=== PATIENT | female | born 1940 | race Caucasian/White ===

== ENCOUNTER 2018-07-28 11:14 | Emergency (ER) | payer OTHER ==
[2018-07-28] MEDS ORDERED: MORPHINE 2 MG/ML SYR ONE (12:26)
[2018-07-28 13:06] LABS: Absolute Lymphocytes (CBC) 1.4 K/uL (0.7-4.9); Absolute Monocytes 0.6 K/uL (0.1-1.3); Basophils % 0.8 % (0-1.3); Eosinophils % 4.1 % (0-4.4); Hematocrit 43.5 % (36.0-45.0); Lymphocytes % 17.1 % (15.3-44.8); Monocytes % 7.3 % (3.3-12.3)
--- NOTE | 2018-07-28 14:53 | EDPHYS ---
Physician Documentation [facility] Name: Fredis Diaz Age: 78 yrs Sex: Female : 1940 Arrival Date: 07/28/2018 Time: 11:16 Bed 20 Private MD: Roland Rodriguez V ED Physician Edil Lind HPI: 07/28 14:40 This 78 yrs old Female presents to ER via Wheelchair with complaints of Back kdr Pain. 14:40 The patient presents with pain that is chronic. The symptoms are located in the T7, T8 kdr and T9. Onset: The symptoms/episode began/occurred gradually. The pain does not radiate. Associated signs and symptoms: The patient has no apparent associated signs or symptoms. The problem was sustained when lifting heavy object. Modifying factors: The patient symptoms are alleviated by nothing, the patient symptoms are aggravated by any movement, bending. Severity of symptoms: At their worst the symptoms were mild, in the emergency department the symptoms are unchanged. The patient has not experienced similar symptoms in the past. The patient has been recently seen by a physician: the patient's primary care provider, The patient was sent from Dr. Rodriguez's office for further evaluation and possible transfer. Historical: - Allergies: 11:26 "something for my bladder"; aj1 - PMHx: 11:26 22 YRS AGO HAD CERVIAL CANCER; EDEMA TO LOWER EXTS; aj1 - Immunization history:: Adult Immunizations up to date. - Social history:: Smoking status: Patient/guardian denies using tobacco. - Ebola Screening: : No symptoms or risks identified at this time. ROS: 14:40 Constitutional: Negative for fever, chills, and weight loss, Eyes: Negative for injury, kdr pain, redness, and discharge, ENT: Negative for injury, pain, and discharge, Neck: Negative for injury, pain, and swelling, Cardiovascular: Negative for chest pain, palpitations, and edema, Respiratory: Negative for shortness of breath, cough, wheezing, and pleuritic chest pain, Abdomen/GI: Negative for abdominal pain, nausea, vomiting, diarrhea, and constipation, : Negative for injury, bleeding, discharge, and swelling, MS/Extremity: Negative for injury and deformity, Skin: Negative for injury, rash, and discoloration, Neuro: Negative for headache, weakness, numbness, tingling, and seizure activity. Psych: Negative for depression, anxiety, suicide ideation, homicidal ideation, and hallucinations, Allergy/Immunology: Negative for hives, rash, and allergies, Endocrine: Negative for neck swelling, polydipsia, polyuria, polyphagia, and marked weight changes, Hematologic/Lymphatic: Negative for swollen nodes, abnormal bleeding, and unusual bruising. 14:40 Back: Positive for decreased range of motion, pain at rest, pain with movement, of the T8, T9 and T10. Exam: 14:40 Constitutional: This is a well developed, well nourished patient who is awake, alert, kdr and in no acute distress. Head/Face: Normocephalic, atraumatic. Eyes: Pupils equal round and reactive to light, extra-ocular motions intact. Lids and lashes normal. Conjunctiva and sclera are non-icteric and not injected. Cornea within normal limits. Periorbital areas with no swelling, redness, or edema. Neck: Trachea midline, no thyromegaly or masses palpated, and no cervical lymphadenopathy. Supple, full range of motion without nuchal rigidity, or vertebral point tenderness. No Meningismus. Chest/axilla: Normal chest wall appearance and motion. Nontender with no deformity. No lesions are appreciated. Cardiovascular: Regular rate and rhythm with a normal S1 and S2. No gallops, murmurs, or rubs. Normal PMI, no JVD. No pulse deficits. Respiratory: Lungs have equal breath sounds bilaterally, clear to auscultation and percussion. No rales, rhonchi or wheezes noted. No increased work of breathing, no retractions or nasal flaring. Abdomen/GI: Soft, non-tender, with normal bowel sounds. No distension or tympany. No guarding or rebound. No evidence of tenderness throughout. Skin: Warm, dry with normal turgor. Normal color with no rashes, no lesions, and no evidence of cellulitis. MS/ Extremity: Pulses equal, no cyanosis. Neurovascular intact. Full, normal range of motion. Neuro: Awake and alert, GCS 15, oriented to person, place, time, and situation. Cranial nerves II-XII grossly intact. Motor strength 5/5 in all extremities. Sensory grossly intact. Cerebellar exam normal. Normal gait. Psych: Awake, alert, with orientation to person, place and time. Behavior, mood, and affect are within normal limits. Vital Signs: 11:26 BP 151 / 82; Pulse 97; Resp 18; Temp 98.3; Pulse Ox 99% on R/A; Weight 68.04 kg (R); aj1 Height 5 ft. 5 in. (165.10 cm) (R); Pain 8/10; 12:42 BP 155 / 70; Pulse 90; Resp 17; Temp 98.0(O); Pulse Ox 99% on R/A; mh5 13:49 BP 178 / 87; Pulse 92; Resp 18; Temp 97.9(O); Pulse Ox 99% on R/A; em 15:00 BP 165 / 85; Pulse 87; Resp 18; Pulse Ox 99% on R/A; Pain 9/10; em 15:55 BP 145 / 56; Pulse 78; Resp 18; Temp 98.8(O); Pulse Ox 97% on R/A; Pain 6/10; em 11:26 Body Mass Index 24.96 (68.04 kg, 165.10 cm) aj1 MDM: 14:35 Data reviewed: vital signs. ED course: have been waiting for neurosurgical consult from [facility]. Family now requests [facility]. 14:52 Patient medically screened. [facility] 07/28 12:32 Order name: CBC with Diff; Complete Time: 15:53 em 07/28 12:32 Order name: Chem 7; Complete Time: 15:53 em Administered Medications: 12:30 Drug: morphine 2 mg Route: IVP; Site: right antecubital; hb 12:53 Follow up: Response: No adverse reaction; Pain is decreased em 15:09 Drug: morphine 4 mg Route: IVP; Site: right antecubital; em 16:00 Follow up: Response: No adverse reaction; Pain is decreased em 16:24 Drug: Decadron - Dexamethasone 8 mg Route: IVP; Site: right antecubital; hb 16:35 Follow up: Response: No adverse reaction em Disposition: 07/28/18 14:52 Transfer ordered to [facility]. Diagnosis is Patholigic fracture of T8 with cord compression. - Reason for transfer: Higher level of care. - Accepting physician is David, Neurosurgery. - Condition is Fair. - Problem is an ongoing problem. - Symptoms are unchanged. Signatures: Dispatcher [employer] Lorri Zelaya RN RN aj1 Edil Lind MD MD kdr Prosper Ferguson, OBSTETRICAL NURSE OBSTETRICAL NURSE em Bev Hernandez, RN RN Corrections: (The following items were deleted from the chart) 16:42 14:52 07/28/2018 14:52 Transfer ordered to [facility]. Diagnosis is em Patholigic fracture of T8 with cord compression. Reason for transfer: Higher level of care. Accepting physician is David Neurosurgery. Condition is Fair. Problem is an ongoing problem. Symptoms are unchanged. kdr
--- NOTE | 2018-07-28 14:53 | ER ---
Nurse's Notes [facility] Name: Fredis Diaz Age: 78 yrs Sex: Female : 1940 Arrival Date: 07/28/2018 Time: 11:16 Bed 20 Private MD: Roland Rodriguez V Diagnosis: Patholigic fracture of T8 with cord compression Presentation: 07/28 11:23 Presenting complaint: Patient states: "I've had this pain in my back since April. I aj1 was trying to lift some very heavy things and then I hurt it again in May so I've been doing a lot of testing. Dr. Rodriguez said theres something by my spine, it looks like a tumor so they said they're going to send me by ambulance to [place]. Transition of care: patient was not received from another setting of care. Onset of symptoms was April 2018. Risk Assessment: Do you want to hurt yourself or someone else? Patient reports no desire to harm self or others. Initial Sepsis Screen: Does the patient meet any 2 criteria? No. Patient's initial sepsis screen is negative. Does the patient have a suspected source of infection? No. Patient's initial sepsis screen is negative. Care prior to arrival: None. 11:23 Method Of Arrival: Wheelchair aj1 11:23 Acuity: JOSE 3 aj1 Triage Assessment: 11:26 General: Appears in no apparent distress. comfortable, Behavior is calm, cooperative, aj1 appropriate for age. Pain: Complains of pain in back Pain currently is 8 out of 10 on a pain scale. Neuro: Level of Consciousness is awake, alert, obeys commands. Cardiovascular: Patient's skin is warm and dry. Respiratory: Airway is patent Respiratory effort is even, unlabored, Respiratory pattern is regular, symmetrical. Musculoskeletal: Range of motion: intact in all extremities. Historical: - Allergies: 11:26 "something for my bladder"; aj1 - PMHx: 11:26 22 YRS AGO HAD CERVIAL CANCER; EDEMA TO LOWER EXTS; aj1 - Immunization history:: Adult Immunizations up to date. - Social history:: Smoking status: Patient/guardian denies using tobacco. - Ebola Screening: : No symptoms or risks identified at this time. Screenin:58 Abuse screen: Denies threats or abuse. Nutritional screening: No deficits noted. em Tuberculosis screening: No symptoms or risk factors identified. Fall Risk None identified. Assessment: 11:58 General: Appears in no apparent distress. uncomfortable, Behavior is calm, cooperative, em anxious. Pain: Complains of pain in back Pain currently is 7 out of 10 on a pain scale. Pain began November Aggravated by repositioning, weight bearing. Neuro: Level of Consciousness is awake, alert, obeys commands, Oriented to person, place, time, situation, Denies paresthesias numbness. Cardiovascular: Patient's skin is warm and dry. Respiratory: Airway is patent Respiratory effort is even, unlabored, Respiratory pattern is regular, symmetrical. GI: Abdomen is flat. : No signs and/or symptoms were reported regarding the genitourinary system. Derm: Skin is intact, is healthy with good turgor, Skin is pink, warm \\T\\ dry. Musculoskeletal: Circulation, motion, and sensation intact. Range of motion: intact in all extremities, Denies. 12:15 Reassessment: I agree with previous assessment. hb 12:53 Reassessment: Patient appears in no apparent distress at this time. Patient and/or em family updated on plan of care and expected duration. Pain level reassessed. Patient is alert, oriented x 3, equal unlabored respirations, skin warm/dry/pink. Patient states feeling better. 14:00 Reassessment: Patient appears in no apparent distress at this time. Patient and/or em family updated on plan of care and expected duration. Pain level reassessed. Patient is alert, oriented x 3, equal unlabored respirations, skin warm/dry/pink. 15:00 Reassessment: Patient appears in no apparent distress at this time. Patient and/or em family updated on plan of care and expected duration. Pain level reassessed. Patient is alert, oriented x 3, equal unlabored respirations, skin warm/dry/pink. rates pain 9/10, provider notified, new medication orders received. 15:55 Reassessment: Patient appears in no apparent distress at this time. Patient and/or em family updated on plan of care and expected duration. Pain level reassessed. Patient is alert, oriented x 3, equal unlabored respirations, skin warm/dry/pink. rates pain 6/10 Patient states feeling better. Vital Signs: 11:26 BP 151 / 82; Pulse 97; Resp 18; Temp 98.3; Pulse Ox 99% on R/A; Weight 68.04 kg (R); aj1 Height 5 ft. 5 in. (165.10 cm) (R); Pain 8/10; 12:42 BP 155 / 70; Pulse 90; Resp 17; Temp 98.0(O); Pulse Ox 99% on R/A; mh5 13:49 BP 178 / 87; Pulse 92; Resp 18; Temp 97.9(O); Pulse Ox 99% on R/A; em 15:00 BP 165 / 85; Pulse 87; Resp 18; Pulse Ox 99% on R/A; Pain 9/10; em 15:55 BP 145 / 56; Pulse 78; Resp 18; Temp 98.8(O); Pulse Ox 97% on R/A; Pain 6/10; em 11:26 Body Mass Index 24.96 (68.04 kg, 165.10 cm) aj1 ED Course: 11:16 Patient arrived in ED. mr 11:18 Roland Rodriguez MD is Private Physician. mr 11:24 Triage completed. aj1 11:26 Arm band placed on Patient placed in an exam room. aj1 11:39 Prosper Ferguson LVN is Primary Nurse. em 11:44 Edil Lind MD is Attending Physician. kdr 11:58 Patient has correct armband on for positive identification. Placed in gown. Bed in low em position. Call light in reach. Side rails up X2. Adult w/ patient. Pulse ox on. NIBP on. 12:30 Inserted saline lock: 20 gauge in right antecubital area, using aseptic technique. em Blood collected. 13:08 called and spoke with Carmen at the [facility] for a potential transfer/ she will eb get a hold of the neurosurgeon forward air controller/air officer and call us back to consult with our ED doc. 14:30 initiated a transfer with Em at the [facility]. eb 14:47 connected the Neurosurgeon forward air controller/air officer from [facility] with ED doc for patient transfer eb consulation. 14:49 Called and cancelled consult with Carmen at the [facility] patients family request eb the patient be transferred to [facility]. 15:06 administrative approval given by Em Ross pending a bed/ [facility] has accepted the patient in transfer;. 15:30 pt going to [facility] per Em to the [facility] 17 bed [id number]/ report to eb be called to [phone]. 16:31 No provider procedures requiring assistance completed. Patient transferred, IV remains em in place. Administered Medications: 12:30 Drug: morphine 2 mg Route: IVP; Site: right antecubital; hb 12:53 Follow up: Response: No adverse reaction; Pain is decreased em 15:09 Drug: morphine 4 mg Route: IVP; Site: right antecubital; em 16:00 Follow up: Response: No adverse reaction; Pain is decreased em 16:24 Drug: Decadron - Dexamethasone 8 mg Route: IVP; Site: right antecubital; hb 16:35 Follow up: Response: No adverse reaction em Outcome: 14:52 ER care complete, transfer ordered by . kdr 16:31 Transferred by ground EMS to [facility], Transfer form completed. X-rays em sent w/ patient. 16:31 Condition: good 16:31 Instructed on the need for transfer, Demonstrated understanding of instructions. 16:42 Patient left the ED. em Signatures: Lorri Navarro RN RN Edil Garcia MD MD kdr Rivera, Mary mr Munoz, Edgar, SOURCE WATER PROTECTION SPECIALIST SOURCE WATER PROTECTION SPECIALIST em Bev Hernandez RN RN hb Martinez, Maria Franci Craven
[2018-07-28] MEDS ORDERED: MORPHINE 4 MG/ML SYR ONE (15:18)
[2018-07-28] MEDS ORDERED: DEXAMETHASONE 4 MG/ML VIAL ONE (16:28)
== END 2018-07-28 16:42 | disposition short-term general hospital (02) ==
LOC: ER 11:14
DX: M84.48XA Pathological fracture, other site, initial encounter for fracture (principal); Z85.41 Personal history of malignant neoplasm of cervix uteri; X50.0XXA Overexertion from strenuous movement or load, initial encounter
CPT/HCPCS: 36415; 80048; 85025; 96374; 96375; 99285; J2270

== ENCOUNTER 2019-10-16 01:56 | Emergency (ER) | payer OTHER ==
[2019-10-16] MEDS ORDERED: NA CHLORIDE 0.9% 1,000 ML ONE (02:23)
[2019-10-16 03:02] LABS: Albumin 3.3 g/dL (3.4-5.0); Bilirubin Direct 0.2 mg/dL (0-0.2); Bilirubin Total 0.5 mg/dL (0.2-1.0); Potassium 3.9 mmol/L (3.5-5.1); Protein, Total 6.1 g/dL (6.4-8.2)
--- NOTE | 2019-10-16 03:22 | ER ---
Nurse's Notes [facility] Name: Fredis Diaz Age: 79 yrs Sex: Female : 1940 Arrival Date: 10/16/2019 Time: 02:00 Bed 5 Private MD: Diagnosis: Dehydration Presentation: 10/15 02:11 Chief complaint: Patient states: Reports she started feeling dizzy and faint at about ea 1030 PM last night. States "I feel like I might be dehydrated, I haven't been drinking water". Coronavirus screen: Proceed with normal triage. Ebola Screen: No symptoms or risks identified at this time. Initial Sepsis Screen: Does the patient meet any 2 criteria? No. Patient's initial sepsis screen is negative. Does the patient have a suspected source of infection? No. Patient's initial sepsis screen is negative. Risk Assessment: Do you want to hurt yourself or someone else? Patient reports no desire to harm self or others. Onset of symptoms was October 16, 2019. 02:11 Method Of Arrival: Wheelchair ea 02:11 Acuity: JOSE 3 ea Historical: - Allergies: 02:15 "something for my bladder"; ea - PMHx: 02:15 EDEMA TO LOWER EXTS; 22 YRS AGO HAD CERVIAL CANCER; lymphoma; ea - Immunization history:: Adult Immunizations unknown. - Social history:: Patient/guardian denies using alcohol, street drugs, The patient lives with family, Smoking status: Patient denies any tobacco usage or history of. - Family history:: not pertinent. Screenin:13 Abuse screen: Denies threats or abuse. Nutritional screening: No deficits noted. ea Tuberculosis screening: No symptoms or risk factors identified. Fall Risk IV access (20 points). Assessment: 02:20 General: Appears in no apparent distress. Behavior is calm, cooperative, appropriate ea for age. Pain: Denies pain. Neuro: Level of Consciousness is awake, alert, obeys commands, Oriented to person, place, time, situation. Cardiovascular: Cardiovascular: Patient's skin is warm and dry. Respiratory: Airway is patent Respiratory effort is even, unlabored, Respiratory pattern is regular, symmetrical. Derm: Skin is pink, warm \\T\\ dry. 03:32 Reassessment: Patient and/or family updated on plan of care and expected duration. Pain ea level reassessed. Patient is alert, oriented x 3, equal unlabored respirations, skin warm/dry/pink. Discharge instruction given to patient, verbalized the understanding of instructions. Vital Signs: 02:11 Weight 63.5 kg; Height 5 ft. 8 in. (172.72 cm); ea 02:15 BP 171 / 86; Pulse 88; Resp 16; Pulse Ox 97% on R/A; ea 03:34 BP 142 / 69; Pulse 77; Resp 17; Temp 98; Pulse Ox 96% on R/A; rv 02:11 Body Mass Index 21.29 (63.50 kg, 172.72 cm) ea ED Course: 02:00 Patient arrived in ED. cl3 02:02 Brad Jeter RN is Primary Nurse. rv 02:06 Negin Gilliland MD is Attending Physician. ma2 02:13 Triage completed. ea 02:13 Patient has correct armband on for positive identification. Placed in gown. Bed in low ea position. Call light in reach. Side rails up X2. 02:14 Arm band placed on right wrist. Patient placed in an exam room, on a stretcher, on ea pulse oximetry. 02:16 Initial lab(s) drawn, by ne, sent to lab. Inserted saline lock: 18 gauge in right rv forearm, using aseptic technique. Blood collected. 02:16 EKG done, by ED staff, reviewed by Negin Gilliland MD. rv 03:34 IV discontinued, intact, bleeding controlled, No redness/swelling at site. Pressure rv dressing applied. 03:36 No provider procedures requiring assistance completed. rv Administered Medications: 02:30 Drug: NS 0.9% 1000 ml Route: IV; Rate: 1 bolus; Site: right forearm; rv 03:36 Follow up: IV Status: Completed infusion; IV Intake: 1000ml rv Intake: 03:36 IV: 1000ml; Total: 1000ml. rv Outcome: 03:21 Discharge ordered by . ma2 03:36 Discharged to home ambulatory. rv 03:36 Condition: improved 03:36 Discharge instructions given to patient, Instructed on discharge instructions, follow up and referral plans. Demonstrated understanding of instructions, follow-up care. 03:36 Patient left the ED. rv Signatures: Maggie Johnson RN RN ea Alzahri, Mohammad, MD MD ma2 Brad Jeter, RN RN osiris Alcantara, Kristel cl3
--- NOTE | 2019-10-16 03:22 | EDPHYS ---
Physician Documentation [facility] Name: Fredis Diaz Age: 79 yrs Sex: Female : 1940 Arrival Date: 10/16/2019 Time: 02:00 Bed 5 Private MD: ED Physician Negin Gilliland HPI: 10/15 03:20 This 79 yrs old Female presents to ER via Wheelchair with complaints of ma2 Dizziness. 03:20 The patient presents with lightheadedness. Onset: The symptoms/episode began/occurred ma2 gradually, 1 week(s) ago. Associated signs and symptoms: Pertinent negatives: agitation, blurred vision, diaphoresis, head injury, headache, palpitations, , seizure, syncope. Severity of symptoms: At their worst the symptoms were very mild in the emergency department the symptoms are unchanged. The patient has experienced similar episodes in the past. Historical: - Allergies: 02:15 "something for my bladder"; ea - PMHx: 02:15 EDEMA TO LOWER EXTS; 22 YRS AGO HAD CERVIAL CANCER; lymphoma; ea - Immunization history:: Adult Immunizations unknown. - Social history:: Patient/guardian denies using alcohol, street drugs, The patient lives with family, Smoking status: Patient denies any tobacco usage or history of. - Family history:: not pertinent. ROS: 03:20 Constitutional: Negative for fever, chills, and weight loss. ma2 03:20 All other systems are negative. Exam: 03:20 Constitutional: This is a well developed, well nourished patient who is awake, alert, ma2 and in no acute distress. Head/Face: Normocephalic, atraumatic. Eyes: Pupils equal round and reactive to light, extra-ocular motions intact. Lids and lashes normal. Conjunctiva and sclera are non-icteric and not injected. Cornea within normal limits. Periorbital areas with no swelling, redness, or edema. ENT: Nares patent. No nasal discharge, no septal abnormalities noted. Tympanic membranes are normal and external auditory canals are clear. Oropharynx with no redness, swelling, or masses, exudates, or evidence of obstruction, uvula midline. Mucous membranes moist. Neck: Trachea midline, no thyromegaly or masses palpated, and no cervical lymphadenopathy. Supple, full range of motion without nuchal rigidity, or vertebral point tenderness. No Meningismus. Chest/axilla: Normal chest wall appearance and motion. Nontender with no deformity. No lesions are appreciated. Cardiovascular: Regular rate and rhythm with a normal S1 and S2. No gallops, murmurs, or rubs. Normal PMI, no JVD. No pulse deficits. Respiratory: Lungs have equal breath sounds bilaterally, clear to auscultation and percussion. No rales, rhonchi or wheezes noted. No increased work of breathing, no retractions or nasal flaring. Abdomen/GI: Soft, non-tender, with normal bowel sounds. No distension or tympany. No guarding or rebound. No evidence of tenderness throughout. Neuro: Awake and alert, GCS 15, oriented to person, place, time, and situation. Cranial nerves II-XII grossly intact. Motor strength 5/5 in all extremities. Sensory grossly intact. Cerebellar exam normal. Normal gait. Vital Signs: 02:11 Weight 63.5 kg; Height 5 ft. 8 in. (172.72 cm); ea 02:15 BP 171 / 86; Pulse 88; Resp 16; Pulse Ox 97% on R/A; ea 03:34 BP 142 / 69; Pulse 77; Resp 17; Temp 98; Pulse Ox 96% on R/A; rv 02:11 Body Mass Index 21.29 (63.50 kg, 172.72 cm) ea MDM: 02:06 Patient medically screened. ma2 03:20 Differential diagnosis: generalized weakness, hypovolemia, near-syncope, vertigo. Data ma2 reviewed: vital signs, nurses notes. Counseling: I had a detailed discussion with the patient and/or guardian regarding: the historical points, exam findings, and any diagnostic results supporting the discharge/admit diagnosis, the presence of at least one elevated blood pressure reading (>120/80) during this emergency department visit, the need for outpatient follow up. Response to treatment: the patient's symptoms have markedly improved after treatment. 10/15 02:15 Order name: Basic Metabolic Panel; Complete Time: 03:16 ma2 10/15 02:15 Order name: Creatinine for Radiology; Complete Time: 03:16 ma2 10/15 02:15 Order name: Hepatic Function; Complete Time: 03:16 ma2 10/15 02:15 Order name: Lipase; Complete Time: 03:16 [facility] 10/15 02:28 Order name: Glucose, Ancillary Testing; Complete Time: 03:16 [facility] 10/15 02:15 Order name: IV Saline Lock; Complete Time: 02:16 [facility] 10/15 02:15 Order name: Labs collected and sent; Complete Time: 02:16 [facility] Administered Medications: 02:30 Drug: NS 0.9% 1000 ml Route: IV; Rate: 1 bolus; Site: right forearm; rv 03:36 Follow up: IV Status: Completed infusion; IV Intake: 1000ml rv Disposition: 10/16/19 03:21 Discharged to Home. Impression: Dehydration. - Condition is Stable. - Discharge Instructions: Dehydration, Adult. - Medication Reconciliation Form, Thank You Letter, Antibiotic Education, Prescription Opioid Use form. - Follow up: Private Physician; When: Today; Reason: Continuance of care. Signatures: Dispatcher [employer] Maggie Newman RN RN ea Alzahri, Mohammad, MD MD [facility] Brad Jeter RN RN rv Corrections: (The following items were deleted from the chart) 03:36 03:21 10/16/2019 03:21 Discharged to Home. Impression: Dehydration. Condition is rv Stable. Forms are Medication Reconciliation Form, Thank You Letter, Antibiotic Education, Prescription Opioid Use. Follow up: Private Physician; When: Today; Reason: Continuance of care. pr2
[2019-10-16 03:44] VITALS: BP 142/69; TEMP 98; O2SAT 96
--- NOTE | 2019-10-16 16:13 | EKG ---
Test Date: 2019-10-16 Test Time: 02:14:28 Hooker Operator: KAREN MEASUREMENT RESULTS: Intervals: Rate: 87 AR: 154 QRSD: 90 QT: 364 QTc: 438 [place]: P: 46 AR: 154 QRS: 40 T: 53 INTERPRETIVE STATEMENTS: Normal sinus rhythm Normal ECG Compared to ECG 03/26/2016 21:45:54 Sinus arrhythmia no longer present Electronically Signed On 10-16-19 16:13:00 CDT by Carlos Leiva
== END 2019-10-16 03:36 | disposition home or self-care (01) ==
LOC: ER 01:56
DX: E86.0 Dehydration (principal); Z85.41 Personal history of malignant neoplasm of cervix uteri; Z85.72 Personal history of non-Hodgkin lymphomas
CPT/HCPCS: 93005; 80048; 82947; 80076; 83690; J7030

== ENCOUNTER 2020-04-26 15:19 | Emergency (ER) | payer OTHER ==
--- OUTSIDE RECORDS SUMMARY | 2020-04-26 15:20 | XMS REPORT | Clinical Summary ---
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 Never 07/28/2018 How many drinks containing alcohol do you have on a typical Not asked day when you are drinking? How often do you have six or more drinks on one occasion? No t asked Sex Assigned at Date Recorded Not on file Last Filed Vital Signs Not on file Plan of Treatment Health Maintenance Due Date Last Done Comments SHINGLES VACCINES (#1) 1992 65+ PNEUMOCOCCAL VACCINE (1 of 1 - PPSV23) 2007 INFLUENZA VACCINE 01/26/2020 Implants Implanted Type Area Human Resources Records Clerk Device Shelf Model / Identifier Expiration Serial / Date Lot Tray Bpsy Sys Oncontrol 152mm - [id number] Surgical VIDACAR E ASYA [id number] / Implanted: Qty: 1 on 07/31/2018 at [facility] Implants; / Expanders; Extenders; Surgical Wires Results Not on fileafter 04/26/2019 Insurance Payer Benefit Plan / Subscriber ID Effective Dates Phone Addre ss Type Group MEDICARE MEDICARE PART A AND [id number] 2007-Fareed [place] Medicare B t RENATA YANEZ [facility] [id number] 2017-Fareed day Advance Directives For more information, please contact: [phone] Type Date Recorded Patient Side Panel Padder Explanati on Advance Directives, Living Will and Medical Power of Software Support Technician
--- OUTSIDE RECORDS SUMMARY | 2020-04-26 15:21 | XMS REPORT | Summary of Care ---
:1940 Author Organization [facility] - [facility] Address [address] [place] [address] Care Team Providers Name Role Phone David Jones Primary Care Provider Reason for Visit Reason Comments LAB WORK Auth/Cert Status Reason Specialty Diagnoses / Referred By Referred To Procedures Contact Contact Clinical Medical Diagnoses covid screening Adc Lab Laboratory Procedures COVID-19 (ID NOW RAPID TESTING) COVID-19 (ID NOW RAPID TESTING) [[id number]] [address] [place] [address] Encounter Details Date Type Department Care Team Description 03/25/2020 Laboratory Only [facility] Francis Navarro MD [address] [place] [phone] Pre-operative Phlebotomy Only, [facility] Test clearance (Primary Lab-[place]x) [address] [place] [address] Allergies No Known Allergiesdocumented as of this encounter (statuses as of 03/25/2020) Medications Medication Sig Dispensed Refills Start Date End Date Status multivitamin with Take by mouth. 0 Active minerals (MULTI-VIT 55 PLUS ORAL) mirabegron (MYRBETRIQ Take 25 mg by 0 Active ORAL) mouth. multivit-min/iron/folic/ Take by mouth. 0 Active lutein (CENTRUM SILVER WOMEN ORAL) vitamin B complex/folic Take by mouth. 0 Active acid (B COMPLEX 100 ORAL) apixaban (ELIQUIS ORAL) Take by mouth. 0 Active documented as of this encounter (statuses as of 03/25/2020) Active Problems Not on filedocumented as of this encounter (statuses as of 03/25/2020) Social History Tobacco Use Types Packs/Day Years Used Date Never Smoker Smokeless Tobacco: Never Used Sex Assigned at Date Recorded Not on file COVID-19 Exposure Response Date Recorded In the last month, have you been in contact with No / Unsure 03/21/2020 11:30 AM CDT someone who was confirmed or suspected to have Coronavirus / COVID-19? documented as of this encounter Last Filed Vital Signs Not on filedocumented in this encounter Nursing Notes Sherine Avendano - 03/25/2020 9:45 AM CDTcovid documented in this encounter Plan of Treatment Date Type Specialty Care Team Description 03/26/2020 Hospital Encounter Surgery Francis Navarro MD [address] [place] [facility] [phone] 03/26/2020 Anesthesia Event Surgery Jeri Gonzalez, TRAILER PARK MANAGER [address] [place] [address] [phone] 03/26/2020 Surgery Surgery Francis Navarro PHACOEMULSI FICATION OF MD Mercedes CATARACT WITH INTRAOCULAR [address] [facility] [address] [phone] Name Type Priority Associated Diagnoses Order S yang COVID-19 (ID NOW RAPID LAB Routine Pre-operative mario dykes Expected: 03/25/2020, TESTING) Expires: 2020 Health Maintenance Due Date Last Done Comments Depression Screening 1954 DTaP,Tdap,and Td Vaccines (1 - Tdap) 1961 Zoster Recombinant Vaccine (SHINGRIX) (1 of 2) 1992 Medicare Wellness Visit 2007 Osteoporosis Screening 2007 PNEUMOCOCCAL VACCINES 65+ (1 of 1 - PPSV23) 2007 INFLUENZA VACCINE (#1) 2020 documented as of this encounter Results Not on filedocumented in this encounter Visit Diagnoses Diagnosis Pre-operative clearance - Primary Preoperative examination, unspecified 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 Medicare & B t 82 [id number] [place] [address] AETNA AETNA INDEMNITY [id number] 2017-Fareed day documented as of this encounter
--- OUTSIDE RECORDS SUMMARY | 2020-04-26 15:21 | XMS REPORT | Summary of Care ---
:1940 Author Organization [facility] - [facility] Address [address] [place] [address] Care Team Providers Name Role Phone David Jones Primary Care Provider Reason for Visit Reason Comments LAB WORK Auth/Cert Status Reason Specialty Diagnoses / Referred By Referred To Procedures Contact Contact Clinical Medical Diagnoses covid Adc Lab Laboratory Procedures COVID-19 (ID NOW RAPID TESTING) COVID-19 (ID NOW RAPID TESTING) [[id number]] [address] [place] [address] Encounter Details Date Type Department Care Team Description 04/08/[address] Laboratory [address] [facility] Francis Navarro MD [address] [place] [phone] Pre-operative Phlebotomy Only, [facility] Test clearance (Primary Lab-[place]x) [address] [place] [address] Allergies No Known Allergiesdocumented as of this encounter (statuses as of 04/08/2020) Medications Medication Sig Dispensed Refills Start Date [...] as of this encounter (statuses as of 04/08/2020) Active Problems Not on filedocumented as of this encounter (statuses as of 04/08/2020) Social History Tobacco Use Types Packs/Day Years Used Date Never Smoker Smokeless Tobacco: Never Used Sex Assigned at Date Recorded Not on file COVID-19 Exposure Response Date Recorded In the last month, have you been in contact with No / Unsure 04/08/2020 9:19 AM CDT someone who was confirmed or suspected to have Coronavirus / COVID-19? documented as of this encounter Last Filed Vital Signs Not on filedocumented in this encounter Plan of Treatment Date Type Specialty Care Team Description 04/09/2020 Hospital Encounter Surgery Francis Navarro MD [address] [place] [address] 04/09/2020 Anesthesia Event Surgery Shankar Resendez C [address] [phone] 04/09/2020 Surgery Surgery Francis Navarro PHACOEMULSI FICATION OF MD Mercedes CATARACT WITH INTRAOCULAR [address] [place] [address] [phone] Name Type Priority Associated Diagnoses Date/Ti me COVID-19 (ID NOW RAPID LAB Routine Pre-operative mario jania 04/08/2020 9:26 AM CDT TESTING) Name Type Priority Associated Diagnoses Order S chedule COVID-19 (ID NOW RAPID LAB Routine Pre-operative mario jania Expected: 04/08/2020, TESTING) Expires: 2020 Health Maintenance Due Date Last Done Comments DTaP,Tdap,and Td Vaccines (1 - Tdap) 1961 Zoster Recombinant Vaccine (SHINGRIX) (1 of 2) 1992 Medicare Wellness Visit 2007 Osteoporosis Screening 2007 PNEUMOCOCCAL VACCINES 65+ (1 of 1 - PPSV23) 2007 INFLUENZA VACCINE (#1) 2020 Depression Screening 03/26/2021 03/26/2020 documented as of this encounter Implants Implanted Type Area Yard Hostler Device Shelf Model / Identifier Expiration Date Ser ial / Lot Lens, Nagi #[id number] - [id number] LENS Right: Nagi 03/26/2024 [id number] / Implanted: Qty: 1 on 03/26/2020 by Francis Muro MD at [facility] Eye 1 [id number] / N/A documented as of this encounter Results Not on filedocumented in this encounter Visit Diagnoses Diagnosis Pre-operative clearance - Primary Preoperative examination, unspecified Combined forms of age-related cataract o f left eye Other and combined forms of senile catar act documented in this encounter Additional Health Concerns Infection Onset Date Last Indicated Resolved Time COVID-19 Rule Out 04/08/2020 04/08/2020 documented as of this encounter Insurance Payer Benefit Plan / Subscriber ID Effective Dates Phone Addre ss Type Group MEDICARE MEDICARE PART A [id number] 2007-Fareed [phone] [address] Medicare & B t 82 [id number] [place] [address] AETNA AETNA INDEMNITY [id number] 2017-Fareed [place] t documented as of this encounter
--- OUTSIDE RECORDS SUMMARY | 2020-04-26 15:21 | XMS REPORT | Summary of Care ---
:1940 Author Organization [facility] - [facility] Address [address] [place] [address] Care Team Providers Name Role Phone David Jones Primary Care Provider Reason for Visit Auth/Cert Status Reason Specialty Diagnoses / Procedures Referred By David ontact Referred To Contact Surgery Diagnoses Combined forms of age-related cataract, right eye H25.811 (ICD-10-CM) - Combined forms of age-related cataract, right eye Adc Pre/Pacu/Post Procedures [place] XCAPSL CTRC RMVL INSJ IO LENS PROSTH W/O ECP 10249 - [place] XCAPSL CTRC RMVL INSJ IO LENS PROSTH W/O ECP [address] [place], [place] [address] Phone: Fax: Encounter Details Date Type Department Care Team Description 03/26/[address] [facility] [address] [facility] [address] smith [address] [place] [address] [place] [address] [employer] [place] [employer] [place] [phone] Allergies No Known Allergiesdocumented as of this encounter (statuses as of 03/26/2020) Medications Medication Sig Dispensed Refills Start Date [...] as of this encounter (statuses as of 03/26/2020) Active Problems Not on filedocumented as of this encounter (statuses as of 03/26/2020) Social History Tobacco Use Types Packs/Day Years Used Date Never Smoker Smokeless Tobacco: Never Used Sex Assigned at Date Recorded Not on file COVID-19 Exposure Response Date Recorded In the last month, have you been in contact with No / Unsure 03/26/2020 10:12 AM CDT someone who was confirmed or suspected to have Coronavirus / COVID-19? documented as of this encounter Last Filed Vital Signs Vital Sign Reading Time Taken Comments Blood Pressure 159/72 03/26/2020 12:40 PM CDT Pulse 75 03/26/2020 12:40 PM CDT Temperature 36.7 C (98.1 F) 03/26/2020 12:40 PM CDT Respiratory Rate 19 03/26/2020 12:40 PM CDT Oxygen Saturation 94% 03/26/2020 12:40 PM CDT Inhaled Oxygen Concentration - - Weight 64.9 kg (143 lb 1.3 oz) 03/24/2020 12:16 PM CDT Height 165.1 cm (5' 5") 03/24/2020 12:16 PM CDT Body Mass Index 23.81 03/24/2020 12:16 PM CDT documented in this encounter Discharge Instructions InstructionsMarJose dodge RN - 03/26/2020Procedure: Phacoemulsification with intraocular lens implant Dr. Navarro Post Operative Cataract Instructions: ? With phacoemulsification and foldable lens implants, surgical incisions are very small and suturesmay not be necessary. ? Tape the eye shield on the operative eye on the day of surgery and whenever you nap or sleep at night for 1 week. ? The eye will be more comfortable if you wear protective sunglasses while outside. ? Do not lay on the operative side and put unnecessary pressure on the eye. ? It is okay to take Tylenol if needed for pain. Call your doctor if there is any undue eye discomfort. ? You may resume your normal diet and medications. ? You may experience a scratchy/ itchy sensation in the eye for a couple of days. Let the eye waternaturally and avoid rubbing or pressing on the eye. ? You may wear the eye shield over the operative eye while showering or bathing as a reminder not torub the eye. ? Your vision may be foggy or fluctuate in the early postoperative period. This is normal and generally will clear up in a few days. ? Limit your activities to light duty for the first week after surgery. Avoid any activity that puts pressure on the eye No pushing, pulling, bending at the waist, lifting, straining, jogging, running or swimming. You may watch TV, read or use the computer but you may find that this tires your eyes easily. ? You may gently clean your eyelids of debris or discharge with tissue and water if needed. Please remember to be gentle with your eye it has a lens implant in it! ? Please notify your doctor if you have any significant change to your vision or significant eye pain. ? Your follow-up appointment should be the following day after your surgery. What are some reasons I should contact the doctor? ? Nausea, vomiting and fatigue may occur for a few hours after surgery. If this lasts more than 12 hours, contact your doctor. ? Vision Loss ? Pain that persists despite the use of enja-gwa-qorgpkk pain medications ? Increase eye redness ? Light flashes or multiple spots (floaters) in front of your eye Contact Information After Hours: [facility] Access Line [phone] General Surgical Discharge Instructions: ? The medication that was used will be acting in your system for the next 24 hours, so you might feel a little drowsy, with impaired judgment and/ or motor function. This feeling should wear off. Because the medication is still in your system for the next 24 hours you SHOULD NOT: o Drive a car, operate machinery or power tools. o Drink any alcoholic beverages. o Make any important decisions or sign any legal documents. ? You should rest the remainder of the day and not engage in any physical activity. YOU ARE RESPONSIBLE FOR HAVING SOMEONE AT HOME WITH YOU DURING THE AFTERNOON AND NIGHT IMMEDIATELY FOLLOWING YOUR SURGERY. Patients should cough and deep breathe every 2-4 hours while awake to avoid respiratory complications. ? Because the medications used could produce some residual nausea and vomiting after you go home, you should eat lightly today, starting with clear liquids (broth, soft drinks, apple juice, jello) and toast or crackers, progressing to your normal diet as tolerated. If you get sick, wait a couple of hours and then begin to eat. After 24 hours the nausea should be gone. If your nausea persists, callyour physician. ? You may experience some pain and your physician will advise you on what to take for discomfort. This should be taken as directed. If the pain is not relieved, contact your physician. You may also have a sore throat from the airway/ breathing tube that was in place. You may use lozenges, throat spray (Chloraseptic), or warm salt water gargles for symptomatic relief. ? If you are unable to urinate within five hours after your procedure, call your physician. ? The type of surgery performed will determine how much bleeding (if any) to expect. Normally, somespotting might occur. If your dressing pad become saturated, notify your physician. Elevate surgical site, if applicable, to reduce swelling and pain. ? Preventing a surgical site infection: o Dont smoke. It is best to quit at least 30 days before surgery, but quitting after surgery is also helpful. o If you are a diabetic, keep your blood sugar well controlled. WASH YOUR HANDS. o Keep your wound clean and remember to wash your hands before and after contact with the area. o Call your doctor if you have signs of infection: ? increased tenderness at the surgical site ? red streaks or increased redness of the area ? bad-smelling discharge from the incision ? fever of 101 or higher TOBACCO AVOIDANCE Exposure to tobacco either from smoking or from second hand (environmental)smoke or smokeless tobacco (snuff) is damaging to your health. This information is to encourage everyone to avoid tobacco exposure. It is recommended that you: If you smoke or use smokeless tobacco, we encourage you to quit. If you have already quit smoking, continue your good work! If you do not smoke or use smokeless tobacco, do not start. Avoid secondhand smoke. Additional Resources: You may want to contact these organizations for further information on smoking and how to quit- [place] [employer] - http://www.lungusa.org/stop-smoking/ [place] [employer] - http://www.cancer.org/Healthy/StayAwayfromTobacco/index [place] [employer] - http://www.heart.org/HEARTORG/GettingHealthy/QuitSmoking/Quit-Smoking _[facility]_001085_SubHomePage.jsp documented in this encounter H&P Notes Francis Navarro MD - 03/26/2020 11:54 AM CDTH&P Update H&P was reviewed and the patient was examined and there was no change in the patient's condition. documented in this encounter Plan of Treatment Health Maintenance Due Date Last Done Comments DTaP,Tdap,and Td Vaccines (1 - Tdap) 1961 Zoster Recombinant Vaccine (SHINGRIX) (1 of 2) 1992 Medicare Wellness Visit 2007 Osteoporosis Screening 2007 PNEUMOCOCCAL VACCINES 65+ (1 of 1 - PPSV23) 2007 INFLUENZA VACCINE (#1) 2020 Depression Screening 03/26/2021 03/26/2020 documented as of this encounter Implants Implanted Type Area Auto Job Estimator Device Shelf Model / Identifier Expiration Date Ser ial / Lot Lens, Nagi #[id number] - [id number] LENS Right: Nagi 03/26/2024 [id number] / Implanted: Qty: 1 on 03/26/2020 by Francis Muro MD at [facility] Eye 1 [id number] / N/A documented as of this encounter Results Not on filedocumented in this encounter Visit Diagnoses Diagnosis Cataract, nuclear sclerotic senile, righ t - Primary documented in this encounter Administered Medications Medication Order MAR Action Action Date Dose Rate Site balanced salt irrig soln comb1 Given 03/26/2020 12:12 PM CDT 500 mL (BSS PLUS) ophthalmic solution 500 mL bag PRN, Starting 03/26/20 at 1212, Until Discontinued, Routine, Intra-op carbachoL (MIOSTAT) 0.01 % intraocular Given 03/26/2020 12:15 PM CDT 1.5 mL injection PRN, Starting Tue03/26/20 at 1215, Until Discontinued, Routine, Intra-op ceFAZolin (ANCEF) injection Given 03/26/2020 12:15 PM CDT 0.02 mg Righ t Eye PRN, Starting Tue03/26/20 at 1215, Until Discontinued, NATALYA, Intra-op dexamethasone (DECADRON PHOSPHATE) Given 03/26/2020 12:15 PM CDT 0.3 mL Right Eye injection PRN, Starting Tue03/26/20 at 1215, Until Discontinued, Routine, Intra-op DUOVISC (DUOVISC VISCO ELASTIC) 3 %-4 %(0.5 Given 03/26/2020 12:16 PM CDT 1 Kit mL) 1 % (0.55 mL) intraocular injection PRN, Starting Tue03/26/20 at 1216, Until Discontinued, Routine, Intra-op EPINEPHrine 1:1,000 (1 mg/mL) Given 03/26/2020 12:13 PM CDT 0.5 mL Right Eye (ADRENALIN) injection PRN, Starting Tue03/26/20 at 1213, Until Discontinued, Routine, Intra-op eye block syringe 11 mL Given 03/26/2020 12:01 PM CDT 7 mL PRN, Starting Tue03/26/20 at 1201, Until Discontinued, Intra-op gentamicin injection Given 03/26/2020 12:16 PM CDT 0.2 mL Righ t Eye PRN, Starting Tue03/26/20 at 1216, Until Discontinued, NATALYA, Intra-op Hyaluronidase, Human Recomb. Given 03/26/2020 12:01 PM CDT 150 U nits Right Eye (HYLENEX) injection PRN, Starting Tue03/26/20 at 1201, Until Discontinued, Routine, Intra-op lactated ringers IV infusion 1,000 mL at 42 mL/hr, 1,000 mL, IV Infusion, CONT INUOUS, Starting Tue03/26/20 at 1300, Until Discontinued, Routine, PACU bmzqrecv-xvwohunus-amatbnppnbxnc (MAXITROL) Given 02/27 12:18 PM 0.5 Inches 3.5 mg/g-10,000 unit/g-0.1 % ophthalmic CDT ointment PRN, Starting Tue03/26/20 at 1218, Until Discontinued, Routine, Intra-op sodium chloride (NS) injection Given 03/26/2020 12:15 PM CDT 10 mL Righ t Eye PRN, Starting Tue03/26/20 at 1215, Until Discontinued, Routine, Intra-op water for irrigation irrigation Given 03/26/2020 11:53 AM CDT 30 mL Right Eye solution PRN, Starting Tue03/26/20 at 1153, Until Discontinued, Routine, Intra-op Medication Order MAR Action Action Date Dose Rate Site lactated ringers IV infusion New Bag 03/26/2020 10:17 AM CDT 1,000 mL 50 mL/hr 500 mL at 50 mL/hr, 500 mL, IV Infusion, ONCE, 1 dose, Tue03/26/20 at 1015, Routine, DSU Pre-op mydriatic #5 ophthalmic solution 0.5 mL Given 03/26/2020 10:17 A M CDT 0.5 mL syringe 0.5 mL, Right Eye, ONCE, 1 dose, Tue03/26/20 at 1100, Routine, DSU Pre-op documented in this encounter Insurance Payer Benefit Plan / Subscriber ID Effective Dates Phone Addre ss Type Group MEDICARE MEDICARE PART A [id number] 2007-Fareed [phone] [address] Medicare & B t 82 [id number] [place] [phone] AETNA AETNA INDEMNITY [id number] 2017-Fareed day documented as of this encounter
--- OUTSIDE RECORDS SUMMARY | 2020-04-26 15:21 | XMS REPORT | Summary of Care ---
:1940 Author Organization [facility] Address [address] [place] [address] Care Team Providers Name Role Phone David Jones Primary Care Provider Reason for Visit Reason Comments LAB WORK Auth/Cert Status Reason Specialty Diagnoses / Procedures Referred By David ontact Referred To Contact Phlebotomy Diagnoses Combined forms of age-related cataract, right eye H25.811 (ICD-10-CM) - Combined forms of age-related cataract, right eye Adc Pob Lab Draw Procedures CBC WITH DIFF COMP. 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 Visit [facility] Dm Navarro MD [address] [place] [address] [facility] [place] [address] Pre-operative Professional Office Pob, Adc Lab Main clearance (Primary Building Phlebotomy Dx) Lab Professional Office Building [address] [place] [address] , [address] [place] [address] Allergies Not on Filedocumented as of this encounter (statuses as of 03/21/2020) Medications Not on filedocumented as of this encounter (statuses as of 03/21/2020) Active Problems Not on filedocumented as of this encounter (statuses as of 03/21/2020) Social History Tobacco Use Types Packs/Day Years Used Date Never Assessed Sex Assigned at Date Recorded Not on file COVID-19 Exposure Response Date Recorded In the last month, have you been in contact with No / Unsure 03/21/2020 11:30 AM CDT someone who was confirmed or suspected to have Coronavirus / COVID-19? documented as of this encounter Last Filed Vital Signs Not on filedocumented in this encounter Nursing Notes Sherine Avendano - 03/21/2020 10:15 AM CDT Venipuncture collection performed by clean technique on the left hand. Total of 2 attempts were made. Slight pressure and a bandage/dressing were applied to the site(s). The patient experienced no complications. The following specimens were processed according to instructions and sent to [facility] laboratories per lab order on 03/21/20: LT BLUE 1 SST RED 1 LAV PPT DK GREEN (LiHep) DK GREEN (SodH) DILLARD DK BLUE (K2) DK BLUE (S) ACD Blood Culture NIPT/NTD documented in this encounter Plan of Treatment Date Type Specialty Care Team Description 03/25/2020 Laboratory Only Clinical Medical Dm Navarro MD [address] [place] [address] [place] [phone] Laboratory Only, Adc Test 03/26/2020 Hospital Surgery Ramno, Encounter Francis Long MD [address] [place] [address] [place] [phone] 03/26/2020 Anesthesia Event Surgery Jeri Gonzalez, RADIATOR SPECIALIST [address] [place] [address] [id number] 03/26/2020 Surgery Surgery Ramon PHACOEMULSIFICA TION OF Francis Long MD CATARACT WITH INTRAOCULAR [address] [place] [address] [place] [address] Name Type Priority Associated Diagnoses Date/Ti me CBC WITH DIFF LAB Routine Pre-operative clearance 11:54 AM CDT COMP. METABOLIC PANEL LAB Routine Pre-operative clear ance 03/21/2020 11:54 AM CDT ([id number]) Name Type Priority Associated Diagnoses Order S chedule CBC WITH DIFF LAB Routine Pre-operative clearance Exp ected: 03/21/2020, Expires: 2020 COMP. METABOLIC PANEL LAB Routine Pre-operative clear ance Expected: 03/21/2020, ([id number]) Expires: 2020 Health Maintenance Due Date Last [...] senile catar act documented in this encounter Insurance Payer Benefit Plan / Subscriber ID Effective Dates Phone Addre ss Type Group MEDICARE MEDICARE PART A [id number] 2007-Fareed [phone] Medicare & B t 82 [id number] [place] [address] AETNA AETNA INDEMNITY [id number] 2017-Fareed Indemberlin t documented as of this encounter
--- OUTSIDE RECORDS SUMMARY | 2020-04-26 15:21 | XMS REPORT | Summary of Care ---
:1940 Author Organization [facility] - Health Address [address] [place] [address] Care Team Providers Name Role Phone David Jones Primary Care Provider Reason for Visit Auth/Cert Status Reason Specialty Diagnoses / Procedures Referred By David ontact Referred To Contact Surgery Diagnoses Combined forms of age-related cataract, left eye Combined forms of age-related cataract of left eye [H25.812] Adc Pre/Pacu/Post Procedures [facility] CODING HELP SC XCAPSL CTRC RMVL INSJ IO LENS PROSTH W/O ECP PHACOEMULSIFICATION OF CATARACT WITH INTRAOCULAR LENS IMPLANT 83079 - SC XCAPSL CTRC RMVL INSJ IO LENS PROSTH W/O ECP [address] [place], [place] [address] Phone: Fax: Encounter Details Date Type Department Care Team Description 04/09/2020 Anesthesia [facility] Santos Silva MD [address] [facility] [id number] [place], [place] [phone] [facility] Shankar Resendez CRNA [address] [place] [phone] [address] [place] [address] [address] [place], [place] [address] Allergies No Known Allergiesdocumented as of this encounter (statuses as of 04/09/2020) Medications Medication Sig Dispensed Refills Start Date End Date Status multivitamin with Take by 0 Catalan spended minerals (MULTI-VIT 55 mouth. PLUS ORAL) mirabegron (MYRBETRIQ Take 25 mg by 0 Suspended ORAL) mouth. multivit-min/iron/folic Take by 0 Suspended /lutein (CENTRUM SILVER mouth. WOMEN ORAL) vitamin B complex/folic Take by 0 Suspended acid (B COMPLEX 100 mouth. ORAL) apixaban (ELIQUIS ORAL) Take by 0 Suspended mouth. documented as of this encounter (statuses as of 04/09/2020) Active Problems Not on filedocumented as of this encounter (statuses as of 04/09/2020) Social History Tobacco Use Types Packs/Day Years Used Date Never Smoker Smokeless Tobacco: Never Used Sex Assigned at Date Recorded Not on file COVID-19 Exposure Response Date Recorded In the last month, have you been in contact with No / Unsure 04/08/2020 9:54 AM CDT someone who was confirmed or suspected to have Coronavirus / COVID-19? documented as of this encounter Last Filed Vital Signs Vital Sign Reading Time Taken Comments Blood Pressure - - Pulse - - Temperature - - Respiratory Rate 16 04/09/2020 11:29 AM CDT Oxygen Saturation - - Inhaled Oxygen Concentration - - Weight - - Height - - Body Mass Index - - documented in this encounter OR Notes Anesthesia Postprocedure Evaluation - Leandra Duarte MD - 04/09/2020 11:44 AM CDT Patient: Fredis Diaz Procedure Summary Date: 04/09/20 Room / Location: [place] [address] / [facility] OR Location Anesthesia Start: 1058 Anesthesia Stop: 1130 Procedure: PHACOEMULSIFICATION OF CATARACT WITH INTRAOCULAR LENS IMPLANT (Left Eye) Diagnosis: Combined forms of age-related cataract of left eye (Combined forms of age-related cataract of left eye [H25.812]) Surgeon: Francis Navarro MD Responsible Provider: Leandra Duarte MD Anesthesia Type: TIVA, MAC ASA Status: 2 Anesthesia Type: TIVA, MAC Last vitals BP (!) 149/73 (04/09/20 1134) Temp Pulse 83 (04/09/20 1134) Resp 16 (04/09/20 1134) SpO2 100 % (04/09/20 1134) No complications documented. Anesthesia Post Evaluation Patient location during evaluation: PACU Patient participation: complete - patient participated Level of consciousness: awake and alert Pain management: satisfactory to patient Airway patency: patent Cardiovascular status: acceptable and blood pressure returned to baseline Respiratory status: acceptable Hydration status: acceptable Anesthesia Preprocedure Evaluation - Leandra Duarte MD - 04/03/2020 7:14 AM CDT Name/ MRN / Age / Gender: Fredis Diaz, [id number] 79 year old female BMI: Estimated body mass index is 23.81 kg/m as calculated from the following: Height as of 03/24/20: 1.651 m (5' 5"). Weight as of 03/24/20: 64.9 kg (143 lb 1.3 oz). Allergies: Patient has no known allergies. Last Vitals: BP Readings from Last 1 Encounters: 03/26/20 (!) 159/72 Pulse Readings from Last 1 Encounters: 03/26/20 75 SpO2 Readings from Last 1 Encounters: 03/26/20 94% Date of Surgery: 03/26/2020 Surgeon: Francis Navarro MD Procedure: PHACOEMULSIFICATION OF CATARACT WITH INTRAOCULAR LENS IMPLANT (Left Eye) OR Location: [facility] OR [facility] Anesthesia Preop Eval (physical exam) Anesthesia Preop: Chart Review APAC questionnaire answers incorporated NPO Status Verified Solid Food/Non-Clear Liquids: > 8 Hours PONV Risk Factors: female and non-smoker PONV Risk Score: 2 Anesthesia History Anesthesia History Negative Anesthesia History Negative per Chart Review Previous Anesthetics/Airways Cardiovascular Negative Cardiac ROS Cardiovascular ROS Negative per Chart Review Pulmonary Negative Pulmonary ROS Pulmonary ROS Negative per Chart Review Neuro/Musculoskeletal Negative Neuro/Musculosketal ROS Neuro/Musculoskeletal ROS Negative per Chart Review GI/Hepatic Negative GI/Hepatic ROS GI/Hepatic ROS Negative per Chart Review Hematology Negative Hematology ROS Hematology ROS Negative per Chart Review Renal Negative Renal ROS Renal ROS Negative per Chart Review Skin Skin ROS Negative per Chart Review (+) Current IV access and 20g Endo/Other Endocrine/other ROS Negative per Chart Review Other SITE FOREMAN SITE FOREMAN N/A Pediatric Pediatric N/A N/A Preoperative Medication Instructions Continue taking all prescribed medications except: ANU inhibitors, ARBs, diuretics, all oral diabetes medications Insulin: Take 1/2 dose the night prior to surgery. Hold on DOS. Anticoagulant Therapy: Defer to surgeons Phentermine: Alert [facility] anesthesiologist MAC Cases: Continue taking ANU inhibitors and ARBs ASA Classification ASA: 2 Current Medications: No outpatient medications have been marked as taking for the 04/09/20 encounter (Anesthesia Event) with Shankar Resendez CRNA. Previous Surgeries: Past Surgical History: Procedure Laterality Date ACCESS LINE: ALLY CATH(IMPLANTED PORT) PHACOEMULSIFICATION OF CATARACT WITH INTRAOCULAR LENS IMPLANT Right 03/26/2020 Surgeon: Francis Navarro MD; Location: [facility] Anesthesia Physical Exam General no apparent distress and alert and oriented x 3 Neuro/Psych Dental no notable dental hx Abdominal GI exam normal Airway Mallampati score:II Extremity Pulmonary pulmonary exam normal Other Cardiovascular cardiovascular exam normal Anesthesia Plan ASA Status: 2 Anesthetic plan on DOS: TIVA and MAC Plan to include: IV induction Post-Operative Analgesia: routine analgesia & antiemetics Recovery Plan: phase ll Additional comments: documented in this encounter Miscellaneous Notes Addendum Note - Kina Mcknight CRNA - 04/09/2020 11:53 AM CDT Addendum created 04/09/20 1153 by Kina Mcknight CRNA Flowsheet accepted, Intraprocedure Flowsheets edited documented in this encounter Plan of Treatment Health Maintenance Due Date Last Done Comments DTaP,Tdap,and Td Vaccines (1 - Tdap) 1961 Zoster Recombinant Vaccine (SHINGRIX) (1 of 2) 1992 Medicare Wellness Visit 2007 Osteoporosis Screening 2007 PNEUMOCOCCAL VACCINES 65+ (1 of 1 - PPSV23) 2007 INFLUENZA VACCINE (#1) 2020 Depression Screening 04/09/2021 04/09/2020 documented as of this encounter Implants Implanted Type Area Patient Care Provider Device Shelf Model / Serial Identifier Expiration / Lot Date Lens, Nagi #Sn60wf - [id number] LENS Right: Nagi 03/26/2024 SN60WF / Implanted: Qty: 1 on 03/26/2020 by Francis Muro MD at [facility] 1 [id number] / N/A Lens, Nagi #Sn60wf - [id number] LENS Left: Eye Nagi 05/26/2021 SN60WF / Implanted: Qty: 1 on 04/09/2020 by Francis Muro MD at [facility] 9 [id number] / N/A documented as of this encounter Results Not on filedocumented in this encounter Administered Medications Medication Order MAR Action Action Date Dose Rate Site lactated ringers IV infusion New Bag 04/09/2020 11:01 AM CDT Intravenous, CONTINUOUS PRN, Starting 04/09/20 at 1101, Until Tue04/09/20 at 1130, Routine, Intra-op propofoL IV infusion Given 04/09/2020 11:07 AM CDT 20 mg Intravenous, ONCE INTRA PROCEDURE, Starting Tue04/09/20 at 1107, Until Tue04/09/20 at 1130, Routine, Intra-op remifentaniL (ULTIVA) injection Given 04/09/2020 11:07 AM CDT 20 mcg Intravenous, ONCE INTRA PROCEDURE, Starting Tue04/09/20 at 1107, Until Tue04/09/20 at 1130, Routine, Intra-op documented in this encounter Insurance Payer Benefit Plan / Subscriber ID Effective Dates Phone Addre ss Type Group MEDICARE MEDICARE PART A [id number] 2007-Fareed [phone] [facility] [address] Medicare & B t 82 [id number] [place] [address] AETNA AETNA INDEMNITY [id number] 2017-Fareed day documented as of this encounter
--- OUTSIDE RECORDS SUMMARY | 2020-04-26 15:21 | XMS REPORT | Continuity of Care Document ---
:1940 Author Organization [facility] t Address 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 Family History Family Member Diagnosis Comments Start Date Stop Date Source Natural brother Hypertension [place] [facility] Natural father Asthma [place] [facility] Natural mother Diabetes [place] [facility] Social History Social Habit Start Date Stop Date Quantity Comments [facility] Alcohol Std Drinks History [facility] Meth odist Alcohol Binge Sex Assigned At [place] [facility] Alcohol intake 2018-07-31 2018-07-31 Current [place] [facility] 00:00:00 00:00:00 non-drinker of alcohol (finding) History SDOH 2018-07-28 2018-07-28 1 [place] [facility] Alcohol Frequency 00:00:00 00:00:00 Smoking Status Start Date Stop Date Source Never smoker [place] [facility] t Medications This patient has no known medications. Procedures This patient has no known procedures. Plan of Care Planned Activity Planned Date Details Comments Source Future Scheduled 2020-01-26 INFLUENZA VACCINE [place] [facility] 00:00:00 [code = INFLUENZA VACCINE] Future Scheduled 2007 65+ PNEUMOCOCCAL [place] [facility] Test 00:00:00 VACCINE (1 of 1 - PPSV23) [code = 65+ PNEUMOCOCCAL VACCINE (1 of 1 - PPSV23)] Future Scheduled 1992 SHINGLES VACCINES (#1) [place] [facility] 00:00:00 [code = SHINGLES VACCINES (#1)] Encounters Start End Encounter Admission Attending Care Care Encounter Source Date/Time Date/Time Type Type Clinicians Facility Department ID 2020-04-09 2020-04-09 [facility] [id number] 08:52:00 12:00:00 Encounter Francis Abraham [id number] [place] [id number] Surgical [id number] [place] 071 2020-04-09 2020-04-09 Anesthesia Shankar Resendez [facility] [id number] 10:58:00 11:30:00 Leandra Duarte [id number] [place] [id number] Surgical [id number] [place] 020 2020-04-08 2020-04-08 Laboratory Only, [facility] [id number] 09:19:46 09:34:46 Only Test Leigh [id number] [place] [id number] [place] [id number] 2020-03-26 2020-03-26 [facility] [id number] 10:02:00 13:05:00 Encounter Francis Abraham [id number] [place] [id number] Surgical [id number] [place] 071 2020-03-25 2020-03-25 Laboratory Only, [facility] [id number] 08:51:16 09:06:16 Only Test Leigh [id number] [place] [id number] [place] [id number] 353 2020-03-21 2020-03-21 Internist Medical Doctor Md Chele, [facility] [id number] 11:34:14 11:49:14 Visit Lab Main Leigh [id number] [place] [id number] Professio [id number] [facility] 353 Building Results This patient has no known results.
--- OUTSIDE RECORDS SUMMARY | 2020-04-26 15:22 | XMS REPORT | Summary of Care ---
:1940 Author Organization [facility] - Health Address [address] [place] [address] Care Team Providers Name Role Phone David Jones Primary Care Provider Reason for Visit Auth/Cert Status Reason Specialty Diagnoses / Procedures Referred By David ontact Referred To Contact Surgery Diagnoses Combined forms of age-related cataract, left eye Combined forms of age-related cataract of left eye [H25.812] Adc Pre/Pacu/Post Procedures [facility] CODING HELP PA XCAPSL CTRC RMVL INSJ IO LENS PROSTH W/O ECP PHACOEMULSIFICATION OF CATARACT WITH INTRAOCULAR LENS IMPLANT 16349 - PA XCAPSL CTRC RMVL INSJ IO LENS PROSTH W/O ECP [address] [place] [address] Phone: Fax: Encounter Details Date Type Department Care Team Description 04/09/2020 Hospital Encounter [facility] [place] [address] [place] [address] Dr smith [address] [place] [address] [place] [address] [place], [place] [phone] Allergies No Known Allergiesdocumented as of this [...] Sign Reading Time Taken Comments Blood Pressure 149/73 04/09/2020 11:34 AM CDT Pulse 83 04/09/2020 11:34 AM CDT Temperature 36.5 C (97.7 F) 04/09/2020 8:53 AM CDT Respiratory Rate 16 04/09/2020 11:34 AM CDT Oxygen Saturation 100% 04/09/2020 11:34 AM CDT Inhaled Oxygen Concentration - - Weight 63.5 kg (140 lb) 04/08/2020 9:45 AM CDT Height 165.1 cm (5' 5") 04/08/2020 9:45 AM CDT Body Mass Index 23.3 04/08/2020 9:45 AM CDT documented in this encounter Discharge Instructions Lisa Guzman RN - 04/09/2020CATARACT DISCHARGE INSTRUCTIONS 1. DO NOT Remove the eye patch. Leave on until you post-operative visit tomorrow. Keep it dry. 2. Activities as tolerated 3. Please no heavy lifting, and do not drive or operate machinery until you are seen by a doctor on your first post op day. 4. Your depth perception may be off, so walk a little slower. Be careful on steps or stairs and uneven ground and go slower around corners. 5. Most likely your eye will stay numb until tomorrow and you should not experience any extreme pain. However, if you should have bad pain or nausea, please call the doctor's office or hospital bandage winding machine operator to get in touch with doctor. 6. For mild discomfort or a headache, you may take Tylenol, Aspirin, or Ibuprofen (in not allergic). 7. You may resume your pre-operative diet. 8. If you have any further questions or concerns, please call the office or hospital bandage winding machine operator to getin touch with the doctor. documented in this encounter H&P Notes Francis Navarro MD - 04/09/2020 11:05 AM CDTH&P Update H&P was reviewed and [...] of this encounter Implants Implanted Type Area Caseworker Intake Device Shelf Model / Serial Identifier Expiration / Lot Date Lens, Nagi #Sn60wf - [id number] LENS Right: Nagi 03/26/2024 SN60WF / Implanted: Qty: 1 on 03/26/2020 by Francis Muro MD at [facility] 1 [id number] / N/A Lens, Nagi #Sn60wf - [id number] LENS Left: Eye Nagi 05/26/2021 SN60WF / Implanted: Qty: 1 on 04/09/2020 by Francis Muro MD at [facility] 3 [id number] / N/A documented as of this encounter Procedures Procedure Name Priority Date/Time Associated Diagnosis Comme nts CONSENT/REFUSAL FOR Routine 04/08/2020 9:22 AM DIAGNOSIS AND TREATMENT CDT ASSIGNMENT OF BENEFITS Routine 04/08/2020 9:22 AM CDT documented in this encounter Results Not on filedocumented in this encounter Visit Diagnoses Diagnosis Cataract, nuclear sclerotic senile, left - Primary documented in this encounter Administered Medications Medication Order MAR Action Action Date Dose Rate Site balanced salt irrig soln comb1 Given 04/09/2020 11:15 AM CDT 500 mL (BSS PLUS) ophthalmic solution 500 mL bag PRN, Starting Tue04/09/20 at 1115, Until Discontinued, Routine, Intra-op carbachoL (MIOSTAT) 0.01 % intraocular Given 04/09/2020 11:15 AM CDT 1.5 mL injection PRN, Starting Tue04/09/20 at 1115, Until Discontinued, Routine, Intra-op ceFAZolin (ANCEF) injection Given 04/09/2020 11:21 AM CDT 0.02 mg Left Eye PRN, Starting Tue04/09/20 at 1121, Until Discontinued, NATALYA, Intra-op dexamethasone (DECADRON PHOSPHATE) Given 04/09/2020 11:21 AM CDT 0.3 mL Left Eye injection PRN, Starting Tue04/09/20 at 1121, Until Discontinued, Routine, Intra-op DUOVISC (DUOVISC VISCO ELASTIC) 3 %-4 %(0.5 Given 04/09/2020 11:16 AM CDT 1 Kit mL) 1 % (0.55 mL) intraocular injection PRN, Starting Tue04/09/20 at 1116, Until Discontinued, Routine, Intra-op EPINEPHrine 1:1,000 (1 mg/mL) Given 04/09/2020 11:16 AM CDT 0.5 mL Left Eye (ADRENALIN) injection PRN, Starting Tue04/09/20 at 1116, Until Discontinued, Routine, Intra-op eye block syringe 11 mL Given 04/09/2020 11:07 AM CDT 8 mL PRN, Starting Tue04/09/20 at 1107, Until Discontinued, Intra-op gentamicin injection Given 04/09/2020 11:21 AM CDT 0.2 mL Left Eye PRN, Starting Tue04/09/20 at 1121, Until Discontinued, NATALYA, Intra-op Hyaluronidase, Human Recomb. Given 04/09/2020 11:07 AM CDT 150 U nits Left Eye (HYLENEX) injection PRN, Starting Tue04/09/20 at 1107, Until Discontinued, Routine, Intra-op lactated ringers IV infusion 1,000 mL at 42 mL/hr, 1,000 mL, IV Infusion, CONTINUOUS, Starti ng Tue04/09/20 at 1145, Until Discontinued, Routine, PACU mgqabnhi-bmqufchbi-zwpagmtpzmave (MAXITROL) Given 03/27 11:22 AM 0.5 Inches 3.5 mg/g-10,000 unit/g-0.1 % ophthalmic CDT ointment PRN, Starting Tue04/09/20 at 1122, Until Discontinued, Routine, Intra-op sodium chloride (NS) injection Given 04/09/2020 11:18 AM CDT 10 mL Left Eye PRN, Starting Tue04/09/20 at 1118, Until Discontinued, Routine, Intra-op water for irrigation irrigation Given 04/09/2020 11:09 AM CDT 30 mL Left Eye solution PRN, Starting Tue04/09/20 at 1109, Until Discontinued, Routine, Intra-op Medication Order MAR Action Action Date Dose Rate Site lactated ringers IV infusion New Bag 04/09/2020 9:05 AM CDT 1,000 mL 42 mL/hr 1,000 mL at 42 mL/hr, 1,000 mL, IV Infusion, ONCE, 1 dose, Tue04/09/20 at 0915, Routine, DSU Pre-op mydriatic #5 ophthalmic solution 0.5 mL Given 04/09/2020 9:05 A M CDT 0.5 mL syringe 0.5 mL, Left Eye, ONCE, 1 dose, Tue04/09/20 at 0915, Routine documented in this encounter Insurance Payer Benefit Plan / Subscriber ID Effective Dates Phone Addre ss Type Group MEDICARE MEDICARE PART A [id number] 2007-Fareed [phone] [facility] Medicare & B t 82 [id number] [place] [address] AETNA AETNA INDEMNITY [id number] 2017-Fareed Indgiorgio t documented as of this encounter
[2020-04-26] MEDS ORDERED: ONDANSETRON 4 MG/2 ML VIAL ONE (16:48)
[2020-04-26] MEDS ORDERED: NA CHLORIDE 0.9% 500 ML ONE (16:48)
[2020-04-26] MEDS ORDERED: MECLIZINE HCL 12.5 MG TAB ONE (16:48)
--- NOTE | 2020-04-26 16:50 | RAD REPORT ---
EXAM DESCRIPTION: CT - Head Brain Wo Cont - 04/26/2020 4:33 pm CLINICAL HISTORY: Dizziness COMPARISON: None TECHNIQUE: Computed axial tomography of the head was obtained. IV contrast was not requested. All CT scans are performed using dose optimization technique as appropriate and may include automated exposure control or mA/KV adjustment according to patient size. FINDINGS: An intracranial bleed is not seen . The ventricles are normal in caliber. No extra-axial fluid collection is noted. Cavum septum pellucidum and cavum vergae are normal variant s. Small low-density area within the left basal ganglia probably old lacunar infarction. Fluid within the sinuses/ mastoids is not seen. IMPRESSION: No acute intracranial abnormality is seen. If patient's symptoms persist MRI of the bra in would be recommended.
[2020-04-26 17:13] LABS: Absolute Lymphocytes (CBC) 0.4 K/uL (0.7-4.9); Basophils % 0.8 % (0-1.3); Hematocrit 32.3 % (36.0-45.0); Lymphocytes % 8.8 % (15.3-44.8); MPV 8.7 fL (7.6-11.3)
[2020-04-26 17:14] LABS: Protime INR 1.15
[2020-04-26 17:30] LABS: ALT/SGPT 29 U/L (12-78); AST/SGOT 21 U/L (15-37); Albumin 3.6 g/dL (3.4-5.0); Alkaline Phosphatase 149 U/L (45-117); BUN Blood Urea Nitrogen 12 mg/dL (7-18); Bicarbonate 25 mmol/L (21-32); Bilirubin Direct 0.1 mg/dL (0-0.2); Bilirubin Total 0.6 mg/dL (0.2-1.0); Glucose Level 110 mg/dL (74-106); Magnesium 2.1 mg/dL (1.8-2.4); NT PRO-BNP 273 pg/mL (<450); Potassium 4.1 mmol/L (3.5-5.1); Protein, Total 6.5 g/dL (6.4-8.2); Sodium Level 141 mmol/L (136-145); Troponin (Emerg Dept Use Only) < 0.02 ng/mL (0.0-0.045)
--- NOTE | 2020-04-26 17:54 | RAD REPORT ---
EXAM DESCRIPTION: Anton Single View04/26/2020 5:08 pm CLINICAL HISTORY: Hypertension COMPARISON: 2017 FINDINGS: The lungs appear clear of acute infiltrate. The heart is normal size IMPRESSION: No acute abnormalities displayed
--- NOTE | 2020-04-26 18:06 | ER ---
Nurse's Notes [facility] Name: Fredis Diaz Age: 79 yrs Sex: Female : 1940 Arrival Date: 04/26/2020 Time: 15:21 Bed 13 Private MD: Mercedes Jones C Diagnosis: Benign paroxysmal vertigo Presentation: 04/26 15:48 Chief complaint: Patient states: woke up with dizziness and her BP she been running iw high today. Coronavirus screen: At this time, the client does not indicate any symptoms associated with coronavirus-19. Ebola Screen: Patient negative for fever greater than or equal to 101.5 degrees Fahrenheit, and additional compatible Ebola Virus Disease symptoms Patient denies exposure to infectious person. Patient denies travel to an Ebola-affected area in the 21 days before illness onset. No symptoms or risks identified at this time. Initial Sepsis Screen: Does the patient meet any 2 criteria? No. Patient's initial sepsis screen is negative. Does the patient have a suspected source of infection? No. Patient's initial sepsis screen is negative. Risk Assessment: Do you want to hurt yourself or someone else? Patient reports no desire to harm self or others. Onset of symptoms was April 26, 2020. 15:48 Method Of Arrival: Wheelchair iw 15:48 Acuity: JOSE 3 iw Historical: - Allergies: 16:05 "something for my bladder"; iw - PMHx: 16:05 22 YRS AGO HAD CERVIAL CANCER; EDEMA TO LOWER EXTS; LYMPHOMA; iw Screenin:55 Abuse screen: Denies threats or abuse. Nutritional screening: No deficits noted. aa5 Tuberculosis screening: No symptoms or risk factors identified. Fall Risk IV access (20 points). Total Malloy Fall Scale indicates No Risk (0-24 pts). Assessment: 16:29 Reassessment: Pt to CT . aa5 16:40 Reassessment: Pt back from CT scan, pt assisted to restroom, ambulatory with steady aa5 gait. . 16:45 Reassessment: Pt placed back in bed. . aa5 16:45 General: Appears comfortable, Behavior is calm, cooperative. Pain: Denies pain. Neuro: aa5 Level of Consciousness is awake, alert, obeys commands, Oriented to person, place, time, situation, Landmen are equal bilaterally Moves all extremities. Gait is steady, Speech is normal, Facial symmetry appears normal, Reports dizziness, Pt states "I have a little dizziness all the time but it gets worse when I move". Cardiovascular: Heart tones S1 S2 present Rhythm is regular. Respiratory: Airway is patent Respiratory effort is even, unlabored, Respiratory pattern is regular, symmetrical. GI: No signs and/or symptoms were reported involving the gastrointestinal system. Patient currently denies nausea, vomiting. : No signs and/or symptoms were reported regarding the genitourinary system. EENT: No signs and/or symptoms were reported regarding the EENT system. Derm: Skin is pink, warm \\T\\ dry. Musculoskeletal: Range of motion: intact in all extremities. 17:45 Reassessment: Patient is alert, oriented x 3, equal unlabored respirations, skin aa5 warm/dry/pink. Patient states feeling better. BILINGUAL SALES ASSISTANT at bedside . 19:00 Reassessment: Patient is alert, oriented x 3, equal unlabored respirations, skin aa5 warm/dry/pink. Patient states feeling better. Vital Signs: 15:45 BP 178 / 81; Pulse 84; Resp 16; Temp 97.8; Pulse Ox 98% on R/A; iw 16:15 BP 163 / 92; Pulse 86; Resp 18 S; Pulse Ox 98% on R/A; aa5 17:00 BP 161 / 74; Pulse 89; Resp 16 S; Pulse Ox 98% on R/A; aa5 18:03 BP 160 / 73; dh4 18:03 Pulse 91; Resp 16 S; Pulse Ox 98% on R/A; aa5 ED Course: 15:21 Patient arrived in ED. ag5 15:21 Mercedes Jones MD is Private Physician. ag5 15:37 Anthony Suarez NP is PHCP. pm1 15:37 Juan Arce MD is Attending Physician. pm1 15:47 Michelle Daigle, FABY is Primary Nurse. aa5 15:48 Triage completed. iw 16:34 CT Head Brain wo Cont In Process Unspecified. EDMS 16:45 Patient has correct armband on for positive identification. Bed in low position. Call aa5 light in reach. Side rails up X2. Adult w/ patient. section beamer on. Pulse ox on. NIBP on. 16:55 Initial lab(s) drawn, by me, sent to lab. Inserted saline lock: 20 gauge in right aa5 forearm, using aseptic technique. Blood collected. 17:08 XRAY Chest (1 view) In Process Unspecified. EDMS 19:10 No provider procedures requiring assistance completed. IV discontinued, intact, aa5 bleeding controlled, No redness/swelling at site. Pressure dressing applied. Administered Medications: 16:55 Drug: Meclizine 25 mg Route: PO; aa5 16:55 Drug: NS 0.9% 500 ml Route: IV; Rate: bolus; Site: right forearm; aa5 17:07 Not Given (Patient Refused): Zofran (Ondansetron) 4 mg IVP once; over 2 minutes aa5 Outcome: 18:05 Discharge ordered by MD. pm1 19:05 Discharged to home via wheelchair, with family. aa5 19:05 Condition: improved 19:05 Discharge instructions given to patient, Instructed on discharge instructions, follow up and referral plans. medication usage, Demonstrated understanding of instructions, follow-up care, medications, Prescriptions given X 2. 19:06 Patient left the ED. aa5 Signatures: Dispatcher [employer] EDMS Alexandra Paige RN RN Michelle Daigle RN RN aa5 Anthony Suarez, BILINGUAL SALES ASSISTANT BILINGUAL SALES ASSISTANT pm1 Enrike Fowler 5 Jay Najera 4 Corrections: (The following items were deleted from the chart) 20:10 16:45 Neuro: Level of Consciousness is awake, alert, obeys commands, Oriented to aa5 person, place, time, situation, Reports dizziness, Pt states "I have a little dizziness all the time but it gets worse when I move" aa5 20:10 19:11 Patient left the ED. aa5 aa5
--- NOTE | 2020-04-26 18:06 | EDPHYS ---
Physician Documentation [facility] Name: Fredis Diaz Age: 79 yrs Sex: Female : 1940 Arrival Date: 04/26/2020 Time: 15:21 Bed 13 Private MD: Mercedes Jones C ED Physician Juan Arce HPI: 04/26 16:22 This 79 yrs old Female presents to ER via Wheelchair with complaints of pm1 Dizziness, High Blood Pressure. 16:22 The patient presents with sense of spinning, vertigo. Onset: The symptoms/episode pm1 began/occurred this morning. Context: occurred at home, occurred while the patient was Woke up this morning with dizziness around 1000. just prior to the episode the patient experienced no apparent symptoms. Modifying factors: the symptoms are aggravated by movement of head, changing position. Associated signs and symptoms: Pertinent negatives: abdominal pain, chest pain, focal weakness, headache, nausea, numbness, shortness of breath, vomiting. Severity of symptoms: in the emergency department the symptoms have improved. Patient's baseline: Neuro: alert and fully oriented, Motor: no deficits, Ambulation: walks without assistance, The patient has a previous history of lymphoma. Treatment of lymphoma caused bilateral lower extremity neuropathy. The patient has experienced a previous episode, many years ago, and the symptoms today are exactly the same, took meclizine for it at the time. Historical: - Allergies: 16:05 "something for my bladder"; iw - PMHx: 16:05 22 YRS AGO HAD CERVIAL CANCER; EDEMA TO LOWER EXTS; LYMPHOMA; iw ROS: 16:22 Constitutional: Negative for fever, chills, and weight loss, Eyes: Negative for injury, pm1 pain, redness, and discharge, Neck: Negative for injury, pain, and swelling, Cardiovascular: Negative for chest pain, palpitations, and edema, Respiratory: Negative for shortness of breath, cough, wheezing, and pleuritic chest pain. 16:22 Abdomen/GI: Negative for abdominal pain, nausea, vomiting, diarrhea, and constipation, Back: Negative for injury and pain, MS/Extremity: Negative for injury and deformity, Skin: Negative for injury, rash, and discoloration. 16:22 ENT: Positive for some minor rhiniitis from allergies due to seasonal change, Negative for drainage from ear(s), ear pain, sore throat. 16:22 Neuro: Positive for dizziness, Negative for headache, numbness, tingling, visual changes, weakness. Exam: 16:22 Constitutional: This is a well developed, well nourished patient who is awake, alert, pm1 and in no acute distress. Head/Face: Normocephalic, atraumatic. 16:22 Neck: Trachea midline, no thyromegaly or masses palpated, and no cervical lymphadenopathy. Supple, full range of motion without nuchal rigidity, or vertebral point tenderness. No Meningismus. 16:22 Back: No spinal tenderness. No costovertebral tenderness. Full range of motion. Skin: Warm, dry with normal turgor. Normal color with no rashes, no lesions, and no evidence of cellulitis. MS/ Extremity: Pulses equal, no cyanosis. Neurovascular intact. Full, normal range of motion. 16:22 Eyes: Periorbital structures: appear normal, Pupils: no acute changes, Extraocular movements: no acute changes, Conjunctiva: no acute changes, Lids and lashes: appear normal, Nystagmus: horizontal present at right rausch gaze, Lanie-Hallpike positive. Vertigo reproduced and resolved with patient sitting up after 10 seconds. 16:22 ENT: Exam is negative for acute changes, External ear(s): are unremarkable, Ear canal(s): are normal, TM's: are normal, Posterior pharynx: no acute changes. 16:22 Cardiovascular: Rate: normal, Rhythm: regular, Pulses: no pulse deficits are appreciated, Heart sounds: normal, Edema: pedal edema, that is mild. 16:22 Respiratory: Exam negative for acute changes, respiratory distress, shortness of breath, wheezing. 16:22 Abdomen/GI: Inspection: abdomen appears normal, Palpation: abdomen is soft and non-tender, in all quadrants. 16:22 Neuro: Orientation: is normal, Mentation: is normal, Cranial nerves: CN II- XII are normal as tested, Cerebellar function: normal finger to nose testing, Motor: moves all fours, strength is normal, strength is 5/5 in all extremities, Sensation: is normal, no obvious gross deficits. Vital Signs: 15:45 BP 178 / 81; Pulse 84; Resp 16; Temp 97.8; Pulse Ox 98% on R/A; iw 16:15 BP 163 / 92; Pulse 86; Resp 18 S; Pulse Ox 98% on R/A; aa5 17:00 BP 161 / 74; Pulse 89; Resp 16 S; Pulse Ox 98% on R/A; aa5 18:03 BP 160 / 73; dh4 18:03 Pulse 91; Resp 16 S; Pulse Ox 98% on R/A; aa5 MDM: 15:38 Patient medically screened. cristiane 16:21 Data reviewed: vital signs. Data interpreted: Pulse oximetry: on room air is 98 %. pm1 Interpretation: normal. 18:03 Counseling: I had a detailed discussion with the patient and/or guardian regarding: the pm1 historical points, exam findings, and any diagnostic results supporting the discharge/admit diagnosis, lab results, radiology results, the need for outpatient follow up, a family practitioner, a neurologist, to return to the emergency department if symptoms worsen or persist or if there are any questions or concerns that arise at home. 18:03 ED course: Patient's vertigo is resolved with meclizine, therefore will discharge her pm1 home for follow up and prescribe her meclizine. 18:03 Special discussion: I have referred the patient to see his PCP for further evaluation pm1 of high blood pressure. 04/26 16:04 Order name: Basic Metabolic Panel; Complete Time: 17:42 pm1 04/26 16:04 Order name: CBC with Diff pm1 04/26 16:04 Order name: LFT's; Complete Time: 17:42 pm1 04/26 16:04 Order name: Magnesium; Complete Time: 17:42 pm1 04/26 16:04 Order name: NT PRO-BNP; Complete Time: 17:42 pm1 04/26 16:04 Order name: PT-INR; Complete Time: 17:42 pm1 04/26 16:04 Order name: Troponin (emerg Dept Use Only); Complete Time: 17:42 pm1 04/26 16:04 Order name: XRAY Chest (1 view); Complete Time: 18:03 pm1 04/26 16:04 Order name: EKG; Complete Time: 16:05 pm1 04/26 16:04 Order name: Cardiac monitoring; Complete Time: 17:07 pm1 04/26 16:04 Order name: CT Head Brain wo Cont; Complete Time: 16:52 pm1 04/26 16:04 Order name: EKG - Nurse/Tech; Complete Time: 17:07 pm1 04/26 16:04 Order name: IV Saline Lock; Complete Time: 17:07 pm1 04/26 16:04 Order name: Labs collected and sent; Complete Time: 17:07 pm1 04/26 16:04 Order name: O2 Per Protocol; Complete Time: 17:07 pm1 04/26 16:04 Order name: O2 Sat Monitoring; Complete Time: 17:08 pm1 Administered Medications: 16:55 Drug: Meclizine 25 mg Route: PO; aa5 16:55 Drug: NS 0.9% 500 ml Route: IV; Rate: bolus; Site: right forearm; aa5 17:07 Not Given (Patient Refused): Zofran (Ondansetron) 4 mg IVP once; over 2 minutes aa5 Disposition: 04/27 14:44 Co-signature as Attending Physician, Juan Arce MD I agree with the assessment and cristiane plan of care. Disposition: 04/26/20 18:05 Discharged to Home. Impression: Benign paroxysmal vertigo. - Condition is Stable. - Discharge Instructions: Benign Positional Vertigo. - Prescriptions for Meclizine 25 mg Oral Tablet - take 1 tablet by ORAL route every 8 hours As needed; 30 tablet. Zofran 4 mg Oral Tablet - take 1 tablet by ORAL route every 8 hours As needed; 20 tablet. - Medication Reconciliation Form, Thank You Letter, Antibiotic Education, Prescription Opioid Use form. - Follow up: Emergency Department; When: As needed; Reason: Worsening of condition. Follow up: Private Physician; When: 2 - 3 days; Reason: Recheck today's complaints, Continuance of care, Re-evaluation by your physician. - Problem is new. - Symptoms have improved. Signatures: Dispatcher [employer] Juan Augustine MD MD cha Williams, Irene, RN RN iw Calderon, Audri, RN RN aa5 Anthony Suarez NP GRAB JACK MAN pm1 Corrections: (The following items were deleted from the chart) 04/26 19:11 18:05 04/26/2020 18:05 Discharged to Home. Impression: Benign paroxysmal vertigo. aa5 Condition is Stable. Forms are Medication Reconciliation Form, Thank You Letter, Antibiotic Education, Prescription Opioid Use. Follow up: Emergency Department; When: As needed; Reason: Worsening of condition. Follow up: Private Physician; When: 2 - 3 days; Reason: Recheck today's complaints, Continuance of care, Re-evaluation by your physician. Problem is new. Symptoms have improved. pm1
[2020-04-26 19:30] VITALS: TEMP 97.8; O2SAT 98
[2020-04-26 19:32] VITALS: BP 160/73
[2020-04-26 20:42] LABS: Blood Morphology Comment NOTED (NOT SEEN); Macrocytosis 1+; Platelet Estimate DECR
--- NOTE | 2020-04-27 10:12 | EKG ---
Test Date: 2020-04-26 Test Time: 17:07:32 Paint Roller Winder: [place] MEASUREMENT RESULTS: Intervals: Rate: 84 RI: 162 QRSD: 92 QT: 376 QTc: 444 [place]: P: 67 RI: 162 QRS: 68 T: 65 INTERPRETIVE STATEMENTS: Normal sinus rhythm Normal ECG Compared to ECG 10/16/2019 02:14:28 No significant changes Electronically Signed On 04-27-20 10:10:08 STRAW HAT PLUNGER OPERATOR by Carlos Leiva
== END 2020-04-26 19:11 | disposition home or self-care (01) ==
LOC: ER 15:19
DX: H81.10 Benign paroxysmal vertigo, unspecified ear (principal)
CPT/HCPCS: 93005; 85025; 80048; 36415; 83735; 85610; 80076; 84484; 83880; 70450; 71045; 99284; J7040; J2405

== ENCOUNTER 2020-08-28 18:15 | Inpatient (IN) | payer OTHER ==
--- OUTSIDE RECORDS SUMMARY | 2020-08-28 18:18 | XMS REPORT | Continuity of Care Document ---
:[address] [facility] t Address [address] [place] [address] Care Team Providers Name Role Phone ALENA Primary Care Physician Unavailable Ramon HOPSON, A Attending Clinician Dipti DOMINGUEZ Attending Clinician Gerald HOPSON Attending Clinician Only, Test Attending Clinician Unavailable Pob, Lab Main Attending Clinician Unavailable Ramon HOPSON, A Admitting Clinician Payers Payer Name Policy Type Policy Effective Date Expiration Date Sour ce Number MEDICAREMEDICARE PART [id number] 2007 Dionisio bebeto Long AND 00:00:00 [facility] [id number] 2007[facility] [place] AETNAAETNA [id number] 2017 [facility] 00:00:00 Restorationist [id number]/ 06/2017-PresentIndemni ty Problems Condition Condition Condition Status Onset Resolution Last Treating Co mments Source Name Details Category Date Date Treatment Clinician Date 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 Family History Family Member Diagnosis Comments Start Date Stop Date Source Natural brother Hypertension [place] Restorationist Natural father Asthma [facility] thodist Natural mother Diabetes [facility] thodist Social History Social Habit Start Date Stop Date Quantity Comments Source History [facility] Meth odist Alcohol Std Drinks History [facility] Meth odist Alcohol Binge Sex Assigned At [facility] ethodist Alcohol intake 2018-07-31 2018-07-31 Current [facility] thodist 00:00:00 00:00:00 non-drinker of alcohol (finding) History SDOH 2018-07-28 2018-07-28 1 [place] Meth odist Alcohol Frequency 00:00:00 00:00:00 Smoking Status Start Date Stop Date Source Never smoker [place] Method[facility] t Medications This patient has no known medications. Immunizations Ordered Immunization Filled Immunization Date Status Commen ts Source Name Name PFIZER COVID-19 MRNA 2020-08-01 Completed [place] VACCINATION 00:00:00 [facility] PFIZER COVID-19 MRNA 2020-07-11 Completed [place] VACCINATION 00:00:00 [facility] Procedures This patient has no known procedures. Plan of Care Planned Activity Planned Date Details Comments Source Future Scheduled 2020-01-26 INFLUENZA VACCINE [place] n [facility] Test 00:00:00 [code = INFLUENZA VACCINE] Future Scheduled 2007 65+ PNEUMOCOCCAL [place] [facility] Test 00:00:00 VACCINE (1 of 1 - PPSV23) [code = 65+ PNEUMOCOCCAL VACCINE (1 of 1 - PPSV23)] Future Scheduled 1992 [facility]IN[facility] Test 00:00:00 [code = SHINGLES VACCINES (#1)] Future Scheduled 1960 Hepatitis C screening [facility] Restorationist Test 00:00:00 (procedure) [code = 343652177] Encounters Start End Encounter Admission Attending Care Care Encounter Source Date/Time Date/Time Type Type Clinicians Facility Department ID 2020-08-01 2020-08-01 Outpatient [facility] [id number] [place] 00:00:00 00:00:[address] 2020-07-11 2020-07-11 Outpatient [facility] [id number] [place] 00:00:00 00:00:[address] 2020-04-09 2020-04-09 [facility] [id number] 08:52:00 12:00:00 Encounter Francis [place]ueston [id number] [place] [id number] Surgical [id number] [place] 071 2020-04-09 2020-04-09 Anesthesia Shankar Resendez [facility] [id number] 10:58:00 11:30:00 Duarte[place]andra [place] [id number] [place] [id number] Surgical [id number] [place] 020 2020-04-08 2020-04-08 Laboratory Only, [facility] [id number] 09:19:46 09:34:46 Only Test [place] [id number] [place] [id number] [place] [id number] 2020-03-26 2020-03-26 [facility] [id number] 10:02:00 13:05:00 Encounter Francis Rodrigueston [id number] [place] [id number] Surgical [id number] [place] [address] 2020-03-25 2020-03-25 Laboratory Only, [facility] [id number] 08:51:16 09:06:16 Only Test [place] [id number] [place] [id number] [place] [id number] 2020-03-21 2020-03-21 Finish Opener [place], [facility] [id number] 11:34:14 11:49:14 Visit Lab Main [place] [id number] [place] [id number] [place] [id number] [facility] 353 Building Results This patient has no known results.
[2020-08-28 20:33] LABS: Absolute Lymphocytes (CBC) 0.8 K/uL (0.7-4.9); Basophils % 0.6 % (0-1.3); Hematocrit 34.1 % (36.0-45.0); Lymphocytes % 21.8 % (15.3-44.8); RBC Red Blood Cell Count 3.11 M/uL (3.86-4.86)
[2020-08-28 20:49] LABS: ALT/SGPT 34 U/L (12-78); AST/SGOT 25 U/L (15-37); Albumin 3.7 g/dL (3.4-5.0); Alkaline Phosphatase 144 U/L (45-117); BUN Blood Urea Nitrogen 11 mg/dL (7-18); Bicarbonate 26 mmol/L (21-32); Bilirubin Direct 0.2 mg/dL (0-0.2); Bilirubin Total 0.7 mg/dL (0.2-1.0); CKMB Creatine Kinase MB 2.7 ng/mL (0.3-3.6); Creatine Phosphokinase 109 U/L (26-192); Glucose Level 100 mg/dL (74-106); Magnesium 2.3 mg/dL (1.8-2.4); NT PRO-BNP 533 pg/mL (<450); Protein, Total 6.4 g/dL (6.4-8.2); Sodium Level 144 mmol/L (136-145); Troponin (Emerg Dept Use Only) < 0.02 ng/mL (0.0-0.045)
--- NOTE | 2020-08-28 20:51 | RAD REPORT ---
EXAM DESCRIPTION: RAD - Chest Single View - 08/28/2020 8:35 pm CLINICAL HISTORY: CHEST PAIN Chest pain. COMPARISON: Chest Single View dated 04/26/2020; Chest Pa And Lat (2 Views) dated 04/18/2018; Chest S leonard View dated 03/26/2016 FINDINGS: Portable technique limits examination quality. The lungs are mildly emphysematous but grossly clear. The heart is normal in size. No displaced fract ures. IMPRESSION: No acute intrathoracic process suspected. Mild COPD.
--- NOTE | 2020-08-28 20:51 | RAD REPORT ---
EXAM DESCRIPTION: CT - C Spine Wo Con - 08/28/2020 8:37 pm CLINICAL HISTORY: Pain;Numbness/tingling Neck pain, radiculopathy COMPARISON: No comparisons FINDINGS: Cervical vertebral body heights are maintained. Mild disc thinning with posterior osteophy te formation is present involving the lower cervical levels. Prominent facet hypertrophy is present a long the left aspect of the C-spine mid aspect. No evidence of acute cervical spine fracture or subluxation. Prevertebral soft tissues are normal in thickness. IMPRESSION: Negative for acute cervical spine abnormality. Mild to moderate lower cervical degenerative changes. All CT scans are performed using dose optimization technique as appropriate and may include automated exposure control or mA/KV adjustment according to patient size.
[2020-08-28 20:54] LABS: Urine Blood NEGATIVE (NEG); Urine Glucose NEGATIVE (NEG); Urine Protein NEGATIVE (NEG); Urine Specific Gravity 1.025 (1.005-1.030)
--- NOTE | 2020-08-28 21:06 | ER ---
Nurse's Notes [facility] Name: Fredis Diaz Age: 80 yrs Sex: Female : 1940 Arrival Date: 08/28/2020 Time: 18:16 Bed 15 Private MD: Diagnosis: Ataxia, unspecified;Radiculopathy, cervical region Presentation: 08/28 18:30 Chief complaint: Patient states: Was cleaning in the attic yesterday, using her arms a ll1 lot. Started having bilateral arm pain last night. Numbness to fingers off/on today. PMS intact. No fever. Coronavirus screen: Client denies travel out of the [place] in the last 14 days. At this time, the client does not indicate any symptoms associated with coronavirus-19. Ebola Screen: Patient denies travel to an Ebola-affected area in the 21 days before illness onset. Acute neurological deficit: none identified. Initial Sepsis Screen: Does the patient meet any 2 criteria? No. Patient's initial sepsis screen is negative. Does the patient have a suspected source of infection? No. Patient's initial sepsis screen is negative. Risk Assessment: Do you want to hurt yourself or someone else? Patient reports no desire to harm self or others. Onset of symptoms was August 27, 2020. 18:30 Method Of Arrival: Wheelchair ll1 18:30 Acuity: JOSE 3 ll1 Historical: - Allergies: 18:30 "something for my bladder"; ll1 - PMHx: 18:30 22 YRS AGO HAD CERVIAL CANCER; EDEMA TO LOWER EXTS; LYMPHOMA; ll1 - PSHx: 18:30 None; ll1 - Immunization history:: Flu vaccine is up to date. - Social history:: Smoking status: Patient denies any tobacco usage or history of. - Family history:: not pertinent. Screenin:30 Abuse screen: Denies threats or abuse. Nutritional screening: No deficits noted. em Tuberculosis screening: No symptoms or risk factors identified. Fall Risk None identified. Assessment: 19:00 General: Appears in no apparent distress. comfortable. Pain: Complains of pain in left em arm and right arm Pain currently is 4 out of 10 on a pain scale. Neuro: Level of Consciousness is awake, alert, obeys commands, Oriented to person, place, time, situation. Cardiovascular: Capillary refill < 3 seconds Patient's skin is warm and dry. Respiratory: Airway is patent Respiratory effort is even, unlabored, Respiratory pattern is regular, symmetrical. GI: Abdomen is flat, Patient currently denies nausea. Derm: Skin is intact, is healthy with good turgor, Skin is pink, warm \\T\\ dry. Musculoskeletal: Capillary refill < 3 seconds, Range of motion: intact in all extremities. 21:50 Reassessment: pt reports being "wobbly" denies being dizzy, has had a hx of vertigo, em Dr. Arce notified, will hold discharge. 23:15 Reassessment: US at bedside. em 08/29 01:10 Reassessment: Patient appears in no apparent distress at this time. Patient and/or em family updated on plan of care and expected duration. Pain level reassessed. Patient is alert, oriented x 3, equal unlabored respirations, skin warm/dry/pink. Patient states feeling better. Patient states symptoms have improved. 02:00 Reassessment: Patient appears in no apparent distress at this time. Patient and/or em family updated on plan of care and expected duration. Pain level reassessed. Patient is alert, oriented x 3, equal unlabored respirations, skin warm/dry/pink. Vital Signs: 08/28 18:30 BP 153 / 66; Pulse 84; Resp 16; Temp 98.6; Pulse Ox 98% ; Weight 63.5 kg; Height 5 ft. ll1 4 in. (162.56 cm); Pain 4/10; 21:00 BP 140 / 70; Pulse 71; Resp 18; Pulse Ox 100% on R/A; em 08/29 00:00 BP 143 / 60; Pulse 66; Resp 16; Pulse Ox 99% on R/A; Pain 5/10; em 02:00 BP 135 / 62; Pulse 63; Resp 19; Pulse Ox 99% on R/A; em 08/28 18:30 Body Mass Index 24.03 (63.50 kg, 162.56 cm) ll1 NIH Stroke Scale Scores: 08/28 23:38 NIHSS Score: 0 [facility] ED Course: 18:16 Patient arrived in ED. as 18:29 Arm band placed on. ll1 18:32 Triage completed. 1 19:23 Juan Arce MD is Attending Physician. cristiane 19:30 Prosper Ferguson, FABY is Primary Nurse. em 20:00 Patient has correct armband on for positive identification. Call light in reach. Adult em w/ patient. Pulse ox on. NIBP on. 20:15 Initial lab(s) drawn, by me, sent to lab. Inserted saline lock: 22 gauge in right em antecubital area, using aseptic technique. Blood collected. 20:36 XRAY Chest (1 view) In Process Unspecified. EDMS 20:36 CT C Spine In Process Unspecified. EDMS 21:04 Carlos Leiva MD is Referral Physician. cristiane 21:05 Harry Minaya MD is Referral Physician. cristiane 22:34 CT Head Brain wo Cont In Process Unspecified. EDMS 23:23 Mercedes Jones MD is Hospitalizing Provider. cristiane 23:24 Carotid Artery Bilateral In Process Unspecified. EDMS 03/05 03:05 No provider procedures requiring assistance completed. Patient admitted, IV remains in em place. Administered Medications: 0304 21:48 Drug: Pepcid 20 mg Route: IVP; Site: right antecubital; em 23:28 Follow up: Response: No adverse reaction em 21:48 Drug: Aspirin 81 mg Route: PO; em 23:28 Follow up: Response: No adverse reaction em 21:50 Drug: TORadol - Ketorolac 15 mg Route: IVP; Site: right antecubital; em 23:29 Follow up: Response: No adverse reaction em 21:52 Drug: Decadron - Dexamethasone 4 mg Route: IVP; Site: right antecubital; em 23:28 Follow up: Response: No adverse reaction; Marked relief of symptoms em 23:43 Drug: Aspirin Chewable Tablet 243 mg Route: PO; em 23:43 Drug: foLIC Acid 1 mg Route: IVPB; Site: right antecubital; em 23:43 Drug: Meclizine 25 mg Route: PO; em Outcome: 21:05 Discharge ordered by . cristiane 23:23 Decision to Hospitalize by Provider. [facility] 08/29 03:05 Admitted to Med/surg accompanied by tech, via wheelchair, room 232, Report called to lokesh Michel RN Condition: improved Instructed on the need for admit, Demonstrated understanding of instructions. 03:41 Patient left the ED. tt3 NIH Stroke Scale - NIH Stroke Score Date: 08/28/2020 Time: 23:38 Total Score = 0 1a. Level of Consciousness (LOC) - 0(Alert) 1b. Level of Consciousness (LOC) (Year \\T\\ Age) - 0(Both) 1c. LOC Commands (Open \\T\\ Closes Eyes/Editorial Project Manager) - 0(Both) 2. Best Gaze (Lateral Gaze Paresis) - 0(Normal) 3. Visual Field Loss - 0(No visual loss) 4. Facial Palsy - 0(Normal) 5a. Left Arm: Motor (10-second hold) - 0(No drift) 5b. Right Arm: Motor (10-second hold) - 0(No drift) 6a. Left Leg: Motor (5-second hold - always test supine) - 0(No drift) 6b. Right Leg: Motor (5-second hold - always test supine) - 0(No drift) 7. Limb Ataxia (finger/nose \\T\\ heel/connell - test with eyes open) - 0(Absent) 8. Sensory Loss (pinprick arms/legs/face) - 0(Normal) 9. Best Language: Aphasia (description/naming/reading) - 0(No aphasia) 10. Dysarthria (speech clarity - read or repeat words) - 0(Normal) 11. Extinction and Inattention (visual/tactile/auditory/spatial/personal) - 0(No abnormality) Initials: cristiane Signatures: Dispatcher [employer] Juan Augustine MD MD cha Munoz, Edgar, RN Sola Galvez Lynsay, RN RN ll1 Willi Manjarrez3
--- NOTE | 2020-08-28 21:06 | EDPHYS ---
Physician Documentation [facility] Name: Fredis Diaz Age: 80 yrs Sex: Female : 1940 Arrival Date: 08/28/2020 Time: 18:16 Bed 15 Private MD: ED Physician Juan Arce HPI: 08/28 20:17 This 80 yrs old Female presents to ER via Wheelchair with complaints of Arm cristiane Pain, Neck Pain, >24Hrs Old, Numbness Of Hand. 20:17 The patient or guardian complains of decreased range of motion, pain, that is acute. cristiane The complaints affect the right bicep, dorsal aspect of right forearm, right tricep and palmar aspect of right forearm, left bicep, dorsal aspect of left forearm, left tricep and palmar aspect of left forearm. Context: The problem was sustained at home, resulted from lifting or pulling. Onset: The symptoms/episode began/occurred yesterday. Treatment prior to arrival includes: no previous treatment. Modifying factors: The symptoms are alleviated by remaining still, the symptoms are aggravated by movement, lifting weight. Severity of symptoms: At their worst the symptoms were mild, in the emergency department the symptoms are unchanged. The patient has not experienced similar symptoms in the past. Historical: - Allergies: 18:30 "something for my bladder"; ll1 - PMHx: 18:30 22 YRS AGO HAD CERVIAL CANCER; EDEMA TO LOWER EXTS; LYMPHOMA; ll1 - PSHx: 18:30 None; ll1 - Immunization history:: Flu vaccine is up to date. - Social history:: Smoking status: Patient denies any tobacco usage or history of. - Family history:: not pertinent. ROS: 20:17 Constitutional: Negative for fever, chills, and weight loss, Eyes: Negative for injury, cristiane pain, redness, and discharge, ENT: Negative for injury, pain, and discharge, Neck: Negative for injury, pain, and swelling, Cardiovascular: Negative for chest pain, palpitations, and edema, Respiratory: Negative for shortness of breath, cough, wheezing, and pleuritic chest pain, Abdomen/GI: Negative for abdominal pain, nausea, vomiting, diarrhea, and constipation, Back: Negative for injury and pain, : Negative for injury, bleeding, discharge, and swelling, Skin: Negative for injury, rash, and discoloration, Neuro: Negative for headache, weakness, numbness, tingling, and seizure, Psych: Negative for depression, anxiety, suicide ideation, homicidal ideation, and hallucinations, Allergy/Immunology: Negative for hives, rash, and allergies, Endocrine: Negative for neck swelling, polydipsia, polyuria, polyphagia, and marked weight changes, Hematologic/Lymphatic: Negative for swollen nodes, abnormal bleeding, and unusual bruising. 20:17 MS/extremity: Positive for decreased range of motion, pain, of the chest, right arm and left arm. Exam: 20:17 Constitutional: This is a well developed, well nourished patient who is awake, alert, cristiane and in no acute distress. Head/Face: Normocephalic, atraumatic. Eyes: Pupils equal round and reactive to light, extra-ocular motions intact. Lids and lashes normal. Conjunctiva and sclera are non-icteric and not injected. Cornea within normal limits. Periorbital areas with no swelling, redness, or edema. ENT: Nares patent. No nasal discharge, no septal abnormalities noted. Tympanic membranes are normal and external auditory canals are clear. Oropharynx with no redness, swelling, or masses, exudates, or evidence of obstruction, uvula midline. Mucous membranes moist. Neck: Trachea midline, no thyromegaly or masses palpated, and no cervical lymphadenopathy. Supple, full range of motion without nuchal rigidity, or vertebral point tenderness. No Meningismus. Chest/axilla: Normal chest wall appearance and motion. Nontender with no deformity. No lesions are appreciated. Cardiovascular: Regular rate and rhythm with a normal S1 and S2. No gallops, murmurs, or rubs. Normal PMI, no JVD. No pulse deficits. Respiratory: Lungs have equal breath sounds bilaterally, clear to auscultation and percussion. No rales, rhonchi or wheezes noted. No increased work of breathing, no retractions or nasal flaring. Abdomen/GI: Soft, non-tender, with normal bowel sounds. No distension or tympany. No guarding or rebound. No evidence of tenderness throughout. Back: No spinal tenderness. No costovertebral tenderness. Full range of motion. Female : Normal external genitalia. Skin: Warm, dry with normal turgor. Normal color with no rashes, no lesions, and no evidence of cellulitis. Neuro: Awake and alert, GCS 15, oriented to person, place, time, and situation. Cranial nerves II-XII grossly intact. Motor strength 5/5 in all extremities. Sensory grossly intact. Cerebellar exam normal. Normal gait. Psych: Awake, alert, with orientation to person, place and time. Behavior, mood, and affect are within normal limits. 20:17 Musculoskeletal/extremity: ROM: limited active range of motion due to pain, limited passive range of motion due to pain, Circulation is intact in all extremities. Sensation intact. Compartment Syndrome exam of affected extremity: is normal. DVT Exam: no swelling, negative Homans' sign noted on exam, no appreciated bluish discoloration, no erythema, no increased warmth, pain, tenderness. 21:08 ECG was reviewed by the Attending Physician. [facility] Vital Signs: 18:30 BP 153 / 66; Pulse 84; Resp 16; Temp 98.6; Pulse Ox 98% ; Weight 63.5 kg; Height 5 ft. ll1 4 in. (162.56 cm); Pain 4/10; 21:00 BP 140 / 70; Pulse 71; Resp 18; Pulse Ox 100% on R/A; em 03 00:00 BP 143 / 60; Pulse 66; Resp 16; Pulse Ox 99% on R/A; Pain 5/10; em 02:00 BP 135 / 62; Pulse 63; Resp 19; Pulse Ox 99% on R/A; em 08/28 18:30 Body Mass Index 24.03 (63.50 kg, 162.56 cm) ll1 NIH Stroke Scale Scores: 08/28 23:38 NIHSS Score: 0 [facility] MDM: 19:23 Patient medically screened. [facility] 20:21 Differential diagnosis: contusion, abrasion, tendonitis. Data reviewed: vital signs, [facility] nurses notes, lab test result(s), EKG, radiologic studies, CT scan, plain films. Data interpreted: sericulture teacher: rate is 84 beats/min, rhythm is regular, Pulse oximetry: on room air is 98 %. Test interpretation: by ED physician or midlevel provider: ECG, plain radiologic studies. Counseling: I had a detailed discussion with the patient and/or guardian regarding: the historical points, exam findings, and any diagnostic results supporting the discharge/admit diagnosis, lab results, radiology results, the need for outpatient follow up. 23:37 ED course: symptoms greater than 12 hrs, not a tpa candidate. [facility] 08/28 19:53 Order name: Basic Metabolic Panel [facility] 08/28 19:53 Order name: CBC with Diff; Complete Time: 22:03 [facility] 08/28 19:53 Order name: LFT's; Complete Time: 21:00 [facility] 08/28 19:53 Order name: Magnesium; Complete Time: 21:00 [facility] 08/28 19:53 Order name: NT PRO-BNP; Complete Time: 21:00 [facility] 08/28 19:53 Order name: Troponin (emerg Dept Use Only); Complete Time: 21:00 [facility] 08/28 19:53 Order name: CK; Complete Time: 21:00 [facility] 08/28 19:53 Order name: Ckmb; Complete Time: 21:00 [facility] 08/28 19:58 Order name: Basic Metabolic Panel; Complete Time: 21:00 [facility] 08/28 20:19 Order name: Urine Dipstick--Ancillary (enter results); Complete Time: 21:00 tt3 08/28 21:24 Order name: CBC Smear Scan; Complete Time: 22:03 [facility] 08/29 00:30 Order name: COVID-19 : Document "Date of Symptom Onset" if Symptomatic. em 08/29 01:30 Order name: CORONAVIRUS [facility] 08/29 02:27 Order name: SARS-COV-2 RT PCR [facility] 08/28 19:53 Order name: XRAY Chest (1 view); Complete Time: 21:00 [facility] 08/28 19:53 Order name: EKG; Complete Time: 19:57 [facility] 08/28 19:53 Order name: Cardiac monitoring; Complete Time: 20:18 [facility] 08/28 19:53 Order name: EKG - Nurse/Tech; Complete Time: 20:18 [facility] 08/28 19:53 Order name: IV Saline Lock; Complete Time: 20:18 [facility] 08/28 19:53 Order name: CT C Spine; Complete Time: 21:00 [facility] 08/28 22:04 Order name: CT Head Brain wo Cont [facility] 08/28 22:04 Order name: US Carotid Artery Bilateral [facility] 08/28 23:30 Order name: CONS Physician Consult [facility] 08/28 19:53 Order name: Labs collected and sent; Complete Time: 20:18 [facility] 08/28 19:53 Order name: O2 Per Protocol; Complete Time: 20:18 [facility] 08/28 19:53 Order name: O2 Sat Monitoring; Complete Time: 20:18 [facility] 08/28 19:53 Order name: Urine Dipstick-Ancillary (obtain specimen); Complete Time: 20:18 cristiane EC:08 Rate is 72 beats/min. Rhythm is regular. QRS [place] is Normal. [place] interval is normal. QRS cristiane interval is normal. QT interval is normal. No Q waves. T waves are Normal. No ST changes noted. Clinical impression: NSR w/ Non-specific ST/T Changes and No evidence of ischemia. Interpreted by me. Reviewed by me. Administered Medications: 21:48 Drug: Pepcid 20 mg Route: IVP; Site: right antecubital; em 23:28 Follow up: Response: No adverse reaction em 21:48 Drug: Aspirin 81 mg Route: PO; em 23:28 Follow up: Response: No adverse reaction em 21:50 Drug: TORadol - Ketorolac 15 mg Route: IVP; Site: right antecubital; em 23:29 Follow up: Response: No adverse reaction em 21:52 Drug: Decadron - Dexamethasone 4 mg Route: IVP; Site: right antecubital; em 23:28 Follow up: Response: No adverse reaction; Marked relief of symptoms em 23:43 Drug: Aspirin Chewable Tablet 243 mg Route: PO; em 23:43 Drug: foLIC Acid 1 mg Route: IVPB; Site: right antecubital; em 23:43 Drug: Meclizine 25 mg Route: PO; em Disposition: 08/28/20 23:23 Hospitalization ordered by Mercedes Jones for Observation. Preliminary diagnosis are Ataxia, unspecified, Radiculopathy, cervical region. - Bed requested for Telemetry/MedSurg (observation). - Status is Observation. tt3 - Condition is Fair. - Problem is new. - Symptoms have improved. NIH Stroke Scale - NIH Stroke Score Date: 08/28/2020 Time: 23:38 Total Score = 0 1a. Level of Consciousness (LOC) - 0(Alert) 1b. Level of Consciousness (LOC) (Year \\T\\ Age) - 0(Both) 1c. LOC Commands (Open \\T\\ Closes Eyes/Business Office Director) - 0(Both) 2. Best Gaze (Lateral Gaze Paresis) - 0(Normal) 3. Visual Field Loss - 0(No visual loss) 4. Facial Palsy - 0(Normal) 5a. Left Arm: Motor (10-second hold) - 0(No drift) 5b. Right Arm: Motor (10-second hold) - 0(No drift) 6a. Left Leg: Motor (5-second hold - always test supine) - 0(No drift) 6b. Right Leg: Motor (5-second hold - always test supine) - 0(No drift) 7. Limb Ataxia (finger/nose \\T\\ heel/connell - test with eyes open) - 0(Absent) 8. Sensory Loss (pinprick arms/legs/face) - 0(Normal) 9. Best Language: Aphasia (description/naming/reading) - 0(No aphasia) 10. Dysarthria (speech clarity - read or repeat words) - 0(Normal) 11. Extinction and Inattention (visual/tactile/auditory/spatial/personal) - 0(No abnormality) Initials: [facility] Signatures: Dispatcher [employer] EDJuan Gonzalez MD MD cha Munoz, Edgar, RN Meg Urban RN RN Heber Alcantara RN RN ll1 Josseline, Willi tt3 Corrections: (The following items were deleted from the chart) 22:04 21:05 08/28/2020 21:05 Discharged to Home. Impression: Strain of muscle, fascia cristiane and tendon at neck level; Radiculopathy, cervical region. Condition is Stable. Forms are Medication Reconciliation Form, Thank You Letter, Antibiotic Education, Prescription Opioid Use. Follow up: Private Physician; When: 2 - 3 days; Reason: Recheck today's complaints, Continuance of care, Re-evaluation by your physician. Follow up: Carlos Leiva; When: 2 - 3 days; Reason: Recheck today's complaints, Re-evaluation by your physician. Follow up: Harry Minaya; When: 2 - 3 days; Reason: Recheck today's complaints, Re-evaluation by your physician. Problem is new. Symptoms have improved. [facility] 08/29 02:32 03 23:23 Hospitalization Ordered by A Robert HOPSON for Observation. Preliminary cg diagnosis is Ataxia, unspecified; Radiculopathy, cervical region. Bed requested for Telemetry/MedSurg (observation). Status is Observation. Condition is Fair. Problem is new. Symptoms have improved. cristiane 03/05 02:51 02:32 08/28/2020 23:23 Hospitalization Ordered by A Robert HOPSON for Observation. cg Preliminary diagnosis is Ataxia, unspecified; Radiculopathy, cervical region. Bed requested for Telemetry/MedSurg (observation). Status is Observation. Condition is Fair. Problem is new. Symptoms have improved. cg 03:41 02:51 08/28/2020 23:23 Hospitalization Ordered by A Robert HOPSON for Observation. tt3 Preliminary diagnosis is Ataxia, unspecified; Radiculopathy, cervical region. Bed requested for Telemetry/MedSurg (observation). Status is Observation. Condition is Fair. Problem is new. Symptoms have improved.
[2020-08-28 21:24] LABS: Blood Morphology Comment NOTED (NOT SEEN); Platelet Estimate DECR; White Blood Cell Scan OK (OK)
[2020-08-28] MEDS ORDERED: ASPIRIN 81 MG CHEWABLE TABLET ONE ×2 (22:00→23:53)
[2020-08-28] MEDS ORDERED: dexAMETHasone 4 MG/ML VIAL ONE (22:00)
[2020-08-28] MEDS ORDERED: KETOROLAC 30 MG/ML INJ ONE (22:00)
[2020-08-28] MEDS ORDERED: FAMOTIDINE 20 MG/2 ML VIAL IV ONE (22:01)
[2020-08-28] MEDS ORDERED: MECLIZINE HCL 12.5 MG TAB ONE (23:52)
[2020-08-28] MEDS ORDERED: FOLIC ACID 5 MG/ML VIAL ONE (23:54)
[2020-08-29] MEDS ORDERED: ONDANSETRON 4 MG/2 ML VIAL IV PRN (04:06)
[2020-08-29] MEDS ORDERED: MECLIZINE HCL 12.5 MG TAB PO PRN (04:06)
[2020-08-29] MEDS ORDERED: NA CHLORIDE 0.9% 1,000 ML IV SCH (04:06)
[2020-08-29] MEDS ORDERED: ACETAMINOPHEN 325 MG TABLET PO PRN (04:06)
[2020-08-29 04:48] LABS: Absolute Lymphocytes (CBC) 0.5 K/uL (0.7-4.9); Basophils % 0.5 % (0-1.3); Hematocrit 34.4 % (36.0-45.0); Lymphocytes % 9.3 % (15.3-44.8); MPV 7.6 fL (7.6-11.3); RBC Red Blood Cell Count 3.12 M/uL (3.86-4.86)
[2020-08-29 04:59] LABS: Potassium 4.2 mmol/L (3.5-5.1)
[2020-08-29 06:37] LABS: Folic Acid, (Folate) > 20.0 ng/mL (3.1-17.5); Thyroid Stimulating Hormone 0.404 uIU/mL (0.360-3.740)
--- NOTE | 2020-08-29 08:24 | RAD REPORT ---
EXAM DESCRIPTION: US - CP - 08/28/2020 11:24 pm CLINICAL HISTORY: DIZZINESS COMPARISON: C Spine Wo Con dated 08/28/2020 TECHNIQUE: Real-time sonographic evaluation of bilateral carotid and vertebral systems was performed . Yanez scale and Doppler interrogation were performed with waveform tracing bilaterally. FINDINGS: Normal high resistance waveforms are noted in both external carotid arteries. The common c arotid arteries and internal carotid arteries show normal low resistance waveforms. No significant plaque formation is seen. With the exception of the left distal ICA, peak systolic and end diastolic velocity values and the ICA/CCA ratios are in the non-hemodynamically significant rang e. The left ICA elevated velocities present without visual evidence of any significant plaquing. This is probably technical in nature rather than indicating true vascular disease. Antegrade flow seen in both vertebral arteries. Velocity values and ratios were recorded and are retained in the patient's imaging records. IMPRESSION: No significant atherosclerotic changes in the right carotid and vertebral vasculature. Elevated left internal carotid velocity is believed to be artifact rather than an indication of true disease. Follow-up CTA or MRA imaging could be performed if patient has ischemic symptoms that could be due to left carotid disease.
[2020-08-29 08:26] VITALS: BMI 24.1
[2020-08-29] MEDS: FOLIC ACID 1 MG in NA CHLORIDE 0.9% 50 ML IV SCH (09:00)
[2020-08-29] MEDS: ASPIRIN 81 MG CHEWABLE TABLET PO SCH (09:49)
[2020-08-29] MEDS: predniSONE 10 MG TAB PO SCH (09:49)
--- NOTE | 2020-08-29 11:40 | RAD REPORT ---
EXAM DESCRIPTION: CT - Head Brain Wo Cont - 08/29/2020 6:58 am CLINICAL HISTORY: DIZZINESS COMPARISON: 04/26/2020. TECHNIQUE: CT HEAD WITHOUT IV CONTRAST on 08/28/2020 10:04 PM OFFICE MACHINE SERVICE SUPERVISOR This exam was performed according to our departmental dose-optimization program, which includes autom ated exposure control, adjustment of the mA and/or kV according to patient size and/or use of iterati ve reconstruction technique. FINDINGS: There is no acute hemorrhage, mass effect or midline shift. There is a small old anterior left basal ganglia lacunar infarct. There is no hydrocephalus. There is no significant volume loss fo r age. There is a septum cavum pellucidum. The calvarium is intact. Orbits and globes are unremarkable. The paranasal sinuses are clear. Mastoid air cells are clear. IMPRESSION: No acute intracranial findings. Electronically signed by: Curtis Perry MD 08/28/2020 10:58 PM OFFICE MACHINE SERVICE SUPERVISOR Due to temporary technical issues with the PACS/Fluency reporting system, reports are being signed by the in house radiologist without review as a courtesy to ensure prompt reporting. The interpreting r adiologist is fully responsible for the content of the report.
--- NOTE | 2020-08-29 14:25 | RAD REPORT ---
EXAM DESCRIPTION: MRI - Brain W/Wo Cont - 08/29/2020 2:15 pm CLINICAL HISTORY: CVA/ataxia COMPARISON: August 28, [address] TECHNIQUE: Axial, sagittal, and coronal magnetic images of the brain were obtained. 12 cc MultiHance administered intravenously FINDINGS: Mild signal within periventricular, deep and subcortical white matter probably ischemic ch anges secondary to small vessel disease Small old lacunar infarct left basal ganglia The ventricles are normal in caliber. Diffusion-weighted/ ADC mapping sequences do not demonstrate evidence of an acute infarction. No abnormal enhancement within the brain is seen. An extra-axial fluid collection is not noted. Fluid within the sinuses/mastoids is not seen IMPRESSION: No acute abnormality displayed
--- NOTE | 2020-08-29 14:32 | RAD REPORT ---
EXAM DESCRIPTION: MRI - C Spine Wo Cont - 08/29/2020 2:14 pm CLINICAL HISTORY: Ataxia COMPARISON: None TECHNIQUE: Magnetic resonance imaging of the cervical spine was obtained with coronal and sagittal r econstruction FINDINGS: C2-3 unremarkable Disc bulge and facet hypertrophy C3-4. This results in mild narrowing of the thecal sac. Mild narrowi ng of the left neural foramina. Mild spondylosis C4-5. Disc bulge C5-6 and facet hypertrophy. Mild narrowing of the thecal sac. Mild to moderate narrowing o f the right neural foramina. Disc bulge and osteophytes C6-7. Thecal sac measures 7.5 millimeters. Lateral recesses are narrowed. Moderate narrowing of the neural foramina bilaterally. Mild spondylosis C7-T1. 16 x 4 millimeter area of increased signal (cc by AP) is present within the spinal cord At the level of C4 and C5 IMPRESSION: 16 x 4 millimeter area of increased signal (cc by AP) is present within the spinal cord at the level of C4 and C5. 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 Spondylosis C6-7 resulting in mild to moderate central spinal stenosis. Moderate bilateral foraminal stenosis is also present
--- NOTE | 2020-08-29 15:01 | RAD REPORT ---
EXAM DESCRIPTION: MRI - MRA Head Wo Cont - 08/29/2020 1:55 pm CLINICAL HISTORY: CVA/ataxia COMPARISON: None. TECHNIQUE: Magnetic resonance angiogram was performed. 3D MIPS reconstruction performed FINDINGS: Examination is somewhat limited secondary to artifact. The right A1 segment anterior cerebral artery is hypoplastic. origin right posterior cerebral artery. Mild areas of narrowing involving itches of the middle cerebral arteries bilaterally probably chronic . Remainder of the arteries appear unremarkable. Basilar and distal internal carotid arteries appear normal. An aneurysm is not displayed. IMPRESSION: No acute abnormality displayed
--- NOTE | 2020-08-29 15:01 | RAD REPORT ---
EXAM DESCRIPTION: MRI - MRA Neck W/Wo Cont - 08/29/2020 2:37 pm CLINICAL HISTORY: CVA/ataxia COMPARISON: None. TECHNIQUE: Magnetic resonance angiogram of the neck was performed. 12 cc MultiHance was administered intravenously. 3D MIPS reconstruction performed FINDINGS: The common carotid, internal carotid and external carotid arteries do not demonstrate a si gnificant stenosis. An aneurysm is not seen. The left vertebral artery is more dominant than the right without visualization of a significant abno rmality. IMPRESSION: No significant abnormality displayed NASCET criteria used. Mild 0-49% stenosis Moderate 50-69% stenosis Severe 70-99% stenosis
--- NOTE | 2020-08-29 17:19 | RAD REPORT ---
EXAM DESCRIPTION: MRI - Thoracic Spine Wo Contr - 08/29/2020 5:02 pm CLINICAL HISTORY: Numbness COMPARISON: May 2018 thoracic spine x-ray TECHNIQUE: Sagittal T1 weighted, T2 weighted and T2 STIR weighted sequences were obtained. Axial T2 weighted images were obtained through each disc level. FINDINGS: Marked compression deformity involves the T8 vertebral body. Retropulsion of fracture fra gment into the spinal canal is not noted. It contains a small area of increased signal on IR sequence s. However most of the signal is compatible with the adjacent vertebra. This probably represents a la te subacute compression fracture. It has developed since the May 2018 x-ray thoracic spine T1 sequences demonstrate diffusely diminished signal throughout the vertebral probably red marrow rec onversion. Kyphosis is present. No significant central/foraminal stenosis seen. No additional fracture IMPRESSION: Marked compression fracture involving T8 vertebral body which probably is late subacute
--- NOTE | 2020-08-29 21:25 | CON ---
Reason For Consultation: Consultation called because of cervical cord compression, loss of bowel and bladder function, and severely ataxic gait. History Of Present Illness: Ms. Diaz is a 80-year-old right-handed patient with history of lymphoma, cervical cancer, radiation to the lower cervical spine, and a T8 chronic thoracic compre ssion fracture, who despite these challenges was doing fairly well, although she did have intermitten t problems with bowel and bladder control since her thoracic vertebral compression fracture. She was assisting someone this Tuesday to remove heavy objects from her attic that had been placed there b y her , who a few years ago. She said that she did lift a very heavy object and a s she moved it around, she began to have pain in the neck that moved out in a shawl-like fashion to h er arms, forearms, and to the hands and fingers with tingling. At that time, she did not have initia lly problems with her balance, but subsequently perhaps hours later began to have problems walking, p oor balance, and since then has been unable to walk and then came to [facility]. She was ad mitted on the fourth, which is yesterday, and had a CT scan done of her cervical spine. The study di d show mild to moderate lower cervical degenerative changes. However, MRI of her cervical spine, whi ch was done today identified a 16 x 4 mm area of increased signal anterior-posterior in terms of ekta urement in the spinal cord at level C4-5, likely representing myelomalacia. In addition, there was a t the C6-7 level, mild to moderate central spinal stenosis and moderate bilateral foraminal stenosis at this level. Brain MRI did not show any acute ischemic or hemorrhagic change. There was mild smal l-vessel ischemic disease. She has a thoracic spine MRI pending. MRA of the neck shows no significa nt abnormalities. MRA of the head shows no significant abnormalities of the craig of [place] and the intracranial vessels. Her COVID-19 test is negative. Her complete blood count with differential es sentially unremarkable except for slightly low hemoglobin and hematocrit with mild chronic anemia. M CV is elevated to 110.4, platelets 121. Kidney function is normal. She does have glucose elevated u p to 145, ranging from 100-145. Liver function studies show slightly elevated alkaline phosphatase o f 144, but normal ALT, AST. TSH normal. Serum folic acid greater than 20. Her vitamin D level is v deann low at 23.4 and B12 level was low at 157. HDL is 87 and LDL 121 with total cholesterol 201. Uri nalysis was negative. She was placed on steroids, Decadron, and has been given oral steroids. Continue prednisone 30 mg da soren. Also, she received aspirin. Since her hospital admission when I actually saw the patient, she had loss of stool control and was unable to control her bowels and was unable to stand and maintain h er balance. Past Medical History: As noted. Allergies: SHE REPORTS SHE IS ALLERGIC TO POSSIBLY MYRBETRIQ. Past Surgical History: She has had actually radiation to the pelvic area related to the cervical can cer and she has been treated for lymphoma. Family History: Noncontributory. Social History: No alcohol, tobacco, or IV drug use. Review of Systems: She did report intermittent problems with her bladder function and has been wearing a pad and also at times noted some difficulty with bowel control, but not to the extent that is occurring today. Othe rwise, no fevers, chills, nausea, vomiting, myalgias, arthralgias, and no significant weight change o r any other positives on review of systems. Physical Examination: Vital Signs: Blood pressure 172/70, pulse 75, respiratory rate of 16, temperature 97.4, oxygen satur ation 99%. Pain currently 0, but range of max 8. Weight 145 pounds, height 5 feet 5 inches, BMI 24. 1. General: Ms. Diaz is resting in bed. She is in no acute distress. HEENT: She is normocephalic, atraumatic. Sclerae anicteric. Oropharynx is pink and moist. Neck: Supple. Chest: Clear. Heart: Regular. Extremities: No significant edema, clubbing, or cyanosis. Neurologic: She is alert and oriented to person, place, time, and situation. Cranial nerves 2 throu gh 12 are intact. Motor examination, in the upper extremities, she does have significant arthritic c hanges within the joints of the fingers, but has good strength proximally and distally and symmetrica lly, so the upper extremities. In the lower extremities, she has 4/5 strength proximally and distall y and with increased tone noted. Coordination exam, she has some dysmetria in the upper extremities, more noted in the lower extremities with difficulty with [id number]-af-ogtm bilaterally. Reflexes are hyp oreflexic in the lower extremities, 3 to 4+ with some crossed adductors noted and 3 at the heels bila terally; upper extremity on the left side, she has 3+ and on the right side, 2+ and this is at the bi ceps and brachioradialis. Sensation is intact in the upper and lower extremities. Gait, she is unab le to ambulate, very ataxic and tends to fall with eyes closed. Assessment: Ms. Diaz is 80-year-old patient with an acute on chronic cervical myelopathy resulting in loss of bladder control and unsteady ataxic gait. She had these acute changes 2 days ago and luigi garcia requires acute intervention from Neurosurgery. She is currently on steroid course. She has no e vidence of any systemic infection or multiorgan dysfunction and again is best served by being evaluat ed by Neurosurgery. She does not have any arrhythmic issues in terms of her heart function, and her neck and head blood vessels show no significant obstruction. Her carotid artery studies show no sign ificant obstruction. She has an MRI of the cervical spine, a 16 x 4 mm area of myelomalacia from chr onic issues in the cord. Plan: 1.The patient will be transferred for acute care to [place] where Neurosurgery will evaluate her. 2.We will continue the oral steroids as indicated. 3.The patient will have a hard cervical collar placed. 4.She is to have a collar in place while in and out of bed until fully evaluated by Neurosurgery. 5.This was communicated with the patient and with Dr. Jones and her primary care physician. KAI/BETH Voice ID: [id number] Report ID: [id number]
[2020-08-30] MEDS: predniSONE 10 MG TAB PO SCH (08:33)
[2020-08-30] MEDS: ASPIRIN 81 MG CHEWABLE TABLET PO SCH (08:33)
[2020-08-30] MEDS: FOLIC ACID 1 MG in NA CHLORIDE 0.9% 50 ML IV SCH (09:29)
[2020-08-30] MEDS ORDERED: CYANOCOBALAMIN 1000MCG/ML INJ IM ONE (09:45)
[2020-08-30 10:15] VITALS: O2SAT 98
[2020-08-30 16:36] VITALS: BP 177/79; TEMP 98.2
--- NOTE | 2020-08-31 07:43 | HP ---
Date of Admission: 08/29/2020 Chief Complaint: Tingling in the arm and pain in back of neck. History Of Present Illness: A 80-year-old female patient who came into emergency room yesterday with above-mentioned complaints with bilateral arm pain, tingling of both hands and trouble walking. All these complaints started day before yesterday, which is on August 27, 2020 and it did not improve, so yesterday, she decided to come to emergency room after she was evaluated, she was admitted to the hospital. The patient reports that on August 27, 2020, she had somebody helping to clean her attic in her house and she was looking up with extension of her neck and tried to grab things as this particular individual was giving it to her from attic and she was carrying it and putting it down and she did this activity several times and subsequently, she started to have pain in her both arms associated with tingling of her hands and trouble walking. Symptoms did not improve, so she came into ER and she was evaluated and admitted to the hospital. The patient had a cervical spine CAT scan done in the emergency room and CAT scan of the brain done and this has not shown any acute changes. When I saw her in the morning, her MRI of the brain was pending, but I also ordered MRI of the cervical spine as I was concerned about that on basis of her symptoms. When I saw her, she did not have any problem with loss of bladder or bowel function. Allergies: TO NITROFURANTOIN. Medications: Calcium 1 tablet daily, Myrbetriq 25 mg daily. Past Medical History: Significant for white coat hypertension; hyperlipidemia; renal cyst; overactive bladder; cancer of cervix, diagnosed in 1988, treated with chemotherapy and radiation therapy; non-Hodgkin lymphoma, diagnosed July 31, 2018 and this was treated at [facility] and last year during one of the CAT scan done at [facility], she was found to have pulmonary embolism and she was treated with Eliquis which was subsequently discontinued by Claude. Past medical history also significant for osteopenia and vitamin D deficiency. Past Surgical History: Negative. Family History: Father had COPD, [place]. Mother had stroke. Social History: Negative for smoking and alcohol use. Review of Systems: CYBER ENGINEER: As mentioned above. Musculoskeletal: As mentioned above. All other systems reviewed and negative. Physical Examination: Vital Signs: Height 5 feet 4 inches, weight 140 pounds, temperature 97.6, pulse 70, respiratory rate 18, blood pressure 151/81, oxygen saturation 96% on room air. General: Awake, alert, oriented, not in distress. HEENT: Head atraumatic, normocephalic. Conjunctivae nonerythematous. Sclerae white. Mouth, no thrush or edema noted. Ears/Nose, no mass, lesion, discharge noted. Neck: Supple. No JVD, lymph nodes, bruit, thyromegaly noted. Lungs: Bilateral good equal air entry. Clear to auscultation. No rhonchi. No rales. Heart: Normal heart sounds, no murmur or gallop. Abdomen: Soft, bowel sounds normal. No guarding, rigidity, tenderness, mass, hepatosplenomegaly, distention, or bruit noted. Extremities: No leg edema. No calf tenderness. Skin: No rash, ulcer, cellulitis. Lymphatics: No lymph node enlargement in neck, supraclavicular, infraclavicular region. Chest: Unremarkable. External Genitalia: Deferred. Rectal: Deferred. CYBER ENGINEER: She does not have any focal neurological deficits with any weakness. Her deep tendon reflexes, she has hyperreflexia of bilateral knees and she is not steady on her gait and attempts to stand or walk she loses her balance. Laboratory Data: Yesterday, when she came to the ER, white count 3.7, hemoglobin 12, platelets 127. This morning, white count 4.9, hemoglobin 11.9, platelets 121. Yesterday, sodium 144, potassium 4, chloride 112, bicarb 26, BUN 11, creatinine 0.67, glucose 100. Liver function tests unremarkable. Troponin less than 0.02. This morning, sodium 142, potassium 4.2, chloride 110, bicarb 25, BUN 11, creatinine 0.67, glucose 145. Her B12 level is low at 157. Vitamin D level pending. Folic acid level more than 20. TSH 0.40. LDL cholesterol 121, total cholesterol 221, triglyceride 64 and HDL 87. Urinalysis negative. COVID-19 test negative. Her MRI of thoracic spine done today shows marked compression fracture of T12 vertebral body which appears late subacute with kyphosis. No evidence of retropulsion of fracture segment in the spinal canal. MRI of the cervical spine done today shows 16 x 4 mm area of increased signal present in the spinal cord at C4 and C5 level, probably representing myelomalacia. Spondylosis of C6-7 resulting in [id number]-cstujxsk spinal stenosis. Moderate bilateral foraminal stenosis present. Her MRA of brain was negative for any acute changes. MRA of the neck was reported as no significant abnormality. MRI of the brain was negative for any acute intracranial changes. CAT scan of the head was negative for any acute intracranial changes. Carotid Doppler showed no significant atherosclerotic changes in the right carotid and vertebral vasculature. Elevated left internal carotid velocity believed to be artifact than true disease and MRA of the neck was negative for any significant changes. Impression: 1. Cervical spinal stenosis. 2. Cervical myelomalacia. 3. Non-Hodgkin's lymphoma. 4. Pancytopenia. 5. Vitamin D deficiency. 6. Vitamin B12 deficiency with anemia. Plan: We will go ahead and admit the patient to hospital for Further evaluation and management of this problem. The patient was admitted after evaluation in emergency room and after I saw her this morning. MRI of the cervical spine was done and results reviewed. Neurology consultation was obtained from Dr. Minaya and he also evaluated the patient. In fact, when Dr. Minaya was in the room with the patient, the patient had actually incontinence episode and she had incontinence of her bowel function and this is something new. Dr. Minaya also tried to get her up to stand and walk and she was not able to do that because of her ataxia. So, with this in mind, Dr. Minaya has recommended for us to try to transfer the patient to [place] for higher level of care and Transfer Center was contacted at [facility] in [place] and after Dr. Minaya communicated with accepting physician, the patient was accepted for transfer as per my discussion with Dr. Minaya. Subsequently, I contacted the patient's brother who is her next of kin who lives out of town and all the details were discussed with him and he was made aware of our plan to transfer the patient to [place] soon as the bed is available and the patient understands and she is agreeable with the recommendation. Meanwhile, this morning, after I saw the patient, she was started on prednisone 30 mg daily, which obviously we will continue that right now. ELBERT/MODL Voice ID: [id number] JAMEL
--- NOTE | 2020-08-31 13:19 | DS ---
Date of Discharge: 08/30/2020 Disposition: Discharged to go to [facility]. Physical Examination: HEENT: Unremarkable. Lungs: Clear to auscultation. Heart: Sounds normal. Abdomen: Soft. Bowel sounds normal. No guarding, rigidity, tenderness, or distention. Extremities: No leg edema. Hospital Course: A 80-year-old female patient admitted to the hospital with tingling sensation of her both hands, pain in her both arms, and pain in the back of the neck. Please see dictated H and P for more information. The patient also had trouble walking associated with these symptoms. After she came into emergency room, she was evaluated and admitted to the hospital. CAT scan of the head was negative for any acute stroke type of changes and the patient had an MRI of the brain done per stroke protocol, which was negative for any stroke. Carotid Doppler had shown some abnormality, but likely artifact and MRA of neck resolved this question as there was no evidence of any carotid artery stenosis on MRA of the neck. Her MRI of the cervical spine has shown some significant abnormality and all these results discussed with the patient. Dr. Minaya of Neurology was consulted, who recommended for the patient to be transferred to [place] for further evaluation and management as she requires higher level of care and Transfer Center was contacted. Once the patient was accepted and arrangements completed, we transferred her in stable condition. I did contact the patient's next of kin who is the patient's brother, living out of town, and all the details were discussed with him as well. Today on day of discharge, the patient does not have any new complaints. The patient was started on prednisone 30 mg daily upon admission after I had evaluated her as I was concerned about cervical spine problem causing her symptoms and this was continued during this hospital stay and prednisone is a new medication for her start of this hospital admission. The patient did receive 1 dose of vitamin B12 1000 mcg intramuscular injection during this hospital stay. Final Diagnoses: 1. Cervical spinal stenosis. 2. Cervical myelomalacia. 3. Pancytopenia. 4. Vitamin D deficiency. 5. Vitamin B12 deficiency with anemia. 6. Non-Hodgkin lymphoma. 7. Cancer of cervix. 8. White coat hypertension. 9. Renal cyst. 10. Overactive bladder. 11. Osteopenia. Laboratory Data: Yesterday, when she came to the ER, white count 3.7, hemoglobin 12, platelets 127. This morning, white count 4.9, hemoglobin 11.9, platelets 121. Yesterday, sodium 144, potassium 4, chloride 112, bicarb 26, BUN 11, creatinine 0.67, glucose 100. Liver function tests unremarkable. Troponin less than 0.02. This morning, sodium 142, potassium 4.2, chloride 110, bicarb 25, BUN 11, creatinine 0.67, glucose 145. Her B12 level is low at 157. Vitamin D level pending. Folic acid level more than 20. TSH 0.40. LDL cholesterol 121, total cholesterol 221, triglyceride 64 and HDL 87. Urinalysis negative. COVID-19 test negative. Her MRI of thoracic spine done today shows marked compression fracture of T12 vertebral body which appears late subacute with kyphosis. No evidence of retropulsion of fracture segment in the spinal canal. MRI of the cervical spine done today shows 16 x 4 mm area of increased signal present in the spinal cord at C4 and C5 level, probably representing myelomalacia. Spondylosis of C6-7 resulting in [id number] spinal stenosis. Moderate bilateral foraminal stenosis present. Her MRA of brain was negative for any acute changes. MRA of the neck was reported as no significant abnormality. MRI of the brain was negative for any acute intracranial changes. CAT scan of the head was negative for any acute intracranial changes. Carotid Doppler showed no significant atherosclerotic changes in the right carotid and vertebral vasculature. Elevated left internal carotid velocity believed to be artifact than true disease and MRA of the neck was negative for any significant changes. Vitamin D level was 23.4. Vitamin B12 level was 157. ELBERT/MODL Voice ID: [id number] Report ID: [id number] JAMEL
--- NOTE | 2020-08-31 14:04 | HP ---
Date of Admission: 08/30/2020 DICTATION ENDS HERE ELBERT/MODL Voice ID: [id number] MTDD
== END 2020-08-30 16:37 | disposition short-term general hospital (02) | DRG 552 ==
LOC: ER 18:15 → ERHOLD 23:27 → 2ND 08-29 03:07 → OBSVTOIN 08-30 09:51
PROVIDERS: ADMIT Internal Medicine; ATTEND Internal Medicine
DX: M48.02 Spinal stenosis, cervical region (principal); G95.89 Other specified diseases of spinal cord; C85.90 Non-Hodgkin lymphoma, unspecified, unspecified site; D61.818 Other pancytopenia; I10 Essential (primary) hypertension; E78.5 Hyperlipidemia, unspecified; D51.9 Vitamin B12 deficiency anemia, unspecified; Z85.41 Personal history of malignant neoplasm of cervix uteri; Z20.822 Contact with and (suspected) exposure to COVID-19
CPT/HCPCS: 36415; 70450; 70544; 70549; 70553; 71045; 72125; 72141; 72146; 80048; 80061; 80076; 81003; 82306; 82550; 82553; 82607; 82746; 83735; 83880; 84443; 84484; 85025; 93005; 93880; 96374; 96375; 99285; A9577; G0378; J1100; J3420; J7030; J7512; U0003

== ENCOUNTER 2020-09-02 15:35 | Inpatient (IN) | payer OTHER ==
--- NOTE | 2020-09-02 16:07 | R.PREADM ---
PRE-ADMISSION SCREENING FORM SCREENING DATE AND TIME 09/02/2020 13:55 (TAPING SUPERVISOR) ANTICIPATED REHAB ADMISSION DATE 09/03/2020 REFERRING FACILITY [facility] MEDICAL REFERRAL DATE AND TIME 09/02/2020 13:55 (TAPING SUPERVISOR) ACUTE ADMIT DATE 09/03/2020 Previous Rehabilitation(s): No. ACUTE GUITAR MAKER/DC PUBLIC HEALTH DIRECTOR DARSHANA MCGRATH ATTENDING PHYSICIAN ED PARRISH MD REFERRING PHYSICIAN ED PARRISH MD REHAB FACILITY [facility] CLINICAL LIAISON Nick Ventura PHYSICIAN REVIEWER Dr. Harry Minaya M.D. MR# [id number] NAME MARLINE WYNNE ADDRESS [address] [facility] [facility] PHONE [facility] [id number] DATE OF 1940 AGE 80 SSN# [id number] GENDER female MARITAL STATUS RACE unknown race ADMIT FROM 02 - [facility] PRE-HOSPITAL LIVING SETTING 01 - Home (private home/apt. board/care, assisted living, detention, transitional living) HOME TYPE AND DETAILS Type of home: single family house # of levels in the residence: 1 # of steps to enter the residence: 0 # of steps within the residence: 0 PRE-HOSPITAL LIVING WITH Family/Relatives FAMILY SUPPORT Yes PRIMARY FAMILY CONTACT NAME LORA GALAVIZ PRIMARY FAMILY CONTACT PHONE PRIMARY FAMILY CONTACT RELATIONSHIP Brother PHONE PRIMARY FAMILY CONTACT ON ADM.? no IS PRIMARY FAMILY CONTACT AUTH. REP.? no 1ST EMERGENCY CONTACT LORA GALAVIZ 1ST CONTACT PHONE 1ST CONTACT RELATIONSHIP Brother PHONE 1ST CONTACT ON ADM. no IS 1ST CONTACT AUTH. REP.? no PHONE 2ND CONTACT ON ADM.? no PATIENT EMPLOYMENT STATUS Retired (for age) PATIENT EMPLOYER No Employer PAYOR INFORMATION: 1ST PAYOR NAME MEDICARE 1ST PAYOR PHONE 1ST PAYOR INJURY/ILLNESS DUE TO ACCIDENT? No ANOTHER CONSTITUTION PARTY RESPONSIBLE? 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 is a 80 yo Right-handed female of unknown race. On 08/30/2020 she was admitted to [facility] with diagnosis CERVICAL CORD MYELOMALA VIKASH. 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 Pre-morbidly, Pt. was independent/mod-I in Safety Awareness, Social Cognition, Sphincter Control, and Transfers Control; and she had good Endurance and Sphincter Control. Currently, she has deficits of Locomotion, Balance, Sphincter Control, and Endurance. Pt. is now referred to [facility] for acute in-patient rehabilitation in order to maximize patient's functional independence in activities of daily living, strength, ROM, and mobi lity. Patient has realistic goal of being discharged at assistance level 7-Ind to reside at Home with Fami ly/Relatives. PAST MEDICAL HISTORY B CELL LYMPHOMA CERVICAL CANCER HX OF PULMONARY EMBOLUS PAST SURGICAL HISTORY: HYSTERECTOMY MEDICATION ALLERGIES: No Known Drug Allergies (NKDA) ENVIRONMENTAL ALLERGIES: - Substance Allergies None Known - Other Allergies None Known CODE STATUS: Full code WEIGHT/HEIGHT/BMI: WEIGHT 140 lbs HEIGHT 5' 5" BMI 23.3 DIET: - Diet Type Regular - Diet - Solid Texture Regular - Diet - Liquid Texture Regular - Tube Feed N/A REVIEW OF SYSTEMS: - Gen Alert and awake Lying in bed No apparent distress Oriented to: person, time, and place - Vital Signs Temperature: 97.6 F SBP/DBP: 144/87 Pulse: 71 Resp: 16 Vital signs stable, afebrile - CVS RRR VITAL SIGNS Temperature: 97.6 F SBP/DBP: 144/87 Pulse: 71 Resp: 16 Vital signs stable, afebrile MEDICATIONS/TREATMENT: Other- See attached MAR (Medication Administration Record). CURRENT SPHINCTER CONTROL: Pre-hospital bladder status: unspecified # of bladder accidents in the last 7 days prior to screenin Pre-hospital bowel status: unspecified # of bowel accidents in the last 7 days prior to screenin Last Bowel Movement Date: 09/02/2020 CURRENT LOCOMOTION STATUS: distance walked 70' feet WITH ROLLING WALKER DETAILED CURRENT FUNCTIONAL STATUS: - Bladder accident frequency: 7-Ind - No accidents in the past 7 days - Bowel accident frequency: 7-Ind - No accidents in the past 7 days - Walking score based on distance walked: 0(N/A) score based on distance walked: 2(50-149ft) - Wheelchair score based on distance traveled: 0(N/A) QI SCORES: - Self-Care A. Eating 06-Independent B. Oral hygiene 03-Partial/moderate assistance C. Toileting hygiene 03-Partial/moderate assistance E. Shower/bathe self 03-Partial/moderate assistance F. Upper body dressing 04-Supervision or touching assistance G. Lower body dressing 03-Partial/moderate assistance H. Putting on/taking off footwear 88-Not attempted due to medical condition or safety concerns - Mobility A. Roll left and right 06-Independent B. Sit to lying 06-Independent C. Lying to sitting on side of bed 06-Independent D. Sit to stand 03-Partial/moderate assistance E. Chair/gpi-px-rksio transfer 03-Partial/moderate assistance F. Toilet transfer 03-Partial/moderate assistance G. Car transfer 88-Not attempted due to medical condition or safety concerns I. Walk 10 feet 03-Partial/moderate assistance J. Walk 50 feet with two turns 03-Partial/moderate assistance K. Walk 150 feet 88-Not attempted due to medical condition or safety concerns L. Walking 10 feet on uneven surfaces 88-Not attempted due to medical condition or safety concerns M. 1 step (curb) 88-Not attempted due to medical condition or safety concerns N. 4 steps 88-Not attempted due to medical condition or safety concerns O. 12 steps 88-Not attempted due to medical condition or safety concerns P. Picking up object 88-Not attempted due to medical condition or safety concerns R. Wheel 50 feet with two turns 03-Partial/moderate assistance S. Wheel 150 feet 88-Not attempted due to medical condition or safety concerns - Bladder and Bowel Bladder continence Bowel continence - Endurance Good - Balance Good - Safety Awareness Good CURRENT FUNC. DEFICITS: Self-Care and Mobility CURRENT / PREVIOUS ASSISTIVE DEVICES: Rolling Walker HISTORY OF FALLS. HAS THE PATIENT HAD TWO OR MORE FALLS IN THE PAST YEAR OR ANY FALL WITH INJURY IN T HE PAST YEAR?: No PRIOR SURGERY. DID THE PATIENT HAVE MAJOR SURGERY DURING THE 100 DAYS PRIOR TO ADMISSION?: No THERAPY NOTES FROM ACUTE CARE: Attached. SPECIAL NEEDS: - Safety Concerns Skin breakdown precautions needed due to skin breakdown risk PATIENT NEEDS ACTIVE AND ONGOING THERAPEUTIC INTERVENTION OF MULTIPLE THERAPY DISCIPLINES, INCLUDING: - Orthotics/Prosthetics Orthotic Evaluation. Splinting/Casting. - Dietary and Nutrition Adequate Nutrition. Nutritional Education. Nutritional Supplements. PATIENT NEEDS CLOSE MEDICAL SUPERVISION BY A REHABILITATION PHYSICIAN FOR: Coordination of Treatment Team PATIENT REQUIRES 24X7 REHAB NURSING FOR MEDICAL AND FUNCTIONAL MGT. OF THE FOLLOWING DEFICITS: Disease Management Medication Management Patient/Family Education Providing Safe Environment PATIENT REQUIRES INTENSIVE, COORDINATED INTERDISCIPLINARY APPROACH TO REHAB: Arranging Home Equipment/Services Discharge Planning Family Intervention/Training Carpet Measurer/Case Management PATIENT REHAB POTENTIAL: Leonela WYNNE is able and expected to receive 3 hours of individualized therapy daily on at least 5 of ev deann 7 days Leonela WYNNE's prognosis for significant practical improvement within a reasonable period of time appear s Good Expected level of measurable improvement will be of a practical value to Leonela WYNNE's functional capac ity or adaptations to impairments Has a viable Discharge Plan Medically appropriate; condition is sufficiently stable to participate in intensive rehab program DISCHARGE PLAN: - Estimated Length of Stay (days) 27. - Consensus on plan Discharge plan has been discussed with primary caregiver. Patient/Family is in agreement with the darren n. Primary caregiver is in agreement with the plan. - Patient/Family Goals Return home independently. - Planned Living Setting Upon Discharge Home, to live with Family/Relatives. Transitional Living. RECOMMENDED CARE LEVEL: IRF RECOMMENDATION DETAILS: Recommended Admission to Comprehensive Rehabilitation Program to Increase Functional Lizella SCREENER'S COMPLETENESS CONFIRMATION: - Screening Confirmation The patient data collection on this preadmission screening form is finished PHYSICIANS REVIEW AND ADMISSION DETERMINATION Admit - Based on my review of the Pre-Admission Screening results, in my medical judgment and experie nce, I concur with the findings and recommend admission to [facility], as this patient requires an IRF level of care. SIGNATURE PANEL: Manager Financial - [electronically] signed by Nick Ventura on 09/02/2020 at 15:38 (TAPING SUPERVISOR) Manager Financial - [electronically] signed by Olegario Navarrete PT on 09/02/2020 at 15:53 (TAPING SUPERVISOR) Physician Reviewer - [electronically] signed by Dr. Harry Minaya M.D. on 09/02/2020 at 16:06 (TAPING SUPERVISOR )
--- OUTSIDE RECORDS SUMMARY | 2020-09-03 16:27 | XMS REPORT | Continuity of Care Document ---
:1940 Author Organization [facility] t Address [address] [place] [address] Care Team Providers Name Role Phone ALENA Primary Care Physician Unavailable Yuniel Pineda MD Attending Clinician [phone] Betzy Leahy MD Attending Clinician Yue Grande MD Attending Clinician Eva Garces MD Attending Clinician YUNIEL PINEDA Attending Clinician Unavailable Ramon HOPSON, Mercedes Attending Clinician Dipti DOMINGUEZ Attending Clinician Gerald HOPSON Attending Clinician Only, Test Attending Clinician Unavailable Pob, Lab Main Attending Clinician Unavailable BETZY LEAHY Admitting Clinician Unavailable Ramon HOPSON, Mercedes Admitting Clinician Payers Payer Name Policy Type Policy Effective Date Expiration Date Sour ce Number MEDICAREMEDICARE A [id number] 2007 LAKHWINDER Singh [id number] 2007-P 00:00:00 - Medical resentMedicare Center AETNA - MGD CAREAETNA [id number] 2017 LAKHWINDER Ramirez PPO [facility] 00:00:00 - Medical [id number] 2017- Ce nter PresentPPO Problems Condition Condition Condition Status Onset Resolution Last Treating Co mments Source Name Details Category Date Date Treatment Clinician Date Personal Personal Disease Active Overview: [facility] of 08-30 [facility]-keisha [facility] - 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 Family History Family Member Diagnosis Comments Start Date Stop Date Source Natural father No Known Problem [facility] Natural mother No Known Problem [facility] Social History Social Habit Start Date Stop Date Quantity Comments Source Sex Assigned At [facility] Tobacco use and 2020-08-30 2020-08-[address] [facility] exposure 00:00:00 00:00:00 [facility] Center Medications Ordered Filled Start Stop Current Ordering Indication Dosage Frequency Signature Comments Components Source Medication Medication Date Date Medication? Clinician (SIG) Name Name mirabegron Yes 25mg Take [address] (MYRBETRIQ) 3-10 by mouth. Key es - 25 mg Tb24 15:14: Medical ER tablet [address] [place] [address] loperamide Yes diarrhea 2mg QD Take [address] (IMODIUM) 2 3-10 by mouth Luke s - mg capsule 15:14: daily. Medic al 34 [place] cyanocobala 2021- Yes 100ug QD Take [address] min, 09-03 tablet [facility] - vitamin 00:00: 23:59 (100 mcg Medic al B-12, 100 00 :00 total) by Cente r MCG tablet mouth daily. acetaminoph 2021- Yes 650mg Take [address] en 09-03-05 tablets [facility] - (TYLENOL) 00:00: 23:59 (650 mg Medi hira 325 MG 00 :00 total) by [place] tablet mouth every 6 (six) hours as needed for up to 360 days. amLODIPine 2020- No amlodipine [facility] (NORVASC) 08-30- 2.5 mg [facility] - 2.5 MG 19:05: 00:00 tablet Medical tablet 45 :00 [place] allopurinoL 2020- No allopurino [facility] (ZYLOPRIM) 08-30- l 300 mg Luke s - 300 MG 19:05: 00:00 tablet Medical tablet 39 :00 [place] spironolact 2020- No spironolac [facility] one 08-30-06 tone 25 mg [facility] - (ALDACTONE) 19:05: 00:00 tablet Med ical 25 MG 29 :00 [place] tablet raloxifene 2020- No raloxifene [facility] (EVISTA) 60 08-30-06 60 mg [facility] - mg tablet 19:05: 00:00 tablet Medic al 23 :00 [place] apixaban 2020- No Take by [facility] (ELIQUIS) 5 08-30-06 mouth. [facility] - mg Tab 19:05: 00:00 Medical tablet 20 :00 [place] Vital Signs Vital Name Observation Time Observation Value Comments Source Systolic blood 2020-09-03 14:00:00 128 mm[Hg] [facility] Diastolic blood 2020-09-03 14:00:00 62 mm[Hg] [facility] Heart rate 2020-09-03 14:00:00 86 /min [facility] [place] Body temperature 2020-09-03 14:00:00 35.78 Keisha [facility] Respiratory rate 2020-09-03 14:00:00 20 /min [facility] Oxygen saturation in 2020-09-03 14:00:00 99 /min [facility] - Arterial blood by Medical Ce nter Pulse oximetry Body height 2020-08-30 20:11:00 165.1 cm [facility] Body weight 2020-08-30 20:00:00 63.504 kg [facility] BMI 2020-08-30 20:00:00 23.30 kg/m2 [facility] Procedures Procedure Date / Time Performed Performing Clinician [facility] e CBC (HEMOGRAM ONLY) 2020-09-03 04:47:00 [facility] BASIC METABOLIC PANEL (7) 2020-09-03 04:47:00 [facility] PHOSPHORUS 2020-09-03 04:47:00 [facility] MAGNESIUM 2020-09-03 04:47:00 [facility] CBC (HEMOGRAM ONLY) 2020-09-02 04:15:00 [facility] BASIC METABOLIC PANEL (7) 2020-09-02 04:15:00 [facility] PHOSPHORUS 2020-09-02 04:15:00 [facility] MAGNESIUM 2020-09-02 04:15:00 [facility] CBC (HEMOGRAM ONLY) 2020-09-01 05:21:00 [facility] BASIC METABOLIC PANEL (7) 2020-09-01 05:21:00 [facility] PHOSPHORUS 2020-09-01 05:21:00 [facility] MAGNESIUM 2020-09-01 05:21:00 [facility] DIFFICILE [facility]DH TOXIN 2020-09-01 01:31:00 ChristianeLita cummingsmilka Hernandez [facility] XR SPINE CERVICAL 2 OR 3 2020-08-31 09:04:00 Stephanie Adan [facility] CBC (HEMOGRAM ONLY) 2020-08-31 05:04:00 Fouke [facility] BASIC METABOLIC PANEL (7) 2020-08-31 05:04:00 [facility] PHOSPHORUS 2020-08-31 05:04:[address] [facility] MAGNESIUM 2020-08-31 05:04:00 [facility] TSH/FREE T4 IF INDICATED 2020-08-31 05:04:00 Audrey Leahy [facility] VITAMIN B12 AND FOLATE 2020-08-31 05:04:00 Fouke [facility] PROTHROMBIN TIME/INR 2020-08-31 05:04:00 Fouke Audrey [facility] SARS-COV2/RT-PCR ([facility] & 2020-08-30 21:37:[address] [facility] - REF LABS) [facility] CBC W/PLT COUNT & AUTO 2020-08-30 18:32:00 Audrey Leahy [facility] DIFFERENTIAL [facility] COMPREHENSIVE METABOLIC 2020-08-30 18:32:00 Audrey Leahy [facility] MAGNESIUM 2020-08-30 18:32:00 [facility] 2020-08-30 18:32:00 [facility] Plan of Care Planned Activity Planned Date Details Comments Source Future Scheduled 2020-06-27 DEPRESSION SCREENING [facility] - Test 00:00:00 (12+) [code = Medical Center DEPRESSION SCREENING (12+)] Future Scheduled 2020-02-26 INFLUENZA VACCINE (#1) [facility] 00:00:00 [code = INFLUENZA Medical Ce nter VACCINE (#1)] Future Scheduled 2008-06-[address] [facility] [facility] - Test 00:00:00 WELLNESS (YEAR 2 or Medical Center FIRST YEAR if no IPPE) [code = MEDICARE ANNUAL WELLNESS (YEAR 2 or FIRST YEAR if no IPPE)] Future Scheduled 2007 PNEUMOCOCCAL 65+ YRS [facility] - Test 00:00:00 (1 of 1 - Medical Center [id number] PCV13) [code = PNEUMOCOCCAL 65+ YRS (1 of 1 - [id number] PCV13)] Future Scheduled 1992 SHINGLES VACCINES ([address] [facility] - Test 00:00:00 of 2) [code = SHINGLES Medic al Center VACCINES (1 of 2)] Future Scheduled 1961 DTAP/TDAP/TD VACCINES [facility] - Test 00:00:00 (1 - Tdap) [code = Medical C enter DTAP/TDAP/TD VACCINES (1 - Tdap)] Future Scheduled 1960 HEPATITIS C SCREENING [facility] - Test 00:00:00 [code = HEPATITIS C Medical Center SCREENING] Encounters Start End Encounter Admission Attending Care Care Encounter Source Date/Time Date/Time Type Type Clinicians Facility Department ID 2020-08-01 2020-08-01 Outpatient [facility] [id number] [place] 00:00:00 00:00:[address] 2020-07-11 2020-07-11 Outpatient [facility] [id number] [address] [place] 00:00:00 00:00:[address] 2020-04-09 2020-04-09 [facility] [id number] 08:52:00 12:00:00 Encounter Francis Abraham [id number] [place] 4.2.7.2.686 Surgical [id number] [place] 071 2020-04-09 2020-04-09 Anesthesia Shankar Resendez [facility] [id number] 10:58:00 11:30:00 Leandra Duarte [id number] [place] 4.2.7.2.686 Surgical [id number] [place] 020 2020-04-08 2020-04-08 Laboratory Only, [facility] [id number] 09:19:46 09:34:46 Only Test Leigh [id number] [place] 4.2.7.2.686 [place] [id number] 353 2020-03-26 2020-03-26 [facility] [id number] 10:02:00 13:05:00 Encounter Francis Abraham [id number] [place] 4.2.7.2.686 [facility] [id number] [place] 071 2020-03-25 2020-03-25 Laboratory Only, [facility] [id number] 08:51:16 09:06:16 Only Test Leigh [id number] [place] 4.2.7.2.686 [place] [id number] [facility] 2020-03-21 2020-03-21 Multigrapher Chele, [facility] [id number] 11:34:14 11:49:14 Visit Lab Main Leigh [id number] [place] 4.2.7.2.686 [facility] [id number] [facility] 353 [facility] Results Test Description Test Time Test Comments Results Result Comments Source Phosphorus 2020-09-03 06:03:00 Test Item Value Reference Range Interpretation Comme nts Phosphorus (test code = 2777-1) 3.5 mg/dL 2.3-4.7 DIANE (test code = DIANE) Keg Washer ID - Lab Interpretation (test code = 18064-1) [facility] [id number] 06:03:00 Test Item Value Reference Range Interpretation Comments Sodium (test code = 140 meq/L 670-308 0683-2) Potassium (test code = 4.1 meq/L 3.5-5.1 2823-3) Chloride (test code = 108 meq/L 98-107 H 2074-) CO2 (test code = 25 meq/L -29 2028-9) BUN (test code = 19 mg/dL 7-21 3094-0) Creatinine (test code 0.79 mg/dL 0.57-1.25 = 2160-0) Glucose (test code = 90 mg/dL 70-105 2345-7) Calcium (test code = 9.7 mg/dL 8.4-10.2 28460-8) EGFR (test code = 70 mL/min/1.73 [place] [address]-9) NOT ACCURATE CREATININE CLEARANCE IN PREDICTING GLOMERULAR FILTRATION RATE . ESTIMATED GFR I S NOT APPLICABLE FOR DIALYSIS PATIENTS. DIANE (test code = DIANE) Keg Washer ID - Lab Interpretation Abnormal (test code = 34533-6) [facility]00 Test Item Value Reference Range Interpretation Comments Magnesium (test code = 2.2 mg/dL 1.6-2.6 53424-6) DIANE (test code = DIANE) Keg Washer ID - Lab Interpretation (test Normal code = 88903-4) [facility] [id number] 06:03:00 Test Item Value Reference Range Interpretation Comments SODIUM (BEAKER) 140 meq/L 136-145 (test code = 381) POTASSIUM (BEAKER) 4.1 meq/L 3.5-5.1 (test code = 379) CHLORIDE (BEAKER) 108 meq/L 98-107 H (test code = 382) CO2 (BEAKER) (test 25 meq/L 22-29 code = 355) BLOOD UREA NITROGEN 19 mg/dL 7-21 (BEAKER) (test code = 354) CREATININE (BEAKER) 0.79 mg/dL 0.57-1.25 (test code = 358) GLUCOSE RANDOM 90 mg/dL 70-105 (BEAKER) (test code = 652) CALCIUM (BEAKER) 9.7 mg/dL 8.4-10.2 (test code = 697) EGFR (BEAKER) (test 70 mL/min/1.73 ESTIMA FLORENCIA GFR IS code = 1092) sq m NOT ACCURATE CREATININE CLEARANCE IN PREDICTING GLOMERULAR FILTRATION RATE . ESTIMATED GFR I S NOT APPLICABLE FOR DIALYSIS PATIEN TS. Keg Washer ID - [id number] 06:03:00 Test Item Value Reference Range Interpretation Comments MAGNESIUM (BEAKER) (test code = 2.2 mg/dL 1.6-2.6 627) Keg Washer ID - [id number] 06:03:00 Test Item Value Reference Range Interpretation Comments PHOSPHORUS (BEAKER) (test code = 3.5 mg/dL 2.3-4.7 604) Keg Washer ID - ASCBC (Hemogram only)2020-09-03 05:19:00 Test Item Value Reference Range Interpretation Comments WBC (test code = 6690-2) 3.7 See_Comment [A utomated message] The system [employer] generated this result transmitted ref erence range: 3.5 - 10 .5 K/L. The refe rence range was not u sed to interpret this result as normal/abnor mal. RBC (test code = 789-8) 3.31 See_Comment L [Au tomated message] The system [employer] generated this result transmitted ref erence range: 3.93 - 5 .22 M/L. The refe rence range was not u sed to interpret this result as normal/abnor mal. MCHC (test code = 786-4) 34.6 See_Comment [A utomated message] The system [employer] generated this result transmitted ref erence range: 32.2 - 3 5.5 GM/DL. The refe rence range was not u sed to interpret this result as normal/abnor mal. Hematocrit (test code = 35.8 % 34.1-44.9 4544-3) MCV (test code = 787-2) 108.2 fL 79.4-94.8 H MCH (test code = 785-6) 37.5 pg 25.6-32.2 H RDW (test code = 788-0) 14.2 % 11.7-14.4 Platelets (test code = 123 See_Comment L [Aut omated message] 777-3) The system [employer] generated this result transmitted ref erence range: 150 - 45 0 K/CU MM. The referen ce range was not u sed to interpret this result as normal/abnor mal. MPV (test code = 9.3 fL 9.4-12.3 L 13712-4) nRBC (test code = 413) 0 See_Comment [Aut omated message] The system [employer] generated this result transmitted ref erence range: 0 - 0 /1 00 WBC. The refere nce range was not u sed to interpret this result as normal/abnor mal. Lab Interpretation (test Abnormal code = 76083-0) [facility] (HEMOGRAM ONLY)2020-09-03 05:19:00 Test Item Value Reference Range Interpretation Comments WHITE BLOOD CELL COUNT (BEAKER) 3.7 K/ L 3.5-10.5 (test code = 775) RED BLOOD CELL COUNT (BEAKER) 3.31 M/ L 3.93-5.22 L (test code = 761) HEMOGLOBIN (BEAKER) (test code = 12.4 GM/DL 11.2-15.7 410) HEMATOCRIT (BEAKER) (test code = 35.8 % 34.1-44.9 411) MEAN CORPUSCULAR VOLUME (BEAKER) 108.2 fL 79.4-94.8 H (test code = 753) MEAN CORPUSCULAR HEMOGLOBIN 37.5 pg 25.6-32.2 H (BEAKER) (test code = 751) MEAN CORPUSCULAR HEMOGLOBIN CONC 34.6 GM/DL 32.2-35.5 (BEAKER) (test code = 752) RED CELL DISTRIBUTION WIDTH 14.2 % 11.7-14.4 (BEAKER) (test code = 412) PLATELET COUNT (BEAKER) (test 123 K/CU MM 150-450 L code = 756) MEAN PLATELET VOLUME (BEAKER) 9.3 fL 9.4-12.3 L (test code = 754) NUCLEATED RED BLOOD CELLS 0 /100 WBC 0-0 (BEAKER) (test code = 413) BASIC METABOLIC [id number] 06:11:00 Test Item Value Reference Range Interpretation Comments SODIUM (BEAKER) 140 meq/L 136-145 (test code = 381) POTASSIUM (BEAKER) 3.8 meq/L 3.5-5.1 (test code = 379) CHLORIDE (BEAKER) 109 meq/L 98-107 H (test code = 382) CO2 (BEAKER) (test 22 meq/L 22-29 code = 355) BLOOD UREA NITROGEN 13 mg/dL 7-21 (BEAKER) (test code = 354) CREATININE (BEAKER) 0.70 mg/dL 0.57-1.25 (test code = 358) GLUCOSE RANDOM 95 mg/dL 70-105 (BEAKER) (test code = 652) CALCIUM (BEAKER) 9.4 mg/dL 8.4-10.2 (test code = 697) EGFR (BEAKER) (test 81 mL/min/1.73 ESTIMA FLORENCIA GFR IS code = 1092) sq m NOT ACCURATE CREATININE CLEARANCE IN PREDICTING GLOMERULAR FILTRATION RATE . ESTIMATED GFR I S NOT APPLICABLE FOR DIALYSIS PATIEN TS. Keg Washer ID - [id number] 06:11:00 Test Item Value Reference Range Interpretation Comments MAGNESIUM (BEAKER) (test code = 2.2 mg/dL 1.6-2.6 627) Keg Washer ID - [id number] 06:11:00 Test Item Value Reference Range Interpretation Comments PHOSPHORUS (BEAKER) (test code = 3.4 mg/dL 2.3-4.7 604) Keg Washer ID - ADMINCBC (HEMOGRAM ONLY)2020-09-02 05:28:00 Test Item Value Reference Range Interpretation Comments WHITE BLOOD CELL COUNT (BEAKER) 4.2 K/ L 3.5-10.5 (test code = 775) RED BLOOD CELL COUNT (BEAKER) 3.05 M/ L 3.93-5.22 L (test code = 761) HEMOGLOBIN (BEAKER) (test code = 11.6 GM/DL 11.2-15.7 410) HEMATOCRIT (BEAKER) (test code = 33.4 % 34.1-44.9 L 411) MEAN CORPUSCULAR VOLUME (BEAKER) 109.5 fL 79.4-94.8 H (test code = 753) MEAN CORPUSCULAR HEMOGLOBIN 38.0 pg 25.6-32.2 H (BEAKER) (test code = 751) MEAN CORPUSCULAR HEMOGLOBIN CONC 34.7 GM/DL 32.2-35.5 (BEAKER) (test code = 752) RED CELL DISTRIBUTION WIDTH 14.0 % 11.7-14.4 (BEAKER) (test code = 412) PLATELET COUNT (BEAKER) (test 126 K/CU MM 150-450 L code = 756) MEAN PLATELET VOLUME (BEAKER) 9.8 fL 9.4-12.3 (test code = 754) NUCLEATED RED BLOOD CELLS 0 /100 WBC 0-0 (BEAKER) (test code = 413) Clostridium difficile GDH [id number] 10:27:00 Test Item Value Reference Range Interpretation Comments C. Difficle Toxin Negative Negative (test code = 6178103331) C. Difficile GDH Positive Negative A No indicati on of Antigen (test code = Clostri dium 9815652736) difficile infection and n o colonization. Discontinue enteric isolati on and therapy. DIANE (test code = Testing performed DIANE) by [employer] Rapid Cassette Assay. For GDH, published sensitivity of the assay is 98.7% compared to cytotoxicity testing. For Toxin AB, published sensitivity is 87.8% and specificity 99.4% compared to cytotoxicity testing.Verificati on of kit performance was done by the [facility] Microbiology Lab prior to clinical use. Lab Interpretation Abnormal (test code = 59692-6) [facility] DI[facility]ICILE [facility] [id number] 10:27:00 Test Item Value Reference Range Interpretation Comments CDT TOXIN (test code Negative Negative = 9958920427) CDT GDH ANTIGEN (test Positive Negative A No ind ication of code = 2968060579) Clostridi um difficile infection and n o colonization. Discontinue ent david isolation and t herapy. Testing performed by [employer] Rapid Cassette Assay. For GDH, published sensitivity of the assay is 98.7% compared to cytotoxicity testing. For Toxin AB, published sensitivity is 87.8% and specificity 99.4% compared to cytotoxicity testing.Verification of kit performance was done by the [facility] Microbiology Lab prior to clinical use.[id number] 05:55:00 Test Item Value Reference Range Interpretation Comments MAGNESIUM (BEAKER) 2.3 mg/dL 1.6-2.6 Specimen slightly (test code = 627) hemolyzed Keg Washer ID - [id number] 05:55:00 Test Item Value Reference Range Interpretation Comments PHOSPHORUS (BEAKER) 3.7 mg/dL 2.3-4.7 Specimen slightly (test code = 604) hemolyzed Keg Washer ID - DBBASIC METABOLIC [id number] 05:55:00 Test Item Value Reference Range Interpretation Comments SODIUM (BEAKER) 138 meq/L 136-145 (test code = 381) POTASSIUM (BEAKER) 4.0 meq/L 3.5-5.1 Specimen slightly (test code = 379) hemolyzed CHLORIDE (BEAKER) 107 meq/L 98-107 (test code = 382) CO2 (BEAKER) (test 25 meq/L 22-29 code = 355) BLOOD UREA NITROGEN 14 mg/dL 7-21 (BEAKER) (test code = 354) CREATININE (BEAKER) 0.75 mg/dL 0.57-1.25 Specimen slightly (test code = 358) hemolyzed GLUCOSE RANDOM 103 mg/dL 70-105 (BEAKER) (test code = 652) CALCIUM (BEAKER) 10.0 mg/dL 8.4-10.2 (test code = 697) EGFR (BEAKER) (test 75 mL/min/1.73 ESTIMA FLORENCIA GFR IS code = 1092) sq m NOT ACCURATE CREATININE CLEARANCE IN PREDICTING GLOMERULAR FILTRATION RATE . ESTIMATED GFR I S NOT APPLICABLE FOR DIALYSIS PATIEN TS. Keg Washer ID - [id number] (HEMOGRAM ONLY)2020-09-01 05:35:00 Test Item Value Reference Range Interpretation Comments WHITE BLOOD CELL COUNT (BEAKER) 4.6 K/ L 3.5-10.5 (test code = 775) RED BLOOD CELL COUNT (BEAKER) 3.33 M/ L 3.93-5.22 L (test code = 761) HEMOGLOBIN (BEAKER) (test code = 12.4 GM/DL 11.2-15.7 410) HEMATOCRIT (BEAKER) (test code = 36.3 % 34.1-44.9 411) MEAN CORPUSCULAR VOLUME (BEAKER) 109.0 fL 79.4-94.8 H (test code = 753) MEAN CORPUSCULAR HEMOGLOBIN 37.2 pg 25.6-32.2 H (BEAKER) (test code = 751) MEAN CORPUSCULAR HEMOGLOBIN CONC 34.2 GM/DL 32.2-35.5 (BEAKER) (test code = 752) RED CELL DISTRIBUTION WIDTH 14.0 % 11.7-14.4 (BEAKER) (test code = 412) PLATELET COUNT (BEAKER) (test 120 K/CU MM 150-450 L code = 756) MEAN PLATELET VOLUME (BEAKER) 9.4 fL 9.4-12.3 (test code = 754) NUCLEATED RED BLOOD CELLS 0 /100 WBC 0-0 (BEAKER) (test code = 413) SARS-CoV2/RT-PCR (Asymptomatic ONLY)2020-08-31 18:16:00 Test Item Value Reference Range Interpretation Comments SARS-COV2/RT-PCR Negative Not Detected, (test code = Negative, See 51629-6) external report for linked test SARS-COV-2 [facility] PERFORMING LAB (test code = 49840-8) DIANE (test code = Negative result for this DIANE) test determines that SARS-CoV-2 RNA was not present in the specimen above the Limit of Detection (LOD). However, Negative results do not preclude SARS-CoV-2 infection and should not be used as the sole basis for treatment or patient management decisions. Negative results must be combined with clinical observations, patient history, and epidemiological information. A false negative result may occur if a specimen is improperly collected, transported or handled. A false negative result should be considered if patient's recent exposures or clinical presentation indicate that COVID-19 (SARS-CoV-2) is likely and diagnostic tests for other causes of illness are negative. Re-testing should be considered in cases of suspected false negatives. The limit of detection for this assay is 800 copies/mL. This SARS CoV-2 test is a real-time RT-PCR test intended for the qualitative detection of nucleic acid from SARS-CoV-2 in a nasopharyngeal swab specimen collected from individuals suspected of COVID-19 by their healthcare provider. This test has not been Food and Drug Administration (FDA) cleared or approved. This is a modified version of an approved Emergency Use Authorization (EUA) and is in the process of review by the FDA. Once authorized by the FDA, the issued EUA will be effective until the declaration that circumstances exist justifying the authorization of the emergency use of in vitro diagnostic tests for detection and/or diagnosis of COVID-19 is terminated under Section 564(b)(2) of the Act or the EUA is revoked under Section 564(g) of the Act. Fact Sheet for Healthcare Providers:https://www.[employer]/sites/default/f josh/product/documents/F act_Sheet_HC_Providers_L mae_PTYZ-GmN-8.pdf Fact Sheet for Healthcare Patients:https://www.[employer].com/sites/default/fi les/product/documents/Fa ct_Sheet_Patients_Lyra_S ARS-CoV-2.pdf Performing Laboratory:[facility] [place] [address] [facility] & REF LABS)2020-08-31 18:16:00 Test Item Value Reference Range Interpretation Comments SARS-COV2/RT-PCR (test Negative Not Detected, Negative, code = 0086751) See external report for linked test SARS-COV-2 PERFORMING LAB [facility] ALEJANDRA (test code = 3090325) Negative result for this test determines that SARS-CoV-2 RNA was not present in the specimen above the Limit of Detection (LOD). However, Negative results do not preclude SARS-CoV-2 infection and should not be used as the sole basis for treatment or patient management decisions. Negative results mustbe combined with clinical observations, patient history, and epidemiological information. A false negative result may occur if a specimen is improperly collected, transported or handled. A false negative result should be considered if patient's recent exposures or clinical presentation indicate that COVID-19 (SARS-CoV-2) is likely and diagnostic tests for other causes of illness are negative. Re-testing should be considered in cases of suspected false negatives.The limit of detection for this assay is 800 copies/mL.This SARS CoV-2 test is a real-time RT-PCR test intended for the qualitative detection of nucleic acid from SARS-CoV-2 in a nasopharyngeal swab specimen collected from individuals susp ected of COVID-19 by their healthcare provider.This test has not been Food and Drug Administration (FDA) cleared or approved. This is a modified version of an approved Emergency Use Authorization (EUA) and is in the process of review by the FDA. Once authorized by the FDA, the issued EUA will be effective until the declaration that circumstances exist justifying the authorization of the emergency use of in vitro diagnostic tests for detection and/or diagnosis of COVID-19 is terminated under Section 564(b)(2) of the Act or the EUA is revoked under Section 564(g) of the Act.Fact Sheet for Healthcare Providers:https://www.[employer]/sites/default/files/product/documents/Fact_Shezoila dayx_GR_Oqmfcbgqe_Pnep_WSVL-DaG-5.pdfFact Sheet for Healthcare Patients:https://www.[employer]/sites/default/files/product/ documents/Sjud_Xsklx_Rsymsdny_Ocbd_KBCI-CvI-1.pdfPerforming Laboratory:[facility], [place] [address]WJQ, SPINE, CERVICAL, 2 OR 3 [id number] 09:36:00Standing flex -extReason for exam:->[facility]elomalcia [facility] : 1940 Sex: FFINAL REPORT TECHNIQUE: Four views of the cervical spine HISTORY: Myelomalcia. COMPARISON: None. IMPRESSION:Straightening of the cervical spine with scattered facet arthropathy and mild joint space narrowing.There is radiculopathy recommend MRI.No acute displaced fractureor dislocation. No acute soft tissue abnormality. Signed: Giacomo Prasad MDReport Verified Date/Time: 08/31/2020 09:36:18 Reading Location: [address] Consult Reading Room XR spine cervical 2 or 3 [id number] 09:36:00Interface, External Ris In - 08/31/2020 9:38 AM CSTFINAL REPORT TECHNIQUE: Four views of the cervical spine HISTORY: Myelomalcia. COMPARISON: None. IMPRESSION:Straightening of the cervical spine with scattered facet arthropathy and mild joint space narrowing.There is radiculopathy recommend MRI.No acute displaced fracture or dislocation. No acute soft tissue abnormality. Signed: Giacomo Prasad MDReport Verified Date/Time: 08/31/2020 09:36:18 Reading Location: [facility] [id number] Consult Reading Room [facility] Vitamin B12 and [id number] 07:03:00 Test Item Value Reference Range Interpretation Comments Vitamin B12 (test >2000 213-816 H code = 2132-9) Folate (test code = 29.10 ng/mL See_Comment [Automa florencia 2284-8) message] The system which generated this result transmitted reference range : >=7.00. The reference range was not used to interpret this result as normal/abnormal . DIANE (test code = Keg Washer ID - DIANE) EDASIOperator ID - EDASI Lab Interpretation Abnormal (test code = 23063-7) [facility] [id number] 07:03:00 Test Item Value Reference Range Interpretation Comments VITAMIN B12 > pg/mL 213-816 H (BEAKER) (test code = 774) FOLATE (BEAKER) 29.10 ng/mL See_Comment [Automated message] (test code = 362) The system which generated this result transmitted ref erence range: >=7.00. The reference range was not used to interpr et this result as normal/abnormal . Keg Washer ID - EDASIOperator ID - EDASITSH/Free T4 If [id number] 06:57:00 Test Item Value Reference Range Interpretation Comments TSH (test code = 1.985 See_Comment [Automated 78013-8) message] The system which generated this result transmit florencia reference range : 0.350 - 4.940 uIU/mL. The reference range was not used to interpret this result as normal/abnormal . DIANE (test code = DIANE) Keg Washer ID - EDASI Lab Interpretation Normal (test code = 28318-6) [facility] T4 IF [id number] 06:57:00 Test Item Value Reference Range Interpretation Comments THYROID STIMULATING HORMONE 1.985 uIU/mL 0.350-4.940 (BEAKER) (test code = 772) Keg Washer ID - [id number] 05:38:00 Test Item Value Reference Range Interpretation Comments MAGNESIUM (BEAKER) (test code = 2.1 mg/dL 1.6-2.6 627) Keg Washer ID - [id number] 05:38:00 Test Item Value Reference Range Interpretation Comments PHOSPHORUS (BEAKER) (test code = 2.8 mg/dL 2.3-4.7 604) Keg Washer ID - EDASIBASIC METABOLIC [id number] 05:38:00 Test Item Value Reference Range Interpretation Comments SODIUM (BEAKER) 141 meq/L 136-145 (test code = 381) POTASSIUM (BEAKER) 4.1 meq/L 3.5-5.1 (test code = 379) CHLORIDE (BEAKER) 106 meq/L 98-107 (test code = 382) CO2 (BEAKER) (test 27 meq/L 22-29 code = 355) BLOOD UREA NITROGEN 15 mg/dL 7-21 (BEAKER) (test code = 354) CREATININE (BEAKER) 0.75 mg/dL 0.57-1.25 (test code = 358) GLUCOSE RANDOM 88 mg/dL 70-105 (BEAKER) (test code = 652) CALCIUM (BEAKER) 10.1 mg/dL 8.4-10.2 (test code = 697) EGFR (BEAKER) (test 75 mL/min/1.73 ESTIMA FLORENCIA GFR IS code = 1092) sq m NOT ACCURATE CREATININE CLEARANCE IN PREDICTING GLOMERULAR FILTRATION RATE . ESTIMATED GFR I S NOT APPLICABLE FOR DIALYSIS PATIEN TS. Keg Washer ID - EDASIProthrombin time/[id number] 05:26:00 Test Item Value Reference Interpretation Comments Range Protime (test code = 14.3 See_Comment H [Autom ated 2812-2) message] The system which generated this result transmitted reference range : 11.9 - 14.2 seconds. The reference range was not used to interpret this result as normal/abnormal . INR (test code = 1.15 See_Comment [Automated 6591-6) message] The system which generated this result transmitted reference range : <=5.90. The reference range was not used to interpret this result as normal/abnormal . DIANE (test code = Effective 11/22/2018: DIANE) PT Reference Range ChangeNew: 11.9-14.2 Previous: 11.7-14.7 RECOMMENDED COUMADIN/WARFARIN INR THERAPY RANGESSTANDARD DOSE: 2.0-3.0 Includes: PROPHYLAXIS for venous thrombosis, systemic embolization; TREATMENT for venous thrombosis and/or pulmonary embolus.HIGH RISK: Target INR is 2.5-3.5 for patients wiht mechanical heart valves. Lab Interpretation Abnormal (test code = 95311-2) [facility] HospitalPROTHROMBIN [facility]/[id number] 05:26:00 Test Item Value Reference Range Interpretation Comments PROTIME (BEAKER) 14.3 seconds 11.9-14.2 H (test code = 759) INR (BEAKER) (test 1.15 See_Comment [Automat ed message] code = 370) The system [employer] generated this result transmitted ref erence range: <=5.90. The reference range was not used to int erpret this result as normal/abnormal . Effective 11/22/2018: PT Reference Range ChangeNew: 11.9-14.2 Previous: 11.7- 14.7RECOMMENDED COUMADIN/WARFARIN INR THERAPY RANGESSTANDARD DOSE: 2.0-3.0 Includes: PROPHYLAXIS for venous thrombosis, systemic embolization; TREATMENT for venous thrombosis and/or pulmonary embolus.HIGH RISK: Target INR is2.5-3.5 for patients wiht mechanical heart valves.CBC (HEMOGRAM ONLY)2020-08-31 05:22:00 Test Item Value Reference Range Interpretation Comments WHITE BLOOD CELL COUNT (BEAKER) 4.8 K/ L 3.5-10.5 (test code = 775) RED BLOOD CELL COUNT (BEAKER) 3.11 M/ L 3.93-5.22 L (test code = 761) HEMOGLOBIN (BEAKER) (test code = 11.7 GM/DL 11.2-15.7 410) HEMATOCRIT (BEAKER) (test code = 34.3 % 34.1-44.9 411) MEAN CORPUSCULAR VOLUME (BEAKER) 110.3 fL 79.4-94.8 H (test code = 753) MEAN CORPUSCULAR HEMOGLOBIN 37.6 pg 25.6-32.2 H (BEAKER) (test code = 751) MEAN CORPUSCULAR HEMOGLOBIN CONC 34.1 GM/DL 32.2-35.5 (BEAKER) (test code = 752) RED CELL DISTRIBUTION WIDTH 14.1 % 11.7-14.4 (BEAKER) (test code = 412) PLATELET COUNT (BEAKER) (test 111 K/CU MM 150-450 L code = 756) MEAN PLATELET VOLUME (BEAKER) 9.2 fL 9.4-12.3 L (test code = 754) NUCLEATED RED BLOOD CELLS 0 /100 WBC 0-0 (BEAKER) (test code = 413) Comprehensive metabolic [id number] 19:11:00 Test Item Value Reference Range Interpretation Comments Protein, Total (test 6.4 See_Comment [Autom ated code = 2885-2) message] The system which generated this result transmit florencia reference range : 6.0 - 8.3 gm/dL . The reference range was not u sed to interpret th is result as normal/abnormal . Albumin (test code = 4.0 g/dL 3.5-5 10793-5) Alkaline Phosphatase 127 U/L 40-150 (test code = 6768-6) Total Bilirubin (test 0.7 mg/dL 0.2-1.2 code = 1974-2) Sodium (test code = 139 meq/L 911-729 3653-2) Potassium (test code 4.2 meq/L 3.5-5.1 = 2823-3) Chloride (test code = 107 meq/L 98-107 2075-0) CO2 (test code = 24 meq/L 22-29 8-9) BUN (test code = 19 mg/dL 7-21 3094-0) Creatinine (test code 0.74 mg/dL 0.57-1.25 = 2160-0) Glucose (test code = 118 mg/dL 70-105 H 2345-7) Calcium (test code = 10.0 mg/dL 8.4-10.2 96710-1) AST (test code = 23 U/L 5-34 1920-8) ALT (test code = 22 U/L 6-55 1742-6) EGFR (test code = 76 mL/min/1.73 [place] [address]-1) NOT ACCURATE CREATININE CLEARANCE IN PREDICTING GLOMERULAR FILTRATION RATE . ESTIMATED GFR I S NOT APPLICABLE FOR DIALYSIS PATIEN TS. DIANE (test code = DIANE) Keg Washer ID - DB Lab Interpretation Abnormal (test code = 21306-4) [facility] [id number] 19:11:00 Test Item Value Reference Range Interpretation Comments TOTAL PROTEIN 6.4 gm/dL 6.0-8.3 (BEAKER) (test code = 770) ALBUMIN (BEAKER) 4.0 g/dL 3.5-5.0 (test code = 1145) ALKALINE PHOSPHATASE 127 U/L 40-150 (BEAKER) (test code = 346) BILIRUBIN TOTAL 0.7 mg/dL 0.2-1.2 (BEAKER) (test code = 377) SODIUM (BEAKER) (test 139 meq/L 136-145 code = 381) POTASSIUM (BEAKER) 4.2 meq/L 3.5-5.1 (test code = 379) CHLORIDE (BEAKER) 107 meq/L 98-107 (test code = 382) CO2 (BEAKER) (test 24 meq/L 22-29 code = 355) BLOOD UREA NITROGEN 19 mg/dL 7-21 (BEAKER) (test code = 354) CREATININE (BEAKER) 0.74 mg/dL 0.57-1.25 (test code = 358) GLUCOSE RANDOM 118 mg/dL 70-105 H (BEAKER) (test code = 652) CALCIUM (BEAKER) 10.0 mg/dL 8.4-10.2 (test code = 697) AST (SGOT) (BEAKER) 23 U/L 5-34 (test code = 353) ALT (SGPT) (BEAKER) 22 U/L 6-55 (test code = 347) EGFR (BEAKER) (test 76 mL/min/1.73 ESTIMA FLORENCIA GFR IS code = 1092) sq m NOT ACCURATE CREATININE CLEARANCE IN PREDICTING GLOMERULAR FILTRATION RATE . ESTIMATED GFR I S NOT APPLICABLE FOR DIALYSIS PATIEN TS. Keg Washer ID - [id number] 19:11:00 Test Item Value Reference Range Interpretation Comments MAGNESIUM (BEAKER) (test code = 2.1 mg/dL 1.6-2.6 627) Keg Washer ID - [id number] 19:11:00 Test Item Value Reference Range Interpretation Comments PHOSPHORUS (BEAKER) (test code = 2.8 mg/dL 2.3-4.7 604) Keg Washer ID - DBCBC with platelet count + automated [id number] 18:46:00 Test Item Value Reference Range Interpretation Comments WBC (test code = 6690-2) 6.1 See_Comment [A utomated message] The system [employer] generated this result transmitted ref erence range: 3.5 - 10 .5 K/L. The refe rence range was not u sed to interpret this result as normal/abnor mal. RBC (test code = 789-8) 3.17 See_Comment L [Au tomated message] The system [employer] generated this result transmitted ref erence range: 3.93 - 5 .22 M/L. The refe rence range was not u sed to interpret this result as normal/abnor mal. MCHC (test code = 786-4) 34.3 See_Comment [A utomated message] The system [employer] generated this result transmitted ref erence range: 32.2 - 3 5.5 GM/DL. The refe rence range was not u sed to interpret this result as normal/abnor mal. Hematocrit (test code = 34.4 % 34.1-44.9 4544-3) MCV (test code = 787-2) 108.5 fL 79.4-94.8 H MCH (test code = 785-6) 37.2 pg 25.6-32.2 H RDW (test code = 788-0) 13.9 % 11.7-14.4 Platelets (test code = 117 See_Comment L [Aut omated message] 777-3) The system [employer] generated this result transmitted ref erence range: 150 - 45 0 K/CU MM. The referen ce range was not u sed to interpret this result as normal/abnor mal. MPV (test code = 9.2 fL 9.4-12.3 L 27538-6) nRBC (test code = 413) 0 See_Comment [Aut omated message] The system [employer] generated this result transmitted ref erence range: 0 - 0 /1 00 WBC. The refere nce range was not u sed to interpret this result as normal/abnor mal. % Neutros (test code = 82 % 429) % Lymphs (test code = 13 % 430) % Monos (test code = 4 % 431) % Eos (test code = 432) 0 % % Baso (test code = 437) 0 % # Neutros (test code = 5.04 See_Comment [Aut omated message] 670) The system [employer] generated this result transmitted ref erence range: 1.56 - 6 .13 K/L. The refe rence range was not u sed to interpret this result as normal/abnor mal. # Lymphs (test code = 0.77 See_Comment L [Auto mated message] 414) The system [employer] generated this result transmitted ref erence range: 1.18 - 3 .74 K/L. The refe rence range was not u sed to interpret this result as normal/abnor mal. # Monos (test code = 0.24 See_Comment [Autom ated message] 415) The system [employer] generated this result transmitted ref erence range: 0.24 - 0 .36 K/L. The refe rence range was not u sed to interpret this result as normal/abnor mal. # Eos (test code = 416) 0.00 See_Comment L [Au tomated message] The system [employer] generated this result transmitted ref erence range: 0.04 - 0 .36 K/L. The refe rence range was not u sed to interpret this result as normal/abnor mal. # Baso (test code = 417) 0.01 See_Comment [A utomated message] The system [employer] generated this result transmitted ref erence range: 0.01 - 0 .08 K/L. The refe rence range was not u sed to interpret this result as normal/abnor mal. Immature 1 % 0-1 Granulocytes-Relative (test code = 2801) Lab Interpretation (test Abnormal code = 22448-9) [facility] W/PLT COUNT & AUTO [id number] 18:46:00 Test Item Value Reference Range Interpretation Comments WHITE BLOOD CELL COUNT (BEAKER) 6.1 K/ L 3.5-10.5 (test code = 775) RED BLOOD CELL COUNT (BEAKER) 3.17 M/ L 3.93-5.22 L (test code = 761) HEMOGLOBIN (BEAKER) (test code = 11.8 GM/DL 11.2-15.7 410) HEMATOCRIT (BEAKER) (test code = 34.4 % 34.1-44.9 411) MEAN CORPUSCULAR VOLUME (BEAKER) 108.5 fL 79.4-94.8 H (test code = 753) MEAN CORPUSCULAR HEMOGLOBIN 37.2 pg 25.6-32.2 H (BEAKER) (test code = 751) MEAN CORPUSCULAR HEMOGLOBIN CONC 34.3 GM/DL 32.2-35.5 (BEAKER) (test code = 752) RED CELL DISTRIBUTION WIDTH 13.9 % 11.7-14.4 (BEAKER) (test code = 412) PLATELET COUNT (BEAKER) (test 117 K/CU MM 150-450 L code = 756) MEAN PLATELET VOLUME (BEAKER) 9.2 fL 9.4-12.3 L (test code = 754) NUCLEATED RED BLOOD CELLS 0 /100 WBC 0-0 (BEAKER) (test code = 413) NEUTROPHILS RELATIVE PERCENT 82 % (BEAKER) (test code = 429) LYMPHOCYTES RELATIVE PERCENT 13 % (BEAKER) (test code = 430) MONOCYTES RELATIVE PERCENT 4 % (BEAKER) (test code = 431) EOSINOPHILS RELATIVE PERCENT 0 % (BEAKER) (test code = 432) BASOPHILS RELATIVE PERCENT 0 % (BEAKER) (test code = 437) NEUTROPHILS ABSOLUTE COUNT 5.04 K/ L 1.56-6.13 (BEAKER) (test code = 670) LYMPHOCYTES ABSOLUTE COUNT 0.77 K/ L 1.18-3.74 L (BEAKER) (test code = 414) MONOCYTES ABSOLUTE COUNT (BEAKER) 0.24 K/ L 0.24-0.36 (test code = 415) EOSINOPHILS ABSOLUTE COUNT 0.00 K/ L 0.04-0.36 L (BEAKER) (test code = 416) BASOPHILS ABSOLUTE COUNT (BEAKER) 0.01 K/ L 0.01-0.08 (test code = 417) IMMATURE GRANULOCYTES-RELATIVE 1 % 0-1 PERCENT (BEAKER) (test code = 0422)
[2020-09-03] MEDS: LOPERAMIDE HCL 2 MG CAPSULE PO PRN (18:31)
[2020-09-03 19:47] VITALS: BMI 23.3
[2020-09-03] MEDS: ACETAMINOPHEN 325 MG TABLET PO PRN (20:36)
[2020-09-03 23:44] LABS: Urine Appearance CLEAR; Urine Bilirubin NEGATIVE (NEG); Urine Blood NEGATIVE (NEG); Urine Color YELLOW; Urine Glucose NEGATIVE (NEG); Urine Protein NEGATIVE (NEG); Urine Urobilinogen 0.2 mg/dL (0.2-1.0)
[2020-09-04 00:52] LABS: Urine Bacteria <20 /HPF (<20); Urine RBC <5 /HPF (NONE SEEN); Urine Urothelial Cells <5 /HPF (NONE SEEN)
[2020-09-04] MEDS: ACETAMINOPHEN 325 MG TABLET PO PRN (05:22)
[2020-09-04 07:07] LABS: Albumin 3.2 g/dL (3.4-5.0); Magnesium 2.5 mg/dL (1.8-2.4); Prealbumin 25.9 mg/dL (20-40)
[2020-09-04 07:18] LABS: Absolute Lymphocytes (CBC) 0.8 K/uL (0.7-4.9); Basophils % 1.3 % (0-1.3); Hematocrit 34.7 % (36.0-45.0); Lymphocytes % 25.9 % (15.3-44.8); MPV 7.7 fL (7.6-11.3); RBC Red Blood Cell Count 3.13 M/uL (3.86-4.86)
[2020-09-04] MEDS: MYBETRIQ 25 MG PO SCH (08:00)
[2020-09-04] MEDS: LOPERAMIDE HCL 2 MG CAPSULE PO PRN ×2 (08:10→17:24)
[2020-09-04] MEDS: CYANOCOBALAMIN 1,000 MCG TAB PO SCH (08:10)
[2020-09-04] MEDS: VITAMIN D 5,000 UNIT CAP PO SCH (08:10)
--- NOTE | 2020-09-04 17:40 | R.HP ---
HISTORY AND PHYSICAL FACILITY: [facility] ENCOUNTER DATE AND TIME: 09/04/2020 17:34 (ROOM INSPECTOR) MR#: [id number] NAME MARLINE WYNNE ADDRESS: [address] [facility]: [place] [address] PHONE: DATE OF : 1940 AGE: 80 SSN# [id number] GENDER: Female DEXTERITY Right-handed MARITAL STATUS RACE Unknown race PRE-HOSPITAL LIVING SETTING 01 - Home (private home/apt. board/care, assisted living, long term, transitional living) PRE-HOSPITAL LIVING WITH Family/Relatives ENCOUNTER PHYSICIAN: Dr. Harry Minaya M.D. REFERRING DOCTOR: ED PARRISH MD DATE OF ADMISSION: 09/03/2020 16:23 (ROOM INSPECTOR) REFERRING FACILITY [facility] HOME TYPE AND DETAILS: Type of home: single family house # of levels in the residence: 1 # of steps to enter the residence: 0 # of steps within the residence: 0 ONSET DATE: 08/30/2020 PRIMARY DIAGNOSIS-RELATED SURGERIES: N/A HISTORY OF PRESENT ILLNESS (HPI): Pt. is a 80 yo Right-handed female of unknown race. On 08/30/2020 she was admitted to [facility] with diagnosis CERVICAL CORD MYELOMALA VIKASH. 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 Pre-morbidly, Pt. was independent/mod-I in Safety Awareness, Social Cognition, Sphincter Control, and Transfers Control; and she had good Endurance and Sphincter Control. Currently, she has deficits of Locomotion, Balance, Sphincter Control, and Endurance. Pt. is now referred to [facility] for acute in-patient rehabilitation in order to maximize patient's functional independence in activities of daily living, strength, ROM, and mobi lity. Patient has realistic goal of being discharged at assistance level 7-Ind to reside at Home with Fami ly/Relatives. MEDICATION ALLERGIES: No Known Drug Allergies (NKDA) ENVIRONMENTAL ALLERGIES: - Substance Allergies None Known - Other Allergies None Known PAST MEDICAL HISTORY: B CELL LYMPHOMA CERVICAL CANCER HX OF PULMONARY EMBOLUS PAST SURGICAL HISTORY: HYSTERECTOMY SOCIAL HISTORY: - Home Living Family/Relatives REVIEW OF SYSTEMS: - Gen No Chills Fatigue No Fever - Eyes No Double Vision No itchiness - ENMT No Difficulty Swallowing - CVS No Chest Discomfort No Chest Pain Fatigue No Weight Gain - Resp No Cough No Shortness of Breath - GI Continent No Abdominal Pain No Constipation No Diarrhea - Continent No Kidney Pain No Painful Urination No Urinary Urgency - MSK Joint Pain Muscle Cramps Stiffness - Skin No Itching No Rash No Suspicious Lesions - Neuro Coordination Difficulty No Difficulty with Concentration No Memory Loss No Seizures Weakness - Psych No Anxiety No Depression No HIV Exposure No Persistent Infections No Seasonal Allergies - Endo No Cold/Heat Intolerance No Excessive Hunger No Excessive Thirst No Excessive Urination PHYSICAL EXAM - Gen Alert and awake Lying in bed No apparent distress Oriented to: person, time, and place - Skin No breakdown Atraumatic - Eyes No abnormalities - ENMT No abnormalities - Neck No abnormalities - CVS RRR - Chest Clear - Abd + bowel sounds - GI Non distended Deferred - No abnormalities - Ext No significant edema. - MSK 4+/5 weakness in both lower extremities. - Neuro 4/5 strength in both lower extremities. - Psych No abnormalities VITAL SIGNS Temperature: 97.2 F SBP/DBP: 128/60 Pulse: 65 Resp: 16 NURSING: - Shower allowing shower - Bladder care per protocol - Skin care per protocol ACTIVITIES OOB only with supervision QI SCORES: - Self-Care A. Eating 06-Independent B. Oral hygiene 03-Partial/moderate assistance C. Toileting hygiene 03-Partial/moderate assistance E. Shower/bathe self 03-Partial/moderate assistance F. Upper body dressing 04-Supervision or touching assistance G. Lower body dressing 03-Partial/moderate assistance H. Putting on/taking off footwear 88-Not attempted due to medical condition or safety concerns - Mobility A. Roll left and right 06-Independent B. Sit to lying 06-Independent C. Lying to sitting on side of bed 06-Independent D. Sit to stand 03-Partial/moderate assistance E. Chair/fkl-wl-kizsr transfer 03-Partial/moderate assistance F. Toilet transfer 03-Partial/moderate assistance G. Car transfer 88-Not attempted due to medical condition or safety concerns I. Walk 10 feet 03-Partial/moderate assistance J. Walk 50 feet with two turns 03-Partial/moderate assistance K. Walk 150 feet 88-Not attempted due to medical condition or safety concerns L. Walking 10 feet on uneven surfaces 88-Not attempted due to medical condition or safety concerns M. 1 step (curb) 88-Not attempted due to medical condition or safety concerns N. 4 steps 88-Not attempted due to medical condition or safety concerns O. 12 steps 88-Not attempted due to medical condition or safety concerns P. Picking up object 88-Not attempted due to medical condition or safety concerns R. Wheel 50 feet with two turns 03-Partial/moderate assistance S. Wheel 150 feet 88-Not attempted due to medical condition or safety concerns - Bladder and Bowel Bladder continence Bowel continence - Endurance Good - Balance Good - Safety Awareness Good CURRENT FUNC. DEFICITS: Self-Care and Mobility MEDICATIONS: - Other See attached MAR (Medication Administration Record) ASSESSMENT: Pt. is a 80 yo Right-handed female of unknown race.On 08/30/2020 she was admitted to [facility] with diagnosis CERVICAL CORD MYELOMALACIA.Her impairment category is Spinal Cord Dysfunc tion 04 - Other Traumatic Spinal Cord Dysfunction (04.230).Pre-morbidly, Pt. was independent/mod-I i n Safety Awareness, Social Cognition, Sphincter Control, and Transfers Control; and she had good Endu jania and Sphincter Control.Currently, she has deficits of Locomotion, Balance, Sphincter Control, an d Endurance.Pt. is now referred to [facility] for acute in-patient rehabilitat ion in order to maximize patient's functional independence in activities of daily living, strength, R OM, and mobility.- Rehab Goal Patient has realistic goal of being discharged at assistance level 7-Ind to reside at Home with Fami ly/Relatives. - Physical Therapy Need for home safety evaluation - to improve, our physical therapists will perform initial evaluation of pt's status upon admission and devise an individualized program for Home Evaluation Need in caregiver upon discharge - to improve, our physical therapists will perform initial evaluatio n of pt's status upon admission and devise an individualized program for Caregiver Training New precaution - to improve, our physical therapists will perform initial evaluation of pt's status u eve admission and devise an individualized program for Patient precaution education Edema - to improve, our physical therapists will perform initial evaluation of pt's status upon admi ssion and devise an individualized program for Elevation Training, and Lymphedema Therapy Poor balance - to improve, our physical therapists will perform initial evaluation of pt's status upo n admission and devise an individualized program for Balance Training Poor endurance - to improve, our physical therapists will perform initial evaluation of pt's status u eve admission and devise an individualized program for Endurance Training Achieving independence - to improve, our physical therapists will perform initial evaluation of pt's status upon admission and devise an individualized program for Community Reintegration Activities - Occupational Therapy Need for caretaker - to improve, our occupation therapists will perform initial evaluation of pt's s tatus upon admission and devise an individualized program for Caregiver Training MEDICAL PLAN: - Diet Type Start Regular - Diet - Liquid Texture Start Regular - Tube Feed Start N/A - Bladder care per protocol - Skin care per protocol - Other See attached MAR (Medication Administration Record) - Diet - Solid Texture Regular - Shower shower DISCHARGE PLAN: - Estimated Length of Stay (days) 27. - Consensus on plan Discharge plan has been discussed with primary caregiver. Patient/Family is in agreement with the darren n. Primary caregiver is in agreement with the plan. - Patient/Family Goals Return home independently. - Planned Living Setting Upon Discharge Home, to live with Family/Relatives. Transitional Living. SIGNATURE PANEL: (ROOM INSPECTOR)
--- NOTE | 2020-09-04 17:51 | PAPE ---
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 Harry Minaya M.D. 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 PATIENT NEEDS CLOSE MEDICAL SUPERVISION BY A REHABILITATION PHYSICIAN FOR: Coordination of Treatment Team PATIENT REQUIRES 24X7 REHAB NURSING FOR MEDICAL AND FUNCTIONAL MGT. OF THE FOLLOWING DEFICITS: Disease Management Medication Management Patient/Family Education Providing Safe Environment PATIENT REQUIRES INTENSIVE, COORDINATED INTERDISCIPLINARY APPROACH TO REHAB: Arranging Home Equipment/Services Discharge Planning Family Intervention/Training Dental Front Office Assistant/Case Management LIST OF IDENTIFIED AND POTENTIAL PROBLEMS: Alteration in leisure activities Bladder, Incontinence Bowel, Incontinence Infection, Actual or Potential Mobility Impaired Pain, Alteration in Comfort Self Care Deficit Skin Integrity, Actual or Potential Urinary Tract Infection (UTI), Actual or Potential PATIENT COULD BE AT RISK FOR COMPLICATIONS FROM ADVERSE MEDICAL CONDITIONS DUE TO HIS/HER COMORBIDITI ES AND THE RIGORS OF THE INTENSIVE REHABILLITATION PROGRAM. METHODS OR INTERVENTIONS TO AVOID COMPLIC ATIONS INCLUDE: - Infection Clinical staff to assess and manage the signs and symptoms of infection including fever, redness, war mth, etc. - Urinary Tract Infection - Falls Patient will be evaluated for Fall Precautions and will be placed on Fall Precautions as indicated pe r protocol. - Skin Breakdown Nursing will assess skin daily using assessment tool and will place on Skin Breakdown Precautions as indicated per protocol. - Pain Clinical staff may employ non-medication methods such as massage, distraction, decrease stimulus, etc . as needed. Clinical staff will assess patient's pain level every shift per protocol to assess and e nsure pain management effectiveness. Medications will be given and the pain level re-assessed. PRELIMINARY PLAN OF CARE: - Physical Therapy Patient needs Physical Therapy for a daily minimum of 1.5 hours at least 5 out of 7 days, to improve: Mobility, Strengthening, Transfers, Stretching, ROM, Endurance, Ability to manage stairs, Gait, and Balance. - Rehabilitation Nursing Patient requires 24x7 Rehabilitation Nursing for: Pain Issues, Identifying and preventing risk factor s, Monitoring and reporting current medical conditions, Assisting with ambulation and transfer, Polly ting with all ADL-s, Teaching patients about disease process and medications, Family teaching, Provid ing safe environment, Bowel and Bladder Issues, Skin Integrity, and Medication Management. Patient needs Dental Front Office Assistant and/or Case Management for: Discharge Planning, Arranging Home Equipmen t or Services, and Family Interventions. - Dietary and Nutrition Services Patient needs Dietary and Nutrition Services for: Adequate Nutrition, Nutritional Supplements, and Nu tritional Education. - Occupational Therapy Patient needs Occupational Therapy for a daily minimum of 1.5 hours at least 5 out of 7 days, to impr ove Activities of Daily Living, including: Eating, Grooming, Bathing, Dressing, Toileting, Toilet Tra nsfers, Community Reintegration, Higher functional activities, Adaptive Equipment, Splinting, Househo ld Tasks, and Other activities as determined. QI SCORES: - Self-Care A. Eating 06-Independent B. Oral hygiene 03-Partial/moderate assistance C. Toileting hygiene 03-Partial/moderate assistance E. Shower/bathe self 03-Partial/moderate assistance F. Upper body dressing 04-Supervision or touching assistance G. Lower body dressing 03-Partial/moderate assistance H. Putting on/taking off footwear 88-Not attempted due to medical condition or safety concerns - Mobility A. Roll left and right 06-Independent B. Sit to lying 06-Independent C. Lying to sitting on side of bed 06-Independent D. Sit to stand 03-Partial/moderate assistance E. Chair/dop-zq-rtele transfer 03-Partial/moderate assistance F. Toilet transfer 03-Partial/moderate assistance G. Car transfer 88-Not attempted due to medical condition or safety concerns I. Walk 10 feet 03-Partial/moderate assistance J. Walk 50 feet with two turns 03-Partial/moderate assistance K. Walk 150 feet 88-Not attempted due to medical condition or safety concerns L. Walking 10 feet on uneven surfaces 88-Not attempted due to medical condition or safety concerns M. 1 step (curb) 88-Not attempted due to medical condition or safety concerns N. 4 steps 88-Not attempted due to medical condition or safety concerns O. 12 steps 88-Not attempted due to medical condition or safety concerns P. Picking up object 88-Not attempted due to medical condition or safety concerns R. Wheel 50 feet with two turns 03-Partial/moderate assistance S. Wheel 150 feet 88-Not attempted due to medical condition or safety concerns - Bladder and Bowel Bladder continence Bowel continence - Endurance Good - Balance Good - Safety Awareness Good POTENTIAL FUNCTIONAL GOALS FOR PATIENT TO ACHIEVE BY DISCHARGE: - Safety Precaution Patient will remain free from falls or injury at time of discharge. - Bed Mobility Patient will perform bed mobility at 4-Alyssia level of assistance. - Transfers Patient will complete transfers from bed to chair at 4-Alyssia level of assistance. - Mobility Patient will ambulate 150 ft with 4-Alyssia level of assistance with RW. PATIENT REHAB POTENTIAL Leonela WYNNE is able and expected to receive 3 hours of individualized therapy daily on at least 5 of ev deann 7 days Leonela WYNNE's prognosis for significant practical improvement within a reasonable period of time appear s Good Expected level of measurable improvement will be of a practical value to Leonela WYNNE's functional capac ity or adaptations to impairments Has a viable Discharge Plan Medically appropriate; condition is sufficiently stable to participate in intensive rehab program DISCHARGE PLAN: - Estimated Length of Stay (days) 27. - Consensus on plan Discharge plan has been discussed with primary caregiver. Patient/Family is in agreement with the darren n. Primary caregiver is in agreement with the plan. - Patient/Family Goals Return home independently. - Planned Living Setting Upon Discharge Home, to live with Family/Relatives. Transitional Living. CONCLUSION ON REHABILITATION NECESSITY: I have evaluated patient's pre-admission functional status and, comparing it to the patient's post-ad mission functional status now, I conclude that the pre-admission assessment was accurate. Patient's c ondition on admission supports the medical necessity of admission to IRF. It is safe to proceed with patient's therapy program. 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
[2020-09-05] MEDS: ACETAMINOPHEN 500 MG TAB PO PRN ×2 (00:47→21:31)
[2020-09-05] MEDS: CYANOCOBALAMIN 1,000 MCG TAB PO SCH (08:00)
[2020-09-05] MEDS: MYBETRIQ 25 MG PO SCH (08:00)
[2020-09-05] MEDS: CRANBERRY FRUIT EXTRACT 200 MG CAP PO SCH ×2 (08:09→21:02)
[2020-09-05] MEDS: VITAMIN D 5,000 UNIT CAP PO SCH (08:09)
[2020-09-05] MEDS: LOPERAMIDE HCL 2 MG CAPSULE PO PRN ×2 (08:27→14:10)
--- NOTE | 2020-09-05 09:33 | P.RH.PN ---
Estimated Length of Stay: 11 Expected Discharge Date: 09/13/20 Discharge Disposition Plan: Home Family Support: Yes Detention Goal: Mobility, Transfers, Self Care Vital Signs: Last Vital Signs Temp 98.2 F 09/04/20 20:00 Pulse 79 09/04/20 20:00 Resp 18 09/04/20 20:00 BP 136/64 09/04/20 20:00 Pulse Ox 99 09/04/20 20:00 Laboratory: Laboratory Last Values WBC 3.20 K/uL (4.3-10.9) L D 09/04/20 06:04 RBC 3.13 M/uL (3.86-4.86) L 09/04/20 06:04 Hgb 11.9 g/dL (12.0-15.0) L 09/04/20 06:04 Hct 34.7 % (36.0-45.0) L 09/04/20 06:04 MCV 110.7 fL (80-100) H 09/04/20 06:04 MCH 37.9 pg (27.0-35.0) H 09/04/20 06:04 MCHC 34.2 g/dL (32.0-36.0) 09/04/20 06:04 RDW 14.2 % (12.1-15.2) 09/04/20 06:04 Plt Count 122 K/uL (152-406) L 09/04/20 06:04 MPV 7.7 fL (7.6-11.3) 09/04/20 06:04 Neutrophils % 56.5 % (41.7-73.7) 09/04/20 06:04 Lymphocytes % 25.9 % (15.3-44.8) 09/04/20 06:04 Monocytes % 9.6 % (3.3-12.3) 09/04/20 06:04 Eosinophils % 6.7 % (0-4.4) H 09/04/20 06:04 Basophils % 1.3 % (0-1.3) 09/04/20 06:04 Absolute Neutrophils 1.8 K/uL (1.8-8.0) 09/04/20 06:04 Absolute Lymphocytes 0.8 K/uL (0.7-4.9) 09/04/20 06:04 Absolute Monocytes 0.3 K/uL (0.1-1.3) 09/04/20 06:04 Absolute Eosinophils 0.2 K/uL (0-0.5) 09/04/20 06:04 Absolute Basophils 0.0 K/uL (0-0.5) 09/04/20 06:04 Sodium 146 mmol/L (136-145) H 09/04/20 06:04 Potassium 4.0 mmol/L (3.5-5.1) 09/04/20 06:04 Chloride 113 mmol/L (98-107) H 09/04/20 06:04 Carbon Dioxide 26 mmol/L (21-32) 09/04/20 06:04 BUN 14 mg/dL (7-18) 09/04/20 06:04 Creatinine 0.66 mg/dL (0.55-1.3) 09/04/20 06:04 Estimated GFR 87 mL/min (=/>90) L 09/04/20 06:04 Glucose 89 mg/dL (74-106) 09/04/20 06:04 Calcium 9.5 mg/dL (8.5-10.1) 09/04/20 06:04 Magnesium 2.5 mg/dL (1.8-2.4) H 09/04/20 06:04 Albumin 3.2 g/dL (3.4-5.0) L 09/04/20 06:04 Prealbumin 25.9 mg/dL (20-40) 09/04/20 06:04 Urine Color Yellow 09/03/20 23: Urine Appearance Clear 09/03/20 23:27 Urine pH 6.0 (5.0-7.0) 09/03/20 23:27 Ur Specific Franklin 1.010 (1.005-1.030) 09/03/20 23:27 Glucose (UA)(Auto) Negative (NEG) 09/03/20 23: Urine Ketones Negative (NEG) 09/03/20 23: Urine Blood Negative (NEG) 09/03/20 23: Urine Nitrite Negative (NEG) 09/03/20 23: Urine Bilirubin Negative (NEG) 09/03/20 23: Urine Urobilinogen 0.2 mg/dL (0.2-1.0) 09/03/20 23: Ur Leukocyte Esterase 2+ (NEG) H 09/03/20 23:27 Urine RBC <5 /HPF (NONE SEEN) 09/03/20 23:27 Urine WBC 10-20 /HPF (<5) H 09/03/20 23:27 Ur Squamous Epith Cells <5 /HPF (NONE SEEN) 09/03/20 23:27 Ur Urothelial Cells <5 /HPF (NONE SEEN) 09/03/20 23:27 Urine Bacteria <20 /HPF (<20) 09/03/20 23: Urine Culture Reflexed Not needed 09/03/20 23: Urine Total Protein Negative (NEG) 09/03/20 23:27 SARS-CoV-2 RNA (RT-PCR) Negative (NEGATIVE) 09/03/20 21:30 Weight: 140 lb Wound Present: No Closed Surgical Incision Present: No Negative Pressure Wound Therapy Present: No Physician Update: Labs reviewed and are stable. She is moderate assistance with showers, max assistance with lower body dressing. Fair to static with standing balance. Walking 250' feet with standby assistance and 25 stairs. Functional Improvement: pt presents with mild strength deficits in bilateral LEs. pt demonstrates mild <-> moderate balance deficits during ambulation and functional transfers. pt exhibits reduced trunk strength. pt experiences reduced tolerance to functional activity due to fatigue, weakness, and impaired balance. Skilled PT services are necessary to address the above mentioned impairments and functional limitations. Summary: Patient's care plan and fpc goals have been reviewed and revised as necessary. Please see the Rehabilitation Signature page for all necessary signatures.
--- NOTE | 2020-09-05 10:30 | PN ---
Date of Progress Note: 09/05/2020 Subjective: The patient was seen for followup this morning. She was sitting in the wheelchair. Den ied any complaints. Vital signs reviewed. She has little bit soreness of the right arm, which is si gnificantly better than before. No tingling and numbness of hands. No weakness of upper extremities . Objective: Vital signs: Reviewed. HEENT: Unremarkable. Lungs: Clear to auscultation. Heart: Sounds normal. Abdomen: Soft. Bowel sounds normal. No guarding, rigidity, tenderness, or distention. Extremities: No leg edema. Impression: 1.Cervical spinal stenosis. 2.Cervical spinal cord contusion. 3.White coat hypertension. 4.Pancytopenia. 5.Urinary tract infection. Plan: We will go ahead and start the patient on antibiotics per order. She has some dysuria as she reported today. We will follow up on urine culture results and continue physical therapy under melody brooks of Dr. Minaya. I will see her tomorrow for followup. ELBERT/MODL Voice ID: [id number] Report ID: [id number]
[2020-09-05] MEDS ORDERED: SMZ./TMP. 800/160 MG TABLET PO ONE (12:28)
[2020-09-05] MEDS: SMZ./TMP. 800/160 MG TABLET PO SCH (21:02)
[2020-09-06] MEDS: SMZ./TMP. 800/160 MG TABLET PO SCH ×2 (07:07→20:23)
[2020-09-06] MEDS: LOPERAMIDE HCL 2 MG CAPSULE PO PRN ×2 (07:07→17:48)
[2020-09-06] MEDS: CYANOCOBALAMIN 1,000 MCG TAB PO SCH (07:07)
[2020-09-06] MEDS: VITAMIN D 5,000 UNIT CAP PO SCH (07:07)
[2020-09-06] MEDS: CRANBERRY FRUIT EXTRACT 200 MG CAP PO SCH ×2 (07:08→20:23)
[2020-09-06] MEDS: MYBETRIQ 25 MG PO SCH (07:09)
[2020-09-06] MEDS: ACETAMINOPHEN 500 MG TAB PO PRN (11:05)
--- NOTE | 2020-09-06 12:16 | PN ---
Date of Progress Note: 09/06/2020 Subjective: The patient was seen this morning for followup. She was feeling fine. No new complaint s or problems reported. Her balance is getting better with therapy. No incontinence problem. Objective: Vital Signs: Reviewed. HEENT: Unremarkable. Lungs: Clear to auscultation. Heart: Sounds normal. Abdomen: Soft. Bowel sounds normal. No guarding, rigidity, tenderness, distention. Extremities: No leg edema. Laboratory Data: Urine culture grew Proteus and it is sensitive to Bactrim and that is what the scott ent is currently on. Impression: 1.Urinary tract infection. 2.White coat hypertension. 3.Cervical spinal stenosis. 4.Cervical cord contusion. 5.Vitamin B12 deficiency. 6.Vitamin D deficiency. Plan: We will go ahead and continue current medication. Continue current antibiotics and vitamin D supplement. She is on vitamin B12 supplement orally, but we will give her 1 dose of intramuscular vi tamin B12 injection today. Her vitamin B12 level was low at 157. ELBERT/MODL Voice ID: [id number] Report ID: [id number]
[2020-09-06] MEDS ORDERED: CYANOCOBALAMIN 1000MCG/ML INJ IM ONE (12:30)
--- NOTE | 2020-09-06 16:13 | FAST ---
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 Harry Minaya M.D. 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 EATING: EATING - STEP 1: Does the patient complete the activity by him/herself with no assistance (physical, verbal/nonverbal cueing, setup/clean-up)? No. EATING - STEP 2: Does the patient need only setup/clean-up assistance from one helper? Yes. 1. [id number] ADMISSION PERFORMANCE: Setup or clean-up assistance CODE: 05 ORAL HYGIENE: ORAL HYGIENE - STEP 1: Does the patient complete the activity by him/herself with no assistance (physical, verbal/nonverbal cueing, setup/clean-up)? No. ORAL HYGIENE - STEP 2: Does the patient need only setup/clean-up assistance from one helper? Yes. 1. [id number] ADMISSION PERFORMANCE: Setup or clean-up assistance CODE: 05 TOILETING HYGIENE: TOILETING HYGIENE - STEP 1: Does the patient complete the activity by him/herself with no assistance (physical, verbal/nonverbal cueing, setup/clean-up)? Yes. 1. [id number] ADMISSION PERFORMANCE: Independent CODE: 06 BATHING: Not assessed/no information CODE: - DRESSING - UPPER BODY: DRESSING - UPPER BODY - STEP 1: Does the patient complete the activity by him/herself with no assistance (physical, verbal/nonverbal cueing, setup/clean-up)? No. DRESSING - UPPER BODY - STEP 2: Does the patient need only setup/clean-up assistance from one helper? No. DRESSING - UPPER BODY - STEP 3: Does the patient need only verbal/nonverbal cueing or touching/steadying/contact guard assistance fro m one helper? Yes. 1. [id number] ADMISSION PERFORMANCE: Supervision or touching assistance CODE: 04 DRESSING - LOWER BODY: DRESSING - LOWER BODY - STEP 1: Does the patient complete the activity by him/herself with no assistance (physical, verbal/nonverbal cueing, setup/clean-up)? No. DRESSING - LOWER BODY - STEP 2: Does the patient need only setup/clean-up assistance from one helper? No. DRESSING - LOWER BODY - STEP 3: Does the patient need only verbal/nonverbal cueing or touching/steadying/contact guard assistance fro m one helper? Yes. 1. [id number] ADMISSION PERFORMANCE: Supervision or touching assistance CODE: 04 PUTTING ON/TAKING OFF FOOTWEAR: FOOTWEAR - STEP 1: Does the patient complete the activity by him/herself with no assistance (physical, verbal/nonverbal cueing, setup/clean-up)? No. FOOTWEAR - STEP 2: Does the patient need only setup/clean-up assistance from one helper? No. FOOTWEAR - STEP 3: Does the patient need only verbal/nonverbal cueing or touching/steadying/contact guard assistance fro m one helper? Yes. 1. [id number] ADMISSION PERFORMANCE: Supervision or touching assistance CODE: 04 ROLL LEFT AND RIGHT: ROLL LEFT AND RIGHT - STEP 1: Does the patient complete the activity by him/herself with no assistance (physical, verbal/nonverbal cueing, setup/clean-up)? Yes. 1. [id number] ADMISSION PERFORMANCE: Independent CODE: 06 SIT TO LYING: SIT TO LYING - STEP 1: Does the patient complete the activity by him/herself with no assistance (physical, verbal/nonverbal cueing, setup/clean-up)? No. SIT TO LYING - STEP 2: Does the patient need only setup/clean-up assistance from one helper? No. SIT TO LYING - STEP 3: Does the patient need only verbal/nonverbal cueing or touching/steadying/contact guard assistance fro m one helper? Yes. 1. [id number] ADMISSION PERFORMANCE: Supervision or touching assistance CODE: 04 LYING TO SITTING: LYING TO SITTING ON SIDE OF BED - STEP 1: Does the patient complete the activity by him/herself with no assistance (physical, verbal/nonverbal cueing, setup/clean-up)? No. LYING TO SITTING ON SIDE OF BED - STEP 2: Does the patient need only setup/clean-up assistance from one helper? No. LYING TO SITTING ON SIDE OF BED - STEP 3: Does the patient need only verbal/nonverbal cueing or touching/steadying/contact guard assistance fro m one helper? Yes. 1. [id number] ADMISSION PERFORMANCE: Supervision or touching assistance CODE: 04 SIT TO STAND: SIT TO STAND - STEP 1: Does the patient complete the activity by him/herself with no assistance (physical, verbal/nonverbal cueing, setup/clean-up)? No. SIT TO STAND - STEP 2: Does the patient need only setup/clean-up assistance from one helper? No. SIT TO STAND - STEP 3: Does the patient need only verbal/nonverbal cueing or touching/steadying/contact guard assistance fro m one helper? Yes. 1. [id number] ADMISSION PERFORMANCE: Supervision or touching assistance CODE: 04 TRANSFERS: BED, CHAIR: CHAIR/[id number] TRANSFER - STEP 1: Does the patient complete the activity by him/herself with no assistance (physical, verbal/nonverbal cueing, setup/clean-up)? No. CHAIR/[id number] TRANSFER - STEP 2: Does the patient need only setup/clean-up assistance from one helper? No. CHAIR/[id number] TRANSFER - STEP 3: Does the patient need only verbal/nonverbal cueing or touching/steadying/contact guard assistance fro m one helper? Yes. 1. [id number] ADMISSION PERFORMANCE: Supervision or touching assistance CODE: 04 TRANSFER TOILET: TOILET TRANSFER - STEP 1: Does the patient complete the activity by him/herself with no assistance (physical, verbal/nonverbal cueing, setup/clean-up)? No. TOILET TRANSFER - STEP 2: Does the patient need only setup/clean-up assistance from one helper? No. TOILET TRANSFER - STEP 3: Does the patient need only verbal/nonverbal cueing or touching/steadying/contact guard assistance fro m one helper? Yes. 1. [id number] ADMISSION PERFORMANCE: Supervision or touching assistance CODE: 04 TRANSFERS: CAR: Not assessed/no information CODE: - WALK 10 FEET: WALK 10 FEET - STEP 1: Does the patient complete the activity by him/herself with no assistance (physical, verbal/nonverbal cueing, setup/clean-up)? No. WALK 10 FEET - STEP 2: Does the patient need only setup/clean-up assistance from one helper? Yes. 1. [id number] ADMISSION PERFORMANCE: Setup or clean-up assistance CODE: 05 WALK 50 FEET: WALK 50 FEET - STEP 1: Does the patient complete the activity by him/herself with no assistance (physical, verbal/nonverbal cueing, setup/clean-up)? No. WALK 50 FEET - STEP 2: Does the patient need only setup/clean-up assistance from one helper? No. WALK 50 FEET - STEP 3: Does the patient need only verbal/nonverbal cueing or touching/steadying/contact guard assistance fro m one helper? Yes. 1. [id number] ADMISSION PERFORMANCE: Supervision or touching assistance CODE: 04 WALK 150 FEET: WALK 150 FEET - STEP 1: Does the patient complete the activity by him/herself with no assistance (physical, verbal/nonverbal cueing, setup/clean-up)? No. WALK 150 FEET - STEP 2: Does the patient need only setup/clean-up assistance from one helper? No. WALK 150 FEET - STEP 3: Does the patient need only verbal/nonverbal cueing or touching/steadying/contact guard assistance fro m one helper? Yes. 1. [id number] ADMISSION PERFORMANCE: Supervision or touching assistance CODE: 04 WALK 10 FEET UNEVEN: Not assessed/no information CODE: - 1 STEP (CURB): Not assessed/no information CODE: - PICKING UP OBJECT: Not assessed/no information CODE: - DOES THE PATIENT USE A WHEELCHAIR/SCOOTER? Q1. DOES THE PATIENT USE A WHEELCHAIR/SCOOTER?: Yes CODE: 1 WHEEL 50 FEET WITH TWO TURNS: WHEEL 50 FEET WITH TWO TURNS - STEP 1: Does the patient complete the activity by him/herself with no assistance (physical, verbal/nonverbal cueing, setup/clean-up)? No. WHEEL 50 FEET WITH TWO TURNS - STEP 2: Does the patient need only setup/clean-up assistance from one helper? No. WHEEL 50 FEET WITH TWO TURNS - STEP 3: Does the patient need only verbal/nonverbal cueing or touching/steadying/contact guard assistance fro m one helper? Yes. 1. [id number] ADMISSION PERFORMANCE: Supervision or touching assistance CODE: 04 INDICATE THE TYPE OF WHEELCHAIR/SCOOTER USED: RR1. INDICATE THE TYPE OF WHEELCHAIR/SCOOTER USED.: Manual CODE: 1 WHEEL 150 FEET: WHEEL 150 FEET - STEP 1: Does the patient complete the activity by him/herself with no assistance (physical, verbal/nonverbal cueing, setup/clean-up)? No. WHEEL 150 FEET - STEP 2: Does the patient need only setup/clean-up assistance from one helper? No. WHEEL 150 FEET - STEP 3: Does the patient need only verbal/nonverbal cueing or touching/steadying/contact guard assistance fro m one helper? Yes. 1. [id number] ADMISSION PERFORMANCE: Supervision or touching assistance CODE: 04 INDICATE THE TYPE OF WHEELCHAIR/SCOOTER USED: SS1. INDICATE THE TYPE OF WHEELCHAIR/SCOOTER USED.: Manual CODE: 1 BLADDER AND BOWEL: H350. BLADDER CONTINENCE (3-DAY ASSESSMENT PERIOD): Always continent (no documented incontinence) CODE: 0 H400. BOWEL CONTINENCE (3-DAY ASSESSMENT PERIOD): Always continent CODE: 0 SIGNATURE PANEL: The following modified sections: 1. [id number] Admission Performance, 1. [id number] Admission Performance, 1. GW8728E Admission Performance, 1. [id number] Admission Performance, 1. [id number] Admission Performance, 1. [id number] Admission Performance, 1. AL3315S Admission Performance, 1. [id number] Admission Performance , 1. [id number] Admission Performance, 1. [id number] Admission Performance, 1. [id number] Admission Performanc e, 1. [id number] Admission Performance, 1. [id number] Admission Performance, 1. UL2276E Admission Performan ce, 1. [id number] Admission Performance, 1. [id number] Admission Performance, 1. [id number] Admission Performa nce, Q1. Does the patient use a wheelchair/scooter?, 1. [id number] Admission Performance, RR1. Indicate the type of wheelchair/scooter used., 1. [id number] Admission Performance, Code, SS1. Indicate the type of wheelchair/scooter used., H350. Bladder Continence (3-day assessment period), H400. Bowel Continen ce (3-day assessment period) were [electronically] signed by Johnna Hein C.N.A. on TueSep 06 2020 16:12:30 T-0600 (Central Standard Time)
[2020-09-07] MEDS: MYBETRIQ 25 MG PO SCH (08:00)
[2020-09-07] MEDS: CRANBERRY FRUIT EXTRACT 200 MG CAP PO SCH ×2 (09:28→20:02)
[2020-09-07] MEDS: VITAMIN D 5,000 UNIT CAP PO SCH (09:29)
[2020-09-07] MEDS: SMZ./TMP. 800/160 MG TABLET PO SCH ×2 (09:29→20:01)
[2020-09-07] MEDS: CYANOCOBALAMIN 1,000 MCG TAB PO SCH (09:29)
--- NOTE | 2020-09-07 18:01 | PN ---
Date of Progress Note: 09/07/2020 Subjective: The patient was seen this morning for followup. No new complaints or problems reported by the patient. Lying in bed, not in distress. Vital signs reviewed. She does report that she has diarrhea from time to time ever since she had chemotherapy in 2019 and she takes Imodium at home with good control. Objective: HEENT: Unremarkable. Lungs: Clear to auscultation. Heart: Sounds normal. Abdomen: Soft. Bowel sounds normal. No guarding, rigidity, tenderness, or distention. Extremities: No leg edema. Impression: 1. Cervical spinal stenosis. 2. Cervical cord contusion. 3. White coat hypertension. 4. Diarrhea, chronic. Plan: The patient to use Imodium on as needed basis which always has worked for her and she understands if and when to use that for her diarrhea problem. Meanwhile, we will continue current medications here. She was advised to move her both legs while sitting or lying down and certain leg exercises shown and advised to her to reduce chances of getting blood clot. We will continue to follow with Dr. Minaya for her therapy and I will see her tomorrow for followup. We will continue current vitamin D supplement and vitamin B12 supplement for her vitamin D and B12 deficiency respectively. Yesterday, 1 dose of vitamin B12 1000 mcg intramuscular injection was ordered and she continues to take oral supplement. ELBERT/MODL Voice ID: [id number] Report ID: [id number] MTDD
[2020-09-08] MEDS: MYBETRIQ 25 MG PO SCH ×2 (08:00→10:14)
[2020-09-08] MEDS: VITAMIN D 5,000 UNIT CAP PO SCH (08:05)
[2020-09-08] MEDS: CRANBERRY FRUIT EXTRACT 200 MG CAP PO SCH ×2 (08:05→19:19)
[2020-09-08] MEDS: CYANOCOBALAMIN 1,000 MCG TAB PO SCH (08:05)
[2020-09-08] MEDS: CIPROFLOXACIN HCL 500 MG TAB PO SCH ×2 (08:05→19:19)
--- NOTE | 2020-09-08 19:10 | R.PN ---
PROGRESS NOTES ENCOUNTER DATE AND TIME: 09/08/2020 19:04 (CDT) NAME MARLINE WYNNE DATE OF : 1940 DATE OF ADMISSION: 09/03/2020 16:23 (DIRECTOR OF OPERATIONS SUPPORT) CERVICAL CORD MYELOMALACIACHIEF COMPLAINT: Cervical cord compression, debility SUBJECTIVE: Pt denied any Shortness of Breath. Pt denied any depression. Ambulated 500' with a rolling walker and another 500' with a single prong cane. WBC 3.2, Hgb 11.9, prealbumin 25.9, Plastic Fixture Builder 0.66. Medical management is by Dr. Jones. VITAL SIGNS Temperature: 97.2 F SBP/DBP: 128/60 Pulse: 65 Resp: 16 MEDICATION ALLERGIES: No Known Drug Allergies (NKDA) ENVIRONMENTAL ALLERGIES: - Substance Allergies None Known - Other Allergies None Known NURSING: - Shower allowing shower - Bladder care per protocol - Skin care per protocol ACTIVITIES OOB only with supervision THERAPIES: - Orthotics/Prosthetics Orthotic Evaluation. Splinting/Casting. - Dietary and Nutrition Adequate Nutrition. Nutritional Education. Nutritional Supplements. PHYSICAL EXAM - Gen Alert and awake Lying in bed No apparent distress Oriented to: person, time, and place - Skin No breakdown Atraumatic - Eyes No abnormalities - ENMT No abnormalities - Neck No abnormalities - CVS RRR - Chest Clear - Abd + bowel sounds - GI Non distended Deferred - No abnormalities - Ext No significant edema. - MSK 4+/5 weakness in both lower extremities. - Neuro 4/5 strength in both lower extremities. - Psych No abnormalities ASSESSMENT: Pt. is a 80 yo Right-handed female of unknown race.On 08/30/2020 she was admitted to [facility] with diagnosis CERVICAL CORD MYELOMALACIA.Her impairment category is Spinal Cord Dysfunc tion 04 - Other Traumatic Spinal Cord Dysfunction (04.230).Pre-morbidly, Pt. was independent/mod-I i n Safety Awareness, Social Cognition, Sphincter Control, and Transfers Control; and she had good Endu jania and Sphincter Control.Currently, she has deficits of Locomotion, Balance, Sphincter Control, an d Endurance.Pt. is now referred to [facility] for acute in-patient rehabilitat ion in order to maximize patient's functional independence in activities of daily living, strength, R OM, and mobility.- Rehab Goal Patient has realistic goal of being discharged at assistance level 7-Ind to reside at Home with Fami ly/Relatives. MDM/PLAN: - Physical Therapy Need for home safety evaluation - to improve, our physical therapists will perform initial evaluatio n of pt's status upon admission and devise an individualized program for Home Evaluation Need in caregiver upon discharge - to improve, our physical therapists will perform initial evaluati on of pt's status upon admission and devise an individualized program for Caregiver Training New precaution - to improve, our physical therapists will perform initial evaluation of pt's status upon admission and devise an individualized program for Patient precaution education Edema - to improve, our physical therapists will perform initial evaluation of pt's status upon admis shaun and devise an individualized program for Elevation Training, and Lymphedema Therapy Poor balance - to improve, our physical therapists will perform initial evaluation of pt's status up on admission and devise an individualized program for Balance Training Poor endurance - to improve, our physical therapists will perform initial evaluation of pt's status upon admission and devise an individualized program for Endurance Training Achieving independence - to improve, our physical therapists will perform initial evaluation of pt's status upon admission and devise an individualized program for Community Reintegration Activities - Occupational Therapy Need for resident care supervisor - to improve, our occupation therapists will perform initial evaluation of pt's status upon admission and devise an individualized program for Caregiver Training - Other See attached MAR (Medication Administration Record) - Diet Type Continue Regular - Diet - Liquid Texture Continue Regular - Tube Feed Continue N/A - Bladder care per protocol - Skin care per protocol - Diet - Solid Texture Continue Regular - Shower allowing shower FUNCTIONAL STATUS: UPDATED AT WEEKLY TEAM CONFERENCE - Bladder Same accident frequency: 7-Ind - No accidents in the past 7 days - Bowel Same accident frequency: 7-Ind - No accidents in the past 7 days - Walking Same score based on distance walked: 0(N/A) Same score based on distance walked: 2(50-149ft) - Wheelchair Same score based on distance traveled: 0(N/A) FUNCTIONAL STATUS: - Self-Care A. Eating Ruby B. Grooming Ind C. Bathing Alyssia D. Dressing - Upper Alyssia E. Dressing - Lower sup F. Toileting sup - Sphincter Control G. Bladder control sup H. Bowel control sup - Transfers Control I. Bed/Chair/Wheelchair sup J. Toilet sup K. Tub/Shower Alyssia - Locomotion L. Walk/Wheelchair (B) sup M. Stairs ADNO - Communication N. Comprehension (B) Ind O. Expression (B) Ind - Social Cognition P. Social Interaction Ind Q. Problem Solving Ind R. Memory Ruby - Endurance Fair - Balance Fair - Safety Awareness Fair QI SCORES: - Self-Care A. Eating 06-Independent B. Oral hygiene 03-Partial/moderate assistance C. Toileting hygiene 03-Partial/moderate assistance E. Shower/bathe self 03-Partial/moderate assistance F. Upper body dressing 04-Supervision or touching assistance G. Lower body dressing 03-Partial/moderate assistance H. Putting on/taking off footwear 88-Not attempted due to medical condition or safety concerns - Mobility A. Roll left and right 06-Independent B. Sit to lying 06-Independent C. Lying to sitting on side of bed 06-Independent D. Sit to stand 03-Partial/moderate assistance E. Chair/eni-wb-svmuc transfer 03-Partial/moderate assistance F. Toilet transfer 03-Partial/moderate assistance G. Car transfer 88-Not attempted due to medical condition or safety concerns I. Walk 10 feet 03-Partial/moderate assistance J. Walk 50 feet with two turns 03-Partial/moderate assistance K. Walk 150 feet 88-Not attempted due to medical condition or safety concerns L. Walking 10 feet on uneven surfaces 88-Not attempted due to medical condition or safety concerns M. 1 step (curb) 88-Not attempted due to medical condition or safety concerns N. 4 steps 88-Not attempted due to medical condition or safety concerns O. 12 steps 88-Not attempted due to medical condition or safety concerns P. Picking up object 88-Not attempted due to medical condition or safety concerns R. Wheel 50 feet with two turns 03-Partial/moderate assistance S. Wheel 150 feet 88-Not attempted due to medical condition or safety concerns - Bladder and Bowel Bladder continence Bowel continence - Endurance Good - Balance Good - Safety Awareness Good CURRENT FUNC. DEFICITS: Self-Care and Mobility SIGNATURE PANEL: (CDT)
[2020-09-08] MEDS: MAGNESIUM OXIDE 400 MG TAB PO SCH (19:19)
--- NOTE | 2020-09-09 07:25 | PN ---
Date of Progress Note: 09/08/2020 Subjective: The patient was seen for followup in the morning. She continues to have burning sensati on on urination and so far she has received at least 4 doses of antibiotics, but her dysuria has not improved any. Objective: Vital Signs: Reviewed. HEENT: Unremarkable. Lungs: Clear to auscultation. Heart: Sounds normal. Abdomen: Soft. Bowel sounds normal. No guarding, rigidity, tenderness, or distention. Extremities: No leg edema. Impression: 1.Urinary tract infection. 2.Cervical spinal stenosis. 3.Cervical cord contusion. 4.White coat hypertension. 5.Vitamin D deficiency. 6.Vitamin B12 deficiency. Plan: We will continue current medications including vitamin D and vitamin B12 supplement per order. Continue physical therapy per guidance of Dr. Minaya. We will discontinue her Bactrim and instea d of that start her on Cipro 500 mg 2 times a day for urinary tract infection according to culture an d sensitivity result, and I will see her tomorrow for followup. ELBERT/MODL Voice ID: [id number] Report ID: [id number]
[2020-09-09] MEDS ORDERED: MYBETRIQ 25 MG PO SCH (08:00)
[2020-09-09] MEDS: CRANBERRY FRUIT EXTRACT 200 MG CAP PO SCH ×2 (08:11→19:39)
[2020-09-09] MEDS: VITAMIN D 5,000 UNIT CAP PO SCH (08:12)
[2020-09-09] MEDS: MAGNESIUM OXIDE 400 MG TAB PO SCH ×2 (08:12→19:39)
[2020-09-09] MEDS: CIPROFLOXACIN HCL 500 MG TAB PO SCH ×2 (08:14→19:39)
[2020-09-09] MEDS: CYANOCOBALAMIN 1,000 MCG TAB PO SCH (08:14)
--- NOTE | 2020-09-09 12:38 | HP ---
jDate of Admission: 09/04/2020 Chief Complaint: Arm pain and trouble walking. History Of Present Illness: A 80-year-old female patient, who was recently admitted to medical floor and was transferred to [place] for higher level of care because of cervical myelomalacia and cervical spinal stenosis. After patient was evaluated as I understand, decision was made not to have any surgery and the patient was transferred to our rehab floor yesterday for rehab therapy. The patient reports that her pain in the back of the neck and some pain in her arm that she had has improved since last time when I saw her, which was during last hospital admission. She still has trouble walking, but denies any incontinence problem. Allergies: NO KNOWN ALLERGIES. Medications: Current medication list reviewed. Prior to this hospital admission she was taking calcium 1 tab daily and Myrbetriq 25 mg daily. Review of Systems: SMOKING PIPES CLEANER: As mentioned above All other systems reviewed and negative. Past Medical History: Significant for white coat hypertension, hyperlipidemia, renal cyst, overactive bladder, cancer of cervix diagnosed in 1988, treated with chemotherapy and radiation therapy. Non-Hodgkin's lymphoma diagnosed in 07/31/2018 and this was treated by Claude HOPSON in last year during [address] scans done at [facility], she was found to have pulmonary embolism, which was treated with Eliquis and subsequently anticoagulation therapy was discontinued after few months by [facility]. Past medical history also significant for osteopenia and vitamin D deficiency. During her last hospital admission, she was also noted to have vitamin B12 deficiency. Past Surgical History: Negative. Family History: Significant for father had COPD and [place]. Mother had stroke. Social History: Negative for smoking and alcohol use. Physical Examination: Vital Signs: Upon admission temperature 98.7, pulse 72, respiratory rate 18, blood pressure 154/65, oxygen saturation 99% on room air. Height 5 feet 5 inches, weight 140 pounds. General: Awake, alert, oriented, not in distress. HEENT: Head atraumatic, normocephalic. Conjunctivae nonerythematous. Sclerae white. Mouth, no thrush or edema noted. Ears/Nose, no mass, lesion, discharge noted. Neck: Supple. No JVD, lymph nodes, bruit, thyromegaly noted. Lungs: Bilateral good equal air entry. Clear to auscultation. No rhonchi. No rales. Heart: Normal heart sounds, no murmur or gallop. Abdomen: Soft, bowel sounds normal. No guarding, rigidity, tenderness, mass, hepatosplenomegaly, distention, or bruit noted. Extremities: No leg edema. No calf tenderness. Skin: No rash, ulcer, cellulitis. Lymphatics: No lymph node enlargement in neck, supraclavicular, infraclavicular region. Neuro: No focal neurological deficit. Chest: Unremarkable. External Genitalia: Deferred. Rectal: Deferred. Laboratory Data: Sodium 146, potassium 4, chloride 113, bicarb 26, BUN 14, creatinine 0.66, glucose 89, albumin 3.2. Urinalysis; leukocyte esterase 2+, wbc's 10-20. COVID-19 test negative. White count 3.2, hemoglobin 11.9, platelets 122. Impression: 1. Cervical spinal stenosis. 2. Cervical myelomalacia. 3. Pancytopenia. 4. Urinary tract infection. 5. Non-Hodgkin's lymphoma. 6. Vitamin D deficiency. 7. Vitamin B12 deficiency. 8. White coat hypertension. 9. Overactive bladder. 10. Osteopenia. Plan: Admit the patient to the hospital for further evaluation and management of this problem. We will consult Dr. Minaya from rehab. Medications will be continued per order. We will give her vitamin D and vitamin B12 supplement per order. I will see her tomorrow for followup. We will continue her calcium supplement and her Myrbetriq. ELBERT/MODL Voice ID: [id number] JAMEL
--- NOTE | 2020-09-09 17:09 | R.PN ---
PROGRESS NOTES ENCOUNTER DATE AND TIME: 09/09/2020 17:02 (CDT) NAME MARLINE WYNNE DATE OF : 1940 DATE OF ADMISSION: 09/03/2020 16:23 (CUSTOMER OPERATIONS ASSOCIATE) CERVICAL CORD MYELOMALACIACHIEF COMPLAINT: Cervical cord compression, debility SUBJECTIVE: Pt denied any Shortness of Breath. Pt denied any depression. Ambulated 3250' with a single prong cane and standby assistance. WBC 3.2, Hgb 11.9, prealbumin 25.9, Cell Stripper Final 0.66. Medical management is by Dr. Jones. VITAL SIGNS Temperature: 97.6 F SBP/DBP: 131/66 Pulse: 75 Resp: 16 MEDICATION ALLERGIES: No Known Drug Allergies (NKDA) ENVIRONMENTAL ALLERGIES: - Substance Allergies None Known - Other Allergies None Known NURSING: - Shower allowing shower - Bladder care per protocol - Skin care per protocol ACTIVITIES OOB only with supervision THERAPIES: - Orthotics/Prosthetics Orthotic Evaluation. Splinting/Casting. - Dietary and Nutrition Adequate Nutrition. Nutritional Education. Nutritional Supplements. PHYSICAL EXAM - Gen Alert and awake Lying in bed No apparent distress Oriented to: person, time, and place - Skin No breakdown Atraumatic - Eyes No abnormalities - ENMT No abnormalities - Neck No abnormalities - CVS RRR - Chest Clear - Abd + bowel sounds - GI Non distended Deferred - No abnormalities - Ext No significant edema. - MSK 4+/5 weakness in both lower extremities. - Neuro 4/5 strength in both lower extremities. - Psych No abnormalities ASSESSMENT: Pt. is a 80 yo Right-handed female of unknown race.On 08/30/2020 she was admitted to [facility] with diagnosis CERVICAL CORD MYELOMALACIA.Her impairment category is Spinal Cord Dysfunc tion 04 - Other Traumatic Spinal Cord Dysfunction (04.230).Pre-morbidly, Pt. was independent/mod-I i n Safety Awareness, Social Cognition, Sphincter Control, and Transfers Control; and she had good Endu jania and Sphincter Control.Currently, she has deficits of Locomotion, Balance, Sphincter Control, an d Endurance.Pt. is now referred to [facility] for acute in-patient rehabilitat ion in order to maximize patient's functional independence in activities of daily living, strength, R OM, and mobility.- Rehab Goal Patient has realistic goal of being discharged at assistance level 7-Ind to reside at Home with Fami ly/Relatives. MDM/PLAN: - Physical Therapy Need for home safety evaluation - to improve, our physical therapists will perform initial evaluatio n of pt's status upon admission and devise an individualized program for Home Evaluation Need in caregiver upon discharge - to improve, our physical therapists will perform initial evaluati on of pt's status upon admission and devise an individualized program for Caregiver Training New precaution - to improve, our physical therapists will perform initial evaluation of pt's status upon admission and devise an individualized program for Patient precaution education Edema - to improve, our physical therapists will perform initial evaluation of pt's status upon admi ssion and devise an individualized program for Elevation Training, and Lymphedema Therapy Poor balance - to improve, our physical therapists will perform initial evaluation of pt's status up on admission and devise an individualized program for Balance Training Poor endurance - to improve, our physical therapists will perform initial evaluation of pt's status upon admission and devise an individualized program for Endurance Training Achieving independence - to improve, our physical therapists will perform initial evaluation of pt's status upon admission and devise an individualized program for Community Reintegration Activities - Occupational Therapy Need for careers adviser - to improve, our occupation therapists will perform initial evaluation of pt's status upon admission and devise an individualized program for Caregiver Training - Other See attached MAR (Medication Administration Record) - Diet Type Continue Regular - Diet - Liquid Texture Continue Regular - Tube Feed Continue N/A - Bladder care per protocol - Skin care per protocol - Diet - Solid Texture Continue Regular - Shower allowing shower FUNCTIONAL STATUS: UPDATED AT WEEKLY TEAM CONFERENCE - Bladder Same accident frequency: 7-Ind - No accidents in the past 7 days - Bowel Same accident frequency: 7-Ind - No accidents in the past 7 days - Walking Same score based on distance walked: 0(N/A) Same score based on distance walked: 2(50-149ft) - Wheelchair Same score based on distance traveled: 0(N/A) FUNCTIONAL STATUS: - Self-Care A. Eating Ruby B. Grooming Ind C. Bathing Alyssia D. Dressing - Upper Alyssia E. Dressing - Lower sup F. Toileting sup - Sphincter Control G. Bladder control sup H. Bowel control sup - Transfers Control I. Bed/Chair/Wheelchair sup J. Toilet sup K. Tub/Shower Alyssia - Locomotion L. Walk/Wheelchair (B) sup M. Stairs ADNO - Communication N. Comprehension (B) Ind O. Expression (B) Ind - Social Cognition P. Social Interaction Ind Q. Problem Solving Ind R. Memory Ruby - Endurance Fair - Balance Fair - Safety Awareness Fair QI SCORES: - Self-Care A. Eating 06-Independent B. Oral hygiene 03-Partial/moderate assistance C. Toileting hygiene 03-Partial/moderate assistance E. Shower/bathe self 03-Partial/moderate assistance F. Upper body dressing 04-Supervision or touching assistance G. Lower body dressing 03-Partial/moderate assistance H. Putting on/taking off footwear 88-Not attempted due to medical condition or safety concerns - Mobility A. Roll left and right 06-Independent B. Sit to lying 06-Independent C. Lying to sitting on side of bed 06-Independent D. Sit to stand 03-Partial/moderate assistance E. Chair/jue-lj-kzpbx transfer 03-Partial/moderate assistance F. Toilet transfer 03-Partial/moderate assistance G. Car transfer 88-Not attempted due to medical condition or safety concerns I. Walk 10 feet 03-Partial/moderate assistance J. Walk 50 feet with two turns 03-Partial/moderate assistance K. Walk 150 feet 88-Not attempted due to medical condition or safety concerns L. Walking 10 feet on uneven surfaces 88-Not attempted due to medical condition or safety concerns M. 1 step (curb) 88-Not attempted due to medical condition or safety concerns N. 4 steps 88-Not attempted due to medical condition or safety concerns O. 12 steps 88-Not attempted due to medical condition or safety concerns P. Picking up object 88-Not attempted due to medical condition or safety concerns R. Wheel 50 feet with two turns 03-Partial/moderate assistance S. Wheel 150 feet 88-Not attempted due to medical condition or safety concerns - Bladder and Bowel Bladder continence Bowel continence - Endurance Good - Balance Good - Safety Awareness Good CURRENT FUNC. DEFICITS: Self-Care and Mobility SIGNATURE PANEL: (CDT)
--- NOTE | 2020-09-10 05:47 | PN ---
Date of Progress Note: 09/09/2020 Subjective: The patient was seen for followup in the morning. No new complaints or problems reporte d. Her dysuria is better compared to before since she started taking Cipro and so far she has receiv ed 2 doses of Cipro. She does have frequent nighttime urination, which is nothing new for her with h er overactive bladder as she describes. No abdominal pain. No back pain. No fever. No chills. Objective: Vital Signs: Reviewed. HEENT: Unremarkable. Lungs: Clear to auscultation. Heart: Sounds normal. Abdomen: Soft. Bowel sounds normal. No guarding, rigidity, tenderness, or distention. Extremities: No leg edema. Impression: 1.Urinary tract infection, organism Proteus. 2.Cervical spinal stenosis. 3.Cervical cord contusion. 4.Overactive bladder. Plan: We will go ahead and continue Cipro. Continue physical therapy under guidance of Dr. Minaya . We will continue her current vitamin D and vitamin B12 supplement, and her medication for overacti ve bladder. Details and plan of treatment discussed with her. I will see her tomorrow for followup. ELBERT/MODL Voice ID: [id number] Report ID: [id number]
[2020-09-10] MEDS ORDERED: MYBETRIQ 50 MG PO SCH (08:00)
[2020-09-10] MEDS: CYANOCOBALAMIN 1,000 MCG TAB PO SCH (08:18)
[2020-09-10] MEDS: CIPROFLOXACIN HCL 500 MG TAB PO SCH ×2 (08:18→19:29)
[2020-09-10] MEDS: MAGNESIUM OXIDE 400 MG TAB PO SCH ×2 (08:18→19:29)
[2020-09-10] MEDS: CRANBERRY FRUIT EXTRACT 200 MG CAP PO SCH ×2 (08:18→19:29)
[2020-09-10] MEDS: VITAMIN D 5,000 UNIT CAP PO SCH (08:18)
[2020-09-10] MEDS: MYBETRIQ 50 MG PO SCH (08:19)
[2020-09-10] MEDS: LOPERAMIDE HCL 2 MG CAPSULE PO PRN (14:19)
[2020-09-11 07:00] LABS: Absolute Lymphocytes (CBC) 0.6 K/uL (0.7-4.9); Basophils % 0.7 % (0-1.3); Hematocrit 36.9 % (36.0-45.0); MPV 7.8 fL (7.6-11.3); RBC Red Blood Cell Count 3.36 M/uL (3.86-4.86)
[2020-09-11 07:13] LABS: Albumin 3.6 g/dL (3.4-5.0); Magnesium 2.6 mg/dL (1.8-2.4); Potassium 4.2 mmol/L (3.5-5.1); Prealbumin 27.1 mg/dL (20-40)
[2020-09-11] MEDS: MYBETRIQ 50 MG PO SCH (08:00)
[2020-09-11] MEDS: VITAMIN D 5,000 UNIT CAP PO SCH (08:15)
[2020-09-11] MEDS: LOPERAMIDE HCL 2 MG CAPSULE PO PRN (08:15)
[2020-09-11] MEDS: MAGNESIUM OXIDE 400 MG TAB PO SCH ×2 (08:16→20:16)
[2020-09-11] MEDS: CRANBERRY FRUIT EXTRACT 200 MG CAP PO SCH ×2 (08:16→20:16)
[2020-09-11] MEDS: CYANOCOBALAMIN 1,000 MCG TAB PO SCH (08:16)
[2020-09-11] MEDS: CIPROFLOXACIN HCL 500 MG TAB PO SCH ×2 (08:16→20:16)
--- NOTE | 2020-09-11 09:42 | P.RH.PN ---
Estimated Length of Stay: 11 Expected Discharge Date: 09/14/20 Discharge Disposition Plan: Home Family Support: Yes Long-Term Goal: Mobility, Transfers, Self Care Vital Signs: Last Vital Signs Temp 98.9 F 09/11/20 07:26 Pulse 86 09/11/20 07:26 Resp 16 09/11/20 07:26 BP 144/64 H 09/11/20 07:26 Pulse Ox 99 09/11/20 07:26 Laboratory: Laboratory Last Values WBC 8.00 K/uL (4.3-10.9) D 09/11/20 06:29 RBC 3.36 M/uL (3.86-4.86) L 09/11/20 06:29 Hgb 12.5 g/dL (12.0-15.0) 09/11/20 06:29 Hct 36.9 % (36.0-45.0) 09/11/20 06:29 MCV 110.0 fL (80-100) H 09/11/20 06:29 MCH 37.2 pg (27.0-35.0) H 09/11/20 06:29 MCHC 33.8 g/dL (32.0-36.0) 09/11/20 06:29 RDW 13.6 % (12.1-15.2) 09/11/20 06:29 Plt Count 160 K/uL (152-406) D 09/11/20 06:29 MPV 7.8 fL (7.6-11.3) 09/11/20 06:29 Neutrophils % 82.7 % (41.7-73.7) H 09/11/20 06:29 Lymphocytes % 8.0 % (15.3-44.8) L 09/11/20 06:29 Monocytes % 7.1 % (3.3-12.3) 09/11/20 06:29 Eosinophils % 1.5 % (0-4.4) 09/11/20 06:29 Basophils % 0.7 % (0-1.3) 09/11/20 06:29 Absolute Neutrophils 6.6 K/uL (1.8-8.0) 09/11/20 06:29 Absolute Lymphocytes 0.6 K/uL (0.7-4.9) L 09/11/20 06:29 Absolute Monocytes 0.6 K/uL (0.1-1.3) 09/11/20 06:29 Absolute Eosinophils 0.1 K/uL (0-0.5) 09/11/20 06:29 Absolute Basophils 0.1 K/uL (0-0.5) 09/11/20 06:29 Sodium 142 mmol/L (136-145) 09/11/20 06:39 Potassium 4.2 mmol/L (3.5-5.1) 09/11/20 06:39 Chloride 109 mmol/L (98-107) H 09/11/20 06:39 Carbon Dioxide 26 mmol/L (21-32) 09/11/20 06:39 BUN 17 mg/dL (7-18) 09/11/20 06:39 Creatinine 0.83 mg/dL (0.55-1.3) 09/11/20 06:39 Estimated GFR 66 mL/min (=/>90) L 09/11/20 06:39 Glucose 101 mg/dL (74-106) 09/11/20 06:39 Calcium 10.0 mg/dL (8.5-10.1) 09/11/20 06:39 Magnesium 2.6 mg/dL (1.8-2.4) H 09/11/20 06:39 Albumin 3.6 g/dL (3.4-5.0) 09/11/20 06:39 Prealbumin 27.1 mg/dL (20-40) 09/11/20 06:39 Urine Color Yellow 09/03/20 23:27 Urine Appearance Clear 09/03/20 23:27 Urine pH 6.0 (5.0-7.0) 09/03/20 23:27 Ur Specific [place] 1.010 (1.005-1.030) 09/03/20 23:27 Glucose (UA)(Auto) Negative (NEG) 09/03/20 23:27 Urine Ketones Negative (NEG) 09/03/20 23: Urine Blood Negative (NEG) 09/03/20 23: Urine Nitrite Negative (NEG) 09/03/20 23:27 Urine Bilirubin Negative (NEG) 09/03/20 23:27 Urine Urobilinogen 0.2 mg/dL (0.2-1.0) 09/03/20 23:27 Ur Leukocyte Esterase 2+ (NEG) H 09/03/20 23:27 Urine RBC <5 /HPF (NONE SEEN) 09/03/20 23:27 Urine WBC 10-20 /HPF (<5) H 09/03/20 23:27 Ur Squamous Epith Cells <5 /HPF (NONE SEEN) 09/03/20 23:27 Ur Urothelial Cells <5 /HPF (NONE SEEN) 09/03/20 23:27 Urine Bacteria <20 /HPF (<20) 09/03/20 23: Urine Culture Reflexed Not needed 09/03/20 23: Urine Total Protein Negative (NEG) 09/03/20 23:27 SARS-CoV-2 RNA (RT-PCR) Negative (NEGATIVE) 09/03/20 21:30 Weight: 139 lb 3.2 oz Wound Present: No Closed Surgical Incision Present: No Negative Pressure Wound Therapy Present: No Physician Update: Labs are stable. She is doing very well with all therapy and will be discharged in 2 days. Walking 500' with cane independently. Standby assistance with stairs. Functional Improvement: pt presents with mild strength deficits in bilateral LEs. pt demonstrates mild <-> moderate balance deficits during ambulation and functional transfers. pt exhibits reduced trunk strength. pt experiences reduced tolerance to functional activity due to fatigue, weakness, and impaired balance. Skilled PT services are necessary to address the above mentioned impairments and functional limitations. Summary: Patient's care plan and oysterman goals have been reviewed and revised as necessary. Please see the Rehabilitation Signature page for all necessary signatures.
[2020-09-11 09:53] LABS: Blood Morphology Comment NOTED (NOT SEEN); Platelet Estimate ADEQ; White Blood Cell Scan 0 (OK)
[2020-09-11 09:54] LABS: Macrocytosis 1+
[2020-09-12] MEDS: CRANBERRY FRUIT EXTRACT 200 MG CAP PO SCH ×2 (08:00→21:14)
[2020-09-12] MEDS: CIPROFLOXACIN HCL 500 MG TAB PO SCH (08:00)
[2020-09-12] MEDS: VITAMIN D 5,000 UNIT CAP PO SCH (08:00)
[2020-09-12] MEDS: LOPERAMIDE HCL 2 MG CAPSULE PO PRN (08:00)
[2020-09-12] MEDS: CYANOCOBALAMIN 1,000 MCG TAB PO SCH (08:00)
[2020-09-12] MEDS: MYBETRIQ 50 MG PO SCH (08:04)
[2020-09-12] MEDS: MAGNESIUM OXIDE 400 MG TAB PO SCH ×2 (10:11→21:14)
[2020-09-12] MEDS: levoFLOXacin 500 MG TAB PO SCH (14:35)
[2020-09-12] MEDS: PHENAZOPYRIDINE 100MG TAB PO SCH (16:36)
[2020-09-13] MEDS: PHENAZOPYRIDINE 100MG TAB PO SCH (05:47)
[2020-09-13 07:17] VITALS: BP 145/65; TEMP 98.4
[2020-09-13] MEDS: levoFLOXacin 500 MG TAB PO SCH (07:35)
[2020-09-13] MEDS: CRANBERRY FRUIT EXTRACT 200 MG CAP PO SCH (07:35)
[2020-09-13] MEDS: CYANOCOBALAMIN 1,000 MCG TAB PO SCH (07:36)
[2020-09-13] MEDS: VITAMIN D 5,000 UNIT CAP PO SCH (07:36)
[2020-09-13] MEDS: LOPERAMIDE HCL 2 MG CAPSULE PO PRN (07:39)
[2020-09-13] MEDS: MAGNESIUM OXIDE 400 MG TAB PO SCH (07:39)
[2020-09-13] MEDS: MYBETRIQ 50 MG PO SCH (07:41)
[2020-09-13] MEDS ORDERED: levoFLOXacin 500 MG TAB PO SCH (14:00)
--- NOTE | 2020-09-22 23:28 | PN ---
Date of Progress Note: 09/10/2020 Subjective: The patient was seen for followup in the morning. She was lying in bed on rehab floor. Denies any new complaints. Objective: Vital Signs: Reviewed. HEENT: Unremarkable. Lungs: Clear to auscultation. Heart: Sounds normal. Abdomen: Soft. Bowel sounds normal. No guarding, rigidity, tenderness, or distention. Extremities: No leg edema. Impression: 1.Urinary tract infection, organism proteus. 2.Cervical spinal stenosis. 3.Cervical cord contusion. 4.Overactive bladder. Plan: We will go ahead and continue current antibiotic. Continue current vitamin D and vitamin B12 supplement. Physical therapy to be provided under guidance of Dr. Minaya. I will be on vacation a fter today and as of tomorrow, Dr. Minaya will take over this patient's care and I have discussed d etails with him. The patient was instructed to follow up at my office upon discharge from the rehab floor. ELBERT/MODL Voice ID: [id number] Report ID: [id number]
--- NOTE | 2020-09-26 18:10 | R.DS ---
DISCHARGE SUMMARY FACILITY [facility] MR# [id number] NAME MARLINE WYNNE ADDRESS [address] [facility] [place] [address] PHONE DATE OF 1940 AGE 80 SSN# [id number] GENDER Female DEXTERITY Right-handed MARITAL STATUS RACE Unknown race ENCOUNTER PHYSICIAN Dr. Harry Minaya M.D. 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 NURSING: - Shower allowing shower - Bladder care per protocol - Skin care per protocol ACTIVITIES OOB only with supervision THERAPIES: - Orthotics/Prosthetics Orthotic Evaluation Splinting/Casting - Dietary and Nutrition Adequate Nutrition Nutritional Education Nutritional Supplements HISTORY OF PRESENT ILLNESS: Pt. is a 80 yo Right-handed female of unknown race.On 08/30/2020 she was admitted to [facility] with diagnosis CERVICAL CORD MYELOMALACIA.Her impairment category is Spinal Cord Dysfunc tion 04 - Other Traumatic Spinal Cord Dysfunction ().Pre-morbidly, Pt. was independent/mod-I i n Safety Awareness, Social Cognition, Sphincter Control, and Transfers Control; and she had good Endu jania and Sphincter Control.Currently, she has deficits of Locomotion, Balance, Sphincter Control, an d Endurance.Pt. is now referred to [facility] for acute in-patient rehabilitat ion in order to maximize patient's functional independence in activities of daily living, strength, R OM, and mobility.- Rehab Goal Patient has realistic goal of being discharged at assistance level 7-Ind to reside at Home with Fami ly/Relatives. DIET - LIQUID TEXTURE: On 09/02/2020 Pt was upgraded to Regular Diet - Liquid Texture. DIET - SOLID TEXTURE: On 09/02/2020 Pt was upgraded to Regular Diet - Solid Texture. DIET TYPE: On 09/02/2020 Pt was upgraded to Regular Diet Type. TUBE FEED: On 09/02/2020 Pt was changed to N/A Tube Feed. DISCHARGE PHYSICAL EXAM - Gen Alert and awake Lying in bed No apparent distress Oriented to: person, time, and place - Skin No breakdown Atraumatic - Eyes No abnormalities - ENMT No abnormalities - Neck No abnormalities - CVS RRR - Chest Clear - Abd + bowel sounds - GI Non distended Deferred - No abnormalities - Ext No significant edema. - MSK 4+/5 weakness in both lower extremities. - Neuro 4/5 strength in both lower extremities. - Psych No abnormalities FUNCTIONAL STATUS: - Self-Care A. Eating 6-Ruby B. Grooming 7-Ind C. Bathing 6-Ruby D. Dressing - Upper 6-Ruby E. Dressing - Lower 6-Ruby F. Toileting 6-Ruby - Sphincter Control G. Bladder control 6-Ruby H. Bowel control 6-Ruby - Transfers Control I. Bed/Chair/Wheelchair 6-Ruby J. Toilet 6-Ruby K. Tub/Shower 6-Ruby - Locomotion L. Walk/Wheelchair (B) 6-Ruby M. Stairs 6-Ruby - Communication N. Comprehension (B) 7-Ind O. Expression (B) 7-Ind - Social Cognition P. Social Interaction 7-Ind Q. Problem Solving 7-Ind R. Memory 6-Ruby - Endurance Good - Balance Good - Safety Awareness Good QI SCORES: - Self-Care A. Eating 06-Independent B. Oral hygiene 03-Partial/moderate assistance C. Toileting hygiene 03-Partial/moderate assistance E. Shower/bathe self 03-Partial/moderate assistance F. Upper body dressing 04-Supervision or touching assistance G. Lower body dressing 03-Partial/moderate assistance H. Putting on/taking off footwear 88-Not attempted due to medical condition or safety concerns - Mobility A. Roll left and right 06-Independent B. Sit to lying 06-Independent C. Lying to sitting on side of bed 06-Independent D. Sit to stand 03-Partial/moderate assistance E. Chair/[id number] transfer 03-Partial/moderate assistance F. Toilet transfer 03-Partial/moderate assistance G. Car transfer 88-Not attempted due to medical condition or safety concerns I. Walk 10 feet 03-Partial/moderate assistance J. Walk 50 feet with two turns 03-Partial/moderate assistance K. Walk 150 feet 88-Not attempted due to medical condition or safety concerns L. Walking 10 feet on uneven surfaces 88-Not attempted due to medical condition or safety concerns M. 1 step (curb) 88-Not attempted due to medical condition or safety concerns N. 4 steps 88-Not attempted due to medical condition or safety concerns O. 12 steps 88-Not attempted due to medical condition or safety concerns P. Picking up object 88-Not attempted due to medical condition or safety concerns R. Wheel 50 feet with two turns 03-Partial/moderate assistance S. Wheel 150 feet 88-Not attempted due to medical condition or safety concerns - Bladder and Bowel Bladder continence Bowel continence - Endurance Good - Balance Good - Safety Awareness Good DISCHARGE INSTRUCTIONS: - N/A Mobilization and hydration was stressed. DISCHARGE PLAN, FOLLOW UP CARE PROVISIONS: - Estimated Length of Stay (days) 27. - Consensus on plan Discharge plan has been discussed with primary caregiver. Patient/Family is in agreement with the darren n. Primary caregiver is in agreement with the plan. - Patient/Family Goals Return home independently. - Planned Living Setting Upon Discharge Home, to live with Family/Relatives. Transitional Living. SIGNATURE PANEL: (CDT)
== END 2020-09-13 10:10 | disposition home or self-care (01) | DRG 92 ==
LOC: 5TH 09-03 16:23
PROVIDERS: ADMIT Psychiatry & Neurology Neurology with Special Qualifications in Child Neurology; ATTEND Psychiatry & Neurology Neurology with Special Qualifications in Child Neurology
DX: G95.29 Other cord compression (principal); N39.0 Urinary tract infection, site not specified; D61.818 Other pancytopenia; C85.90 Non-Hodgkin lymphoma, unspecified, unspecified site; B96.4 Proteus (mirabilis) (morganii) as the cause of diseases classified elsewhere; M48.02 Spinal stenosis, cervical region; S14.109A Unspecified injury at unspecified level of cervical spinal cord, initial encounter; N32.81 Overactive bladder; E55.9 Vitamin D deficiency, unspecified; E53.8 Deficiency of other specified B group vitamins; I10 Essential (primary) hypertension; G95.89 Other specified diseases of spinal cord; R19.7 Diarrhea, unspecified; M85.80 Other specified disorders of bone density and structure, unspecified site; Z20.822 Contact with and (suspected) exposure to COVID-19
CPT/HCPCS: 36415; 80048; 81001; 82040; 83735; 84134; 85025; 87077; 87086; 87088; 87186; 97110; 97112; 97116; 97161; 97530; J3420; U0002; U0003

== ENCOUNTER 2021-05-17 13:18 | Emergency (ER) | payer OTHER ==
--- OUTSIDE RECORDS SUMMARY | 2021-05-17 13:22 | XMS REPORT | Continuity of Care Document ---
:1940 Author Organization [facility] t Address [address] [place] [address] Care Team Providers Name Role Phone [phone] Primary Care Physician Unavailable Mercedes NAVARRO Attending Clinician Unavailable YUNIEL PINEDA Attending Clinician Unavailable ALENA Attending Clinician Unavailable Ramon HOPSON, A Attending Clinician Dipti DOMINGUEZ Attending Clinician Gerald HOPSON Attending Clinician Only, Test Attending Clinician Unavailable Pob, Lab Main Attending Clinician Unavailable Mercedes NAVARRO Admitting Clinician Unavailable YUNIEL PINEDA Admitting Clinician Unavailable BETZY LEAHY Admitting Clinician Unavailable Ramon HOPSON, Mercedes Admitting Clinician Payers Payer Name Policy Type Policy Number Effective Date Expiration Date S lorelei MEDICARE PART A [id number] 2007 \T\ B 00:00:00 [employer] INDEMNITY [id number] 2017 00:00:00 MEDICARE A B [id number] 2007 00:00:00 AETNA PPO OPEN [facility] [id number] 2017 NAP 00:00:00 MEDICARE PART A [id number] 2007 AND B 00:00:00 [employer] HMO [id number] 2017 00:00:00 Problems This patient has no known problems. Allergies, Adverse Reactions, Alerts Allergy Allergy Status Severity Reaction(s) Onset Inactive Treating Comm ents Source Name Type Date Date Clinician NO KNOWN Drug Active Univers ALLERGIE Class ity of S [facility] NO KNOWN Allergy Active [facility] Social History Social Habit Start Date Stop Date Quantity Comments Source Sex Assigned At [facility] Medical Branch Exposure to Not sure [facility] SARS-CoV-2 (event) Medica l Branch Tobacco use and 2020-04-08 2020-04-08 Never used [facility] exposure 00:00:00 00:00:00 Medical Branch Smoking Status Start Date Stop Date Source Unknown if ever smoked [facility] Never smoker [facility] Medications Ordered Filled Start Stop Current Ordering Indication Dosage Frequency Signature Comments Components Source Medication Medication Date Date Medication? Clinician (SIG) Name Name multivitami 2019-06 Yes Take by Un juanjo n with 0-14 mouth. ity of minerals 17:35: [place] (MULTI-VIT 59 Medical 55 PLUS Branch ORAL) mirabegron 2019-06 Yes 25mg Take 25 mg U nivers (MYRBETRIQ 0-14 by mouth. ity of ORAL) 17:35: [place] [address] Medical Branch multivit-mi 2019-06 Yes Take by Un juanjo n/iron/foli 0-14 mouth. ity of c/lutein 17:35: [place] (CENTRUM 59 Medical SILVER Branch WOMEN ORAL) vitamin B 2019-06 Yes Take by Univ ers complex/fol 0-14 mouth. ity of ic acid (B 17:35: [place] COMPLEX 100 59 Medical ORAL) Branch apixaban 2019-06 Yes Take by [facility] rs (ELIQUIS 0-14 mouth. ity of ORAL) 17:35: [place] [address] Medical Branch lactated 2019-06 Yes 1000mL at 42 Univer s ringers IV 0-14 mL/hr, ity of infusion 16:45: 1[place]000 [place] 1[place] 00 IV Medical Infusion, Branch CONTINUOUS , Starting Tue04/09/20 at 1145, Until Discontinu ed, Routine, PACU multivitami 2019- Yes Take by Un juanjo n with 0-14 mouth. ity of minerals 16:33: [place] (MULTI-VIT 27 Medical 55 PLUS Branch ORAL) mirabegron 2020- Yes 25mg Take 25 mg U nivers (MYRBETRIQ 0-14 by mouth. ity of ORAL) 16:33: [place] [address] Medical Branch multivit-mi 2020- Yes Take by juanjo n/iron/foli 0-14 mouth. ity of c/lutein 16:33: [place] (CENTRUM 27 Medical SILVER Branch WOMEN ORAL) vitamin B 2019- Yes Take by Univ ers complex/fol 0-14 mouth. ity of ic acid (B 16:33: [facility] 100 27 Medical ORAL) Branch neomycin-po 2019- Yes PRN, Univer s lymyxin-dex 0-14 Starting ity of amethasone 16:22: Tue [place] (MAXITROL) 00 04/09/20 Medic al 3.5 at 1122, Branch mg/g-10,000 Until unit/g-0.1 Discontinu % ed, ophthalmic Routine, ointment Intra-op gentamicin 2019- Yes PRN, Univers injection 0-14 Starting ity of 16:21: Tue [place] 04/09/20 Medical at 1121, Branch Until Discontinu ed, NATALYA, Intra-op dexamethaso 2019- Yes PRN, Univer s ne 0-14 Starting ity of (DECADRON 16:21: Tue [place] PHOSPHATE) 00 04/09/20 Medic al injection at 1121, Branch Until Discontinu ed, Routine, Intra-op ceFAZolin 2019- Yes PRN, Univers (ANCEF) 0-14 Starting ity of injection 16:21: [facility] 04/09/20 Medical at 1121, Branch Until Discontinu ed, NATALYA, Intra-op sodium 2019- Yes PRN, Univers chloride 0-14 Starting ity of (NS) 16:18: [facility] injection 00 04/09/20 Medica l at 1118, Branch Until Discontinu ed, Routine, Intra-op EPINEPHrine 2019- Yes PRN, Univer s 1:1,000 (1 0-14 Starting ity o f mg/mL) 16:16: Tue [place] (ADRENALIN) 00 04/09/20 Medi hira injection at 1116, Branch Until Discontinu ed, Routine, Intra-op DUOVISC 2020- Yes PRN, Univers (DUOVISC 0-14 Starting ity of VISCO 16:16: Tue [place] ELASTIC) 3 00 04/09/20 Medic al %-4 %(0.5 at 1116, Branch mL) 1 % Until (0.55 mL) Discontinu intraocular ed, injection Routine, Intra-op carbachoL 2019-06 Yes PRN, Univers (MIOSTAT) 0-14 Starting ity of 0.01 % 16:15: [facility] intraocular 04/09/20 Medi hira injection at 1115, Branch Until Discontinu ed, Routine, Intra-op balanced 2019-06 Yes PRN, Univers salt irrig 0-14 Starting ity o f soln comb1 16:15: [facility] (BSS PLUS) 04/09/20 Medic al ophthalmic at 1115, Branc h solution Until 500 mL bag Discontinu ed, Routine, Intra-op water for 2019-06 Yes PRN, Univers irrigation 0-14 Starting ity o f irrigation 16:09: [facility] solution 04/09/20 Medical at 1109, Branch Until Discontinu ed, Routine, Intra-op Hyaluronida 2019-06 Yes PRN, Univer s se, Human 0-14 Starting ity of Recomb. 16:07: [facility] (HYLENEX) 04/09/20 Medica l injection at 1107, Branch Until Discontinu ed, Routine, Intra-op eye block 2019-06 Yes PRN, Univers syringe 11 0-14 Starting ity o f mL 16:07: [facility] 04/09/20 Medical at 1107, Branch Until Discontinu ed, Intra-op propofoL IV 2019-06- No Intravenou Univers infusion 0-14 10-14 s, ONCE ity of 16:07: 16:30 INTRA [place] 00 :10 PROCEDURE, Medical Starting Branch Tue04/09/20 at 1107, Until Tue04/09/20 at 1130, Routine, Intra-op remifentani 2019-06 2020- No Intravenou Univers L (ULTIVA) 0-14 10-14 s, ONCE ity o f injection 16:07: 16:30 INTRA [place] 00 :10 PROCEDURE, Medical Starting Branch Tue04/09/20 at 1107, Until Tue04/09/20 at 1130, Routine, Intra-op lactated 2019-06- No Intravenou Un juanjo ringers IV 0-14 10-14 s, ity of infusion 16:01: 16:30 [place]INUOUS [place] 00 :10 PRN, Medical Starting Branch Tue04/09/20 at 1101, Until 04/09/20 at 1130, Routine, Intra-op mydriatic 2019-06 2020- No .5mL 0.5 mL, [facility] ers #5 0-14 10-14 Left Eye, ity of ophthalmic 14:15: 14:05 ONCE, 1 [place] as solution 00 :00 dose, Wed Medica l 0.5 mL 04/09/20 Branch syringe at 0915, Routine lactated 2019- 2020- No 1000mL at 42 Unive rs ringers IV 0-14 10-14 mL/hr, ity of infusion 14:15: 14:05 1,000 mL, [place] as 1,000 mL 00 :00 IV Medical Infusion, Branch ONCE, 1 dose, 04/09/20 at 0915, Routine, DSU Pre-op apixaban 2019- Yes Take by [facility], [place] rs (ELIQUIS 0-14 mouth. ity of ORAL) 13:53: [place] [address] Medical Branch multivitami 2020-0 Yes Take by Un juanjo n with 9-30 mouth. ity of minerals 18:05: [place] (MULTI-VIT 39 Medical 55 PLUS Branch ORAL) mirabegron 2020-0 Yes 25mg Take 25 mg U nivers (MYRBETRIQ 9-30 by mouth. ity of ORAL) 18:05: [place] [address] Medical Branch multivit-mi 2020-0 Yes Take by Un juanjo n/iron/foli 9-30 mouth. ity of c/lutein 18:05: [place] (CENTRUM 39 Medical SILVER Branch WOMEN ORAL) vitamin B 2020-0 Yes Take by [facility] ers complex/fol 9-30 mouth. ity of ic acid (B 18:05: [facility] 100 39 Medical ORAL) Branch apixaban 2020-0 Yes Take by Unive rs (ELIQUIS 9-30 mouth. ity of ORAL) 18:05: [place] [address] Medical Branch multivitami 2020-0 Yes Take by Un juanjo n with 9-30 mouth. ity of minerals 18:05: [place] (MULTI-VIT 39 Medical 55 PLUS Branch ORAL) mirabegron 2020-0 Yes 25mg Take 25 mg U nivers (MYRBETRIQ 9-30 by mouth. ity of ORAL) 18:05: [place] [address] Medical Branch multivit-mi 2020-0 Yes Take by Un juanjo n/iron/foli 9-30 mouth. ity of c/lutein 18:05: [place] (CENTRUM 39 Medical SILVER Branch WOMEN ORAL) vitamin B 2020-0 Yes Take by [facility] ers complex/fol -30 mouth. ity of ic acid (B 18:05: [facility] 100 39 Medical ORAL) Branch apixaban 2020-0 Yes Take by [facility] (ELIQUIS 30 mouth. ity of ORAL) 18:05: [place] [address] Medical Branch lactated 2020-0 Yes 1000mL at 42 [facility] ringers IV 9-30 mL/hr, ity of infusion 18:00: 1,000 mL[place] 1[place]000 mL 00 IV Medical Infusion, Branch CONTINUOUS , Starting Tue03/26/20 at 1300, Until Discontinu ed, Routine, PACU neomycin-po 2020-0 Yes PRN, [facility] lymyxin-dex 03-26 Starting ity of amethasone 17:18: Tue [place] (MAXITROL) 03/26/20 at Med ical 3.5 1218, Branch mg/g-10,000 Until unit/g-0.1 Discontinu % ed, ophthalmic Routine, ointment Intra-op gentamicin 2020-0 Yes PRN, Univers injection 03-26 Starting ity of 17:16: Tue [place] 03/26/20 at [facility] 1216, Branch Until Discontinu ed, NATALYA, Intra-op DUOVISC 2020-0 Yes PRN, Univers (DUOVISC 03-26 Starting ity of VISCO 17:16: Tue [place] ELASTIC) 3 03/26/[address] [facility] ical %-4 %(0.5 1216, Branch mL) 1 % Until (0.55 mL) Discontinu intraocular ed, injection Routine, Intra-op dexamethaso 2020-0 Yes PRN, [facility] s ne 03-26 Starting ity of (DECADRON 17:15: Tue [place] PHOSPHATE) 03/26/20 at Med ical injection 1215, Branch Until Discontinu ed, Routine, Intra-op ceFAZolin 2020-0 Yes PRN, Univers (ANCEF) 03-26 Starting ity of injection 17:15: Tue [place] 03/26/20 at [facility] 1215, Branch Until Discontinu ed, NATALYA, Intra-op carbachoL 2020-0 Yes PRN, Univers (MIOSTAT) 9-30 Starting ity of 0.01 % 17:15: Tue intraocular 00 03/26/20 at [place] d[place] injection 1215, Branch Until Discontinu ed, Routine, Intra-op sodium 2020-0 Yes PRN, Univers chloride 03-26 Starting ity of (NS) 17:15: Tue injection 03/26/[address] [facility] 1215, Branch Until Discontinu ed, Routine, Intra-op EPINEPHrine 2020-0 Yes PRN, Univer s 1:1,000 (1 03-26 Starting ity o f mg/mL) 17:13: Tue (ADRENALIN) 00 03/26/20 at [place] d[place] injection 1213, Branch Until Discontinu ed, Routine, Intra-op balanced 2020-0 Yes PRN, Univers salt irrig 03-26 Starting ity o f soln comb1 17:12: Tue (BSS PLUS) 03/26/[address] [facility] ical ophthalmic 1212, Branch solution Until 500 mL bag Discontinu ed, Routine, Intra-op Hyaluronida 2020-0 Yes PRN, Univer s se, Human 03-26 Starting ity of Recomb. 17:01: Tue (HYLENEX) 00 03/26/[address] [facility] injection 1201, Branch Until Discontinu ed, Routine, Intra-op eye block 2020-0 Yes PRN, Univers syringe 11 03-26 Starting ity o f mL 17:01: Tue03/26/20 at [facility] 1201, Branch Until Discontinu ed, Intra-op water for 2020-0 Yes PRN, Univers irrigation 03-26 Starting ity o f irrigation 16:53: Tue [place] solution 03/26/20 at Medic al 1153, Branch Until Discontinu ed, Routine, Intra-op mydriatic 2020-0 2020- No .5mL 0.5 mL, Univ ers #5 03-26 0930 Right Eye, ity of ophthalmic 16:00: 15:17 ONCE, 1 [place] solution 00 :00 dose, [facility] Medica l 0.5 mL 03/26/20 at [place] syringe 1100, Routine, DSU Pre-op lactated 2020-0 2020- No 500mL at 50 Univer s ringers IV 03-26 09-30 mL/hr, 500 it y of infusion 15:15: 15:17 mL, IV [place] 500 mL 00 :00 Infusion, [facility] ONCE, 1 Branch dose, [facility] 03/26/20 at 1015, Routine, DSU Pre-op multivitami 2020-0 Yes Take by Un juanjo n with 03-24 mouth. ity of minerals 14:01: [place] (MULTI-VIT 42 Medical 55 PLUS Branch ORAL) mirabegron 2020-0 Yes 25mg Take 25 mg U nivers (MYRBETRIQ 03-24 by mouth. ity of ORAL) 14:01: [address] multivit-mi 2019-0 Yes Take by Un juanjo n/iron/foli 03-24 mouth. ity of c/lutein 14:01: [place] (CENTRUM 42 Medical SILVER Branch WOMEN ORAL) vitamin B 2019-0 Yes Take by [facility] complex/fol 03-24 mouth. ity of ic acid (B 14:01: [facility] 100 42 Medical ORAL) Branch apixaban 2019-0 Yes Take by [facility], [place] rs (ELIQUIS 03-24 mouth. ity of ORAL) 14:01: [address] Vital Signs Vital Name Observation Time Observation Value Comments Source HEIGHT 2020-08-30 20:00:00 165.1 cm WEIGHT 2020-08-30 20:00:00 63.504 kg HEIGHT 2020-08-30 20:00:00 165.1 cm WEIGHT 2020-08-30 20:00:00 63.504 kg Systolic blood 2020-04-09 16:34:00 149 mm[Hg] [facility] sity of pressure [facility] Diastolic blood 2020-04-09 16:34:00 73 mm[Hg] [facility], [place] rsity of pressure [facility] Heart rate 2020-04-09 16:34:00 83 /min [facility] Respiratory rate 2020-04-09 16:34:00 16 /min [facility] Oxygen saturation in 2020-04-09 16:34:00 100 /min [facility] Arterial blood by [facility] Pulse oximetry Branch Body temperature 2020-04-09 13:53:00 36.5 Carolee [facility] Body height 2020-04-08 14:45:00 165.1 cm [facility] Body weight 2020-04-08 14:45:00 63.504 kg [facility] BMI 2020-04-08 14:45:00 23.30 kg/m2 [facility] [place] [facility] Systolic blood 2020-04-09 16:34:00 149 mm[Hg] Univer sity of pressure [place] [facility] Diastolic blood 2020-04-09 16:34:00 73 mm[Hg] Unive rsity of pressure [place] [facility] Heart rate 2020-04-09 16:34:00 83 /min [facility] [place] [facility] Respiratory rate 2020-04-09 16:34:00 16 /min Univ ersity of [place] [facility] Oxygen saturation in 2020-04-09 16:34:00 100 /min University of Arterial blood by [facility] Pulse oximetry Branch Body temperature 2020-04-09 13:53:00 36.5 Carolee Univ ersity of [place] [facility] Body height 2020-04-08 14:45:00 165.1 cm [facility] [place] [facility] Body weight 2020-04-08 14:45:00 63.504 kg [facility] [place] [facility] BMI 2020-04-08 14:45:00 23.30 kg/m2 [facility] [place] [facility] Respiratory rate 2020-04-09 16:29:00 16 /min Univ [facility] [place] [facility] Respiratory rate 2020-04-09 16:29:00 16 /min Univ ersity [facility] [place] [facility] Systolic blood 2020-03-26 17:40:00 159 mm[Hg] Univer sity of pressure [place] [facility] Diastolic blood 2020-03-26 17:40:00 72 mm[Hg] Unive rsity of pressure [place] [facility] Heart rate 2020-03-26 17:40:00 75 /min [facility] [place] [facility] Body temperature 2020-03-26 17:40:00 36.72 Carolee Univ ersity [facility] [place] [facility] Respiratory rate 2020-03-26 17:40:00 19 /min Univ ersity [facility] [place] [facility] Oxygen saturation in 2020-03-26 17:40:00 94 /min University of Arterial blood by [facility] Pulse oximetry Branch Body height 2020-03-24 17:16:00 165.1 cm [facility] [place] [facility] Body weight 2020-03-24 17:16:00 64.9 kg [facility] [place] [facility] BMI 2020-03-24 17:16:00 23.81 kg/m2 [facility] [place] [facility] Systolic blood 2020-03-26 17:40:00 159 mm[Hg] Univer sity of [facility] Diastolic blood 2020-03-26 17:40:00 72 mm[Hg] Unive rsity of [facility] Heart rate 2020-03-26 17:40:00 75 /min [facility] Body temperature 2020-03-26 17:40:00 36.72 Carolee [facility] 2020-03-26 17:40:00 19 /min [facility] Oxygen saturation in 2020-03-26 17:40:00 94 /min [facility] Arterial blood by [facility] Pulse oximetry [place] Body height 2020-03-24 17:16:00 165.1 cm [facility] Body weight 2020-03-24 17:16:00 64.9 kg [facility] BMI 2020-03-24 17:16:00 23.81 kg/m2 [facility] Procedures Procedure Date / Time Performed Performing Clinician [facility] e CONSENT/REFUSAL FOR 2020-04-08 14:22:30 Doctor Unassigned, No [facility] DIAGNOSIS AND [facility] TREATMENT ASSIGNMENT OF BENEFITS 2020-04-08 14:22:09 Doctor Unassigned, No [facility] Encounters Start End Encounter Admission Attending Care Care Encounter Source Date/Time Date/Time Type Type Clinicians Facility Department ID 2021-04-24 Outpatient Rakesh NAVARRO [facility] YURI [id number] Univers 21:41:39 [facility] 2021-04-24 Outpatient Rakesh NAVARRO [facility] YURI [id number] Univers 19:27:16 [facility] 2020-08-30 Inpatient [facility] [id number] [facility] 18:01:00 AMADOU 2021-03-04 2021-03-04 Outpatient ALEKSANDRA CARVAJAL MDA MDA [id number] 14:50:37 23:59:00 MARYANNE madrigal 2020-08-01 2020-08-01 Outpatient [facility] [id number] [place] 00:00:00 00:00:[address] 2020-07-11 2020-07-11 Outpatient [facility] [id number] [place] 00:00:00 00:00:[address] 2020-04-09 2020-04-09 [facility] [id number] [facility] 08:52:00 12:00:00 Encounter Francis Abraham [id number] ity of [place] 4[place] [id number] [facility] [address] [place] 2020-04-09 2020-04-09 [facility] Ramon [facility] [id number] 08:52:00 12:00:00 Encounter Francis Abraham [id number] [place] [id number] Surgical [id number] [place] [address] 2020-04-09 2020-04-09 Anesthesia Shankar Resendez [facility] [id number] [facility] 10:58:00 11:30:00 Leandra Duarte [place] [id number] [place] 4[place]2.[place] [id number] [address] 2020-04-09 2020-04-09 Anesthesia Shankar Resendez [facility] [id number] 10:58:00 11:30:00 Leandra Duarte [place] [id number] [place] [id number] Surgical [id number] [place] [address] 2020-04-08 2020-04-08 Laboratory Only, [facility] Test [facility] 1.2.840. [id number] [facility] 09:19:46 09:34:46 Only Francis Navarro 350.1.13.1 0 [place] [id number] [address] 2020-04-08 2020-04-08 Laboratory Only, [facility] [id number] 09:19:46 09:34:46 Only Test [place] [id number] [place] 4.2.7.2.686 [place] [id number] [facility] 2020-04-08 2020-04-08 Outpatient R [facility] [id number] Univers 09:30:00 09:30:00 [id number] [facility] 2020-04-08 2020-04-08 [facility] [id number] Univers 09:30:00 09:30:00 FRANCIS itlee [facility] 2020-03-26 2020-03-26 [facility] [id number] Univers 10:02:00 13:05:00 Encounter Francis Long [place] [id number] ity of [place] 4.2.7.2.686 [facility] [place] Surgical [id number] Med ical [address] 2020-03-26 2020-03-26 [facility] [id number] 10:02:00 13:05:00 Encounter Francis Abraham [id number] [place] 4.2.7.2.686 Surgical [id number] [place] [address] 2020-03-25 2020-03-25 [facility] [id number] Univers 09:45:00 09:45:00 [facility]ANCIS [id number] [facility] 2020-03-25 2020-03-25 [facility] [id number] Univers 09:45:00 09:45:00 FRANCIS [facility] 2020-03-25 2020-03-25 Laboratory Only, [facility] Test [facility] 1.2.840. [id number] Univers 08:51:16 09:06:16 Only Francis Navarro [place] 350.1.13.1 0 ity of [place] 4.2.7.2.686 [facility] [id number] [address] 2020-03-25 2020-03-25 Laboratory Only, [facility] [id number] 08:51:16 09:06:16 Only Test [place] 350.1.13.10 [place] 4.2.7.2.686 [place] [id number] [facility] 2020-03-21 2020-03-21 Fiber Optic Technician Chele, [facility] Lab Main [facility] [id number] Univers 11:34:14 11:49:14 Visit Francis Navarro [place] 350.1.13.1 0 ity of [place] 4.2.7.2.686 Stephanie summers Professio [id number] [place] dical [address] 2020-03-21 2020-03-21 Fiber Optic Technician Jefferysandi Alex [facility] [id number] 11:34:14 11:49:14 Visit Lab Main [place] 350.1.13.10 [place] 4.2.7.2.686 Professio [id number] [address] 2020-03-21 2020-03-21 Outpatient R RAMON [facility] [id number] [facility] 10:15:00 10:15:00 FRANCIS villegas [facility] Results Test Description Test Time Test Comments Results Result Comments Source BASIC METABOLIC PANEL 2020-09-03 06:03:00 Test Item Value Reference Range Interpretation Comme nts SODIUM (BEAKER) (test code 140 meq/L 136-145 = 381) POTASSIUM (BEAKER) (test 4.1 meq/L 3.5-5.1 code = 379) CHLORIDE (BEAKER) (test 108 meq/L 98-107 H code = 382) CO2 (BEAKER) (test code = 25 meq/L 22-29 355) BLOOD UREA NITROGEN 19 mg/dL 7-21 (BEAKER) (test code = 354) CREATININE (BEAKER) (test 0.79 mg/dL 0.57-1.25 code = 358) GLUCOSE RANDOM (BEAKER) 90 mg/dL 70-105 (test code = 652) CALCIUM (BEAKER) (test code 9.7 mg/dL 8.4-10.2 = 697) EGFR (BEAKER) (test code = 70 mL/min/1.73 sq m ESTIMATED GFR IS NOT 1092) ACCURATE CRE ATININE CLEARANCE IN [place] EDICTING GLOMERULAR FILT RATION RATE. ESTIMATED GFR IS NOT APPLICABLE FOR DIALYSIS PATIENTS. Choral Teacher ID - [id number] 06:03:00 Test Item Value Reference Range Interpretation Comments MAGNESIUM (BEAKER) (test code = 2.2 mg/dL 1.6-2.6 627) Choral Teacher ID - [id number] 06:03:00 Test Item Value Reference Range Interpretation Comments PHOSPHORUS (BEAKER) (test code = 3.5 mg/dL 2.3-4.7 604) Choral Teacher ID - ASCBC (HEMOGRAM ONLY)2020-09-03 05:19:00 Test Item Value Reference [...] (BEAKER) (test code = 413) BASIC METABOLIC [id number] 06:11:00 Test Item Value Reference Range Interpretation [...] S NOT APPLICABLE FOR DIALYSIS PATIEN TS. Choral Teacher ID - [id number] 06:11:00 Test Item Value Reference Range Interpretation Comments MAGNESIUM (BEAKER) (test code = 2.2 mg/dL 1.6-2.6 627) Choral Teacher ID - [id number] 06:11:00 Test Item Value Reference Range Interpretation Comments PHOSPHORUS (BEAKER) (test code = 3.4 mg/dL 2.3-4.7 604) Choral Teacher ID - [id number] (HEMOGRAM ONLY)2020-09-02 05:28:00 Test [...] WBC 0-0 (BEAKER) (test code = 413) C. DIFFICILE GDH [id number] 10:27:00 Test Item Value Reference Range Interpretation Comments CDT TOXIN (test code Negative Negative = [id number]) CDT GDH ANTIGEN (test Positive Negative A No ind ication of code = [id number]) Clostridi um difficile infection and n o colonization. Discontinue ent david isolation and t herapy. Testing performed by [employer] Rapid Cassette Assay. For GDH, published sensitivity of the assay is 98.7% compared to cytotoxicity testing. For Toxin AB, published sensitivity is 87.8% and specificity 99.4% compared to cytotoxicity testing.Verification of kit performance was done by the [facility] Microbiology Lab prior to clinical use.[id number] 05:55:00 Test Item Value Reference Range Interpretation Comments MAGNESIUM (BEAKER) 2.3 mg/dL 1.6-2.6 Specimen slightly (test code = 627) hemolyzed Choral Teacher ID - [id number] 05:55:00 Test Item Value Reference Range Interpretation Comments PHOSPHORUS (BEAKER) 3.7 mg/dL 2.3-4.7 Specimen slightly (test code = 604) hemolyzed Choral Teacher ID - DBBASIC METABOLIC [id number] 05:55:00 Test Item Value Reference Range Interpretation [...] S NOT APPLICABLE FOR DIALYSIS PATIEN TS. Choral Teacher ID - DBCBC (HEMOGRAM ONLY)2020-09-01 05:35:00 Test [...] WBC 0-0 (BEAKER) (test code = 413) SARS-COV2/RT-PCR ([facility])2020-08-31 18:16:00 Test Item Value Reference Range Interpretation Comments SARS-COV2/RT-PCR (test Negative Not Detected, Negative, code = 4196351) See external report for linked test SARS-COV-2 PERFORMING LAB [facility] (test code = 3775899) Negative result for this test determines that [...] individuals suspected of COVID-19 by their healthcare provider.This test [...] 564(g) of the Act.Fact Sheet for Healthcare Providers:https://www.[employer]/sites/default/files/product/documents/Fact_Shee z_WN_Decjzsvpo_Jbmb_VWKG-GtB-5.pdfFact Sheet for Healthcare Patients:https://www.[employer]/sites/default/files/product/ documents/Ssyj_Nuycm_Qwuxtvpm_Aebr_EGFX-XfE-7.pdfPerforming Laboratory:[facility], [place] [address]ULK, SPINE, CERVICAL, 2 OR 3 [id number] 09:36:00Standing flex -extReason for exam:->[facility] 1940 Sex: FFINAL REPORT TECHNIQUE: Four views of the cervical spine HISTORY: Myelomalcia. COMPARISON: None. IMPRESSION:Straightening of the cervical spine with scattered facet arthropathy and mild joint space narrowing.There is radiculopathy recommend MRI.No acute displaced fractureor dislocation. No acute soft tissue abnormality. Signed: Giacomo Prasad MDReport Verified Date/Time: 08/31/2020 09:36:18 Reading Location: [address] Consult Reading Room MIN B12 AND [id number] 07:03:00 Test Item Value Reference Range Interpretation Comments VITAMIN B12 > pg/mL 213-816 H (BEAKER) (test code = 774) FOLATE (BEAKER) 29.10 ng/mL See_Comment [Automated message] (test code = 362) The system which generated this result transmitted ref erence range: >=7.00. The reference range was not used to interpr et this result as normal/abnormal . Choral Teacher ID - EDASIOperator ID - EDASITSH/FREE T4 IF [id number] 06:57:00 Test Item Value Reference Range Interpretation Comments THYROID STIMULATING HORMONE 1.985 uIU/mL 0.350-4.940 (BEAKER) (test code = 772) Choral Teacher ID - [id number] 05:38:00 Test Item Value Reference Range Interpretation Comments MAGNESIUM (BEAKER) (test code = 2.1 mg/dL 1.6-2.6 627) Choral Teacher ID - [id number] 05:38:00 Test Item Value Reference Range Interpretation Comments PHOSPHORUS (BEAKER) (test code = 2.8 mg/dL 2.3-4.7 604) Choral Teacher ID - EDASIBASIC METABOLIC [id number] 05:38:00 Test Item Value Reference Range Interpretation [...] S NOT APPLICABLE FOR DIALYSIS PATIEN TS. Choral Teacher ID - EDASIPROTHROMBIN [id number] 05:26:00 Test Item Value Reference Range Interpretation Comments PROTIME (BEAKER) 14.3 seconds 11.9-14.2 H (test code = 759) INR (BEAKER) (test 1.15 See_Comment [Automat ed message] code = 370) The system Robin generated this result transmitted ref erence range: [...] WBC 0-0 (BEAKER) (test code = 413) COMPREHENSIVE METABOLIC [id number] 19:11:00 Test Item Value Reference Range Interpretation [...] S NOT APPLICABLE FOR DIALYSIS PATIEN TS. Choral Teacher ID - [id number] 19:11:00 Test Item Value Reference Range Interpretation Comments MAGNESIUM (BEAKER) (test code = 2.1 mg/dL 1.6-2.6 627) Choral Teacher ID - [id number] 19:11:00 Test Item Value Reference Range Interpretation Comments PHOSPHORUS (BEAKER) (test code = 2.8 mg/dL 2.3-4.7 604) Choral Teacher ID - DBCBC W/PLT COUNT & AUTO [id number] 18:46:00 Test Item Value Reference Range Interpretation [...] % 0-1 PERCENT (BEAKER) (test code = 6832)
[2021-05-17 14:25] LABS: Urine Blood 3+ (Negative); Urine Glucose Negative (Negative); Urine Protein 3+ (Negative); Urine Specific Gravity >=1.030 (1.005-1.030); Urine pH 6.5 (5.0-7.0)
[2021-05-17 14:48] LABS: Urine Bacteria LOADED /HPF (<20)
[2021-05-17 14:51] LABS: Urine RBC 20-50 /HPF (NONE SEEN)
[2021-05-17] MEDS ORDERED: LIDOCAINE 4% PATCH ONE (15:29)
--- NOTE | 2021-05-17 15:47 | RAD REPORT ---
EXAM DESCRIPTION: Shoulder Right 2 View - 05/17/2021 3:32 pm CLINICAL HISTORY: PAIN COMPARISON: No comparisons TECHNIQUE: Internal and external rotation views of the right shoulder were obtained. FINDINGS: There is no fracture or dislocation. Degenerative cystic change seen in the subcortical gr eater tuberosity. Acromial humeral joint space is normal with no soft tissue calcifications seen. AC joint is normal in appearance. No acute or suspicious findings. IMPRESSION: Negative two-view right shoulder examination for acute or significant finding.
--- NOTE | 2021-05-17 15:59 | ER ---
Nurse's Notes [facility] Name: Fredis Diaz Age: 80 yrs Sex: Female : 1940 Arrival Date: 05/17/2021 Time: 13:21 Bed 19 Private MD: Mercedes Jones C Diagnosis: UTI/ Urinary tract infection, site not specified;Strain of other muscles, fascia and tendons at shoulder and upper arm level, right arm Presentation: 05/17 13:51 Chief complaint: Patient states: Burning upon urination x3 days. Denies ABD pain or vg1 NVD. Coronavirus screen: Vaccine status: Patient reports receiving the 2nd dose of the covid vaccine. Client denies travel out of the [place] in the last 14 days. Ebola Screen: Patient negative for fever greater than or equal to 101.5 degrees Fahrenheit, and additional compatible Ebola Virus Disease symptoms. Initial Sepsis Screen: Does the patient meet any 2 criteria? No. Patient's initial sepsis screen is negative. Does the patient have a suspected source of infection? No. Patient's initial sepsis screen is negative. Risk Assessment: Do you want to hurt yourself or someone else? Patient reports no desire to harm self or others. Onset of symptoms was May 14, 2021. 13:51 Method Of Arrival: Ambulatory vg1 13:51 Acuity: JOSE 3 vg1 Triage Assessment: 13:54 General: Appears in no apparent distress. comfortable, Behavior is calm, cooperative. vg1 Pain: Complains of pain in groin Pain currently is 9 out of 10 on a pain scale. 13:54 : Reports burning with urination. vg1 Historical: - Allergies: 13:54 No Known Allergies; vg1 - Home Meds: 13:54 Vitamins [Active]; cranberry oral [Active]; vg1 - PMHx: 13:54 LYMPHOMA; EDEMA TO LOWER EXTS; 22 YRS AGO HAD CERVIAL CANCER; vg1 - PSHx: 13:54 None; vg1 - Immunization history:: Client reports receiving the 2nd dose of the Covid vaccine. - Social history:: Smoking status: Patient denies any tobacco usage or history of. Screenin:59 Abuse screen: Denies threats or abuse. Denies injuries from another. Nutritional sl2 screening: No deficits noted. Tuberculosis screening: No symptoms or risk factors identified. Fall Risk None identified. No fall in past 12 months (0 pts). No secondary diagnosis (0 pts). No IV (0 pts). Assessment: 13:59 Reassessment: Patient AAO X 3, presents to ED with c/o dysuria X 3 days - denies fever sl2 or other untoward symptoms. 13:59 General: Appears in no apparent distress. well groomed, well developed, Behavior is sl2 calm, cooperative, agitated. Pain: Denies pain. Neuro: No deficits noted. Cardiovascular: No deficits noted. Respiratory: No deficits noted. Airway is patent Trachea midline Respiratory effort is even, unlabored, Respiratory pattern is regular, symmetrical. GI: No deficits noted. No signs and/or symptoms were reported involving the gastrointestinal system. : Reports burning with urination, urgency, urinary frequency. EENT: No deficits noted. No signs and/or symptoms were reported regarding the EENT system. Derm: No deficits noted. No signs and/or symptoms reported regarding the dermatologic system. Musculoskeletal: No deficits noted. No signs and/or symptoms reported regarding the musculoskeletal system. 15:20 Reassessment: Portable X-ray of right arm in progress at bedside. sl2 Vital Signs: 13:51 BP 141 / 88; Pulse 89; Resp 16; Temp 98.6; Pulse Ox 98% ; Weight 65.77 kg; Height 5 ft. vg1 5 in. (165.10 cm); Pain 9/10; 13:59 BP 138 / 85; Pulse 86; Resp 18; Temp 98.4; Pulse Ox 99% on R/A; sl2 16:45 BP 132 / 78; Pulse 85; Resp 18; Temp 98.2; Pulse Ox 99.% on R/A; sl2 17:00 BP 135 / 82; Pulse 81; Resp 18; Temp 98.2; Pulse Ox 99% on R/A; sl2 13:51 Body Mass Index 24.13 (65.77 kg, 165.10 cm) vg1 ED Course: 13:21 Patient arrived in ED. mr 13:21 Mercedes Jones MD is Private Physician. mr 13:54 Triage completed. vg1 13:54 Arm band placed on. vg1 13:58 Anthony Suarez NP is [facility]. pm1 13:58 Donovan Ortiz MD is Attending Physician. pm1 13:59 Patient has correct armband on for positive identification. sl2 13:59 No provider procedures requiring assistance completed. Patient did not have IV access sl2 during this emergency room visit. 14:11 Slime Santos, RN is Primary Nurse. sl2 15:31 Shoulder Right (2 View) XRAY In Process Unspecified. EDMS Administered Medications: 15:34 Drug: Lidoderm Patch 5 % (700 mg/patch) 1 patches Route: Topical; Site: right upper arm;sl2 17:05 Follow up: Response: No adverse reaction sl2 16:27 Drug: Rocephin (cefTRIAXone) 1 grams Route: IM; Site: Ventrogluteal RIGHT; sl2 17:05 Follow up: Response: No adverse reaction sl2 Outcome: 15:58 Discharge ordered by MD. pm1 17:08 Discharged to home ambulatory, via wheelchair. sl2 17:08 Condition: stable 17:08 Discharge instructions given to patient, Instructed on discharge instructions, follow up and referral plans. medication usage, Demonstrated understanding of instructions, follow-up care, medications, Prescriptions given X 2. 17:11 Patient left the ED. sl2 Signatures: Dispatcher [employer] EDMS MullenSunita rowley mr SuarezAnthony, ACQUISITION MANAGER ACQUISITION MANAGER pm1 Cecily Elizalde, RN RN vg1 Slime Santos, RN RN sl2 Corrections: (The following items were deleted from the chart) 13:56 13:54 Allergies: "something for my bladder"; vg1 vg1
--- NOTE | 2021-05-17 15:59 | EDPHYS ---
Physician Documentation [facility] Name: Fredis Diaz Age: 80 yrs Sex: Female : 1940 Arrival Date: 05/17/2021 Time: 13:21 Bed 19 Private MD: Mercedes Jones C ED Physician Donovan Ortiz HPI: 05/17 14:39 This 80 yrs old Female presents to ER via Ambulatory with complaints of Urinary Problem.pm1 14:39 The patient presents with urinary symptoms, dysuria, frequency. Onset: The pm1 symptoms/episode began/occurred 3 day(s) ago. Modifying factors: The symptoms are alleviated by nothing, the symptoms are aggravated by urinating. Associated signs and symptoms: Pertinent negatives: diarrhea, fever, vomiting, abdominal pain. Severity of symptoms: in the emergency department the symptoms are unchanged. The patient has experienced similar episodes in the past, multiple times, with the last episode occurring 2 month(s) ago. The patient has not recently seen a physician. 15:09 Patient reports right shoulder pain after moving heavy concrete planters 2-3 weeks ago. pm1 Historical: - Allergies: 13:54 No Known Allergies; vg1 - Home Meds: 13:54 Vitamins [Active]; cranberry oral [Active]; vg1 - PMHx: 13:54 LYMPHOMA; EDEMA TO LOWER EXTS; 22 YRS AGO HAD CERVIAL CANCER; vg1 - PSHx: 13:54 None; vg1 - Immunization history:: Client reports receiving the 2nd dose of the Covid vaccine. - Social history:: Smoking status: Patient denies any tobacco usage or history of. ROS: 14:39 Positive for burning with urination. pm1 14:39 Constitutional: Negative for fever, chills, and weight loss, Cardiovascular: Negative for chest pain, palpitations, and edema, Respiratory: Negative for shortness of breath, cough, wheezing, and pleuritic chest pain, Abdomen/GI: Negative for abdominal pain, nausea, vomiting, diarrhea, and constipation, Back: Negative for injury and pain, MS/Extremity: Negative for injury and deformity, Skin: Negative for injury, rash, and discoloration. 14:39 All other systems are negative. Exam: 14:39 Constitutional: This is a well developed, well nourished patient who is awake, alert, pm1 and in no acute distress. Head/Face: Normocephalic, atraumatic. 14:39 Cardiovascular: Exam negative for acute changes, Rate: normal, Rhythm: regular, Pulses: no pulse deficits are appreciated. 14:39 Respiratory: Exam negative for acute changes, respiratory distress, shortness of breath. 14:39 Abdomen/GI: Exam negative for acute changes, Inspection: abdomen appears normal, Palpation: abdomen is soft and non-tender, in all quadrants. 14:39 Skin: Exam negative for 14:39 Neuro: Exam negative for acute changes, Orientation: is normal, Mentation: is normal, Motor: moves all fours. 15:09 Musculoskeletal/extremity: Extremities: grossly normal except: noted in the anterior pm1 aspect of right shoulder: tenderness, pain with abduction. Vital Signs: 13:51 BP 141 / 88; Pulse 89; Resp 16; Temp 98.6; Pulse Ox 98% ; Weight 65.77 kg; Height 5 ft. vg1 5 in. (165.10 cm); Pain 9/10; 13:59 BP 138 / 85; Pulse 86; Resp 18; Temp 98.4; Pulse Ox 99% on R/A; sl2 16:45 BP 132 / 78; Pulse 85; Resp 18; Temp 98.2; Pulse Ox 99.% on R/A; sl2 17:00 BP 135 / 82; Pulse 81; Resp 18; Temp 98.2; Pulse Ox 99% on R/A; sl2 13:51 Body Mass Index 24.13 (65.77 kg, 165.10 cm) vg1 MDM: 14:10 Patient medically screened. pm1 15:08 ED course: Patient reports right shoulder pain after moving heavy object two weeks ago. pm1 patient would like the shoulder evaluated. 15:55 Data reviewed: vital signs. Data interpreted: Pulse oximetry: on room air is 99 %. pm1 Interpretation: normal. Counseling: I had a detailed discussion with the patient and/or guardian regarding: the historical points, exam findings, and any diagnostic results supporting the discharge/admit diagnosis, radiology results, the need for outpatient follow up, a family practitioner, a orthopedic surgeon, to return to the emergency department if symptoms worsen or persist or if there are any questions or concerns that arise at home. 05/17 14:01 Order name: Urine Microscopic Only; Complete Time: 14:55 pm1 05/17 14:20 Order name: Urine Culture pm1 05/17 14:25 Order name: Urine Dipstick-Ancillary; Complete Time: 14:55 EDMS 05/17 15:08 Order name: Shoulder Right (2 View) XRAY; Complete Time: 15:54 pm1 05/17 14:01 Order name: Urine Dipstick-Ancillary (obtain specimen); Complete Time: 14:55 pm1 05/17 15:55 Order name: Sling; Complete Time: 17:06 pm1 Administered Medications: 15:34 Drug: Lidoderm Patch 5 % (700 mg/patch) 1 patches Route: Topical; Site: right upper arm;sl2 17:05 Follow up: Response: No adverse reaction sl2 16:27 Drug: Rocephin (cefTRIAXone) 1 grams Route: IM; Site: Ventrogluteal RIGHT; sl2 17:05 Follow up: Response: No adverse reaction sl2 Disposition: 17:45 Co-signature as Attending Physician, Donovan Ortiz MD I agree with the assessment and rn plan of care. Attestation: The patient's history, exam findings, diagnostics, and a summary of any interventions or procedures was reviewed in detail with Anthony Suarez NP. Disposition Summary: 05/17/21 15:58 Discharge Ordered Location: Home pm1 Problem: new pm1 Symptoms: have improved pm1 Condition: Stable pm1 Diagnosis - UTI/ Urinary tract infection, site not specified pm1 - Strain of other muscles, fascia and tendons at shoulder and upper arm level, right pm1 arm Followup: pm1 - With: Emergency Department - When: As needed - Reason: Worsening of condition Followup: pm1 - With: Private Physician - When: 2 - 3 days - Reason: Recheck today's complaints, Continuance of care, Re-evaluation by your physician Discharge Instructions: - Discharge Summary Sheet pm1 - Muscle Strain pm1 - Urinary Tract Infection, Adult pm1 - How to Use a Sling pm1 Forms: - Medication Reconciliation Form pm1 - Thank You Letter pm1 - Antibiotic Education pm1 - Prescription Opioid Use pm1 Prescriptions: - Bactrim DS 800-160 mg Oral Tablet - take 1 tablet by ORAL route every 12 hours for 10 days; 20 tablet; Refills: 0, pm1 Product Selection Permitted - Lidoderm 5 % Topical adhesive patch,medicated - apply 1 patch by TRANSDERMAL route once daily As needed 12 hours on and 12 pm1 hours off in a 24 hour period; 10 patch; Refills: 0, Product Selection Permitted Signatures: Dispatcher [employer] Donovan Greenberg MD MD rn Anthony Suarez, ARCHIVES TECHNICIAN ARCHIVES TECHNICIAN pm1 Cecily Elizalde RN RN vg1 Slime Santos RN RN sl2 Corrections: (The following items were deleted from the chart) 13:56 13:54 Allergies: "something for my bladder"; vg1 vg1
[2021-05-17] MEDS ORDERED: CEFTRIAXONE 1000 MG/VIAL ONE (16:25)
[2021-05-17 17:19] VITALS: O2SAT 99
[2021-05-17 17:20] VITALS: TEMP 98.2
[2021-05-17 17:21] VITALS: BP 135/82
== END 2021-05-17 17:11 | disposition home or self-care (01) ==
LOC: ER 13:18
DX: N39.0 Urinary tract infection, site not specified (principal); S46.811A Strain of other muscles, fascia and tendons at shoulder and upper arm level, right arm, initial encounter; X50.0XXA Overexertion from strenuous movement or load, initial encounter
CPT/HCPCS: 81003; 81015; 87077; 87086; 87088; 87186; 96372; 99283

== ENCOUNTER 2021-08-04 10:51 | Observation (INO) | payer OTHER ==
--- OUTSIDE RECORDS SUMMARY | 2021-08-04 10:56 | XMS REPORT | Continuity of Care Document ---
:1940 Author Organization [facility] t Address [address] [place] [address] Care Team Providers Name Role Phone [phone] Primary Care Physician Unavailable Mercedes NAVARRO Attending Clinician Unavailable YUNIEL PINEDA Attending Clinician Unavailable ALENA Attending Clinician Unavailable Ramon HOPSON A Attending Clinician Dipti DOMINGUEZ Attending Clinician Gerald HOPSON Attending Clinician Only, Test Attending Clinician Unavailable Pob, Lab Main Attending Clinician Unavailable Mercedes NAVARRO Admitting Clinician Unavailable YUNIEL PINEDA Admitting Clinician Unavailable BETZY LEAHY Admitting Clinician Unavailable Mercedes Navarro MD Admitting Clinician Payers Payer Name Policy Type Policy Number Effective Date Expiration Date S our[place]ki MEDICARE PART A [id number] 2007 \T\ B 00:00:00 [employer] INDEMNITY [id number] 2017 00:00:00 MEDICARE A B [id number] 2007 00:00:00 [employer]ET[employer] PPO OPEN [facility] [id number] 2017 NAP 00:00:00 MEDICARE PART A [id number] 2007 AND B 00:00:00 [employer] HMO [id number] 2017 00:00:00 Problems This patient has no known problems. Allergies, Adverse Reactions, Alerts Allergy Allergy Status Severity Reaction(s) Onset Inactive Treating Comm ents Source Name Type Date Date Clinician NO KNOWN Allergy Active [facility] NO KNOWN Drug Active [facility] ALLERG Class ity of S [facility] Social History Social Habit Start Date Stop Date Quantity Comments Source Sex Assigned At [facility] Medical Branch Exposure to Not sure [facility] SARS-CoV-2 (event) Medica l Branch Tobacco use and 2020-04-08 2020-04-08 Never used [facility] exposure 00:00:00 00:00:00 Medical [place] Smoking Status Start Date Stop Date Source Unknown if ever smoked [facility] Never smoker [facility] Medications Ordered Filled Start Stop Current Ordering Indication Dosage Frequency Signature Comments Components Source Medication Medication Date Date Medication? Clinician (SIG) Name Name multivitami 2019-06 Yes Take by Un juanjo n with 0-14 mouth. ity of minerals 17:35: [place] (MULTI-VIT 59 Medical 55 PLUS Branch ORAL) mirabegron 2019-06 Yes 25mg Take 25 mg U nivers (MYRBETRIQ 0-14 by mouth. ity of ORAL) 17:35: [place] [address] Medical Branch multivit-mi 2019-06 Yes Take by Un juanjo n/iron/foli 0-14 mouth. ity of c/lutein 17:35: [place] (CENTRUM 59 Medical SILVER Branch WOMEN ORAL) vitamin B 2019-06 Yes Take by Univ ers complex/fol 0-14 mouth. ity of ic acid (B 17:35: [place] COMPLEX 100 59 Medical ORAL) Branch apixaban 2019-06 Yes Take by [facility] rs (ELIQUIS 0-14 mouth. ity of ORAL) 17:35: [place] [address] Medical Branch lactated 2020 Yes 1000mL at 42 Univer s ringers IV 0-14 mL/hr, ity of infusion 16:45: 1[place]000 [place] 1[place]000 [place] 00 IV Medical Infusion, Branch CONTINUOUS , Starting 04/09/20 at 1145, Until Discontinu ed, Routine, PACU multivitami 2019- Yes Take by Un juanjo n with 0-14 mouth. ity of minerals 16:33: [place] (MULTI-VIT 27 Medical 55 PLUS Branch ORAL) mirabegron 2020- Yes 25mg Take 25 mg U nivers (MYRBETRIQ 0-14 by mouth. ity of ORAL) 16:33: [place] [address] Medical Branch multivit-mi 2020- Yes Take by juanjo n/iron/foli 0-14 mouth. ity of c/lutein 16:33: [place] (CENTRUM 27 Medical SILVER Branch WOMEN ORAL) vitamin B 2019- Yes Take by Univ ers complex/fol 0-14 mouth. ity of ic acid (B 16:33: [facility] 100 27 Medical ORAL) Branch neomycin-po 2019- Yes PRN, Univer s lymyxin-dex 0-14 Starting ity of amethasone 16:22: Tue [place] (MAXITROL) 00 04/09/20 Medic al 3.5 at 1122, Branch mg/g-10,000 Until unit/g-0.1 Discontinu % ed, ophthalmic Routine, ointment Intra-op gentamicin 2019- Yes PRN, Univers injection 0-14 Starting ity of 16:21: Tue [place] 04/09/20 Medical at 1121, Branch Until Discontinu ed, NATALYA, Intra-op dexamethaso 2019- Yes PRN, Univer s ne 0-14 Starting ity of (DECADRON 16:21: Tue [place] PHOSPHATE) 00 04/09/20 Medic al injection at 1121, Branch Until Discontinu ed, Routine, Intra-op ceFAZolin 2019- Yes PRN, Univers (ANCEF) 0-14 Starting ity of injection 16:21: [facility] 04/09/20 Medical at 1121, Branch Until Discontinu ed, NATALYA, Intra-op sodium 2019- Yes PRN, Univers chloride 0-14 Starting ity of (NS) 16:18: [facility] injection 00 04/09/20 Medica l at 1118, Branch Until Discontinu ed, Routine, Intra-op EPINEPHrine 2019- Yes PRN, Univer s 1:1,000 (1 0-14 Starting ity o f mg/mL) 16:16: Tue [place] (ADRENALIN) 00 04/09/20 Medi hira injection at 1116, Branch Until Discontinu ed, Routine, Intra-op DUOVISC 2020- Yes PRN, Univers (DUOVISC 0-14 Starting ity of VISCO 16:16: Tue [place] ELASTIC) 3 00 04/09/20 Medic al %-4 %(0.5 at 1116, Branch mL) 1 % Until (0.55 mL) Discontinu intraocular ed, injection Routine, Intra-op carbachoL 2019-06 Yes PRN, Univers (MIOSTAT) 0-14 Starting ity of 0.01 % 16:15: [facility] intraocular 04/09/20 Medi hira injection at 1115, Branch Until Discontinu ed, Routine, Intra-op balanced 2019-06 Yes PRN, Univers salt irrig 0-14 Starting ity o f soln comb1 16:15: [facility] (BSS PLUS) 04/09/20 Medic al ophthalmic at 1115, Branc h solution Until 500 mL bag Discontinu ed, Routine, Intra-op water for 2019-06 Yes PRN, Univers irrigation 0-14 Starting ity o f irrigation 16:09: [facility] solution 04/09/20 Medical at 1109, Branch Until Discontinu ed, Routine, Intra-op Hyaluronida 2019-06 Yes PRN, Univer s se, Human 0-14 Starting ity of Recomb. 16:07: [facility] (HYLENEX) 04/09/20 Medica l injection at 1107, Branch Until Discontinu ed, Routine, Intra-op eye block 2019-06 Yes PRN, Univers syringe 11 0-14 Starting ity o f mL 16:07: [facility] 04/09/20 Medical at 1107, Branch Until Discontinu ed, Intra-op propofoL IV 2019-06- No Intravenou Univers infusion 0-14 10-14 s, ONCE ity of 16:07: 16:30 INTRA [place] 00 :10 PROCEDURE, Medical Starting Branch Tue04/09/20 at 1107, Until Tue04/09/20 at 1130, Routine, Intra-op remifentani 2019-06 2020- No Intravenou Univers L (ULTIVA) 0-14 10-14 s, ONCE ity o f injection 16:07: 16:30 INTRA [place] 00 :10 PROCEDURE, Medical Starting Branch Tue04/09/20 at 1107, Until Tue04/09/20 at 1130, Routine, Intra-op lactated 2019-06- No Intravenou Un juanjo ringers IV 0-14 10-14 s, ity of infusion 16:01: 16:30 CONTINUOUS [place] 00 :10 PRN, Medical Starting Branch Tue04/09/20 at 1101, Until 04/09/20 at 1130, Routine, Intra-op mydriatic 2019-06 2020- No .5mL 0.5 mL, [facility] ers #5 0-14 10-14 Left Eye, ity [...] DSU Pre-op apixaban 2019- Yes [facility] (ELIQUIS 0-14 mouth. ity of ORAL) 13:53: [place] [address] Medical Branch multivitami 2020-0 Yes Take by Un juanjo n with 9-30 mouth. ity of minerals 18:05: [place] (MULTI-VIT 39 Medical 55 PLUS Branch ORAL) mirabegron 2020-0 Yes 25mg Take 25 mg U nivers (MYRBETRIQ 9-30 by mouth. ity of ORAL) 18:05: [place] [address] Medical Branch multivit-mi 2020-0 Yes Take by Un juanjo n/iron/foli 9-30 mouth. ity of c/lutein 18:05: [place] (CENTRUM 39 Medical SILVER Branch WOMEN ORAL) vitamin B 2020-0 Yes Take by [facility] ers complex/fol 9-30 mouth. ity of ic acid (B 18:05: [facility] 100 39 Medical ORAL) Branch apixaban 2020-0 Yes Take by Unive rs (ELIQUIS 9-30 mouth. ity of ORAL) 18:05: [place] [address] Medical Branch multivitami 2020-0 Yes Take by Un juanjo n with 9-30 mouth. ity of minerals 18:05: [place] (MULTI-VIT 39 Medical 55 PLUS Branch ORAL) mirabegron 2020-0 Yes 25mg Take 25 mg U nivers (MYRBETRIQ 9-30 by mouth. ity of ORAL) 18:05: [place] [address] Medical Branch multivit-mi 2020-0 Yes Take by Un juanjo n/iron/foli 9-30 mouth. ity of c/lutein 18:05: [place] (CENTRUM 39 Medical SILVER Branch WOMEN ORAL) vitamin B 2020-0 Yes Take by [facility] ers complex/fol -30 mouth. ity of ic acid (B 18:05: [facility] 100 39 Medical ORAL) Branch apixaban 2020-0 Yes Take by [facility] (ELIQUIS 30 mouth. ity of ORAL) 18:05: [place] [address] Medical Branch lactated 2020-0 Yes 1000mL at 42 [facility] ringers IV 9-30 mL/hr, ity of infusion 18:00: 1,000 mL, [place] 1[place]000 mL 00 IV Medical Infusion, Branch CONTINUOUS , Starting Tue03/26/20 at 1300, Until Discontinu ed, Routine, PACU neomycin-po 2020-0 Yes PRN, [facility] lymyxin-dex 03-26 Starting ity of amethasone 17:18: Tue [place] (MAXITROL) 03/26/20 at Med ical 3.5 1218, Branch mg/g-10,000 Until unit/g-0.1 Discontinu % ed, ophthalmic Routine, ointment Intra-op gentamicin 2020-0 Yes PRN, Univers injection 03-26 Starting ity of 17:16: Tue [place] 03/26/20 at [facility] 1216, Branch Until Discontinu ed, NATALYA, Intra-op DUOVISC 2020-0 Yes PRN, Univers (DUOVISC 03-26 Starting ity of VISCO 17:16: Tue [place] ELASTIC) 3 03/26/20 at [facility] ical %-4 %(0.5 1216, Branch mL) 1 % Until (0.55 mL) Discontinu intraocular ed, injection Routine, Intra-op dexamethaso 2020-0 Yes PRN, [facility] [facility] s ne 03-26 Starting ity of (DECADRON 17:15: Tue [place] PHOSPHATE) 03/26/20 at Med ical injection 1215, Branch Until Discontinu ed, Routine, Intra-op ceFAZolin 2020-0 Yes PRN, Univers (ANCEF) 03-26 Starting ity of injection 17:15: Tue [place] 03/26/20 at [facility] 1215, Branch Until Discontinu ed, NATALYA, Intra-op carbachoL 2020-0 Yes PRN, Univers (MIOSTAT) 9-30 Starting ity of 0.01 % 17:15: Tue intraocular 00 03/26/20 at Wi dical injection 1215, Branch Until Discontinu ed, Routine, Intra-op sodium 2020-0 Yes PRN, Univers chloride 03-26 Starting ity of (NS) 17:15: Tue injection 03/26/20 at [facility] 1215, Branch Until Discontinu ed, Routine, Intra-op EPINEPHrine 2020-0 Yes PRN, Univer s 1:1,000 (1 03-26 Starting ity o f mg/mL) 17:13: Tue (ADRENALIN) 00 03/26/20 at [place] dical injection 1213, Branch Until Discontinu ed, Routine, Intra-op balanced 2020-0 Yes PRN, Univers salt irrig 03-26 Starting ity o f soln comb1 17:12: Tue (BSS PLUS) 03/26/20 at [facility] ical ophthalmic 1212, Branch solution Until 500 mL bag Discontinu ed, Routine, Intra-op Hyaluronida 2020-0 Yes PRN, Univer s se, Human 03-26 Starting ity of Recomb. 17:01: Tue (HYLENEX) 00 03/26/20 at [facility] injection 1201, Branch Until Discontinu ed, Routine, Intra-op eye block 2020-0 Yes PRN, Univers syringe 11 03-26 Starting ity o f mL 17:01: Tue03/26/20 at [facility] 1201, Branch Until Discontinu ed, Intra-op water for 2020-0 Yes PRN, Univers irrigation 03-26 Starting ity o f irrigation 16:53: Tue [place] solution 03/26/20 at Medic al 1153, Branch Until Discontinu ed, Routine, Intra-op mydriatic 2020-0 2020- No .5mL 0.5 mL, Univ ers #5 03-26 0930 Right Eye, ity of ophthalmic 16:00: 15:17 ONCE, 1 [place] as solution 00 :00 dose, [facility] Medica l 0.5 mL 03/26/20 at [place] syringe 1100, Routine, DSU Pre-op lactated 2020-0 2020- No 500mL at 50 Univer s ringers IV 03-26 09-30 mL/hr, 500 it y of infusion 15:15: 15:17 mL, IV [place] 500 mL 00 :00 Infusion, [facility] ONCE, 1 Branch dose, [facility] 03/26/20 at 1015, Routine, DSU Pre-op multivitami 2020-0 Yes Take by Un juanjo n with 03-24 mouth. ity of minerals 14:01: [place] (MULTI-VIT 42 Medical 55 PLUS Branch ORAL) mirabegron 2020-0 Yes 25mg Take 25 mg U nivers (MYRBETRIQ 03-24 by mouth. ity of ORAL) 14:01: [address] multivit-mi 2019-0 Yes Take by Un juanjo n/iron/foli 03-24 mouth. ity of c/lutein 14:01: [place] (CENTRUM 42 Medical SILVER Branch WOMEN ORAL) vitamin B 2019-0 Yes Take by [facility] ers complex/fol 03-24 mouth. ity of ic acid (B 14:01: [facility] 100 42 Medical ORAL) Branch apixaban 2019-0 Yes Take by [facility] (ELIQUIS 03-24 mouth. ity of ORAL) 14:01: [address] Vital Signs Vital Name Observation Time Observation Value Comments Source HEIGHT 2020-08-30 20:00:00 165.1 cm WEIGHT 2020-08-30 20:00:00 63.504 kg HEIGHT 2020-08-30 20:00:00 165.1 cm WEIGHT 2020-08-30 20:00:00 63.504 kg Systolic blood 2020-04-09 16:34:00 149 mm[Hg] [facility] [facility] sity of pressure [facility] Diastolic blood 2020-04-09 16:34:00 73 mm[Hg] [facility] rs[facility] pressure [facility] Heart rate 2020-04-09 16:34:00 83 /min [facility] Respiratory rate 2020-04-09 16:34:00 16 /min [facility] Oxygen saturation in 2020-04-09 16:34:00 100 /min [facility] Arterial blood by [facility] Pulse oximetry Branch Body temperature 2020-04-09 13:53:00 36.5 Carolee [facility] Body height 2020-04-08 14:45:00 165.1 cm [facility] Body weight 2020-04-08 14:45:00 63.504 kg [facility] BMI 2020-04-08 14:45:00 23.30 kg/m2 [facility] [place] [facility] Systolic blood 2020-04-09 16:34:00 149 mm[Hg] Univer sity of pressure [place] [facility] Diastolic blood 2020-04-09 16:34:00 73 mm[Hg] Unive rsity of pressure [place] [facility] Heart rate 2020-04-09 16:34:00 83 /min [facility] [place] [facility] Respiratory rate 2020-04-09 16:34:00 16 /min Univ ersity [facility] [place] [facility] Oxygen saturation in 2020-04-09 16:34:00 100 /min University of Arterial blood by [facility] Pulse oximetry Branch Body temperature 2020-04-09 13:53:00 36.5 Carolee Univ ersity [facility] [place] [facility] Body height 2020-04-08 14:45:00 165.1 cm [facility] [place] [facility] Body weight 2020-04-08 14:45:00 63.504 kg [facility] [place] [facility] BMI 2020-04-08 14:45:00 23.30 kg/m2 [facility] [place] [facility] Respiratory rate 2020-04-09 16:29:00 16 /min Univ [facility] [place] [facility] Respiratory rate 2020-04-09 16:29:00 16 /min Univ ersity [facility] [place] [facility] Systolic blood 2020-03-26 17:40:00 159 mm[Hg] Univer sity of pressure [place] [facility] Diastolic blood 2020-03-26 17:40:00 72 mm[Hg] Unive rsity of pressure [place] [facility] Heart rate 2020-03-26 17:40:00 75 /min [facility] [place] [facility] Body temperature 2020-03-26 17:40:00 36.72 Carolee [facility] [place] [facility] Respiratory rate 2020-03-26 17:40:00 19 /min Univ ersity [facility] [place] [facility] Oxygen saturation in 2020-03-26 17:40:00 94 /min University of Arterial blood by [facility] Pulse oximetry Branch Body height 2020-03-24 17:16:00 165.1 cm [facility] [place] [facility] Body weight 2020-03-24 17:16:00 64.9 kg [facility] [place] [facility] BMI 2020-03-24 17:16:00 23.81 kg/m2 [facility] [place] [facility] Systolic blood 2020-03-26 17:40:00 159 mm[Hg] Univer sity of [facility] Diastolic blood 2020-03-26 17:40:00 72 mm[Hg] Unive rsity of [facility] Heart rate 2020-03-26 17:40:00 75 /min [facility] Body temperature 2020-03-26 17:40:00 36.72 Carolee [facility] rate 2020-03-26 17:40:00 19 /min [facility] Oxygen saturation in 2020-03-26 17:40:00 94 /min [facility] Arterial blood by [facility] Pulse oximetry [place] Body height 2020-03-24 17:16:00 165.1 cm [facility] Body weight 2020-03-24 17:16:00 64.9 kg [facility] BMI 2020-03-24 17:16:00 23.81 kg/m2 [facility] Procedures Procedure Date / Time Performed Performing Clinician [facility] e CONSENT/REFUSAL FOR 2020-04-08 14:22:30 Doctor Unassigned, No [facility] DIAGNOSIS AND [facility] TREATMENT ASSIGNMENT OF BENEFITS 2020-04-08 14:22:09 Doctor Unassigned, No [facility] Encounters Start End Encounter Admission Attending Care Care Encounter Source Date/Time Date/Time Type Type Clinicians Facility Department ID 2021-04-24 Outpatient Rakesh NAVARRO [facility] YURI [id number] Univers 21:41:39 [facility] 2021-04-24 Outpatient Rakesh NAVARRO [facility] YURI [id number] Univers 19:27:16 [facility] 2020-08-30 Inpatient UR [facility] [id number] 18:01:00 AMADOU 2021-03-04 2021-03-04 Outpatient ALEKSANDRA CARVAJAL MDA MDA [id number] 14:50:37 23:59:00 MARYANNE madrigal 2020-08-01 2020-08-01 Outpatient [facility] [id number] [place] 00:00:00 00:00:[address] 2020-07-11 2020-07-11 Outpatient [facility] [id number] [place] 00:00:00 00:00:[address] 2020-04-09 2020-04-09 [facility] [id number] [facility] 08:52:00 12:00:00 Encounter Francis Abraham [id number] ity of [place].2.686 [place] [id number] [address] 2020-04-09 2020-04-09 [facility] Ramon [facility] [id number] 08:52:00 12:00:00 Encounter Francis Abraham [id number] [place] 4.2.7.2.686 Surgical [id number] [place] [address] 2020-04-09 2020-04-09 Anesthesia Fantasmazoila Hsankar [facility] [id number] [facility] 10:58:00 11:30:00 Duarte, Leandra [place] [id number] ity [place] 4[place]2.[place].2.686 [place] [id number] [address] 2020-04-09 2020-04-09 Anesthesia Shankar Resendez [facility] [id number] 10:58:00 11:30:00 Leandra Duarte [place] [id number] [place] 4.2.7.2.686 Surgical [id number] [place] [address] 2020-04-08 2020-04-08 Laboratory Only, [facility] [id number] 09:19:46 09:34:46 Only Test [place] [id number] [place] 4.2.7.2.686 [place] [id number] [facility] 2020-04-08 2020-04-08 Laboratory Only, [facility] Test [facility] 1.2.840. [id number] [facility] 09:19:46 09:34:46 Only Francis Navarro 350.1.13.1 0 ity [place] 4[place]7.2.[place] [id number] [address] 2020-04-08 2020-04-08 Outpatient R [facility] [id number] Univers 09:30:00 09:30:00 [id number] [facility] 2020-04-08 2020-04-08 [facility] [id number] Univers 09:30:00 09:30:00 FRANCIS itlee [facility] 2020-03-26 2020-03-[address] [facility] [id number] 10:02:00 13:05:00 Encounter Francis Abraham [id number] [place] 4.2.7.2.686 Surgical [id number] [place] [address] 2020-03-26 2020-03-[address] [facility] [id number] Univers 10:02:00 13:05:00 Encounter Francis Rodrigueston [id number] ity of [place] 4.2.7.2.686 [facility] s Surgical [id number] [address] 2020-03-25 2020-03-25 [facility] [id number] Univers 09:45:00 09:45:00 FRANCIS [id number] [facility] 2020-03-25 2020-03-25 [facility] [id number] Univers 09:45:00 09:45:00 FRANCIS [facility] 2020-03-25 2020-03-25 Laboratory Only, [facility] [id number] 08:51:16 09:06:16 Only Test [place] 350.1.13.10 [place] 4.2.7.2.686 [place] [id number] [facility] 2020-03-25 2020-03-25 Laboratory Only, [facility] Test [facility] 1.2.840. [id number] Univers 08:51:16 09:06:16 Only Francis Navarro 350.1.13.1 0 ity of [place] 4.2.7.2.686 [facility] [place] [id number] [address] 2020-03-21 2020-03-21 Service Engine Repairer Chele, [facility] [id number] 11:34:14 11:49:14 Visit Lab Main [place] 350.1.13.10 [place] 4.2.7.2.686 Professio [id number] [address] 2020-03-21 2020-03-21 Service Engine Repairer Chele, Adc Lab Main [facility] 1.2.8 [id number] [facility] 11:34:14 11:49:14 Visit Francis Navarro 350.1.13.1 0 lee [facility] 4.2.7.2.686 Stephanie Flemingmatthew [id number] Wi dical [address] 2020-03-21 2020-03-21 Outpatient R RAMON [facility] [id number] [facility] 10:15:00 10:15:00 FRANCIS [facility] Results Test Description Test Time [...] NOT 1092) ACCURATE CRE ATININE CLEARANCE IN [place] EDICTING GLOMERULAR FILT RATION RATE. ESTIMATED GFR IS NOT APPLICABLE FOR DIALYSIS PATIENTS. Pick Up Driver ID - [id number] 06:03:00 Test Item Value Reference Range Interpretation Comments MAGNESIUM (BEAKER) (test code = 2.2 mg/dL 1.6-2.6 627) Pick Up Driver ID - [id number] 06:03:00 Test Item Value Reference Range Interpretation Comments PHOSPHORUS (BEAKER) (test code = 3.5 mg/dL 2.3-4.7 604) Pick Up Driver ID - ASCBC (HEMOGRAM ONLY)2020-09-03 05:19:00 Test [...] (BEAKER) (test code = 413) BASIC METABOLIC [id number] 06:11:00 Test Item Value Reference Range Interpretation [...] S NOT APPLICABLE FOR DIALYSIS PATIEN TS. Pick Up Driver ID - [id number] 06:11:00 Test Item Value Reference Range Interpretation Comments MAGNESIUM (BEAKER) (test code = 2.2 mg/dL 1.6-2.6 627) Pick Up Driver ID - [id number] 06:11:00 Test Item Value Reference Range Interpretation Comments PHOSPHORUS (BEAKER) (test code = 3.4 mg/dL 2.3-4.7 604) Pick Up Driver ID - ADMINCBC (HEMOGRAM ONLY)2020-09-02 05:28:00 Test [...] (test code = 413) C. DIFFICILE GDH [id number] 10:27:00 Test Item Value Reference Range Interpretation Comments CDT TOXIN (test code Negative Negative = [id number]) CDT GDH ANTIGEN (test Positive Negative A No ind ication of code = 1506188833) Clostridi um difficile infection and n o colonization. Discontinue ent david isolation and t herapy. Testing performed by [employer] Rapid Cassette Assay. For GDH, published sensitivity of the assay is 98.7% compared to cytotoxicity testing. For Toxin AB, published sensitivity is 87.8% and specificity 99.4% compared to cytotoxicity testing.Verification of kit performance was done by the [facility] prior to clinical use.[id number] 05:55:00 Test Item Value Reference Range Interpretation Comments MAGNESIUM (BEAKER) 2.3 mg/dL 1.6-2.6 Specimen slightly (test code = 627) hemolyzed Pick Up Driver ID - [id number] 05:55:00 Test Item Value Reference Range Interpretation Comments PHOSPHORUS (BEAKER) 3.7 mg/dL 2.3-4.7 Specimen slightly (test code = 604) hemolyzed Pick Up Driver ID - DBBASIC METABOLIC [id number] 05:55:00 Test Item Value Reference Range Interpretation [...] S NOT APPLICABLE FOR DIALYSIS PATIEN TS. Pick Up Driver ID - DBCBC (HEMOGRAM ONLY)2020-09-01 05:35:00 Test [...] 0-0 (BEAKER) (test code = 413) SARS-COV2/RT-PCR ([facility])2020-08-31 18:16:00 Test Item Value Reference Range Interpretation Comments SARS-COV2/RT-PCR (test Negative Not Detected, Negative, code = [id number]) See external report for linked test SARS-COV-2 PERFORMING LAB [facility] (test code = 7762677) Negative result for this test determines that [...] 564(g) of the Act.Fact Sheet for Healthcare Providers:https://www.[employer]/sites/default/files/product/documents/Fact_Shee l_WH_Xgdvfedpr_Ukkr_WHFS-OkK-8.pdfFact Sheet for Healthcare Patients:https://www.[employer]/sites/default/files/product/ documents/Rhhi_Vgapj_Kfpzcyps_Pvql_IMAM-BhI-2.pdfPerforming Laboratory:[facility], [place] [address]XAN, SPINE, CERVICAL, 2 OR 3 [id number] 09:36:00Standing flex -extReason for exam:->[facility] 1940 Sex: FFINAL REPORT TECHNIQUE: Four views of the cervical spine HISTORY: Myelomalcia. COMPARISON: None. IMPRESSION:Straightening of the cervical spine with scattered facet arthropathy and mild joint space narrowing.There is radiculopathy recommend MRI.No acute displaced fractureor dislocation. No acute soft tissue abnormality. Signed: Giacomo Prasad MDReport Verified Date/Time: 08/31/2020 09:36:18 Reading Location: [address] Consult Reading Room MIN B12 AND [id number] 07:03:00 Test Item Value Reference Range Interpretation Comments VITAMIN B12 > pg/mL 213-816 H (BEAKER) (test code = 774) FOLATE (BEAKER) 29.10 ng/mL See_Comment [Automated message] (test code = 362) The system which generated this result transmitted ref erence range: >=7.00. The reference range was not used to interpr et this result as normal/abnormal . Pick Up Driver ID - EDASIOperator ID - EDASITSH/FREE T4 IF [id number] 06:57:00 Test Item Value Reference Range Interpretation Comments THYROID STIMULATING HORMONE 1.985 uIU/mL 0.350-4.940 (BEAKER) (test code = 772) Pick Up Driver ID - [id number] 05:38:00 Test Item Value Reference Range Interpretation Comments MAGNESIUM (BEAKER) (test code = 2.1 mg/dL 1.6-2.6 627) Pick Up Driver ID - [id number] 05:38:00 Test Item Value Reference Range Interpretation Comments PHOSPHORUS (BEAKER) (test code = 2.8 mg/dL 2.3-4.7 604) Pick Up Driver ID - EDASIBASIC METABOLIC [id number] 05:38:00 Test Item Value Reference Range Interpretation [...] S NOT APPLICABLE FOR DIALYSIS PATIEN TS. Pick Up Driver ID - EDASIPROTHROMBIN TIME/[id number] 05:26:00 Test Item Value Reference Range Interpretation Comments PROTIME (BEAKER) 14.3 seconds 11.9-14.2 H (test code = 759) INR (BEAKER) (test 1.15 See_Comment [Automat ed message] code = 370) The system [employer] generated this result transmitted ref erence range: [...] (BEAKER) (test code = 413) COMPREHENSIVE METABOLIC [id number] 19:11:00 Test Item Value Reference Range Interpretation [...] S NOT APPLICABLE FOR DIALYSIS PATIEN TS. Pick Up Driver ID - [id number] 19:11:00 Test Item Value Reference Range Interpretation Comments MAGNESIUM (BEAKER) (test code = 2.1 mg/dL 1.6-2.6 627) Pick Up Driver ID - [id number] 19:11:00 Test Item Value Reference Range Interpretation Comments PHOSPHORUS (BEAKER) (test code = 2.8 mg/dL 2.3-4.7 604) Pick Up Driver ID - DBCBC W/PLT COUNT & AUTO [id number] 18:46:00 Test Item Value Reference Range Interpretation [...] % 0-1 PERCENT (BEAKER) (test code = 9878)
[2021-08-04] MEDS ORDERED: NA CHLORIDE 0.9% 1,000 ML ONE (11:28)
[2021-08-04 11:40] LABS: Absolute Lymphocytes (CBC) 0.5 K/uL (0.7-4.9); Hematocrit 40.6 % (36.0-45.0); Lymphocytes % 11.4 % (15.3-44.8); MPV 7.2 fL (7.6-11.3); RBC Red Blood Cell Count 3.91 M/uL (3.86-4.86)
[2021-08-04 15:17] LABS: ALT/SGPT 19 U/L (12-78); AST/SGOT 15 U/L (15-37); Albumin 2.7 g/dL (3.4-5.0); Alkaline Phosphatase 85 U/L (45-117); BUN Blood Urea Nitrogen 10 mg/dL (7-18); Bicarbonate 25 mmol/L (21-32); Bilirubin Direct 0.2 mg/dL (0-0.2); Bilirubin Total 0.7 mg/dL (0.2-1.0); Glucose Level 86 mg/dL (74-106); Lipase 64 U/L (73-393); Potassium 3.2 mmol/L (3.5-5.1); Protein, Total 5.3 g/dL (6.4-8.2); Sodium Level 141 mmol/L (136-145)
[2021-08-04 15:40] LABS: Urine Blood Trace-intact (Negative); Urine Glucose Negative (Negative); Urine Protein Negative (Negative)
[2021-08-04] MEDS ORDERED: LOPERAMIDE HCL 2 MG CAPSULE ONE (16:05)
--- NOTE | 2021-08-04 16:10 | EDPHYS ---
Physician Documentation [facility] Name: Fredis Diaz Age: 81 yrs Sex: Female : 1940 Arrival Date: 08/04/2021 Time: 10:54 Bed 28 Private MD: Mercedes Jones C ED Physician Negin Gilliland HPI: 08/04 11:36 This 81 yrs old Female presents to ER via Ambulatory with complaints of Diarrhea. ma2 11:36 The patient presents to the emergency department with nausea, diarrhea. Onset: The ma2 symptoms/episode began/occurred gradually, 3 day(s) ago. Associated signs and symptoms: Pertinent negatives: belching, diarrhea, flatulence, GI bleeding, nausea. Severity of symptoms: At their worst the symptoms were mild in the emergency department the symptoms are unchanged. The patient has experienced similar episodes in the past. Historical: - Allergies: 11:05 No Known Allergies; jl7 - Home Meds: 11:05 None [Active]; jl7 - PMHx: 11:05 22 YRS AGO HAD CERVIAL CANCER; EDEMA TO LOWER EXTS; LYMPHOMA; jl7 - PSHx: 11:05 None; jl7 - Immunization history:: Client reports receiving the 2nd dose of the Covid vaccine. - Social history:: Smoking status: Patient denies any tobacco usage or history of. Patient/guardian denies using alcohol, street drugs, The patient lives with spouse. - Family history:: not pertinent. ROS: 11:36 Constitutional: Negative for fever, chills, and weight loss. ma2 11:36 All other systems are negative. Exam: 11:36 Constitutional: This is a well developed, well nourished patient who is awake, alert, ma2 and in no acute distress. Neck: Trachea midline, no thyromegaly or masses palpated, and no cervical lymphadenopathy. Supple, full range of motion without nuchal rigidity, or vertebral point tenderness. No Meningismus. Chest/axilla: Normal chest wall appearance and motion. Nontender with no deformity. No lesions are appreciated. Cardiovascular: Regular rate and rhythm with a normal S1 and S2. No gallops, murmurs, or rubs. Normal PMI, no JVD. No pulse deficits. Respiratory: Lungs have equal breath sounds bilaterally, clear to auscultation and percussion. No rales, rhonchi or wheezes noted. No increased work of breathing, no retractions or nasal flaring. Abdomen/GI: Soft, non-tender, with normal bowel sounds. No distension or tympany. No guarding or rebound. No evidence of tenderness throughout. Back: No spinal tenderness. No costovertebral tenderness. Full range of motion. Vital Signs: 11:04 BP 162 / 76; Pulse 79; Resp 17; Temp 97.5; Pulse Ox 100% on R/A; Weight 56.25 kg; jl7 Height 5 ft. 6 in. (167.64 cm); Pain 0/10; 11:47 BP 148 / 73; Pulse 72; Resp 16; Pulse Ox 100% ; ab2 13:06 BP 142 / 65; Pulse 82; Resp 16; Pulse Ox 100% on R/A; ab2 13:40 BP 140 / 58; Pulse 76; Resp 16; Pulse Ox 98% on R/A; ab2 14:39 BP 146 / 73; Pulse 76; Resp 16; Pulse Ox 100% on R/A; ab2 14:49 BP 182 / 90; Pulse 79; Resp 16; Pulse Ox 100% on R/A; ab2 15:47 BP 150 / 70; Pulse 73; Resp 16; Pulse Ox 100% on R/A; ab2 17:05 BP 152 / 71; Pulse 79; Resp 16; Pulse Ox 100% ; Pain 0/10; ab2 18:13 BP 156 / 78; Pulse 71; Resp 16; Pulse Ox 98% on R/A; Pain 0/10; ab2 20:28 BP 149 / 77; Pulse 76; Resp 16; Pulse Ox 99% on R/A; ab2 11:04 Body Mass Index 20.01 (56.25 kg, 167.64 cm) 7 MDM: 11:10 Patient medically screened. ma2 16:07 Differential diagnosis: gastritis, viral gastroenteritis, gastroenteritis. Data ma2 reviewed: vital signs, nurses notes. Counseling: I had a detailed discussion with the patient and/or guardian regarding: the historical points, exam findings, and any diagnostic results supporting the discharge/admit diagnosis, the presence of at least one elevated blood pressure reading (>120/80) during this emergency department visit, the need for outpatient follow up. Counseling: I had a detailed discussion with the patient and/or guardian regarding: the need for further work-up and treatment in the hospital. Response to treatment: the patient's symptoms have markedly improved after treatment. ED course: Patient has intractable diarrhea, given Imodium, still had frequent diarrhea patient would like to be admitted as she is concerned that she was dehydrated and will get even more dehydrated when she go home. 16:07 ED course: Page Dr. Jones 3:50 PM.. [facility] 08/04 11:11 Order name: Basic Metabolic Panel; Complete Time: 15:28 [facility] 08/04 11:11 Order name: CBC with Diff; Complete Time: 11:53 [facility] 08/04 11:11 Order name: Hepatic Function; Complete Time: 15:28 [facility] 08/04 11:11 Order name: Lipase; Complete Time: 15:28 [facility] 08/04 11:11 Order name: SARS-COV-2 RT PCR (Document "Date of Onset" if Symptomatic); Complete Time: [facility] 12:59 08/04 14:55 Order name: CMP; Complete Time: 18:23 [facility] 08/04 15:41 Order name: Urine Dipstick-Ancillary; Complete Time: 15:52 [facility] 08/04 16:08 Order name: Fecal Leukocyte Stain [facility] 08/04 16:08 Order name: Occult Blood [facility] 08/04 16:08 Order name: Ova And Parasites [facility] 08/04 16:08 Order name: Rotavirus Antigen [facility] 08/04 16:08 Order name: Stool Culture [facility] 08/04 16:08 Order name: CDIFF [facility] 08/04 16:14 Order name: CKMB Creatine Kinase MB; Complete Time: 18:24 [facility] 08/04 11:11 Order name: IV Saline Lock; Complete Time: 11:32 [facility] 08/04 11:11 Order name: Labs collected and sent; Complete Time: 11:32 [facility] 08/04 11:11 Order name: Urine Dipstick-Ancillary (obtain specimen); Complete Time: 15:46 [facility] 08/04 11:50 Order name: Labs - recollect needed: recollect green top; Complete Time: 14:49 08/04 11:50 Order name: Labs - recollect needed: recollect green top; Complete Time: 14:49 08/04 18:18 Order name: Glucose, Ancillary Testing; Complete Time: 18:24 [facility] 08/04 18:25 Order name: Diet Clear Liquid; Complete Time: 18:26 ma2 Administered Medications: 11:32 Drug: NS 0.9% 1000 ml Route: IV; Rate: 1 bolus; Site: right antecubital; ab2 15:46 Follow up: Response: No adverse reaction; IV Status: Completed infusion ab2 16:05 Drug: Imodium A-D (loperamide) 4 mg Route: PO; ab2 17:07 Follow up: Response: No adverse reaction ab2 19:18 CANCELLED (Duplicate Order): Potassium Chloride 10 mEq IV at calculated rate once; ab2 administer over 1-2 hours Disposition Summary: 08/04/21 16:09 Hospitalization Ordered Hospitalization Status: Observation ma2 Provider: Mercedes Jones Location: Telemetry/MedSurg (observation) ma2 Condition: Stable ma2 Problem: new ma2 Symptoms: are unchanged ma2 Bed/Room Type: Standard [facility] Room Assignment: 213(08/04/21 18:37) bd Diagnosis - Diarrhea, unspecified ma2 Forms: - Medication Reconciliation Form ma2 - SBAR form ma2 Signatures: Dispatcher [employer] EDMS Darlene Hoang bd Radha Turcios RN RN jl7 Negin Gilliland MD MD ma2 Agustin Cisneros ab2 Corrections: (The following items were deleted from the chart) 18:37 16:09 ma2 bd 19:18 18:25 Potassium Chloride 10 mEq IV at calculated rate once; administer over 1-2 hours ab2 ordered. ma2
--- NOTE | 2021-08-04 16:10 | ER ---
Nurse's Notes [facility] Name: Fredis Diaz Age: 81 yrs Sex: Female : 1940 Arrival Date: 08/04/2021 Time: 10:54 Bed 28 Private MD: Mercedes Jones C Diagnosis: Diarrhea, unspecified Presentation: 08/04 11:04 Chief complaint: Patient states: Diarrhea x 8 days and I might be dehydrated. jl7 Coronavirus screen: diarrhea, Client presents with at least one sign or symptom that may indicate coronavirus-19. Standard/surgical mask placed on the client. Provider contacted for isolation considerations. Ebola Screen: No symptoms or risks identified at this time. Initial Sepsis Screen: Does the patient meet any 2 criteria? No. Patient's initial sepsis screen is negative. Does the patient have a suspected source of infection? No. Patient's initial sepsis screen is negative. Risk Assessment: Do you want to hurt yourself or someone else? Patient reports no desire to harm self or others. Onset of symptoms was July 28, 2021. 11:04 Method Of Arrival: Ambulatory [facility] 11:04 Acuity: JOSE 3 jl7 Triage Assessment: 11:05 General: Appears in no apparent distress. uncomfortable, Behavior is calm, cooperative, jl7 appropriate for age. Pain: Denies pain. GI: Reports diarrhea. Historical: - Allergies: 11:05 No Known Allergies; jl7 - Home Meds: 11:05 None [Active]; jl7 - PMHx: 11:05 22 YRS AGO HAD CERVIAL CANCER; EDEMA TO LOWER EXTS; LYMPHOMA; jl7 - PSHx: 11:05 None; jl7 - Immunization history:: Client reports receiving the 2nd dose of the Covid vaccine. - Social history:: Smoking status: Patient denies any tobacco usage or history of. Patient/guardian denies using alcohol, street drugs, The patient lives with spouse. - Family history:: not pertinent. Screenin:36 Abuse screen: Denies threats or abuse. Denies injuries from another. Nutritional ab2 screening: No deficits noted. Tuberculosis screening: No symptoms or risk factors identified. Fall Risk None identified. Assessment: 11:34 General: Appears in no apparent distress. comfortable, Behavior is calm, cooperative, ab2 appropriate for age. Pain: Denies pain. Neuro: Level of Consciousness is awake, alert, obeys commands, Oriented to person, place, time, situation, Appropriate for age Application Integration Engineer are equal bilaterally Moves all extremities. Gait is steady, Speech is normal. Cardiovascular: Denies chest pain, shortness of breath, Heart tones S1 S2 present Patient's skin is warm and dry. Respiratory: No deficits noted. Airway is patent Breath sounds are clear bilaterally. GI: Abdomen is round non-distended, Bowel sounds present X 4 quads. Reports diarrhea. : No deficits noted. No signs and/or symptoms were reported regarding the genitourinary system. EENT: No deficits noted. No signs and/or symptoms were reported regarding the EENT system. Derm: No deficits noted. No signs and/or symptoms reported regarding the dermatologic system. Skin is intact, is healthy with good turgor. Musculoskeletal: No deficits noted. No signs and/or symptoms reported regarding the musculoskeletal system. 13:09 Reassessment: Patient appears in no apparent distress at this time. Pt resting ab2 comfortably. Unable to give urine sample at this time. Fluids infusing per physician order. Will try again. Warm blankets and pillow provided to patient per pt request. 15:47 Reassessment: Patient appears in no apparent distress at this time. Awaiting the rest ab2 of the results at this time. Pt denies any needs. 17:06 Reassessment: Patient appears in no apparent distress at this time. Pt ambulated to ab2 bathroom multiple times on her own with no assistance. Pt resting comfortably. Awaiting room for admission. Pt denies any needs at this time. 20:28 Reassessment: Patient appears in no apparent distress at this time. Pt stable at time ab2 of admission. Vital Signs: 11:04 BP 162 / 76; Pulse 79; Resp 17; Temp 97.5; Pulse Ox 100% on R/A; Weight 56.25 kg; jl7 Height 5 ft. 6 in. (167.64 cm); Pain 0/10; 11:47 BP 148 / 73; Pulse 72; Resp 16; Pulse Ox 100% ; ab2 13:06 BP 142 / 65; Pulse 82; Resp 16; Pulse Ox 100% on R/A; ab2 13:40 BP 140 / 58; Pulse 76; Resp 16; Pulse Ox 98% on R/A; ab2 14:39 BP 146 / 73; Pulse 76; Resp 16; Pulse Ox 100% on R/A; ab2 14:49 BP 182 / 90; Pulse 79; Resp 16; Pulse Ox 100% on R/A; ab2 15:47 BP 150 / 70; Pulse 73; Resp 16; Pulse Ox 100% on R/A; ab2 17:05 BP 152 / 71; Pulse 79; Resp 16; Pulse Ox 100% ; Pain 0/10; ab2 18:13 BP 156 / 78; Pulse 71; Resp 16; Pulse Ox 98% on R/A; Pain 0/10; ab2 20:28 BP 149 / 77; Pulse 76; Resp 16; Pulse Ox 99% on R/A; ab2 11:04 Body Mass Index 20.01 (56.25 kg, 167.64 cm) jl7 ED Course: 10:54 Patient arrived in ED. ds1 10:54 Mercedes Jones MD is Private Physician. ds1 11:05 Triage completed. jl7 11:05 Arm band placed on right wrist. jl7 11:10 Negin Gilliland MD is Attending Physician. ma2 11:24 Agustin Cisneros is Primary Nurse. ab2 11:31 Inserted saline lock: 20 gauge in left antecubital area, using aseptic technique. Blood ab2 collected. 11:32 SARS-COV-2 RT PCR (Document "Date of Onset" if Symptomatic) Sent. ab2 11:32 Basic Metabolic Panel Sent. ab2 11:32 CBC with Diff Sent. ab2 11:32 Hepatic Function Sent. ab2 11:32 Lipase Sent. ab2 11:36 Patient has correct armband on for positive identification. Bed in low position. Call ab2 light in reach. Side rails up X2. 11:36 No provider procedures requiring assistance completed. ab2 16:08 Mercedes Jones MD is Hospitalizing Provider. ma2 Administered Medications: 11:32 Drug: NS 0.9% 1000 ml Route: IV; Rate: 1 bolus; Site: right antecubital; ab2 15:46 Follow up: Response: No adverse reaction; IV Status: Completed infusion ab2 16:05 Drug: Imodium A-D (loperamide) 4 mg Route: PO; ab2 17:07 Follow up: Response: No adverse reaction ab2 19:18 CANCELLED (Duplicate Order): Potassium Chloride 10 mEq IV at calculated rate once; ab2 administer over 1-2 hours Outcome: 16:09 Decision to Hospitalize by Provider. ma2 20:28 Admitted to Med/surg accompanied by tech, family with patient, via wheelchair, with ab2 chart. 20:28 Condition: good 20:29 Patient left the ED. ab2 Signatures: Elizabeth Matute1 Radha Turcios RN RN jl7 Negin Gilliland MD MD ma2 Agustin Cisneros ab2 Corrections: (The following items were deleted from the chart) 18:28 18:13 BP 156 / 78; Pulse 16bpm; Resp 71bpm; Pulse Ox 98% RA; Pain 0/10; ab2 ab2
[2021-08-04] MEDS ORDERED: ONDANSETRON 4 MG/2 ML VIAL IV PRN (16:11)
[2021-08-04] MEDS ORDERED: INSULIN -REGULAR HUMAN 50 UNIT/0.5 ML ML SQ SCH (16:30)
[2021-08-04] MEDS: INSULIN -REGULAR HUMAN 50 UNIT/0.5 ML ML SQ SCH ×2 (16:30→21:00)
[2021-08-04] MEDS: D5.45NS W/KCL 20MEQ 1,000 ML IV SCH ×2 (17:00→21:53)
[2021-08-04] MEDS ORDERED: D5.45NS W/KCL 20MEQ 1,000 ML IV ONE (17:52)
[2021-08-04 18:00] LABS: ALT/SGPT 22 U/L (12-78); AST/SGOT 15 U/L (15-37); Albumin 3.1 g/dL (3.4-5.0); Alkaline Phosphatase 95 U/L (45-117); BUN Blood Urea Nitrogen 9 mg/dL (7-18); Bicarbonate 25 mmol/L (21-32); Bilirubin Total 0.7 mg/dL (0.2-1.0); Glucose Level 87 mg/dL (74-106); Potassium 3.2 mmol/L (3.5-5.1); Protein, Total 5.8 g/dL (6.4-8.2); Sodium Level 141 mmol/L (136-145)
[2021-08-04 22:54] VITALS: O2SAT 97
[2021-08-05] MEDS: D5.45NS W/KCL 20MEQ 1,000 ML IV SCH (03:00)
[2021-08-05 06:20] LABS: ALT/SGPT 17 U/L (12-78); AST/SGOT 14 U/L (15-37); Albumin 2.5 g/dL (3.4-5.0); Alkaline Phosphatase 77 U/L (45-117); BUN Blood Urea Nitrogen 7 mg/dL (7-18); Bicarbonate 23 mmol/L (21-32); Bilirubin Direct 0.1 mg/dL (0-0.2); Bilirubin Total 0.5 mg/dL (0.2-1.0); Glucose Level 107 mg/dL (74-106); HDL Cholesterol 36 mg/dL (40-60); LDL Cholesterol, Calculated 79 (<130); Lipase 172 U/L (73-393); Protein, Total 4.9 g/dL (6.4-8.2); Sodium Level 143 mmol/L (136-145)
[2021-08-05 06:35] VITALS: BMI 22.2
[2021-08-05 07:30] LABS: Folic Acid, (Folate) 16.4 ng/mL (3.1-17.5)
[2021-08-05] MEDS ORDERED: CIPROFLOXACIN HCL 500 MG TAB PO SCH (09:00)
[2021-08-05] MEDS ORDERED: POTASSIUM CL SA 10 MEQ TAB PO ONE ×2 (09:00→15:00)
[2021-08-05 09:44] LABS: Absolute Lymphocytes (CBC) 0.6 K/uL (0.7-4.9); Hematocrit 33.2 % (36.0-45.0); Lymphocytes % 22.8 % (15.3-44.8); MPV 7.2 fL (7.6-11.3); RBC Red Blood Cell Count 3.17 M/uL (3.86-4.86)
[2021-08-05 12:32] LABS: Magnesium 1.6
[2021-08-05 13:09] LABS: White Blood Cell Scan OK (OK)
[2021-08-05 13:10] LABS: Platelet Estimate DECR
[2021-08-05 13:11] LABS: Anisocytosis SLIGHT; Blood Morphology Comment NOTED (NOT SEEN)
[2021-08-05 14:13] LABS: C.diff Antigen/Toxin Ag pos : Tox pos (NEG : NEG)
[2021-08-05] MEDS ORDERED: MAGNESIUM SULFATE 1 gm IVPB 1 GM/100 ML BAG IV ONE (15:00)
[2021-08-05] MEDS: VANCOMYCIN ORAL SOLN 250 MG/5 ML OSYR PO SCH ×2 (15:51→17:21)
[2021-08-05 17:14] VITALS: BP 166/72; TEMP 98.6
--- NOTE | 2021-08-06 10:37 | SS ---
Date of Discharge: 08/05/2021 Chief Complaint: Diarrhea. History Of Present Illness: This is a 81-year-old pleasant female patient, who came into emergency r oom with almost 10 days history of diarrhea. The patient says in the beginning, her diarrhea was wit h frequency of 5-6 times a day and now it has improved to some extent only about 2-3 times a day. De nies any abdominal pain, nausea, vomiting. No blood in stool. Denies any fever, chills. No recent travel. After she was evaluated in the emergency room, she was admitted to the hospital and appropri ate stool testing was ordered for part of diarrhea workup. Allergies: NO KNOWN ALLERGIES. Medications: She takes Myrbetriq 25 mg daily. Review of Systems: GI: As mentioned above. All other systems reviewed and negative. Past Medical History: Significant for white coat hypertension, hyperlipidemia, renal cyst, overactiv e bladder, cancer of cervix diagnosed in 1988, treated with chemotherapy and radiation therapy. Also has history of non-Hodgkin lymphoma diagnosed on July 31, 2018 and this was treated at [facility]. Past medical history also significant for pulmonary embolism which was diagnosed on routine CT sc an at [facility] in 2019 and it was treated with Eliquis. Past medical history also significant for osteopenia, vitamin D deficiency, and vitamin B12 deficiency, cervical spondylosis. Past Surgical History: Negative. Social History: Negative for smoking and alcohol use. Family History: Father had COPD and [place]. Mother had stroke. Physical Examination: Vital Signs: Last temperature 97.6, pulse 68, respiratory rate 18, blood pressure 109/57, oxygen sat uration 98%. Height 5 feet 10 inches, which is probably not correct and upon review of prior records , her height was listed as 5 feet 5 inches which I believe is a current height. Weight 155 pounds. General: Awake, alert, oriented, not in distress. HEENT: Head atraumatic, normocephalic. Conjunctivae nonerythematous. Sclerae white. Mouth, no thr ush or edema noted. Ears/Nose, no mass, lesion, discharge noted. Neck: Supple. No JVD, lymph nodes, bruit, thyromegaly noted. Lungs: Bilateral good equal air entry. Clear to auscultation. No rhonchi. No rales. Heart: Normal heart sounds, no murmur or gallop. Abdomen: Soft, bowel sounds normal. No guarding, rigidity, tenderness, mass, hepatosplenomegaly, dis tention, or bruit noted. Extremities: No leg edema. No calf tenderness. Skin: No rash, ulcer, cellulitis. Lymphatics: No lymph node enlargement in neck, supraclavicular, infraclavicular region. Neuro: No focal neurological deficit. Chest: Unremarkable. External Genitalia: Deferred. Rectal: Deferred. Laboratory Data: Upon admission; white count 4, hemoglobin 14.1, platelets 172. Sodium 141, potassi um 3.2, chloride 110, bicarb 25, BUN 10, creatinine 0.61, glucose 86. Liver function tests unremarka ble. This morning; sodium 143, potassium 3, chloride 114, bicarb 23, BUN 7, creatinine 0.52, glucose 107. Liver function tests unremarkable. Urinalysis; 1+ ketones, otherwise negative. Stool occult blood came back positive and stool C diff came back positive. COVID-19 test negative. Stool culture pending. Ova and parasite pending. Hospital Course: After the patient was evaluated, admitted to the hospital. IV fluid was given. Po tassium was corrected with electrolyte replacement protocol and after we received stool test results, she was started on oral vancomycin 125 mg every 6 hours and the patient was subsequently discharged to go home. She is tolerating diet well and she is medically stable for discharge. Final Diagnoses: 1.Clostridium difficile colitis. 2.Hypokalemia. 3.Cervical spondylosis. 4.Overactive bladder. 5.Hyperlipidemia. 6.Vitamin D deficiency. 7.Vitamin B12 deficiency. 8.Osteopenia. Discharge Medications And Instructions: 1.Continue all prior home medications. 2.Vancomycin 125 mg p.o. every 6 hours for 10 days. 3.Follow up at my office next week per instruction. ELBERT/MODL Voice ID: [id number] Report ID: [id number]
== END 2021-08-05 19:46 | disposition home or self-care (01) ==
LOC: ER 10:51 → ERHOLD 16:12 → 2ND 19:47
PROVIDERS: ADMIT Internal Medicine; ATTEND Internal Medicine
DX: A04.72 Enterocolitis due to Clostridium difficile, not specified as recurrent (principal); E87.6 Hypokalemia; M47.812 Spondylosis without myelopathy or radiculopathy, cervical region; N32.81 Overactive bladder; E78.5 Hyperlipidemia, unspecified; E55.9 Vitamin D deficiency, unspecified; E53.8 Deficiency of other specified B group vitamins; M85.80 Other specified disorders of bone density and structure, unspecified site; Z20.822 Contact with and (suspected) exposure to COVID-19; Z85.41 Personal history of malignant neoplasm of cervix uteri; Z85.72 Personal history of non-Hodgkin lymphomas; Z86.711 Personal history of pulmonary embolism; Z82.3 Family history of stroke; Z83.6 Family history of other diseases of the respiratory system; Z82.49 Family history of ischemic heart disease and other diseases of the circulatory system
CPT/HCPCS: 96361; 87045; 85025 ×2; 80048 ×2; 36415 ×2; 83735; 89055; 87177; 82274; 84132; 80061; 82947 ×2; 80076 ×2; 87046; 87209; 81003; 87324; 82553; 82746; 82607; 83690 ×2; 80053; 87449; 87425; 96360; 99285; U0003; J3475; J7030; G0378 ×3

== ENCOUNTER 2022-01-16 12:17 | Emergency (ER) | payer OTHER ==
--- OUTSIDE RECORDS SUMMARY | 2022-01-16 12:21 | XMS REPORT | Continuity of Care Document ---
:1940 Author Organization [facility] t Address [address] [place] [address] Care Team Providers Name Role Phone [phone] Primary Care Physician Unavailable RAMON, A Attending Clinician Unavailable YUNIEL PINEDA Attending Clinician [...] Expiration Date S lorelei MEDICARE PART A [id number] 2007 \T\ B 00:00:00 [employer] INDEMNITY [id number] 2017 00:00:00 MEDICARE A B [id number] 2007 00:00:00 AET[employer] PPO OPEN [facility] [id number] 2017 NAP 00:00:00 MEDICARE PART A [id number] 2007 AND B 00:00:00 [employer] HMO [id number] 2017 00:00:00 Problems This patient has no known problems. Allergies, Adverse Reactions, Alerts Allergy Allergy Status Severity Reaction(s) Onset Inactive Treating Comm ents Source Name Type Date Date Clinician NO KNOWN Drug Active Univers ALLERGIE Class ity of [facility] NO KNOWN Allergy Active [facility] Social History Social Habit Start Date Stop Date Quantity Comments Source Sex Assigned At [facility] Medical Branch Exposure to Not sure [facility] SARS-CoV-2 (event) Medica l Branch Tobacco use and 2020-04-08 2020-04-08 Never used [facility] exposure 00:00:00 00:00:00 Medical Branch Smoking Status Start Date Stop Date Source Unknown if ever smoked [facility] Never smoker [facility] Medications Ordered Filled Start Stop Current Ordering Indication Dosage Frequency Signature Comments Components Source Medication Medication Date Date Medication? Clinician (SIG) Name Name multivitami 2019-06 Yes Take by Un juanjo n with 0-14 mouth. ity of minerals 17:35: [place] (MULTI-VIT 59 Medical 55 PLUS Branch ORAL) mirabegron 2019-06 Yes 25mg Take 25 mg U nivers (MYRBETRIQ 0-14 by mouth. ity of ORAL) 17:35: [place] [address] Medical Branch multivit-mi 2019-06 Yes Take by Un jaunjo n/iron/foli 0-14 mouth. ity of c/lutein 17:35: [place] (CENTRUM 59 Medical SILVER Branch WOMEN ORAL) vitamin B 2019-06 Yes Take by Univ ers complex/fol 0-14 mouth. ity of ic acid (B 17:35: [place] COMPLEX 100 59 Medical ORAL) Branch apixaban 2019-06 Yes Take by [facility] (ELIQUIS 0-14 mouth. ity of ORAL) 17:35: [place] [address] Medical Branch lactated 2019-06 Yes 1000mL at 42 Univer s ringers IV 0-14 mL/hr, ity of infusion 16:45: 1[place]000 [place] 1[place]000 [place] 00 IV Medical Infusion, Branch CONTINUOUS , Starting 04/09/20 at 1145, Until Discontinu ed, Routine, PACU multivitami 2019-06 Yes Take by Un juanjo n with 0-14 mouth. ity of minerals 16:33: [place] (MULTI-VIT 27 Medical 55 PLUS Branch ORAL) mirabegron 2020- Yes 25mg Take 25 mg U nivers (MYRBETRIQ 0-14 by mouth. ity of ORAL) 16:33: [place] [address] Medical Branch multivit-mi 2020- Yes Take by juanjo n/iron/foli 0-14 mouth. ity of c/lutein 16:33: [place] (CENTRUM 27 Medical SILVER Branch WOMEN ORAL) vitamin B 2019- Yes Take by Univ ers complex/fol 0-14 mouth. ity of ic acid (B 16:33: [place] [id number] 27 Medical ORAL) Branch neomycin-po 2020- Yes PRN, Univer s lymyxin-dex 0-14 Starting ity of amethasone 16:22: [facility] (MAXITROL) 00 04/09/20 Medic al 3.5 at 1122, Branch mg/g-10,000 Until unit/g-0.1 Discontinu % ed, ophthalmic Routine, ointment Intra-op gentamicin 2019- Yes PRN, Univers injection 0-14 Starting ity of 16:21: [facility] 04/09/20 Medical at 1121, Branch Until Discontinu ed, NATALYA, Intra-op dexamethaso 2019- Yes PRN, Univer s ne 0-14 Starting ity of (DECADRON 16:21: Tue [place] PHOSPHATE) 00 04/09/20 Medic al injection at 1121, Branch Until Discontinu ed, Routine, Intra-op ceFAZolin 2019- Yes PRN, Univers (ANCEF) 0-14 Starting ity of injection 16:21: [facility] 04/09/20 Medical at 1121, Branch Until Discontinu ed, NATALYA, Intra-op sodium 2019- Yes PRN, Univers chloride 0-14 Starting ity of (NS) 16:18: [facility] injection 00 04/09/20 Medica l at 1118, Branch Until Discontinu ed, Routine, Intra-op EPINEPHrine 2019- Yes PRN, Univer s 1:1,000 (1 0-14 Starting ity o f mg/mL) 16:16: Tue [place] (ADRENALIN) 00 04/09/20 Medi hira injection at 1116, Branch Until Discontinu ed, Routine, Intra-op DUOVISC 2019- Yes PRN, Univers (DUOVISC 0-14 Starting ity of VISCO 16:16: Tue [place] ELASTIC) 3 00 04/09/20 Medic al %-4 %(0.5 at 1116, Branch mL) 1 % Until (0.55 mL) Discontinu intraocular ed, injection Routine, Intra-op carbachoL 2019-06 Yes PRN, Univers (MIOSTAT) 0-14 Starting ity of 0.01 % 16:15: [facility] intraocular 04/09/20 Medi hira injection at 1115, Branch Until Discontinu ed, Routine, Intra-op balanced 2019-06 Yes PRN, Univers salt irrig 0-14 Starting ity o f soln comb1 16:15: [facility] (BSS PLUS) 04/09/20 Medic al ophthalmic at 1115, Branc h solution Until 500 mL bag Discontinu ed, Routine, Intra-op water for 2019-06 Yes PRN, Univers irrigation 0-14 Starting ity o f irrigation 16:09: [facility] solution 04/09/20 Medical at 1109, Branch Until Discontinu ed, Routine, Intra-op Hyaluronida 2019-06 Yes PRN, Univer s se, Human 0-14 Starting ity of Recomb. 16:07: [facility] (HYLENEX) 04/09/20 Medica l injection at 1107, Branch Until Discontinu ed, Routine, Intra-op eye block 2019-06 Yes PRN, Univers syringe 11 0-14 Starting ity o f mL 16:07: [facility] 04/09/20 Medical at 1107, Branch Until Discontinu ed, Intra-op propofoL IV 2019-06- No Intravenou Univers infusion 0-14 10-14 s, ONCE ity of 16:07: 16:30 [facility] 00 :10 PROCEDURE, Medical Starting Branch Tue04/09/20 at 1107, Until Tue04/09/20 at 1130, Routine, Intra-op remifentani 2019-06 2020- No Intravenou Univers L (ULTIVA) 0-14 10-14 s, ONCE ity o f injection 16:07: 16:30 INTRA [place] 00 :10 PROCEDURE, Medical Starting Branch Tue04/09/20 at 1107, Until Tue04/09/20 at 1130, Routine, Intra-op lactated 2019-06 2020- No Intravenou Un juanjo ringers IV 0-14 10-14 s, ity of infusion 16:01: 16:30 [place]UOUS [place] 00 :10 PRN, Medical Starting Branch Tue04/09/20 at 1101, Until 04/09/20 at 1130, Routine, Intra-op mydriatic 2019- 2020- No .5mL 0.5 mL, [facility] ers #5 0-14 10-14 Left Eye, ity of ophthalmic 14:15: 14:05 ONCE, 1 [place] as solution 00 :00 dose, Wed Medica l 0.5 mL 04/09/20 Branch syringe at 0915, Routine lactated 2019- 2020- No 1000mL at 42 [facility] ringers IV 0-14 10-14 mL/hr, ity of infusion 14:15: 14:05 1,000 mL, [place] as 1,000 mL 00 :00 IV Medical Infusion, Branch ONCE, 1 dose, 04/09/20 at 0915, Routine, DSU Pre-op apixaban 2019- Yes Take by [facility] (ELIQUIS 0-14 mouth. ity of ORAL) 13:53: [place] [address] Medical Branch multivitami 2020-0 Yes Take by Un juanjo n with 9-30 mouth. ity of minerals 18:05: [place] (MULTI-VIT 39 Medical 55 PLUS Branch ORAL) mirabegron 2020-0 Yes 25mg Take 25 mg U nivers (MYRBETRIQ 9-30 by mouth. ity of ORAL) 18:05: [place] [address] Medical Branch multivit-mi 2020-0 Yes Take by Un juanjo n/iron/foli 9-30 mouth. ity of c/lutein 18:05: [place] ([facility] 39 Medical SILVER Branch WOMEN ORAL) vitamin B 2020-0 Yes Take by [facility] ers complex/fol 9-30 mouth. ity of ic acid (B 18:05: [place] [id number] Medical ORAL) Branch apixaban 2020-0 Yes Take by Unive rs (ELIQUIS 9-30 mouth. ity of ORAL) 18:05: [place] [address] Medical Branch multivitami 2020-0 Yes Take by Un juanjo n with 9-30 mouth. ity of minerals 18:05: [place] (MULTI-VIT 39 Medical 55 PLUS Branch ORAL) mirabegron 2020-0 Yes 25mg Take 25 mg U nivers (MYRBETRIQ 9-30 by mouth. ity of ORAL) 18:05: [place] [address] Medical Branch multivit-mi 2020-0 Yes Take by Un juanjo n/iron/foli 9-30 mouth. ity of c/lutein 18:05: [place] (CENTRUM 39 Medical SILVER Branch WOMEN ORAL) vitamin B 2020-0 Yes Take by [facility] ers complex/fol 03-26 mouth. ity of ic acid (B 18:05: [facility] 100 39 Medical ORAL) Branch apixaban 2020-0 Yes Take by [facility] (ELIQUIS 03-26 mouth. ity of ORAL) 18:05: [place] [address] Medical Branch lactated 2020-0 Yes 1000mL at 42 [facility] ringers IV 9-30 mL/hr, ity of infusion 18:00: 1,000 [place] 1[place]000 [place] 00 IV Medical Infusion, Branch CONTINUOUS , Starting Tue03/26/20 at 1300, Until Discontinu ed, Routine, PACU neomycin-po 2020-0 Yes PRN, [facility] lymyxin-dex 03-26 Starting ity of amethasone 17:18: Tue [place] (MAXITROL) 03/26/20 at Med ical 3.5 1218, Branch mg/g-10,000 Until unit/g-0.1 Discontinu % ed, ophthalmic Routine, ointment Intra-op gentamicin 2020-0 Yes PRN, Univers injection 03-26 Starting ity of 17:16: Tue [place] 03/26/20 at [facility] 1216, Branch Until Discontinu ed, NATALYA, Intra-op DUOVISC 2020-0 Yes PRN, Univers (DUOVISC 03-26 Starting ity of VISCO 17:16: Tue [place] ELASTIC) 3 03/26/20 at Med ical %-4 %(0.5 1216, Branch mL) 1 % Until (0.55 mL) Discontinu intraocular ed, injection Routine, Intra-op dexamethaso 2020-0 Yes PRN, [facility] ne 03-26 Starting ity of (DECADRON 17:15: Tue [place] PHOSPHATE) 03/26/20 at Med ical injection 1215, Branch Until Discontinu ed, Routine, Intra-op ceFAZolin 2020-0 Yes PRN, Univers (ANCEF) 03-26 Starting ity of injection 17:15: Tue [place] 03/26/20 at [facility] 1215, Branch Until Discontinu ed, NATALYA, Intra-op carbachoL 2020-0 Yes PRN, Univers (MIOSTAT) 03-26 Starting ity of 0.01 % 17:15: Tue intraocular 00 03/26/20 at [place] dical injection 1215, Branch Until Discontinu ed, Routine, Intra-op sodium 2020-0 Yes PRN, Univers chloride 03-26 Starting ity of (NS) 17:15: Tue injection 03/26/20 at [facility] 1215, Branch Until Discontinu ed, Routine, Intra-op EPINEPHrine 2020-0 Yes PRN, Univer s 1:1,000 (1 03-26 Starting ity o f mg/mL) 17:13: Tue (ADRENALIN) 03/26/20 at [place] dical injection 1213, Branch Until Discontinu ed, Routine, Intra-op balanced 2020-0 Yes PRN, Univers salt irrig 03-26 Starting ity o f soln comb1 17:12: Tue (BSS PLUS) 03/26/20 at [facility] ical ophthalmic 1212, Branch solution Until 500 mL bag Discontinu ed, Routine, Intra-op Hyaluronida 2020-0 Yes PRN, Univer s se, Human 03-26 Starting ity of Recomb. 17:01: Tue (HYLENEX) 00 03/26/20 at [facility] injection 1201, Branch Until Discontinu ed, Routine, Intra-op eye block 2020-0 Yes PRN, Univers syringe 11 03-26 Starting ity o f mL 17:01: Tue03/26/20 at [facility] 1201, Branch Until Discontinu ed, Intra-op water for 2020-0 Yes PRN, Univers irrigation 03-26 Starting ity o f irrigation 16:53: Tue solution 03/26/20 at Medic al 1153, Branch Until Discontinu ed, Routine, Intra-op mydriatic 2020-0 2020- No .5mL 0.5 mL, Univ ers #5 03-26 0930 Right Eye, ity of ophthalmic 16:00: 15:17 ONCE, 1 [place] as solution 00 :00 dose, Tue Medica l 0.5 mL 03/26/20 at [place] syringe 1100, Routine, DSU Pre-op lactated 2020-0 2020- No 500mL at 50 Univer s ringers IV 03-26 09-30 mL/hr, 500 it y of infusion 15:15: 15:17 mL, IV [place] 500 mL 00 :00 Infusion, [facility] ONCE, 1 Branch dose, 03/26/20 at 1015, Routine, DSU Pre-op multivitami 2020-0 Yes Take by Un juanjo n with 03-24 mouth. ity of minerals 14:01: [place] (MULTI-VIT 42 Medical 55 PLUS Branch ORAL) mirabegron 2020-0 Yes 25mg Take 25 mg U nivers (MYRBETRIQ 03-24 by mouth. ity of ORAL) 14:01: [address] multivit-mi 2020-0 Yes Take by Un juanjo n/iron/foli 03-24 mouth. ity of c/lutein 14:01: [place] (CENTRUM Medical SILVER Branch WOMEN ORAL) vitamin B 2020-0 Yes Take by [facility] ers complex/fol 03-24 mouth. ity of ic acid (B 14:01: [place] [address] Medical ORAL) Branch apixaban 2019-0 Yes Take by [facility] rs (ELIQUIS 03-24 mouth. ity of ORAL) 14:01: [address] Vital Signs Vital Name Observation Time Observation Value Comments Source HEIGHT 2020-08-30 20:00:00 165.1 cm WEIGHT 2020-08-30 20:00:00 63.504 kg HEIGHT 2020-08-30 20:00:00 165.1 cm WEIGHT 2020-08-30 20:00:00 63.504 kg Systolic blood 2020-04-09 16:34:00 149 mm[Hg] [facility] sity of pressure [facility] Diastolic blood 2020-04-09 16:34:00 73 mm[Hg] [facility] rsity of pressure [facility] Heart rate 2020-04-09 16:34:00 83 /min [facility] Respiratory rate 2020-04-09 16:34:00 16 /min [facility] Oxygen saturation in 2020-04-09 16:34:00 100 /min [facility] Arterial blood by [facility] Pulse oximetry Branch Body temperature 2020-04-09 13:53:00 36.5 Carolee [facility] Body height 2020-04-08 14:45:00 165.1 cm [facility] Body weight 2020-04-08 14:45:00 63.504 kg [facility] BMI 2020-04-08 14:45:00 23.30 kg/m2 [facility] Systolic blood 2020-04-09 16:34:00 149 mm[Hg] Univer sity of pressure [place] [facility] Diastolic blood 2020-04-09 16:34:00 73 mm[Hg] Unive rsity of pressure [place] [facility] Heart rate 2020-04-09 16:34:00 83 /min [facility] [place] [facility] Respiratory rate 2020-04-09 16:34:00 16 /min Univ ersity of [place] [facility] Oxygen saturation in 2020-04-09 16:34:00 100 /min University of Arterial blood by [facility] Pulse oximetry Branch Body temperature 2020-04-09 13:53:00 36.5 Carolee Univ ersity of [place] [facility] Body height 2020-04-08 14:45:00 165.1 cm [facility] [place] [facility] Body weight 2020-04-08 14:45:00 63.504 kg [facility] [place] [facility] BMI 2020-04-08 14:45:00 23.30 kg/m2 [facility] [place] [facility] Respiratory rate 2020-04-09 16:29:00 16 /min Univ ersity of [place] [facility] Respiratory rate 2020-04-09 16:29:00 16 /min Univ ersity of [place] [facility] Systolic blood 2020-03-26 17:40:00 159 mm[Hg] Univer sity of pressure [place] [facility] Diastolic blood 2020-03-26 17:40:00 72 mm[Hg] Unive rsity of pressure [place] [facility] Heart rate 2020-03-26 17:40:00 75 /min [facility] [place] [facility] Body temperature 2020-03-26 17:40:00 36.72 Carolee Univ ersity of [place] [facility] Respiratory rate 2020-03-26 17:40:00 19 /min Univ ersity of [place] [facility] Oxygen saturation in 2020-03-26 17:40:00 94 /min University of Arterial blood by [facility] Pulse oximetry Branch Body height 2020-03-24 17:16:00 165.1 cm [facility] [place] [facility] Body weight 2020-03-24 17:16:00 64.9 kg [facility] [place] [facility] BMI 2020-03-24 17:16:00 23.81 kg/m2 [facility] [place] [facility] Systolic blood 2020-03-26 17:40:00 159 mm[Hg] Univer sity of pressure [facility] Diastolic blood 2020-03-26 17:40:00 72 mm[Hg] Unive rsity of pressure [facility] Heart rate 2020-03-26 17:40:00 75 /min [facility] Body temperature 2020-03-26 17:40:00 36.72 Carolee [facility] 2020-03-26 17:40:00 19 /min [facility] Oxygen saturation in 2020-03-26 17:40:00 94 /min [facility] blood by [facility] Pulse oximetry Branch Body height 2020-03-24 17:16:00 165.1 cm [facility] Body weight 2020-03-24 17:16:00 64.9 kg [facility] BMI 2020-03-24 17:16:00 23.81 kg/m2 [facility] Procedures Procedure Date / Time Performed Performing Clinician [facility] e CONSENT/REFUSAL FOR 2020-04-08 14:22:30 Doctor Unassigned, No [facility] DIAGNOSIS AND [facility] TREATMENT ASSIGNMENT OF BENEFITS 2020-04-08 14:22:09 Doctor Unassigned, No [facility] Encounters Start End Encounter Admission Attending Care Care Encounter Source Date/Time Date/Time Type Type Clinicians Facility Department ID 2021-04-24 Outpatient Rakesh NAVARRO NDRACHEL YURI [id number] Univers 21:41:39 [facility] 2021-04-24 Outpatient Rakesh NAVARRO [facility] YURI [id number] Univers 19:27:16 [facility] 2020-08-30 Inpatient UR ILAN PINEDA Neurology [id number] [facility] 18:01:00 AMADOU 2021-03-04 2021-03-04 Outpatient ALEKSANDRA CARVAJAL MDA MDA [id number] 14:50:37 23:59:00 MARYANNE madrigal 2020-08-01 2020-08-01 Outpatient [facility] [id number] [place] 00:00:00 00:00:[address] 2020-07-11 2020-07-11 Outpatient [facility] [id number] [place] 00:00:00 00:00:[address] 2020-04-09 2020-04-09 [facility] [id number] [facility] 08:52:00 12:00:00 Encounter Francis Rodrigueston [id number] ity [place] [id number] [facility] [address] [place] [address] 2020-04-09 2020-04-09 [facility] [id number] 08:52:00 12:00:00 Encounter Francis Rodrigueston [id number] [place] 4.2.7.2.686 Surgical [id number] [place] [address] 2020-04-09 2020-04-09 Anesthesia Shankar Resendez [facility] [id number] [facility] 10:58:00 11:30:00 Leandra Duarte [place] [id number] ity [place] 4[place] [id number] [address] 2020-04-09 2020-04-09 Anesthesia Shankar Resendez [facility] [id number] 10:58:00 11:30:00 Leandra Duarte [place] [id number] [place] 4.2.7.2.686 Surgical [id number] [place] [address] 2020-04-08 2020-04-08 Laboratory Only, [facility] Test [facility] 1.2.840. 114 [id number] [facility] 09:19:46 09:34:46 Only Francis Navarroton 350.1.13.1 0 [place] [id number] [address] 2020-04-08 2020-04-08 Laboratory Only, [facility] [id number] 09:19:46 09:34:46 Only Test [place] [id number] [place] 4.2.7.2.686 [place] [id number] [facility] 2020-04-08 2020-04-08 Outpatient R [facility] [id number] Univers 09:30:00 09:30:00 [id number] ity [facility] 2020-04-08 2020-04-08 [facility] [id number] Univers 09:30:00 09:30:00 FRANCIS ity [facility] 2020-03-26 2020-03-26 [facility] [id number] Univers 10:02:00 13:05:00 Encounter Francis Mercedes Abraham [id number] [place] [id number] Med ical [address] 2020-03-26 2020-03-26 [facility] [id number] 10:02:00 13:05:00 Encounter Francis Abraham [id number] [place] 4.2.7.2.686 Surgical [id number] [place] [address] 2020-03-25 2020-03-25 [facility] [id number] Univers 09:45:00 09:45:00 FRANCIS [id number] ity [facility] 2020-03-25 2020-03-25 [facility] [id number] Univers 09:45:00 09:45:00 [facility] 2020-03-[facility] 2020-03-25 Laboratory Only, [facility] Test [facility] 1.2.840. 114 [id number] Univers 08:51:16 09:06:16 Only Ramon Francis Mercedes Abraham 350.1.13.1 0 [place] 4[place].7.2.[place] [id number] [address] 2020-03-25 2020-03-25 Laboratory Only, [facility] 1.2.840.114 [id number] 08:51:16 09:06:16 Only Test [place] 350.1.13.10 [place] 4.2.7.2.686 [place] [id number] [facility] 2020-03-21 2020-03-21 [employer] [place], [facility] Lab Main [facility] [id number] Univers 11:34:14 11:49:14 Visit Francis Navarro 350.1.13.1 0 [place] Profess[place] [id number] Az dical [address] 2020-03-21 2020-03-21 [employer] [place] Alex [facility] 1.2.840.114 [id number] 11:34:14 11:49:14 Visit Lab Main Leigh 350.1.13.10 [place] 4.2.7.2.686 jarrettmatthew [id number] [address] 2020-03-21 2020-03-21 Outpatient R RAMON [facility] [id number] Univers 10:15:00 10:15:00 FRANCIS villegas [facility] Results Test Description Test Time Test [...] NOT 1092) ACCURATE CRE ATININE CLEARANCE IN [place] EDICTING GLOMERULAR FILT RATION RATE. ESTIMATED GFR IS NOT APPLICABLE FOR DIALYSIS PATIENTS. Technical Administrator ID - [id number] 06:03:00 Test Item Value Reference Range Interpretation Comments MAGNESIUM (BEAKER) (test code = 2.2 mg/dL 1.6-2.6 627) Technical Administrator ID - [id number] 06:03:00 Test Item Value Reference Range Interpretation Comments PHOSPHORUS (BEAKER) (test code = 3.5 mg/dL 2.3-4.7 604) Technical Administrator ID - ASCBC (HEMOGRAM ONLY)2020-09-03 05:19:00 Test [...] (BEAKER) (test code = 413) BASIC METABOLIC [id number] 06:11:00 Test Item Value Reference Range Interpretation [...] S NOT APPLICABLE FOR DIALYSIS PATIEN TS. Technical Administrator ID - [id number] 06:11:00 Test Item Value Reference Range Interpretation Comments MAGNESIUM (BEAKER) (test code = 2.2 mg/dL 1.6-2.6 627) Technical Administrator ID - [id number] 06:11:00 Test Item Value Reference Range Interpretation Comments PHOSPHORUS (BEAKER) (test code = 3.4 mg/dL 2.3-4.7 604) Technical Administrator ID - ADMINCBC (HEMOGRAM ONLY)2020-09-02 05:28:00 Test [...] (test code = 413) C. DIFFICILE [facility] [id number] 10:27:00 Test Item Value Reference Range Interpretation Comments CDT TOXIN (test code Negative Negative = [id number]) CDT [facility] ANTIGEN (test Positive Negative A No ind ication of code = 5830208431) Clostridi um difficile infection and n o [...] MEDICAL CENTER Microbiology Lab prior to clinical use.[id number] 05:55:00 Test Item Value Reference Range Interpretation Comments MAGNESIUM (BEAKER) 2.3 mg/dL 1.6-2.6 Specimen slightly (test code = 627) hemolyzed Technical Administrator ID - [id number] 05:55:00 Test Item Value Reference Range Interpretation Comments PHOSPHORUS (BEAKER) 3.7 mg/dL 2.3-4.7 Specimen slightly (test code = 604) hemolyzed Technical Administrator ID - DBBASIC METABOLIC [id number] 05:55:00 Test Item Value Reference Range Interpretation [...] S NOT APPLICABLE FOR DIALYSIS PATIEN TS. Technical Administrator ID - DBCBC (HEMOGRAM ONLY)2020-09-01 05:35:00 Test [...] 0-0 (BEAKER) (test code = 413) SARS-COV2/RT-PCR ([facility])2020-08-31 18:16:00 Test Item Value Reference Range Interpretation Comments SARS-COV2/RT-PCR (test Negative Not Detected, Negative, code = 7688823) See external report for linked test SARS-COV-2 PERFORMING LAB [facility] (test code = 3870732) Negative result for this test determines that [...] 564(g) of the Act.Fact Sheet for Healthcare Providers:https://www.[employer]/sites/default/files/product/documents/Fact_Shee u_OA_Upxxtpmaa_Xugg_KBHA-OxW-7.pdfFact Sheet for Healthcare Patients:https://www.[employer]/sites/default/files/product/ documents/Uaks_Ovgjd_Affqdtrx_Yfzv_MNQO-KpZ-5.pdfPerforming Laboratory:[facility], [place] [address]H[facility], SPINE, CERVICAL, 2 OR 3 [id number] 09:36:00Standing flex -extReason for exam:->[facility] 1940 Sex: FFINAL REPORT TECHNIQUE: Four views of the cervical spine HISTORY: Myelomalcia. COMPARISON: None. IMPRESSION:Straightening of the cervical spine with scattered facet arthropathy and mild joint space narrowing.There is radiculopathy recommend MRI.No acute displaced fractureor dislocation. No acute soft tissue abnormality. Signed: Giacomo Prasad MDReport Verified Date/Time: 08/31/2020 09:36:18 Reading Location: [address] Consult Reading Room MIN B12 AND [id number] 07:03:00 Test Item Value Reference Range Interpretation Comments VITAMIN B12 > pg/mL 213-816 H (BEAKER) (test code = 774) FOLATE (BEAKER) 29.10 ng/mL See_Comment [Automated message] (test code = 362) The system which generated this result transmitted ref erence range: >=7.00. The reference range was not used to interpr et this result as normal/abnormal . Technical Administrator ID - EDASIOperator ID - EDASITSH/FREE T4 IF [id number] 06:57:00 Test Item Value Reference Range Interpretation Comments THYROID STIMULATING HORMONE 1.985 uIU/mL 0.350-4.940 (BEAKER) (test code = 772) Technical Administrator ID - [id number] 05:38:00 Test Item Value Reference Range Interpretation Comments MAGNESIUM (BEAKER) (test code = 2.1 mg/dL 1.6-2.6 627) Technical Administrator ID - [id number] 05:38:00 Test Item Value Reference Range Interpretation Comments PHOSPHORUS (BEAKER) (test code = 2.8 mg/dL 2.3-4.7 604) Technical Administrator ID - EDASIBASIC METABOLIC [id number] 05:38:00 Test Item Value Reference Range Interpretation [...] S NOT APPLICABLE FOR DIALYSIS PATIEN TS. Technical Administrator ID - [id number] [id number] 05:26:00 Test Item Value Reference Range Interpretation Comments PROTIME (BEAKER) 14.3 seconds 11.9-14.2 H (test code = 759) INR (BEAKER) (test 1.15 See_Comment [Automat ed message] code = 370) The system [employer] generated this result transmitted ref erence range: [...] (BEAKER) (test code = 413) COMPREHENSIVE METABOLIC [id number] 19:11:00 Test Item Value Reference Range Interpretation [...] S NOT APPLICABLE FOR DIALYSIS PATIEN TS. Technical Administrator ID - [id number] 19:11:00 Test Item Value Reference Range Interpretation Comments MAGNESIUM (BEAKER) (test code = 2.1 mg/dL 1.6-2.6 627) Technical Administrator ID - [id number] 19:11:00 Test Item Value Reference Range Interpretation Comments PHOSPHORUS (BEAKER) (test code = 2.8 mg/dL 2.3-4.7 604) Technical Administrator ID - DBCBC W/PLT COUNT & AUTO [id number] 18:46:00 Test Item Value Reference Range Interpretation [...] % 0-1 PERCENT (BEAKER) (test code = 6101)
--- NOTE | 2022-01-16 12:46 | EDPHYS ---
Physician Documentation [facility] Name: Fredis Diaz Age: 81 yrs Sex: Female : 1940 Arrival Date: 01/16/2022 Time: 12:20 Bed 10 Private MD: Mercedes Jones C ED Physician Yamilet Day HPI: 01/16 12:31 This 81 yrs old Female presents to ER via Ambulatory with complaints of Redness of Eye. sd2 12:31 81 yo F presents with CC of bilateral eye redness and watering that started over the sd2 last 2 days. Pt has had a recent viral illness with cough and congestion and reports that has improved since she was seen by her PCP for it and has been on Tessalon and an antibiotic orally. She denies any fever, CP, SOB but does endorse some associated itching and mild swelling to her lids that she has noted occasionally. Occasional yellow discharge as well without matting. . No significant changes to vision.. Historical: - Allergies: 12:27 No Known Allergies; vg1 - Home Meds: 12:27 cranberry Oral [Active]; vitamins [Active]; triamterene-hydrochlorothiazid 37.5-25 mg vg1 Oral cap 1 cap once daily [Active]; - PMHx: 12:27 22 YRS AGO HAD CERVIAL CANCER; EDEMA TO LOWER EXTS; LYMPHOMA; vg1 - Immunization history:: Client reports receiving the 2nd dose of the Covid vaccine. - Social history:: Smoking status: Patient denies any tobacco usage or history of. ROS: 12:31 Constitutional: Negative for fever, chills, and weight loss, Eyes: Negative for injury, sd2 pain. Positive for redness, watering and discharge. ENT: Negative for injury, pain, and discharge, Neck: Negative for injury, pain, and swelling, Skin: Negative for injury, rash, and discoloration, Neuro: Negative for headache, numbness and tingling. Exam: 12:31 Constitutional: This is a well developed, well nourished patient who is awake, alert, sd2 and in no acute distress. Head/Face: Normocephalic, atraumatic. Eyes: EOMI, PERRL, conjunctival injection bilaterally R>L with associated watering of the eyes, no pain with EOM ENT: Nares patent. No nasal discharge, no septal abnormalities noted. Mucous membranes moist. Skin: Warm, dry with normal turgor. Normal color with no rashes and no evidence of cellulitis. Band-Aid noted over nasal bridge where patient reports she has a cancerous lesion that is to be removed soon. Neuro: Awake and alert, GCS 15, oriented to person, place, time, and situation. Cranial nerves II-XII grossly intact. Motor strength 5/5 in all extremities. Sensory grossly intact. Cerebellar exam normal. Normal gait. 12:31 Neuro: Awake and alert, GCS 15, oriented to person, place, time, and situation. sd2 Vital Signs: 12:25 BP 152 / 76; Pulse 80; Resp 16; Temp 98.8(TE); Pulse Ox 99% on R/A; Weight 58.97 kg; vg1 Pain 0/10; MDM: 12:31 Patient medically screened. sd2 12:31 Differential diagnosis: Corneal abrasion of Corneal ulcer of Foreign body in Acute sd2 iritis of Acute glaucoma in Allergic conjunctivitis in both eyes. Infectious conjunctivitis in both eyes. among others. Data reviewed: vital signs, nurses notes. Counseling: I had a detailed discussion with the patient and/or guardian regarding: the historical points, exam findings, and any diagnostic results supporting the discharge/admit diagnosis, the need for outpatient follow up, a family practitioner, to return to the emergency department if symptoms worsen or persist or if there are any questions or concerns that arise at home. Medical screen evaluation completed. [facility] emergency medical condition absent. Administered Medications: No medications were administered Disposition Summary: 01/16/22 12:46 Discharge Ordered Location: Home sd2 Problem: new sd2 Symptoms: are unchanged sd2 Condition: Stable sd2 Diagnosis - Unspecified acute conjunctivitis, bilateral sd2 Followup: sd2 - With: Mercedes Jones MD - When: 2 - 3 days - Reason: Recheck today's complaints, Continuance of care, Re-evaluation by your physician Followup: sd2 - With: Emergency Department - When: As needed - Reason: Discharge Instructions: - Discharge Summary Sheet sd2 - Allergic Conjunctivitis, Adult sd2 - How to Use Eye Drops and Eye Ointments sd2 - Viral Conjunctivitis, Adult sd2 Forms: - Medication Reconciliation Form sd2 - Thank You Letter sd2 - Antibiotic Education sd2 - Prescription Opioid Use sd2 Signatures: Cecily Elizalde, RN RN vg1 Yamilet Day sd2
--- NOTE | 2022-01-16 12:46 | ER ---
Nurse's Notes [facility] Name: Fredis Diaz Age: 81 yrs Sex: Female : 1940 Arrival Date: 01/16/2022 Time: 12:20 Bed 10 Private MD: Mercedes Jones C Diagnosis: Unspecified acute conjunctivitis, bilateral Presentation: 01/16 12:25 Chief complaint: Patient states: sore throat on Tuesday and saw DR Jones on Tuesday vg1 and was prescribed Amox/Clav and Enzonatate. Pt is concerned of redness of JANET eyes and drainage. Coronavirus screen: Vaccine status: Patient reports receiving the 2nd dose of the covid vaccine. Client denies travel out of the [place] in the last 14 days. Ebola Screen: Patient denies exposure to infectious person. Patient denies travel to an Ebola-affected area in the 21 days before illness onset. Initial Sepsis Screen: Does the patient meet any 2 criteria? No. Patient's initial sepsis screen is negative. Does the patient have a suspected source of infection? No. Patient's initial sepsis screen is negative. Risk Assessment: Do you want to hurt yourself or someone else? Patient reports no desire to harm self or others. Onset of symptoms was January 12, 2022. 12:25 Method Of Arrival: Ambulatory vg1 12:25 Acuity: JOSE 4 vg1 Triage Assessment: 12:27 General: Appears comfortable, Behavior is calm, cooperative. Pain: Denies pain. EENT: vg1 Eyes are tearing on inner aspect of conjuctiva of right eye and inner aspect of conjunctiva of left eye Sclera/Cornea are reddened in inner aspect of conjuctiva of right eye and inner aspect of conjunctiva of left eye. Historical: - Allergies: 12:27 No Known Allergies; vg1 - Home Meds: 12:27 cranberry Oral [Active]; vitamins [Active]; triamterene-hydrochlorothiazid 37.5-25 mg vg1 Oral cap 1 cap once daily [Active]; - PMHx: 12:27 22 YRS AGO HAD CERVIAL CANCER; EDEMA TO LOWER EXTS; LYMPHOMA; vg1 - Immunization history:: Client reports receiving the 2nd dose of the Covid vaccine. - Social history:: Smoking status: Patient denies any tobacco usage or history of. Screenin:35 Abuse screen: Denies threats or abuse. Nutritional screening: No deficits noted. 1 Tuberculosis screening: No symptoms or risk factors identified. Fall Risk None identified. Assessment: 12:35 Reassessment: No changes from previously documented assessment. [facility] Vital Signs: 12:25 BP 152 / 76; Pulse 80; Resp 16; Temp 98.8(TE); Pulse Ox 99% on R/A; Weight 58.97 kg; vg1 Pain 0/10; ED Course: 12:20 Patient arrived in ED. mr 12:20 Mercedes Jones MD is Private Physician. mr 12:27 Triage completed. vg1 12:27 Arm band placed on. vg1 12:31 Yamilet Day is Attending Physician. sd2 12:35 Darlene Conteh, FABY is Primary Nurse. bh1 12:35 No apparent distress. Resting quietly. 1 12:35 Patient has correct armband on for positive identification. Bed in low position. Call [facility] light in reach. 12:35 No provider procedures requiring assistance completed. Patient did not have IV access [facility] during this emergency room visit. 12:45 Mercedes Jones MD is Referral Physician. sd2 Administered Medications: No medications were administered Medication: 12:35 VIS not applicable for this client. [facility] Outcome: 12:46 Discharge ordered by MD. sd2 12:52 Discharged to home ambulatory. 1 12:52 Condition: good 12:52 Discharge instructions given to patient, Instructed on discharge instructions, follow up and referral plans. Demonstrated understanding of instructions, follow-up care, Prescriptions given X 12:53 Patient left the ED. [facility] Signatures: Sunita Mullen Victoria, RN RN 1 Yamilet Day al2 Darlene Conteh, FABY RN [facility]
[2022-01-16 12:57] VITALS: BP 152/76; TEMP 98.8; O2SAT 99
== END 2022-01-16 12:53 | disposition home or self-care (01) ==
LOC: ER 12:17
DX: H10.33 Unspecified acute conjunctivitis, bilateral (principal)
CPT/HCPCS: 99282

== ENCOUNTER 2023-01-15 21:08 | Inpatient (IN) | payer OTHER ==
--- OUTSIDE RECORDS SUMMARY | 2023-01-15 21:13 | XMS REPORT | Continuity of Care Document ---
:1940 Author Organization [facility] t Address [address] [place] [address] [address] [place] [address] Care Team Providers Name Role Phone [phone] Primary Care Physician Unavailable FRANCIS NAVARRO Attending Clinician Unavailable AMADOU PINEDA Attending Clinician Unavailable Bautista Attending Clinician Unavailable YOHAN WALLACE Attending Clinician Unavailable MARYANNE CARVAJAL Attending Clinician Unavailable Farncis Navarro MD Attending Clinician Shankar Resendez CRNA Attending Clinician Leandra Duarte MD Attending Clinician Only, Adc Test Attending Clinician Unavailable Pob, Adc Lab Main Attending Clinician Unavailable FRANCIS NAVARRO Admitting Clinician Unavailable AMADOU PINEDA Admitting Clinician Unavailable Bautista Admitting Clinician Unavailable TOBI LEAHY Admitting Clinician Unavailable Francis Navarro MD Admitting Clinician Payers Payer Name Policy Type Policy Number Effective Date Expiration Date S lorelei MEDICARE PART A \T\ [id number] 2007 B 00:00:00 [employer] INDEMNITY [id number] 2017 00:00:00 MEDICARE A B [id number] 2007 00:00:00 AET[employer] PPO OPEN [facility] [id number] 2017 NAP 00:00:00 [employer] (MEDICARE [id number] 2022 REPLACEMENT PPO) 00:00:00 [employer] MEDICARE PPO [id number] 2022 00:00:00 MEDICARE PART A AND [id number] 2007 B 00:00:00 [employer]ET[employer] HMO [id number] 2017 00:00:00 MEDIC[place] B-[place]: [id number] 2007 [employer] 00:00:00 [employer] (POS) [id number] 2013 00:00:00 Problems Condition Condition Condition Status Onset Resolution Last Treating Co mments Source Name Details Category Date Date Treatment Clinician Date 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) Lymphoma Lymphoma Disease Active [facility] di of of 08-04 st intrathora intrathora 00:00: Ho spita cic lymph cic lymph 00 l nodes nodes Nontraumat Nontraumat Disease Active M ethodi ic ic 07-28 compressio compressio 00:00: Ho spita n fracture n fracture 00 l of T8 of T8 vertebra vertebra Allergies, Adverse Reactions, Alerts Allergy Allergy Status Severity Reaction(s) Onset Inactive Treating Comm ents Source Name Type Date Date Clinician NO KNOWN Drug Active Univers ALLERGIE Class ity of [facility] NO KNOWN Allergy Active [facility] Family History Family Member Diagnosis Comments Start Date Stop Date Source Natural brother Hypertension [facility] Natural father Asthma [facility] Natural mother Diabetes [facility] Social History Social Habit Start Date Stop Date Quantity Comments Source Exposure to Not sure University of SARS-CoV-2 (event) [facility] Gender identity [facility] Sexual orientation [facility] Tobacco use and 2020-04-08 2020-04-08 Never used Universit y of exposure 00:00:00 00:00:00 [facility] History of Social 2019-02-12 2019-02-[address] function 00:00:00 00:00:00 Hospital Alcohol intake 2018-07-31 2018-07-31 Current [facility] 00:00:00 00:00:00 non-drinker of Hospital alcohol (finding) Sex Ass[birth year] At [birth year] [facility] 00:00:00 00:00:00 Hospital Smoking Status Start Date Stop Date Source Unknown if ever smoked Universit y [facility] Never smoker [facility] Branch Medications Ordered Filled Start Stop Current Ordering Indication Dosage Frequency Signature Comments Components Source Medication Medication Date Date Medication? Clinician (SIG) Name Name multivitami 2019-06 Yes Take by Uni vers n with 0-14 mouth. ity of minerals 17:35: [place] (MULTI-VIT 59 Medical 55 PLUS Branch ORAL) mirabegron 2019-06 Yes 25mg Take 25 mg U nivers (MYRBETRIQ 0-14 by mouth. ity of ORAL) 17:35: [place] [address] Medical Branch multivit-mi 2019-06 Yes Take by Uni vers n/iron/foli 0-14 mouth. ity of c/lutein 17:35: [place] ([facility] 59 Medical SILVER Branch WOMEN ORAL) vitamin B 2019-06 Yes Take by Unive rs complex/fol 0-14 mouth. ity of ic acid (B 17:35: [facility] 100 59 Medical ORAL) Branch apixaban 2019-06 Yes Take by Univer s (ELIQUIS 0-14 mouth. ity of ORAL) 17:35: [place] [address] Medical Branch lactated 2019-06 Yes 1000mL at 42 Univer s ringers IV 0-14 mL/hr, ity of infusion 16:45: 1,000 [place] 1[place]000 [place] 00 IV Medical Infusion, Branch CONTINUOUS , Starting Tue04/09/20 at 1145, Until Discontinu ed, Routine, PACU multivitami 2019-06 Yes Take by Uni vers n with 0-14 mouth. ity of minerals 16:33: [place] (MULTI-VIT 27 Medical 55 PLUS Branch ORAL) mirabegron 2019-06 Yes 25mg Take 25 mg U nivers (MYRBETRIQ 0-14 by mouth. ity of ORAL) 16:33: [address] Branch multivit-mi 2019- Yes Take by Uni vers n/iron/foli 0-14 mouth. ity of c/lutein 16:33: [place] ([facility] 27 [facility] SILVER Branch WOMEN ORAL) vitamin B 2019- Yes Take by Unive rs complex/fol 0-14 mouth. ity of ic acid (B 16:33: [facility] 100 27 Medical ORAL) Branch neomycin-po 2020- Yes PRN, [facility] s lymyxin-dex 0-14 Starting ity of amethasone 16:22: Tue [place] (MAXITROL) 00 04/09/20 Medic al 3.5 at 1122, Branch mg/g-10,000 Until unit/g-0.1 Discontinu % ed, ophthalmic Routine, ointment Intra-op gentamicin 2019-06 Yes PRN, Univers injection 0-14 Starting ity of 16:21: Tue [place] 04/09/20 Medical at 1121, Branch Until Discontinu ed, NATALYA, Intra-op dexamethaso 2019-06 Yes PRN, [facility] ne 0-14 Starting ity of (DECADRON 16:21: Tue [place] PHOSPHATE) 00 04/09/20 Medic al injection at 1121, Branch Until Discontinu ed, Routine, Intra-op ceFAZolin 2019-06 Yes PRN, Univers (ANCEF) 0-14 Starting ity of injection 16:21: Tue [place] 00 04/09/20 Medical at 1121, Branch Until Discontinu ed, NATALYA, Intra-op sodium 2019-06 Yes PRN, Univers chloride 0-14 Starting ity of (NS) 16:18: Tue [place] injection 00 04/09/20 Medica l at 1118, Branch Until Discontinu ed, Routine, Intra-op EPINEPHrine 2019-06 Yes PRN, [facility] s 1:1,000 (1 0-14 Starting ity o f mg/mL) 16:16: Tue [place] (ADRENALIN) 00 04/09/20 Medi hira injection at 1116, Branch Until Discontinu ed, Routine, Intra-op DUOVISC 2019-06 Yes PRN, Univers (DUOVISC 0-14 Starting ity of VISCO 16:16: Tue [place] ELASTIC) 3 00 04/09/20 Medic al %-4 %(0.5 at 1116, Branch mL) 1 % Until (0.55 mL) Discontinu intraocular ed, injection Routine, Intra-op carbachoL 2019-06 Yes PRN, Univers (MIOSTAT) 0-14 Starting ity of 0.01 % 16:15: Tue [place] intraocular 00 04/09/20 Medi hira injection at 1115, Branch Until Discontinu ed, Routine, Intra-op balanced 2019-06 Yes PRN, Univers salt irrig 0-14 Starting ity o f soln comb1 16:15: Tue [place] (BSS PLUS) 04/09/20 Medic al ophthalmic at 1115, Branc h solution Until 500 mL bag Discontinu ed, Routine, Intra-op water for 2019-06 Yes PRN, Univers irrigation 0-14 Starting ity o f irrigation 16:09: Tue [place] solution 04/09/20 Medical at 1109, Branch Until Discontinu ed, Routine, Intra-op Hyaluronida 2019-06 Yes PRN, Univer s se, Human 0-14 Starting ity of Recomb. 16:07: Tue [place] (HYLENEX) 04/09/20 Medica l injection at 1107, Branch Until Discontinu ed, Routine, Intra-op eye block 2019-06 Yes PRN, Univers syringe 11 0-14 Starting ity o f mL 16:07: [facility] 04/09/20 Medical at 1107, Branch Until Discontinu ed, Intra-op propofoL IV 2019-06 2020- No Intravenou Univers infusion 0-14 10-14 s, ONCE ity of 16:07: 16:30 [facility] [place] 00 :10 PROCEDURE, Medical Starting Branch Tue04/09/20 at 1107, Until Tue04/09/20 at 1130, Routine, Intra-op remifentani 2019-06 2020- No Intravenou Univers L (ULTIVA) 0-14 10-14 s, ONCE ity o f injection 16:07: 16:30 [facility] 00 :10 PROCEDURE, Medical Starting Branch Tue04/09/20 at 1107, Until Tue04/09/20 at 1130, Routine, Intra-op lactated 2019-06 2020- No Intravenou Un juanjo ringers IV 0-14 10-14 s, ity of infusion 16:01: 16:[place] PRN, Medical Starting Branch Tue04/09/20 at 1101, Until Tue04/09/20 at 1130, Routine, Intra-op mydriatic 2019-06 2020- No .5mL 0.5 mL, Univ ers #5 0-14 10-14 Left Eye, ity of ophthalmic 14:15: 14:05 ONCE, 1 [place] solution 00 :00 dose, Tue Medica l 0.5 mL 04/09/20 Branch syringe at 0915, Routine lactated 2019-06 2020- No 1000mL at 42 Unive rs ringers IV 0-14 10-14 mL/hr, ity of infusion 14:15: 14:05 1,000 mL, [place] 1,000 mL 00 :00 IV Medical Infusion, Branch ONCE, 1 dose, 04/09/20 at 0915, Routine, DSU Pre-op apixaban 2020-1 Yes Take by Univer s (ELIQUIS 0-14 mouth. ity of ORAL) 13:53: [address] Branch multivitami 2020-0 Yes Take by Uni vers n with 9-30 mouth. ity of minerals 18:05: [place] (MULTI-VIT 39 Medical 55 PLUS Branch ORAL) mirabegron 2020-0 Yes 25mg Take 25 mg U nivers (MYRBETRIQ 9-30 by mouth. ity of ORAL) 18:05: [address] Branch multivit-mi 2020-0 Yes Take by Uni vers n/iron/foli 9-30 mouth. ity of c/lutein 18:05: [place] ([place] [address] Medical SILVER Branch WOMEN ORAL) vitamin B 2020-0 Yes Take by Unive rs complex/fol 9-30 mouth. ity of ic acid (B 18:05: [facility] 100 39 Medical ORAL) Branch apixaban 2020-0 Yes Take by Univer s (ELIQUIS 9-30 mouth. ity of ORAL) 18:05: [address] multivitami 2020-0 Yes Take by Uni vers n with 9-30 mouth. ity of minerals 18:05: [place] (MULTI-VIT 39 Medical 55 PLUS Branch ORAL) mirabegron 2020-0 Yes 25mg Take 25 mg U nivers (MYRBETRIQ 9-30 by mouth. ity of ORAL) 18:05: [address] multivit-mi 2020-0 Yes Take by Uni vers n/iron/foli 9-30 mouth. ity of c/lutein 18:05: [place] ([place] [address] Medical SILVER Branch WOMEN ORAL) vitamin B 2020-0 Yes Take by Unive rs complex/fol 9-30 mouth. ity of ic acid (B 18:05: [facility] 100 39 Medical ORAL) Branch apixaban 2020-0 Yes Take by Univer s (ELIQUIS 9-30 mouth. ity of ORAL) 18:05: [address] Branch lactated 2020-0 Yes 1000mL at 42 Univer s ringers IV 9-30 mL/hr, ity of infusion 18:00: 1,000 mL, [place] 1[place]000 mL 00 IV Medical Infusion, Branch CONTINUOUS , Starting Tue03/26/20 at 1300, Until Discontinu ed, Routine, PACU neomycin-po 2020-0 Yes PRN, Univer s lymyxin-dex -30 Starting ity of amethasone 17:18: Tue (MAXITROL) 03/26/20 at [facility] ical 3.5 1218, [place] mg/g-10,000 Until unit/g-0.1 Discontinu % ed, ophthalmic Routine, ointment Intra-op gentamicin 2020-0 Yes PRN, Univers injection 03-26 Starting ity of 17:16: Tue 00 03/26/20 at [facility] 1216, Branch Until Discontinu ed, NATALYA, Intra-op DUOVISC 2020-0 Yes PRN, Univers (DUOVISC 03-26 Starting ity of VISCO 17:16: Tue ELASTIC) 3 03/26/20 at [facility] ical %-4 %(0.5 1216, Branch mL) 1 % Until (0.55 mL) Discontinu intraocular ed, injection Routine, Intra-op dexamethaso 2020-0 Yes PRN, Univer s ne 03-26 Starting ity of (DECADRON 17:15: Tue PHOSPHATE) 03/26/20 at [facility] ical injection 1215, Branch Until Discontinu ed, Routine, Intra-op ceFAZolin 2020-0 Yes PRN, Univers (ANCEF) 03-26 Starting ity of injection 17:15: Tue 00 03/26/20 at [facility] 1215, Branch Until Discontinu ed, NATALYA, Intra-op carbachoL 2020-0 Yes PRN, Univers (MIOSTAT) 03-26 Starting ity of 0.01 % 17:15: Tue intraocular 00 03/26/20 [place] 1215, Branch Until Discontinu ed, Routine, Intra-op sodium 2020-0 Yes PRN, Univers chloride 03-26 Starting ity of (NS) 17:15: Tue injection 00 03/26/20 at [facility] 1215, Branch Until Discontinu ed, Routine, Intra-op EPINEPHrine 2020-0 Yes PRN, Univer s 1:1,000 (1 03-26 Starting ity o f mg/mL) 17:13: Tue [place] (ADRENALIN) 03/26/20 at [place] dical injection 1213, Branch Until Discontinu ed, Routine, Intra-op balanced 2020-0 Yes PRN, Univers salt irrig 03-26 Starting ity o f soln comb1 17:12: Tue [place] (BSS PLUS) 03/26/20 at [facility] ical ophthalmic 1212, Branch solution Until 500 mL bag Discontinu ed, Routine, Intra-op Hyaluronida 2020-0 Yes PRN, Univer s se, Human 03-26 Starting ity of Recomb. 17:01: Tue [place] (HYLENEX) 03/26/[address] [facility] hira injection 1201, Branch Until Discontinu ed, Routine, Intra-op eye block 2020-0 Yes PRN, Univers syringe 11 03-26 Starting ity o f mL 17:01: Tue [place] 03/26/20 at Medical 1201, [place] Until Discontinu ed, Intra-op water for 2020-0 Yes PRN, Univers irrigation 03-26 Starting ity o f irrigation 16:53: [facility] solution 03/26/20 at Medic al 1153, Branch Until Discontinu ed, Routine, Intra-op mydriatic 2020-0 2020- No .5mL 0.5 mL, Univ ers #5 03-26 Right Eye, ity of ophthalmic 16:00: 15:17 ONCE, 1 [place] solution 00 :00 dose, [facility] Medica l 0.5 mL 03/26/20 at [place] syringe 1100, Routine, DSU Pre-op lactated 2020-0 2020- No 500mL at 50 Univer s ringers IV 03-2630 mL/hr, 500 it y of infusion 15:15: 15:17 mL, IV [place] 500 mL 00 :00 Infusion, [facility] ONCE, 1 Branch dose, 03/26/20 at 1015, Routine, DSU Pre-op multivitami 2020-0 Yes Take by Uni vers n with 03-24 mouth. ity of minerals 14:01: [place] (MULTI-VIT 42 Medical 55 PLUS Branch ORAL) mirabegron 2020-0 Yes 25mg Take 25 mg U nivers (MYRBETRIQ 03-24 by mouth. ity of ORAL) 14:01: [address] Branch multivit-mi 2020-0 Yes Take by [facility] vers n/iron/foli 03-24 mouth. ity of c/lutein 14:: [place] (CENTRUM 42 Medical SILVER Branch WOMEN ORAL) vitamin B Yes Take by [facility] rs complex/fol 03-24 mouth. ity of ic acid (B 14:01: [place] [id number] 42 Medical ORAL) Branch apixaban Yes Take by [facility] s (ELIQUIS 03-24 mouth. ity of ORAL) 14:01: [address] Flomax 0.4 Flomax 0.4 No 1capsul Q1D Flomax 0.4 Dobbs mg capsule mg capsule e(s) mg capsule [place] Take 1 Take 1 Take 1 Urology capsule capsule capsule every day every day every day by oral by oral by oral route. route. route. memantine 5 memantine 5 No memantine [place] mg tablet mg tablet 5 mg [place] TAKE ONE TAKE ONE tablet Urolo gy (1) (1) TAKE ONE TABLET(S) TABLET(S) (1) BY MOUTH BY MOUTH TABLET(S) TWICE A TWICE A BY MOUTH DAY. DAY. TWICE A DAY. Premarin Premarin No 1g Premarin Tanya ston 0.625 0.625 0.625 [place] mg/gram mg/gram mg/gram Urolog y vaginal vaginal vaginal cream cream cream Insert 1 g Insert 1 g Insert 1 g by vaginal by vaginal by vaginal route. route. route. discard discard discard applicator, applicator, applicator place one place one , place drop to drop to one drop index index to index finger and finger and finger and apply to apply to apply to urethral urethral urethral meatus meatus meatus twice week twice week twice week triamterene triamterene No triamteren [employer] 37.5 37.5 e 37.5 [place] mg-hydrochl mg-hydrochl mg-hydroch Urology orothiazide orothiazide lorothiazi 25 mg 25 mg de 25 mg tablet TAKE tablet TAKE tablet ONE-HALF ONE-HALF TAKE (1/2) (1/2) ONE-HALF TABLET(S) TABLET(S) (1/2) BY MOUTH BY MOUTH TABLET(S) DAILY. DAILY. BY MOUTH DAILY. cefdinir cefdinir No cefdinir Tanya ston 300 mg 300 mg 300 mg [place] capsule capsule capsule Urolog y TAKE ONE TAKE ONE TAKE ONE (1) (1) (1) CAPSULE(S) CAPSULE(S) CAPSULE(S) BY MOUTH BY MOUTH BY MOUTH EVERY EVERY EVERY TWELVE TWELVE TWELVE HOURS. HOURS. HOURS. [place] 75 Gemtesa 75 No [place] 75 Dobbs mg tablet mg tablet mg tablet [place] Take 1 Take 1 Take 1 Urology tablet tablet tablet every day every day every day by oral by oral by oral route. route. route. memantine memantine No memantine [employer] 10 mg 10 mg 10 mg [place] tablet TAKE tablet TAKE tablet Urology ONE (1) ONE (1) TAKE ONE TABLET(S) TABLET(S) (1) BY MOUTH BY MOUTH TABLET(S) TWICE A TWICE A BY MOUTH DAY. DAY. TWICE A DAY. memantine 5 memantine 5 No memantine [place]bs mg tablet mg tablet 5 mg [place] TAKE ONE TAKE ONE tablet Urolo gy (1) (1) TAKE ONE TABLET(S) TABLET(S) (1) BY MOUTH BY MOUTH TABLET(S) TWICE A TWICE A BY MOUTH DAY. DAY. TWICE A DAY. Premarin Premarin No Premarin Tanya ston 0.625 0.625 0.625 [place] mg/gram mg/gram mg/gram Urolog y vaginal vaginal vaginal cream cream cream DISCARD DISCARD DISCARD APPLICATOR. APPLICATOR. APPLICATOR PLACE ONE PLACE ONE . PLACE DROP TO DROP TO ONE DROP INDEX INDEX TO INDEX FINGER AND FINGER AND FINGER AND APPLY APPLY APPLY DIRECTED. DIRECTED. DIRECTED. sulfamethox sulfamethox No sulfametho [employer] azole 800 azole 800 xazole 800 [place] mg-trimetho mg-trimetho mg-trimeth Urology prim 160 mg prim 160 mg oprim 160 tablet TAKE tablet TAKE mg tablet ONE (1) ONE (1) TAKE ONE TABLET(S) TABLET(S) (1) BY MOUTH BY MOUTH TABLET(S) TWICE A TWICE A BY MOUTH DAY. DAY. TWICE A DAY. tamsulosin tamsulosin No tamsulosin [employer] [place] 0.4 mg 0.4 mg 0.4 mg [place] capsule capsule capsule Urolog y TAKE ONE TAKE ONE TAKE ONE (1) (1) (1) CAPSULE(S) CAPSULE(S) CAPSULE(S) BY MOUTH BY MOUTH BY MOUTH DAILY. DAILY. DAILY. triamterene triamterene No triamteren [employer] [place] 37.5 37.5 e 37.5 [place] mg-hydrochl mg-hydrochl mg-hydroch Urology orothiazide orothiazide lorothiazi 25 mg 25 mg de 25 mg tablet TAKE tablet TAKE tablet ONE (1) ONE (1) TAKE ONE TABLET(S) TABLET(S) (1) BY MOUTH BY MOUTH TABLET(S) DAILY IN DAILY IN BY MOUTH THE THE DAILY IN MORNING. MORNING. THE MORNING. trimethopri trimethopri No 1 Q1D trimethopr Dobbs m 100 mg m 100 mg im 100 mg Me tro tablet Take tablet Take tablet Urology 1 tablet 1 tablet Take 1 every day every day tablet by oral by oral every day route. route. by oral route. Immunizations Ordered Immunization Filled Immunization Date Status Commen ts Source Name Name [email or web address] COVID-19 MRNA 2020-08-01 Completed Meth odist VACCINATION 00:00:00 [facility] PFIZER COVID-19 MRNA 2020-07-11 Completed Meth odist VACCINATION 00:00:00 Hospital Vital Signs Vital Name Observation Time Observation Value Comments Source HEIGHT 2020-08-30 20:00:00 165.1 cm WEIGHT 2020-08-30 20:00:00 63.504 kg Height 2022-12-30 00:00:00 62 [in_i] [facility] Urology BMI (Body Mass 2022-12-30 00:00:00 23.8 kg/m2 [place] Index) Urology Body Weight 2022-12-30 00:00:00 130 [lb_av] [facility] Height 2022-09-13 00:00:00 62 [in_i] [facility] BMI (Body Mass 2022-09-13 00:00:00 23.8 kg/m2 [place] Index) Urology Body Weight 2022-09-13 00:00:00 130 [lb_av] [facility] Urology HEIGHT 2020-08-30 20:00:00 165.1 cm WEIGHT 2020-08-30 20:00:00 63.504 kg Systolic blood 2020-04-09 16:34:00 149 mm[Hg] Univer sity of pressure [facility] Diastolic blood 2020-04-09 16:34:00 73 mm[Hg] [facility] Heart rate 2020-04-09 16:34:00 83 /min [facility] Respiratory rate 2020-04-09 16:34:00 16 /min Univ ersity of [place] [facility] Oxygen saturation in 2020-04-09 16:34:00 100 /min University of [facility] blood by [facility] Pulse oximetry Branch Body temperature 2020-04-09 13:53:00 36.5 Carolee Univ ers[facility] [place] [facility] Body height 2020-04-08 14:45:00 165.1 cm [facility] [place] [facility] Body weight 2020-04-08 14:45:00 63.504 kg [facility] [place] [facility] BMI 2020-04-08 14:45:00 23.30 kg/m2 [facility] [place] [facility] Systolic blood 2020-04-09 16:34:00 149 mm[Hg] Univer sity of pressure [place] [facility] Diastolic blood 2020-04-09 16:34:00 73 mm[Hg] Unive rsity of pressure [place] [facility] Heart rate 2020-04-09 16:34:00 83 /min [facility] [place] [facility] Respiratory rate 2020-04-09 16:34:00 16 /min Univ ers[facility] [place] [facility] Oxygen saturation in 2020-04-09 16:34:00 100 /min University of [facility] blood by [facility] Pulse oximetry Branch Body temperature 2020-04-09 13:53:00 36.5 Carolee Univ [facility] [place] [facility] Body height 2020-04-08 14:45:00 165.1 cm [facility] [place] [facility] Body weight 2020-04-08 14:45:00 63.504 kg [facility] [place] [facility] BMI 2020-04-08 14:45:00 23.30 kg/m2 [facility] [place] [facility] Respiratory rate 2020-04-09 16:29:00 16 /min Univ [facility] [place] [facility] Respiratory rate 2020-04-09 16:29:00 16 /min [facility] [place] [facility] Systolic blood 2020-03-26 17:40:00 159 mm[Hg] Univer sity of pressure [place] [facility] Diastolic blood 2020-03-26 17:40:00 72 mm[Hg] Unive rsity of pressure [place] [facility] Heart rate 2020-03-26 17:40:00 75 /min [facility] [place] [facility] Body temperature 2020-03-26 17:40:00 36.72 Carolee Univ [facility] [place] [facility] Respiratory rate 2020-03-26 17:40:00 19 /min [facility] [place] [facility] Oxygen saturation in 2020-03-26 17:40:00 94 /min [facility] by [facility] Pulse oximetry Branch Body height 2020-03-24 17:16:00 165.1 cm [facility] [place] [facility] Body weight 2020-03-24 17:16:00 64.9 kg [facility] [place] [facility] BMI 2020-03-24 17:16:00 23.81 kg/m2 [facility] [place] [facility] Systolic blood 2020-03-26 17:40:00 159 mm[Hg] Univer sity of pressure [place] [facility] Diastolic blood 2020-03-26 17:40:00 72 mm[Hg] Unive rsity of pressure [facility] Heart rate 2020-03-26 17:40:00 75 /min [facility] [place] [facility] Body temperature 2020-03-26 17:40:00 36.72 Carolee [facility] [place] [facility] Res[facility] rate 2020-03-26 17:40:00 19 /min Univ [facility] [place] [facility] Oxygen saturation in 2020-03-26 17:40:00 94 /min [facility] blood by [facility] Pulse oximetry Branch Body height 2020-03-24 17:16:00 165.1 cm [facility] [place] [facility] Body weight 2020-03-24 17:16:00 64.9 kg [facility] [place] [facility] BMI 2020-03-24 17:16:00 23.81 kg/m2 Universi ty of [facility] Procedures Procedure Date / Time Performed Performing Clinician [facility] e CONSENT/REFUSAL FOR 2020-04-08 14:22:30 Doctor Unassigned, No [facility] DIAGNOSIS AND Name Medical Branch TREATMENT ASSIGNMENT OF BENEFITS 2020-04-08 14:22:09 Doctor Unassigned, No [facility] Name [facility] Branch Plan of Care Planned Activity Planned Date Details Comments Source Future Scheduled 2023-01-15 SHINGLES VACCINES (1 Met [facility] Test 21:10:58 of 2) [code = SHINGLES VACCINES (1 of 2)] Future Scheduled 2023-01-15 65+ PNEUMOCOCCAL [facility] Test 21:10:58 VACCINE (1 - PCV) [code = 65+ PNEUMOCOCCAL VACCINE (1 - PCV)] Future Scheduled 2023-01-15 COVID-19 VACCINE (3 - [facility] Test 21:10:58 Pfizer series) [code = COVID-19 VACCINE (3 - Pfizer series)] Future Scheduled 2023-01-15 INFLUENZA VACCINE [facility] Test 21:10:58 [code = INFLUENZA VACCINE] Diagnostic Test 2022-12-30 urinalysis, dipstick [place] Pending 00:00:00 [code = urinalysis, Urology dipstick] Encounters Start End Encounter Admission Attending Care Care Encounter Source Date/Time Date/Time Type Type Clinicians Facility Department ID 2021-04-24 Outpatient Rakesh NAVARRO [facility] YURI [id number] Univers 21:41:39 [facility] 2021-04-24 Outpatient Rakesh NAVARRO [facility] YURI [id number] Univers 19:27:16 [facility] 2020-08-30 Inpatient UR MIRIAM, SLE Neurology [id number] SLE 18:01:00 AMADOU 2023-01-14 2023-01-14 Outpatient Mateus_D [address] 00:00:00 00:00:00 [id number] [place] [facility] 2022-12-30 2022-12-30 Outpatient ALEKSANDRA WALLACE MDA MDA [id number] 11:47:52 11:47:52 YOHAN madrigal 2022-12-30 2022-12-30 Outpatient ALEKSANDRA WALLACE MDA MDA [id number] 10:40:59 10:40:59 YOHAN madrigal 2022-12-30 2022-12-30 [facility] [place] - [id number] Annika collins 00:00:00 00:00:00 [facility] Felipa Alvarez y : [id number], [place] [address] , Ph. 2022-11-25 2022-11-25 Outpatient ALEKSANDRA WALLACE MDA MDA [id number] 08:26:44 23:59:00 YOHAN madrigal 2022-11-25 2022-11-25 Outpatient ALEKSANDRA CARVAJAL MDA MDA [id number] 12:03:25 12:48:06 MARYANNE madrigal 2022-11-25 2022-11-25 Outpatient ALEKSANDRA WALLACE MDA MDA [id number] 08:15:00 08:25:00 YOHAN madrigal 2022-10-07 2022-10-07 Outpatient Goldfarb_D HMU HMU 4001 [id number] [place] 00:00:00 00:00:00 [id number] [facility] 2022-10-07 2022-10-07 Outpatient Goldfarb_D HMU HMU 4001 84-202 [place] 00:00:00 00:00:00 [id number] [facility] 2022-09-29 2022-09-29 Outpatient Goldfarb_D HMU HMU 4001 [id number] [place] 00:00:00 00:00:00 [id number] [facility] 2022-09-23 2022-09-23 Outpatient Goldfarb_D HMU HMU 4001 [id number] [place] 00:00:00 00:00:00 [id number] [facility] 2022-09-13 2022-09-13 Outpatient Goldfarb_D HMU HMU 4001 [id number] [place] 00:00:00 00:00:00 [id number] [facility] 2022-09-13 2022-09-13 [facility] [place] - [id number] Annika collins 00:00:00 00:00:00 UmaFelipa Martin: [id number], [place] [address] , Ph. 2022-09-09 2022-09-09 Outpatient Goldfarb_D HMU HMU 4001 [id number] [place] 00:00:00 00:00:00 [id number] [facility] 2022-07-15 2022-07-15 Outpatient Goldfarb_D HMU HMU 4001 [id number] [place] 00:00:00 00:00:00 [id number] [facility] 2022-07-15 2022-07-15 Outpatient Goldfarb_D HMU HMU 4001 84-202 [place] 00:00:00 00:00:00 [id number] [facility] 2021-03-04 2021-03-04 Outpatient ALEKSANDRA CARVAJAL MDA MDA [id number] MD 14:50:37 23:59:00 MARYANNE Northsusana madrigal 2020-08-01 2020-08-01 Outpatient [facility] [id number] [place] 00:00:00 00:00:[address] 2020-07-11 2020-07-11 Outpatient [facility] [id number] [place] 00:00:00 00:00:[address] 2020-04-09 2020-04-09 [facility] [id number] [facility] 08:52:00 12:00:00 Encounter Francis Abraham 350.1.13.10 [place] [id number] [address] 2020-04-09 2020-04-09 [facility] [id number] 08:52:00 12:00:00 Encounter Francis Abraham 350.1.13.10 [place] 4.2.7.2.686 Surgical [id number] [place] [address] 2020-04-09 2020-04-09 Anesthesia Shankar Resendez [facility] [id number] [facility] 10:58:00 11:30:00 Leandra Duarte 350.1.13.10 [place] [id number] [address] 2020-04-09 2020-04-09 Anesthesia Shankar Resendez [facility] 1.2.840.11 [id number] 10:58:00 11:30:00 Leandra Duarteton 350.1.13.10 [place] 4.2.7.2.686 Surgical [id number] [place] [address] 2020-04-08 2020-04-08 Laboratory Only, Adc Test [facility] 1.2.840. 114 [id number] [facility] 09:19:46 09:34:46 Only Francis Navarro 350.1.13.1 0 [place] [id number] [address] 2020-04-08 2020-04-08 Laboratory Only, [facility] 1.2.840.114 [id number] 09:19:46 09:34:46 Only Test [place] 350.1.13.10 [place] 4.2.7.2.686 [place] [id number] [facility] 2020-04-08 2020-04-08 [facility] [id number] Univers 09:30:00 09:30:00 FRANCIS lee [facility] 2020-03-26 2020-03-26 [facility] [id number] Univers 10:02:00 13:05:00 Encounter Francis Rodrigueston 350.1.13.10 [place] 4.2.7.2.686 [facility] [id number] [address] 2020-03-26 2020-03-26 [facility] [id number] 10:02:00 13:05:00 Encounter Francis [place] 350.1.13.10 [place] [address] [place] [address] [id number] [place] [address] 2020-03-25 2020-03-25 Outpatient R RAMON [facility] [id number] Univers 09:45:00 09:45:00 FRANCIS lee [facility] 2020-03-25 2020-03-25 Laboratory Only, [facility] Test [facility] 1.2.840. 114 [id number] Univers 08:51:16 09:06:16 Only Ramon Francis Mercedes Abraham 350.1.13.1 0 it[place] 4.2.7.2.686 [facility] [id number] [address] 2020-03-25 2020-03-25 Laboratory Only, [facility] 1.2.840.114 [id number] 08:51:16 09:06:16 Only Test [place] 350.1.13.10 [place] 4.2.7.2.686 [place] [id number] [facility] 2020-03-21 2020-03-21 Flower Arranger Chele, [facility] Lab Main [facility] 1.2.8 40.114 [id number] Univers 11:34:14 11:49:14 Visit Francis Navarro [place] 350.1.13.1 0 ity [place] 4.2.7.2.686 Stephanie summers jarrettio [id number] [place] [address] 2020-03-21 2020-03-21 Flower Arranger Alex Elaine [facility] 1.2.840.114 [id number] 11:34:14 11:49:14 Visit Lab Main [place] 350.1.13.10 [place] 4.2.7.2.686 essio [id number] [address] 2020-03-21 2020-03-21 Outpatient R RAMON [facility] [id number] Univers 10:15:00 10:15:00 FRANCIS lee [facility] Results Test Description Test Time Test [...] NOT 1092) ACCURATE CRE ATININE CLEARANCE IN [place] EDICTING GLOMERULAR FILT RATION RATE. ESTIMATED GFR IS NOT APPLICABLE FOR DIALYSIS PATIENTS. Heel Cutter ID - [id number] 06:03:00 Test Item Value Reference Range Interpretation Comments MAGNESIUM (BEAKER) (test code = 2.2 mg/dL 1.6-2.6 627) Heel Cutter ID - [id number] 06:03:00 Test Item Value Reference Range Interpretation Comments PHOSPHORUS (BEAKER) (test code = 3.5 mg/dL 2.3-4.7 604) Heel Cutter ID - ASCBC (HEMOGRAM ONLY)2020-09-03 05:19:00 Test [...] (BEAKER) (test code = 413) BASIC METABOLIC [id number] 06:11:00 Test Item Value Reference Range Interpretation [...] S NOT APPLICABLE FOR DIALYSIS PATIEN TS. Heel Cutter ID - [id number] 06:11:00 Test Item Value Reference Range Interpretation Comments MAGNESIUM (BEAKER) (test code = 2.2 mg/dL 1.6-2.6 627) Heel Cutter ID - [id number] 06:11:00 Test Item Value Reference Range Interpretation Comments PHOSPHORUS (BEAKER) (test code = 3.4 mg/dL 2.3-4.7 604) Heel Cutter ID - ADMINCBC (HEMOGRAM ONLY)2020-09-02 05:28:00 Test [...] (test code = 413) C. DIFFICILE GDH [id number] 10:27:00 Test Item Value Reference Range Interpretation Comments CDT TOXIN (test code Negative Negative = [id number]) CDT GDH ANTIGEN (test Positive Negative A No ind ication of code = 2566879626) Clostridi um difficile infection and n o colonization. Discontinue ent david isolation and t herapy. Testing performed by [employer] (CAP) Rapid Cassette Assay. For GDH, published sensitivity of the assay is 98.7% compared to cytotoxicity testing. For Toxin AB, published sensitivity is 87.8% and specificity 99.4% compared to cytotoxicity testing.Verification of kit performance was done by the [facility] prior to clinical use.[id number] 05:55:00 Test Item Value Reference Range Interpretation Comments MAGNESIUM (BEAKER) 2.3 mg/dL 1.6-2.6 Specimen slightly (test code = 627) hemolyzed Heel Cutter ID - [id number] 05:55:00 Test Item Value Reference Range Interpretation Comments PHOSPHORUS (BEAKER) 3.7 mg/dL 2.3-4.7 Specimen slightly (test code = 604) hemolyzed Heel Cutter ID - DBBASIC METABOLIC [id number] 05:55:00 Test Item Value Reference Range Interpretation [...] S NOT APPLICABLE FOR DIALYSIS PATIEN TS. Heel Cutter ID - DBCBC (HEMOGRAM ONLY)2020-09-01 05:35:00 Test [...] (BEAKER) (test code = 413) SARS-COV2/RT-PCR ([facility])2020-08-31 18:16:00 Test Item Value Reference Range Interpretation Comments SARS-COV2/RT-PCR (test Negative Not Detected, Negative, code = 2266867) See external report for linked test SARS-COV-2 PERFORMING LAB [facility] (test code = 1999203) Negative result for this test determines that [...] justifying the authorization of the emergency use ofin vitro diagnostic tests for detection and/or diagnosis of COVID-19 is terminated under Section 564(b)(2) of the Act or the EUA is revoked under Section 564(g) of the Act.Fact Sheet for Healthcare Prov iders:https://www.Socialize/sites/default/files/product/documents/Fact_Sheet_HC _Rxoyhfqiy_Xzme_XSFG-ZyL-5.pdfFact Sheet for Healthcare Patients:https://www.Socialize/sites/default/files/product/docume nts/Rbyz_Twhja_Zbwprrcu_Uooh_DRMH-OaX-8.pdfPerforming Laboratory:[facility], [place] [address]FUI, SPINE, CERVICAL, 2 OR 3 [id number] 09:36:00Standing flex -extReason for exam:->[facility] 1940 Sex: FFINAL REPORT TECHNIQUE: Four views of the cervical spine HISTORY: Myelomalcia. COMPARISON: None. IMPRESSION:Straightening of the cervical spine with scattered facet arthropathy and mild joint space narrowing.There is radiculopathy recommend MRI.No acute displaced fracture or dislocation. No acute soft tissue abnormality. Signed: Giacomo Prasadepsukumar Verified Date/Time: 08/31/2020 09:36:18 Reading Location: [address] Consult Reading Room MIN B12 AND [id number] 07:03:00 Test Item Value Reference Range Interpretation Comments VITAMIN B12 > pg/mL 213-816 H (BEAKER) (test code = 774) FOLATE (BEAKER) 29.10 ng/mL See_Comment [Automated message] (test code = 362) The system which generated this result transmitted ref erence range: >=7.00. The reference range was not used to interpr et this result as normal/abnormal . Heel Cutter ID - EDASIOperator ID - EDASITSH/FREE T4 IF [id number] 06:57:00 Test Item Value Reference Range Interpretation Comments THYROID STIMULATING HORMONE 1.985 uIU/mL 0.350-4.940 (BEAKER) (test code = 772) Heel Cutter ID - [id number] 05:38:00 Test Item Value Reference Range Interpretation Comments MAGNESIUM (BEAKER) (test code = 2.1 mg/dL 1.6-2.6 627) Heel Cutter ID - [id number] 05:38:00 Test Item Value Reference Range Interpretation Comments PHOSPHORUS (BEAKER) (test code = 2.8 mg/dL 2.3-4.7 604) Heel Cutter ID - EDASIBASIC METABOLIC [id number] 05:38:00 Test Item Value Reference Range Interpretation [...] S NOT APPLICABLE FOR DIALYSIS PATIEN TS. Heel Cutter ID - EDASIPROTHROMBIN [id number] 05:26:00 Test Item Value Reference Range Interpretation Comments PROTIME (BEAKER) 14.3 seconds 11.9-14.2 H (test code = 759) INR (BEAKER) (test 1.15 See_Comment [Automat ed message] code = 370) The system [employer] generated this result transmitted ref erence range: <=5.90. The reference range was not used to int erpret this result as normal/abnormal . Effective 11/22/2018: PT Reference Range ChangeNew: 11.9-14.2 Previous: 11.7- 14.7RECOMMENDED COUMADIN/WARFARIN INR THERAPY RANGESSTANDARD DOSE: 2.0-3.0 Includes: PROPHYLAXIS for venous thrombosis, systemic embolization; TREATMENT for venous thrombosis and/or pulmonary embolus.HIGH RISK: Target INR is 2.5-3.5 for patients wiht mechanical heart valves.CBC (HEMOGRAM [...] (BEAKER) (test code = 413) COMPREHENSIVE METABOLIC [id number] 19:11:00 Test Item Value Reference Range Interpretation [...] S NOT APPLICABLE FOR DIALYSIS PATIEN TS. Heel Cutter ID - [id number] 19:11:00 Test Item Value Reference Range Interpretation Comments MAGNESIUM (BEAKER) (test code = 2.1 mg/dL 1.6-2.6 627) Heel Cutter ID - [id number] 19:11:00 Test Item Value Reference Range Interpretation Comments PHOSPHORUS (BEAKER) (test code = 2.8 mg/dL 2.3-4.7 604) Heel Cutter ID - DBCBC W/PLT COUNT & AUTO [id number] 18:46:00 Test Item Value Reference Range Interpretation [...] % 0-1 PERCENT (BEAKER) (test code = 6562)
--- NOTE | 2023-01-15 22:06 | RAD REPORT ---
EXAM DESCRIPTION: CT - Head Brain Wo Cont - 01/15/2023 10:00 pm CLINICAL HISTORY: Head injury status post fall COMPARISON: 2020 TECHNIQUE: Computed axial tomography of the head was obtained. IV contrast was not requested. All CT scans are performed using dose optimization technique as appropriate and may include automated exposure control or mA/KV adjustment according to patient size. FINDINGS: An intracranial bleed is not seen The ventricles are normal in caliber No extra-axial fluid collection is noted. Low-density left basal ganglia compatible with an old lacunar infarction. . Fluid within the sinuses/ mastoids is not seen. IMPRESSION: No acute intracranial abnormality is seen If patient's symptoms persist MRI of the brain would be recommended
--- NOTE | 2023-01-15 22:25 | RAD REPORT ---
EXAM DESCRIPTION: Anton Single View01/15/2023 10:10 pm CLINICAL HISTORY: Chest pain COMPARISON: 2020 FINDINGS: The lungs appear clear of acute infiltrate. The heart is normal size IMPRESSION: No acute abnormalities displayed
[2023-01-15 22:26] LABS: Specific Gravity 1.008 (1.005-1.030); Urine Bacteria >50 /HPF (<20); Urine Bilirubin NEGATIVE (Negative); Urine Blood 1+ (Negative); Urine Clarity Extremely Turbid (Clear); Urine Color Light-Orange (Yellow); Urine Glucose NEGATIVE (Negative); Urine Mucus 1+ /HPF (None Seen); Urine Protein NEGATIVE (Negative); Urine RBC 21-50 /HPF (None Seen); Urine Urobilinogen Normal (Normal); Urine WBC Clump Few /HPF (None Seen); Urine pH 5.5 (5.0-7.0)
[2023-01-15 22:45] LABS: Absolute Lymphocytes (CBC) 0.9 K/uL (0.7-4.9); Hematocrit 30.7 % (36.0-45.0); Lymphocytes % 5.3 % (15.3-44.8); MPV 6.8 fL (7.6-11.3); RBC Red Blood Cell Count 3.17 M/uL (3.86-4.86)
[2023-01-15 22:50] LABS: Protime INR 1.87
[2023-01-15 23:06] LABS: Albumin 2.6 g/dL (3.4-5.0); Bilirubin Total 0.7 mg/dL (0.2-1.0); Magnesium 2.3 mg/dL (1.6-2.4); Potassium 3.1 mEq/L (3.5-5.1); Protein, Total 7.5 g/dL (6.4-8.2); Troponin High Sensitivity 17.3 pg/mL (<58.9)
--- NOTE | 2023-01-15 23:28 | ER ---
Nurse's Notes [facility] Name: Fredis Diaz Age: 82 yrs Sex: Female : 1940 Arrival Date: 01/15/2023 Time: 21:08 Bed 4 Private MD: Diagnosis: UTI/ Urinary tract infection, site not specified;Weakness;Hypokalemia Presentation: 01/15 21:13 Chief complaint: Patient states: Friend C/O found patient on the floor in her bedroom pf1 naked, TITLE CLOSER. Friend C/O patient having weakness, decrease appetite with UTI symptoms, onset x 2 weeks. Patient stated fell earlier today while in the bathroom,then crawled to her bedroom, but could not get up from the floor. Patient stated does not know the reason why she fell earlier. Friend stated does not know the name of the medications she is currently at this time. Patient has an abrasion noted to mid back region. 21:13 Chief complaint:. Coronavirus screen: Vaccine status: Patient reports receiving the 2nd pf1 dose of the covid vaccine. 4 doses of Pfizer Client denies travel out of the [place] in the last 14 days. At this time, the client does not indicate any symptoms associated with coronavirus-19. Ebola Screen: Patient negative for fever greater than or equal to 101.5 degrees Fahrenheit, and additional compatible Ebola Virus Disease symptoms. Initial Sepsis Screen: Does the patient meet any 2 criteria? No. Patient's initial sepsis screen is negative. Does the patient have a suspected source of infection? No. Patient's initial sepsis screen is negative. Risk Assessment: Do you want to hurt yourself or someone else? Patient reports no desire to harm self or others. 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 - Social history:: Smoking status: Patient denies any tobacco usage or history of. Patient/guardian denies using alcohol, street drugs. Screenin/23 00:00 [facility] ED Fall Risk Assessment (Adult) History of falling in the last 3 months, jb4 including since admission No falls in past 3 months (0 pts) Confusion or Disorientation No (0 pts) Score/Fall Risk Level 0 - 2 = Low Risk Oriented to surroundings, Maintained a safe environment. Abuse screen: Denies threats or abuse. Nutritional screening: No deficits noted. Tuberculosis screening: No symptoms or risk factors identified. Assessment: 01/15 22:00 General: Appears in no apparent distress. comfortable, Behavior is calm, cooperative, jb4 appropriate for age. Pain: Denies pain. Neuro: Level of Consciousness is awake, alert, obeys commands, Oriented to person, place, time, situation. Cardiovascular: Patient's skin is warm and dry. Respiratory: Airway is patent Respiratory effort is even, unlabored, Respiratory pattern is regular, symmetrical. GI: No signs and/or symptoms were reported involving the gastrointestinal system. : No signs and/or symptoms were reported regarding the genitourinary system. EENT: No signs and/or symptoms were reported regarding the EENT system. Derm: Skin is intact, Skin is pink, warm \T\ dry. Musculoskeletal: Circulation, motion, and sensation intact. Range of motion: intact in all extremities. 23:00 Reassessment: Patient appears in no apparent distress at this time. Patient and/or jb4 family updated on plan of care and expected duration. Pain level reassessed. Patient is alert, oriented x 3, equal unlabored respirations, skin warm/dry/pink. 01/16 00:00 Reassessment: Patient appears in no apparent distress at this time. Patient and/or jb4 family updated on plan of care and expected duration. Pain level reassessed. Patient is alert, oriented x 3, equal unlabored respirations, skin warm/dry/pink. Vital Signs: 01/15 21:13 BP 124 / 56; Pulse 81; Resp 18; Temp 98.1; Pulse Ox 97% on R/A; Weight 50 kg; Height 5 pf1 ft. 4 in. ; Pain 0/10; 23:00 BP 112 / 46; Pulse 66; Resp 16; Pulse Ox 98% on R/A; jb4 01/16 00:00 BP 116 / 77; Pulse 77; Resp 22; Pulse Ox 99% ; jb4 01/15 21:13 Body Mass Index 18.92 (50.00 kg, 162.56 cm) pf1 01/15 21:13 Pain Scale: Adult pf1 ED Course: 01/15 21:11 Patient arrived in ED. jj6 21:12 Marla Walls [facility]-C [facility] kb 21:12 Kristian Cisneros DO is Attending Physician. kb 21:36 Triage completed. pf1 22:00 Initial lab(s) drawn, by me, sent to lab. Patient admitted, IV remains in place. jb4 Inserted saline lock: 20 gauge in right antecubital area, using aseptic technique. Blood collected. 22:01 CT Head Brain wo Cont In Process Unspecified. EDMS 22:12 Chest Single View XRAY In Process Unspecified. EDMS 22:58 Ramesh Williamson, RN is Primary Nurse. jb4 23:27 Dean Jones MD is Hospitalizing Provider. kb 01/16 00:00 Patient has correct armband on for positive identification. Bed in low position. Call jb4 light in reach. Side rails up X 1. Client placed on continuous cardiac and pulse oximetry monitoring. NIBP monitoring applied. 00:12 No provider procedures requiring assistance completed. jb4 Administered Medications: 00:10 Drug: Rocephin IV 1 grams Route: IV; Rate: calculated rate; Site: right forearm; jb4 00:10 Drug: Potassium PO Effervescent Tablet 50 mEq Route: PO; jb4 Medication: 00:00 VIS not applicable for this client. jb4 Outcome: 01/15 23:28 Decision to Hospitalize by Provider. kb 01/16 00:41 Admitted to Med/surg accompanied by tech, via wheelchair, room 223, with chart, Report jb4 called to FABY Serrano Condition: stable Discharge instructions given to patient, friend, Instructed on the need for admit, Demonstrated understanding of instructions. 00:42 Patient left the ED. jb4 Signatures: Dispatcher [employer] EDCT Marla Walls FNP-C FNP-Ckb Bryson, James, RN RN jb4 Jennie Brown jj6 Tasha Houston RN RN pf1 Corrections: (The following items were deleted from the chart) 01/15 21:36 21:27 Chief complaint: Patient states: Friend C/O found patient on the floor in her pf1 bedroom naked, TITLE CLOSER. Friend C/O patient having weakness, decrease appetite with UTI symptoms, onset x 2 weeks. Patient stated fell earlier today while in the bathroom,then crawled to her bedroom, but could not get up from the floor. Patient stated does not know the reason why she fell earlier. Friend stated does not know the name of the medications she is currently at this time. pf1
--- NOTE | 2023-01-15 23:28 | EDPHYS ---
Physician Documentation [facility] Name: Fredis Diaz Age: 82 yrs Sex: Female : 1940 Arrival Date: 01/15/2023 Time: 21:08 Bed 4 Private MD: ED Physician Kristian Cisneros HPI: 01/15 23:21 This 82 yrs old Female presents to ER via Wheelchair with complaints of Fall Injury. kb 23:21 Details of fall: The patient fell from an upright position. Onset: The symptoms/episode kb began/occurred today. Associated injuries: The patient sustained no obvious injury. Severity of symptoms: At their worst the symptoms were moderate, in the emergency department the symptoms are unchanged. The patient has not experienced similar symptoms in the past. The patient has not recently seen a physician. Pt reports she was in the restroom and fell. States she was unable to get up from the floor afterwards so she crawled into her bedroom. Her friend came to check on her, helped her up and into the car to bring her here. Denies any pain. Reports weakness. Friend states pt was diagnosed with a UTI 2 weeks ago and she doesn't think the medications are working. Historical: - Allergies: 21:37 No Known Allergies; pf1 - PMHx: 21:36 LYMPHOMA; 22 YRS AGO HAD CERVIAL CANCER; dementia; chemo; pf1 - PSHx: 21:36 None; pf1 - Immunization history:: Adult Immunizations up to date, Last tetanus immunization: > 10 years ago Flu vaccine is up to date. - Social history:: Smoking status: Patient denies any tobacco usage or history of. Patient/guardian denies using alcohol, street drugs. ROS: 23:20 Constitutional: Negative for fever, chills, and weight loss. kb 23:20 Neuro: Positive for weakness. 23:20 All other systems are negative. Exam: 22:23 Constitutional: This is a well developed, well nourished patient who is awake, alert, kb and in no acute distress. Head/Face: Normocephalic, atraumatic. ENT: Moist Mucous membranes Cardiovascular: Regular rate and rhythm with a normal S1 and S2. No gallops, murmurs, or rubs. No pulse deficits. Respiratory: Respirations even and unlabored. No increased work of breathing. Talking in full sentences Abdomen/GI: Soft, non-tender. No distention Skin: Warm, dry with normal turgor. Normal color. MS/ Extremity: Pulses equal, no cyanosis. Neurovascular intact. Full, normal range of motion. Neuro: Awake and alert, GCS 15, oriented to person, place, time, and situation. Moves all extremities. 22:23 ECG was reviewed by the Attending Physician. Vital Signs: 21:13 BP 124 / 56; Pulse 81; Resp 18; Temp 98.1; Pulse Ox 97% on R/A; Weight 50 kg; Height 5 pf1 ft. 4 in. ; Pain 0/10; 23:00 BP 112 / 46; Pulse 66; Resp 16; Pulse Ox 98% on R/A; jb4 01/16 00:00 BP 116 / 77; Pulse 77; Resp 22; Pulse Ox 99% ; jb4 01/15 21:13 Body Mass Index 18.92 (50.00 kg, 162.56 cm) pf1 01/15 21:13 Pain Scale: Adult pf1 MDM: 01/15 21:12 Patient medically screened. kb 23:26 Data reviewed: vital signs, nurses notes. kb 23:26 Differential diagnosis: UTI, sepsis, weakness, electrolyte abnormality, near syncope, kb head injury. Consideration of Admission/Observation Patient was admitted/placed on observation. Escalation of care including admission/observation considered. Management of patient was discussed with the following: Primary Care Provider: Dr Jones . Historians other than the Patient: Friend: friend. Counseling: I had a detailed discussion with the patient and/or guardian regarding: the historical points, exam findings, and any diagnostic results supporting the discharge/admit diagnosis, lab results, radiology results, the need for further work-up and treatment in the hospital. Admission orders: after a detailed discussion of the patient's condition and case, the admit orders are written by me. 01/15 21: Order name: CBC with Diff; Complete Time: 22:52 kb 01/15 21: Order name: Magnesium; Complete Time: 23:20 kb 01/15 21: Order name: Protime (+inr); Complete Time: 22:55 kb 01/15 21: Order name: Ptt, Activated; Complete Time: 22:55 kb 01/15 21: Order name: Troponin High Sensitivity; Complete Time: 23:20 kb 01/15 21:29 Order name: CMP; Complete Time: 23:20 kb 01/15 21:29 Order name: Urinalysis w/ reflexes; Complete Time: 22:27 kb 01/15 22:29 Order name: Urine Culture EDMS 01/15 22:53 Order name: Blood Culture Adult (2) kb 01/15 22:53 Order name: Lactate w/ 2H reflex if indic.; Complete Time: 00:15 kb 01/16 00:17 Order name: Basic Metabolic Panel EDMS 01/16 00:17 Order name: Basic Metabolic Panel EDMS 01/16 00:17 Order name: CBC with Automated Diff EDMS 01/16 00:17 Order name: CBC with Automated Diff EDMS 01/15 21:29 Order name: Chest Single View XRAY; Complete Time: 22:27 kb 01/15 21:37 Order name: CT Head Brain wo Cont; Complete Time: 22:08 kb 01/15 21:29 Order name: EKG; Complete Time: 21:29 kb 01/16 00:17 Order name: Heart Healthy EDMS 01/15 21:29 Order name: Cardiac monitoring; Complete Time: 22:39 kb 01/15 21:29 Order name: EKG - Nurse/Tech; Complete Time: 22:39 kb 01/15 21:29 Order name: IV Saline Lock; Complete Time: 22:39 kb 01/15 21:29 Order name: Labs collected and sent; Complete Time: 22:39 kb 01/15 21:29 Order name: NPO; Complete Time: 22:40 kb 01/15 21:29 Order name: O2 Per Protocol; Complete Time: 22:39 kb 01/15 21:29 Order name: O2 Sat Monitoring; Complete Time: 22:39 kb EC:23 Rate is 70 beats/min. Rhythm is regular. QRS [place] is Normal. [place] interval is normal at kb 142 msec. QRS interval is normal at 80 msec. QT interval is normal at 462 msec. Administered Medications: 01/16 00:10 Drug: Rocephin IV 1 grams Route: IV; Rate: calculated rate; Site: right forearm; jb4 00:10 Drug: Potassium PO Effervescent Tablet 50 mEq Route: PO; jb4 Disposition: 01/15 23:37 Co-signature as Attending Physician, Kristian Cisneros DO I was immediately available on-site ms3 in the Emergency Department for consultation in the care of the patient. Disposition Summary: 01/15/23 23:28 Hospitalization Ordered Hospitalization Status: Inpatient Admission kb Provider: Dean Jones Location: Telemetry/MedSurg (Inpatient) kb Condition: Stable kb Problem: new kb Symptoms: are unchanged kb Bed/Room Type: Standard Room Assignment: 223(01/16/23 00:07) Diagnosis - UTI/ Urinary tract infection, site not specified kb - Weakness kb - Hypokalemia kb Forms: - Medication Reconciliation Form kb - SBAR form kb Signatures: Dispatcher [employer] EDMS Marla Walls, NEONATAL SPECIALIST-C REGINALD-Meg Cole, RN RN cg Ramesh Williamson, RN RN jb4 Kristian Cisneros DO DO ms3 Tasha Houston, RN RN pf1 Corrections: (The following items were deleted from the chart) 01/16 00:07 01/15 23:28 kb cg
[2023-01-16] MEDS ORDERED: POTASSIUM 25 MEQ EFFERV TAB ONE (00:09)
[2023-01-16] MEDS ORDERED: CEFTRIAXONE 1000 MG/VIAL ONE (00:09)
[2023-01-16] MEDS: NA CHLORIDE 0.9% 1,000 ML IV SCH ×3 (00:14→16:59)
[2023-01-16 01:18] VITALS: BMI 20.2
[2023-01-16 06:58] LABS: Absolute Lymphocytes (CBC) 0.7 K/uL (0.7-4.9); Lymphocytes % 5.3 % (15.3-44.8); MCV 96.4 fL (80-100); MPV 6.6 fL (7.6-11.3); RBC Red Blood Cell Count 2.91 M/uL (3.86-4.86)
[2023-01-16 07:30] LABS: Potassium 3.5 mEq/L (3.5-5.1)
[2023-01-16] MEDS ORDERED: CEFTRIAXONE 1,000 MG in NA CHLORIDE 0.9% 50 ML IVPB SCH (09:00)
[2023-01-16] MEDS: Meropenem 1,000 MG in NA CHLORIDE 0.9% 100 ML IV SCH ×2 (11:35→20:28)
[2023-01-16] MEDS: ACETAMINOPHEN 500 MG TAB PO PRN ×2 (11:41→20:38)
--- NOTE | 2023-01-16 17:34 | RAD REPORT ---
EXAM DESCRIPTION: RAD - Chest Single View - 01/16/2023 5:22 pm CLINICAL HISTORY: PICC line placement COMPARISON: Chest Single View dated 01/15/2023; Chest Single View dated 08/28/2020; Chest Single View d ated 04/26/2020; Chest Pa And Lat (2 Views) dated 04/18/2018 FINDINGS: Lines: Right subclavian approach PICC with tip overlying the superior cavoatrial junction. Lungs: No evidence of edema or pneumonia. Pleural: No significant pleural effusions or pneumothorax. Cardiac: The heart size is within normal limits. Mediastinum: Within normal limits. Bones: No acute fractures. Other: None IMPRESSION: No acute cardiopulmonary disease. PICC in satisfactory position overlying the superior c avoatrial junction.
--- NOTE | 2023-01-16 19:36 | RAD REPORT ---
EXAM DESCRIPTION: US - Renal Ultrasound-Complete - 01/16/2023 7:24 pm CLINICAL HISTORY: UTI COMPARISON: Abdomen Exam Complete dated 07/28/2018 FINDINGS: Both kidneys are normal in size, shape and echotexture. The right kidney measures 11.4 cm. Moderate right-sided hydronephrosis which is likely longstanding a s there is cortical thinning. Right upper pole renal cyst measuring 3.5 cm. Echotexture is within nor mal limits. The left kidney measures 10 cm. Minimally complex cyst in the left kidney measuring 3.1 cm. No hydron ephrosis . Echotexture is within normal limits. Debris is present within the bladder. IMPRESSION: Moderate right-sided hydronephrosis with renal cortical thinning. Could consider CT to e valuate for etiology of the hydronephrosis. No left-sided hydronephrosis. Benign renal cysts latesha lubin.
--- NOTE | 2023-01-16 19:43 | RAD REPORT ---
EXAM DESCRIPTION: US - Urinary Bladder - 01/16/2023 7:25 pm CLINICAL HISTORY: UTI COMPARISON: No comparisons FINDINGS: No gross abnormalities of the bladder identified. Debris present within bladder lumen. Bladder volume of 574 cc . Unable to assess for urinary retention is the patient was unable to ambulate to the restroom prior to assessing a postvoid residual. IMPRESSION: Bladder debris which could be secondary to cystitis but is nonspecific.
[2023-01-16] MEDS: MEMANTINE HCL 10 MG TABLET PO SCH (20:29)
[2023-01-16] MEDS: ENOXAPARIN 30 MG/0.3 ML SQ SCH (20:29)
[2023-01-16] MEDS: Mupirocin NASAL 2 APPL/1 GM TUBE NAS SCH (21:17)
[2023-01-17 05:35] LABS: Absolute Lymphocytes (CBC) 0.8 K/uL (0.7-4.9); Hematocrit 29.8 % (36.0-45.0); Lymphocytes % 5.8 % (15.3-44.8); MCV 96.7 fL (80-100); RBC Red Blood Cell Count 3.08 M/uL (3.86-4.86)
[2023-01-17 05:37] LABS: Potassium 3.7 mEq/L (3.5-5.1)
--- NOTE | 2023-01-17 06:33 | HP ---
Date of Admission: 01/16/2023 Chief Complaint: Burning on urination. History Of Present Illness: This is an 82-year-old very pleasant female patient, who has history of recurrent urinary tract infection, has been evaluated by urologist Dr. Ignacio in the past for recurrent UTI and she continues to have this recurrent problem with infection. She came into office about 3 days ago with urinary frequency, burning sensation on urination, and urinalysis done at office was abnormal consistent with urinary tract infection, and urine culture was ordered and the patient was started on empiric antibiotic, Bactrim DS 1 tablet 2 times a day. Her urine culture result has come back today showing Klebsiella and ESBL and the patient ended up in the emergency room yesterday evening with these ongoing urinary complaints and she was not feeling any better. She came into ER yesterday evening and after she was evaluated, she was admitted to the hospital. Denies any abdominal pain, nausea, vomiting, but has been having some chills as she reports. No blood in urine. Allergies: NO KNOWN ALLERGIES. Medications: List reviewed. Review of Systems: Genitourinary: As mentioned above All other systems reviewed and negative. Past Medical History: Significant for white coat hypertension, hyperlipidemia, renal cyst, overactive bladder, cancer of cervix diagnosed in 1988, treated withchemotherapy and radiation therapy. NonHodgkin's lymphoma diagnosed in and this was treated by Claude HOPSON in last year during one of her routine CT scans done at [facility], she was found to have pulmonary embolism, which was treated with Eliquis and subsequently anticoagulation therapy was discontinued after few months by [facility]. Past medical history also significant for osteopenia and vitamin D deficiency. During her last hospital admission, she was also noted to have vitamin B12 deficiency. Past Surgical History: Negative. Family History: Significant for father had COPD and [place]. Mother had stroke. Social History: Negative for smoking and alcohol use. Physical Examination: Vital Signs: Height 5 feet 4 inches, weight 110 pounds, temperature 99.4, pulse 72, respiratory rate 16, blood pressure 112/54, oxygen saturation 94% on room air. General: Awake, alert, oriented, not in distress. HEENT: Head atraumatic, normocephalic. Conjunctivae nonerythematous. Sclerae white. Mouth, no thrush or edema noted. Ears/Nose, no mass, lesion, discharge noted. Neck: Supple. No JVD, lymph nodes, bruit, thyromegaly noted. Lungs: Bilateral good equal air entry. Clear to auscultation. No rhonchi. No rales. Heart: Normal heart sounds, no murmur or gallop. Abdomen: Soft, bowel sounds normal. No guarding, rigidity, tenderness, mass, hepatosplenomegaly, distention, or bruit noted. Extremities: No leg edema. No calf tenderness. Skin: No rash, ulcer, cellulitis. Lymphatics: No lymph node enlargement in neck, supraclavicular, infraclavicular region. Neuro: No focal neurological deficit. Chest: Unremarkable. External Genitalia: Deferred. Rectal: Deferred. Laboratory Data: Yesterday; white count 16.2, hemoglobin 10.6, platelets 303. Today; white count 13.1, hemoglobin 9.8, platelets 250. Yesterday; sodium 128, potassium 3.1, chloride 94, bicarb 26, BUN 27, creatinine 1.91, glucose 132. Liver function tests unremarkable. Lactic acid 1.4. This morning; sodium 131, potassium 3.5, chloride 98, bicarb 28, BUN 31, creatinine 1.79, glucose 129. Urinalysis; leukocyte esterase 500, rbc 21 to 50, wbc more than 50, bacteria more than 50. Chest x-ray, no acute cardiopulmonary changes and CAT scan of the head was negative for any acute intracranial changes. Impression: 1. Acute pyelonephritis, organism Klebsiella, ESBL. 2. Acute kidney injury. 3. Volume depletion. 4. Hyponatremia. 5. Anemia, unspecified. 6. Cervical spondylosis. 7. Hypertension. 8. Overactive bladder. 9. Hyperlipidemia. 10. Vitamin D deficiency. 11. Vitamin B12 deficiency. 12. Osteopenia. Plan: We will go ahead and admit the patient to hospital for further evaluation and management of this problem. The patient is appropriate for inpatient and is expected to spend 2 midnights in hospital. We will go ahead and continue IV fluid. We will discontinue ceftriaxone, which was started last night in the emergency room as we have now her outpatient urine culture results growing Klebsiella and ESBL organism, so we will go ahead and use meropenem as the drug of choice for this infection. PICC line was ordered. We will request Social Service consultation to help make arrangements for home IV antibiotic therapy. The patient lives at home by herself. She has a caregiver who comes every day for 4-5 hours and I have informed her that she should probably ask her caregiver to come maybe couple of hours in the morning and couple of hours in the evening, so caregiver can assist her with antibiotic administration. DVT prophylaxis will be given using Lovenox. We will continue her home medications per order and I will see her tomorrow for followup. We will go ahead and get a renal and bladder ultrasound. We will repeat blood work tomorrow morning for followup on her CBC and chemistry. ELBERT/MODL Voice ID: [id number] MTDD
[2023-01-17] MEDS: NA CHLORIDE 0.9% 1,000 ML IV SCH (07:13)
[2023-01-17] MEDS ORDERED: NA CHLORIDE 0.9% 1,000 ML IV SCH (07:44)
[2023-01-17] MEDS: Meropenem 1,000 MG in NA CHLORIDE 0.9% 100 ML IV SCH ×2 (09:27→22:17)
[2023-01-17] MEDS: TAMSULOSIN 0.4 MG SR CAP PO SCH (09:28)
[2023-01-17] MEDS: MAXZIDE (HCTZ 25/TRIAMTERENE 37.5MG) TAB PO SCH (09:28)
[2023-01-17] MEDS: Mupirocin NASAL 2 APPL/1 GM TUBE NAS SCH ×2 (09:28→21:00)
[2023-01-17] MEDS: MEMANTINE HCL 10 MG TABLET PO SCH ×2 (09:29→22:18)
--- NOTE | 2023-01-17 11:06 | RAD REPORT ---
EXAM DESCRIPTION: CT - Abdomen Pelvis Wo Contrast - 01/17/2023 10:08 am CLINICAL HISTORY: Abdominal pain. UTI, sepsis COMPARISON: Stone Protocol dated 03/27/2016; Renal Ultrasound-Complete dated 01/16/2023 TECHNIQUE: CT imaging of the abdomen and pelvis was performed without contrast. Solid organ, bowel a nd vascular assessment is limited due to lack of IV and oral contrast. All CT scans are performed using dose optimization technique as appropriate and may include automated exposure control or mA/KV adjustment according to patient size. FINDINGS: Trace bilateral pleural effusions with atelectasis in the posterior right lung base. The liver demonstrates 18 mm hypodense lesion in the anterior right lobe. No intra or extrahepatic bi liary tree dilatation. The spleen, pancreas, adrenal glands are normal. Bilateral renal cysts are present, benign appearance. Left-sided cyst measures maximally 4 cm along t he lateral midpole. Right-sided renal cyst is superiorly located measuring 3.3 cm. Moderate hydronephrosis and hydroureter on the right is seen. No obstructing calculus evident. Bladde r is distended. No bowel obstruction, free air, free fluid or abscess. Cholelithiasis. The appendix is normal. Grade 1 anterolisthesis L4 on 5. IMPRESSION: Moderate right hydronephrosis and hydroureter to the level of the right UVJ. No obstruct ing calculus is seen causing this finding. No definitive etiology for this degree of right-sided obst ructive uropathy is seen. Cholelithiasis. A limited non-contrast examination was performed as detailed.
[2023-01-17] MEDS: ENOXAPARIN 30 MG/0.3 ML SQ SCH (17:44)
[2023-01-18 04:35] LABS: Absolute Lymphocytes (CBC) 0.7 K/uL (0.7-4.9); Hematocrit 27.5 % (36.0-45.0); Lymphocytes % 8.6 % (15.3-44.8); MCV 96.9 fL (80-100); MPV 6.8 fL (7.6-11.3); RBC Red Blood Cell Count 2.84 M/uL (3.86-4.86)
[2023-01-18 04:49] LABS: Magnesium 1.8 mg/dL (1.6-2.4); Potassium 3.5 mEq/L (3.5-5.1)
--- NOTE | 2023-01-18 07:54 | PN ---
Date of Progress Note: 01/17/2023 Subjective: The patient was seen this morning for followup. Denied any chest pain, shortness of breath, abdominal pain, nausea, vomiting. She was complaining of feeling cold. Physical Examination: Vital Signs: Reviewed. Her maximum temperature late last night was 102.7. This morning; temperature was 98.4, pulse 80, respiratory rate 15, blood pressure 141/68, oxygen saturation 97%. HEENT: Unremarkable. Lungs: Clear to auscultation. Heart: Sounds normal. Abdomen: Soft. Bowel sounds normal. No guarding, rigidity, tenderness, distention. Extremities: No leg edema. Laboratory Data: Blood culture is growing some bacteria, identification and sensitivity result pending. Urine culture growing gram-negative rods. Definite identification and sensitivity is pending. Today; WBC count is 13.4, hemoglobin 10.6, platelets 235. Sodium 132, potassium 3.7, chloride 101, bicarb 27, BUN 27, creatinine 1.28, glucose 120, magnesium 2. Kidney and bladder ultrasound showed right-sided hydronephrosis without any evidence of stone. CAT scan of the abdomen and pelvis done today per kidney stone protocol also reveals right- sided hydronephrosis without any obstructive uropathy. Impression: 1. Sepsis. 2. Acute pyelonephritis. 3. Acute kidney injury. 4. Hypertension. Plan: We will go ahead and continue current antibiotic which is meropenem. Follow up on culture and sensitivity results. PICC line is in place. toll testboard worker to assist with discharge planning and definite choice of antibiotic will depend on culture and sensitivity result which is pending at this point. I will see her tomorrow for followup. ELBERT/MODL Voice ID: [id number] Report ID: [id number] JAMEL
[2023-01-18] MEDS: Meropenem 1,000 MG in NA CHLORIDE 0.9% 100 ML IV SCH ×2 (08:43→16:47)
[2023-01-18] MEDS: MEMANTINE HCL 10 MG TABLET PO SCH ×2 (08:45→21:00)
[2023-01-18] MEDS: TAMSULOSIN 0.4 MG SR CAP PO SCH (08:45)
[2023-01-18] MEDS: MAXZIDE (HCTZ 25/TRIAMTERENE 37.5MG) TAB PO SCH (08:46)
[2023-01-18] MEDS: Mupirocin NASAL 2 APPL/1 GM TUBE NAS SCH ×2 (08:48→21:00)
--- NOTE | 2023-01-18 15:01 | EKG ---
Test Date: 2023-01-15 Test Time: 22:20:35 Breakfast Cook: MICHELLE MEASUREMENT RESULTS: Intervals: Rate: 70 [place]: 142 QRSD: 80 QT: 428 QTc: 462 [place]: P: 56 [place]: 142 QRS: 67 T: 66 INTERPRETIVE STATEMENTS: Normal sinus rhythm Nonspecific ST abnormality Abnormal ECG Compared to ECG 08/28/2020 20:11:27 ST (T wave) deviation now present Electronically Signed On 01-18-23 14:57:10 CDT by Reji George
[2023-01-18] MEDS ORDERED: ENOXAPARIN 40 MG/0.4 ML SQ SCH (17:00)
[2023-01-18] MEDS: ENSURE ENLIVE 237 ML CAN PO SCH (21:00)
--- NOTE | 2023-01-18 21:06 | PN ---
Date of Progress Note: 01/18/2023 Subjective: The patient was seen this morning for followup. She was feeling much better. She was l ooking a lot better than last 2 to 3 days. Lying in bed. Denies any complaints. Does not feel like having any chills anymore. No abdominal pain, nausea, or vomiting. Objective: Vital Signs: Reviewed. HEENT: Unremarkable. Lungs: Clear to auscultation. No rales. No wheezing. Heart: Sounds normal. Abdomen: Soft. Bowel sounds normal. No guarding, rigidity, tenderness, distention. Extremities: No leg edema. Laboratory Data: White count 7.9, hemoglobin 9.8, platelets 182. Sodium 130, potassium 3.5, chlorid e 100, bicarb 28, BUN 19, creatinine 1.06, glucose 109, magnesium 1.8. Blood culture growing gram-ne gative rods. Urine culture growing Klebsiella and ESBL. Impression: 1.Sepsis. 2.Acute pyelonephritis. 3.Anemia. 4.Acute kidney injury. Plan: We will go ahead and continue current medication. Continue IV meropenem. The patient has a P ICC line in place and I did communicate with her regarding IV antibiotics, which can be given either at home or in the senior care facility. The patient is not able to administer her own IV antibio tics and she is not actually able to do so herself, because I will not feel comfortable her doing on her own as she is probably not capable of doing so in my opinion, so I have discussed with her that s he needs to have either her caregiver provide this assistance or she needs to go to senior care f acility and today Social Service did confirm that the patient's caregiver will be available to provid e this IV antibiotic administration 2 times a day for her, so plan is to ultimately discharge her to go home with home IV antibiotics and possibility of discharge is probably tomorrow depending on her condition. ELBERT/MODL Voice ID: [id number] Report ID: [id number]
[2023-01-19 05:25] VITALS: TEMP 97.8
[2023-01-19] MEDS: Meropenem 1,000 MG in NA CHLORIDE 0.9% 100 ML IV SCH (06:27)
[2023-01-19] MEDS: Mupirocin NASAL 2 APPL/1 GM TUBE NAS SCH (08:11)
[2023-01-19] MEDS: MAXZIDE (HCTZ 25/TRIAMTERENE 37.5MG) TAB PO SCH (08:11)
[2023-01-19] MEDS: ENSURE ENLIVE 237 ML CAN PO SCH (08:12)
[2023-01-19] MEDS: MEMANTINE HCL 10 MG TABLET PO SCH (08:12)
[2023-01-19] MEDS: TAMSULOSIN 0.4 MG SR CAP PO SCH (08:12)
[2023-01-19 08:25] VITALS: O2SAT 94
[2023-01-19 10:36] VITALS: BP 112/53
== END 2023-01-19 13:53 | disposition home health service (06) | DRG 872 ==
LOC: ER 21:08 → 2ND 23:36
PROVIDERS: ADMIT Internal Medicine; ATTEND Internal Medicine
PROC: 02HV33Z Insertion of Infusion Device into Superior Vena Cava, Percutaneous Approach (ICD-10-PCS; principal; 2023-01-16)
DX: A41.9 Sepsis, unspecified organism (principal); N17.9 Acute kidney failure, unspecified; Z16.12 Extended spectrum beta lactamase (ESBL) resistance; N10 Acute pyelonephritis; R65.20 Severe sepsis without septic shock; E87.6 Hypokalemia; E78.5 Hyperlipidemia, unspecified; F03.90 Unspecified dementia, unspecified severity, without behavioral disturbance, psychotic disturbance, mood disturbance, and anxiety; B96.1 Klebsiella pneumoniae [K. pneumoniae] as the cause of diseases classified elsewhere; E86.9 Volume depletion, unspecified; D64.9 Anemia, unspecified; M47.892 Other spondylosis, cervical region; N32.81 Overactive bladder; E55.9 Vitamin D deficiency, unspecified; E53.8 Deficiency of other specified B group vitamins; M85.80 Other specified disorders of bone density and structure, unspecified site; Z92.3 Personal history of irradiation; Z85.72 Personal history of non-Hodgkin lymphomas; Z92.21 Personal history of antineoplastic chemotherapy; Z85.41 Personal history of malignant neoplasm of cervix uteri; Z86.711 Personal history of pulmonary embolism; W18.30XA Fall on same level, unspecified, initial encounter; Y92.002 Bathroom of unspecified non-institutional (private) residence as the place of occurrence of the external cause; Y93.9 Activity, unspecified
CPT/HCPCS: 36415; 36569; 70450; 71045; 74176; 76770; 76857; 80048; 80053; 81001; 83605; 83735; 84484; 85025; 85610; 85730; 87040; 87077; 87086; 87088; 87186; 87205; 93005; 96374; 97116; 97161; 97530; 99285; J0696; J1650; J2185; J7030

== ENCOUNTER 2023-04-16 08:45 | Emergency (ER) | payer OTHER ==
--- OUTSIDE RECORDS SUMMARY | 2023-04-16 08:50 | XMS REPORT | Continuity of Care Document ---
:1940 Author Organization [facility] t Address [address] [place] [address] [address] [place] [address] Care Team Providers Name Role Phone [phone] Primary Care Physician Unavailable FRANCIS NAVARRO Attending Clinician Unavailable AMADOU PINEDA Attending Clinician Unavailable Bautista Attending Clinician Unavailable YOHAN WALLACE Attending Clinician Unavailable MARYANNE CARVAJAL Attending Clinician Unavailable Francis Navarro MD Attending Clinician Shankar Resendez CRNA [...] Date S lorelei MEDICARE PART A \T\ [id number] 2007 B 00:00:00 [employer]ET[employer] INDEMNITY [id number] 2017 00:00:00 MEDICARE A B [id number] 2007 00:00:00 AETNA PPO OPEN [facility] [id number] 2017 NAP 00:00:00 [employer]ET[employer] (MEDICARE [id number] 2022 REPLACEMENT PPO) 00:00:00 [employer] MEDICARE PPO [id number] 2022 00:00:00 MEDICARE PART A AND [id number] 2007 B 00:00:00 AETNA HMO [id number] 2017 00:00:00 MEDICARE B-[place]: [id number] 2007 N[employer] 00:00:00 [employer] (POS) [id number] 2013 00:00:00 Problems Condition Condition Condition Status Onset Resolution Last Treating Co mments Source Name Details Category Date Date Treatment Clinician Date Numbness Numbness Disease [facility] extremity [facility] Med[facility]ira 00 Center 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 [facility] di of of 2-08 st intrathora intrathora 00:00: Ho spita cic lymph cic lymph 00 l nodes nodes Nontraumat Nontraumat Disease Recurre [facility] ic [facility] nce 2- [facility] compressio compressio 00:00: Me dical n fracture n fracture 00 Ce nter of T8 of T8 vertebra vertebra Allergies, Adverse Reactions, Alerts Allergy Allergy Status Severity Reaction(s) Onset Inactive Treating Comm ents Source Name Type Date Date Clinician NO KNOWN Allergy Active [facility] NO KNOWN Drug Active Univers ALLERGIE Class ity of S [facility] Family History Family Member Diagnosis Comments Start Date Stop Date Source Natural brother Hypertension [facility] Natural father Asthma [facility] Natural mother Diabetes [facility] Social History Social Habit Start Date Stop Date Quantity Comments Source Gender identity [facility] Exposure to Not sure [facility]-CoV-2 (event) [facility] Sexual orientation [facility] Tobacco use and 2020-04-08 2020-04-08 Never used Universit y of exposure 00:00:00 00:00:00 [facility] History of Social 2019-02-12 2019-02-[address] function 00:00:00 00:00:00 Hospital Alcohol intake 2018-07-31 2018-07-31 Current [facility]regation 00:00:00 00:00:00 non-drinker of Hospital alcohol (finding) Sex Assigned At [birth year] [facility] kes 00:00:00 00:00:00 Medical Center Smoking Status Start Date Stop Date Source Unknown if ever smoked Universit y of [facility] Never smoker [facility] Medications Ordered Filled Start Stop Current Ordering Indication Dosage Frequency Signature Comments Components Source Medication Medication Date Date Medication? Clinician (SIG) Name Name mirabegron Yes 25mg Take [address] (MYRBETRIQ) 3-10 by mouth. Key es 25 mg Tb24 15:14: Medical ER tablet 34 [place] loperamide Yes diarrhea 2mg QD Take [address] (IMODIUM) 2 3-10 by mouth Luke s mg capsule 15:14: daily. Medic al [address] [place] multivitami 2019-06 Yes Take by Uni vers n with 0-14 mouth. ity of minerals 17:35: [place] (MULTI-VIT 59 Medical 55 PLUS Branch ORAL) mirabegron 2019-06 Yes 25mg Take 25 mg U nivers (MYRBETRIQ 0-14 by mouth. ity of ORAL) 17:35: [place] [address] Medical Branch multivit-mi 2019-06 Yes Take by Uni vers n/iron/foli 0-14 mouth. ity of c/lutein 17:35: [place] (CENTRUM 59 Medical SILVER Branch WOMEN ORAL) vitamin B 2019-06 Yes Take by Unive rs complex/fol 0-14 mouth. ity of ic acid (B 17:35: [place] COMPLEX 100 59 Medical ORAL) Branch apixaban 2019-06 Yes Take by [facility] (ELIQUIS 0-14 mouth. ity of ORAL) 17:35: [place] 59 Medical Branch lactated 2020- Yes 1000mL at 42 [facility]ers IV 0-14 mL/hr, ity of infusion 16:45: 1,000 [place], [place] 1[place]000 [place] 00 IV Medical Infusion, Branch CONTINUOUS , Starting Tue04/09/20 at 1145, Until Discontinu ed, Routine, PACU multivitami 2019-06 Yes Take by Uni vers n with 0-14 mouth. ity of minerals 16:33: [place] (MULTI-VIT 27 Medical 55 PLUS Branch ORAL) mirabegron 2019-06 Yes 25mg Take 25 mg U nivers (MYRBETRIQ 0-14 by mouth. ity of ORAL) 16:33: [place] [address] Medical Branch multivit-mi 2019-06 Yes Take by Uni vers n/iron/foli 0-14 mouth. ity of c/lutein 16:33: [place] (CENTRUM 27 Medical SILVER Branch WOMEN ORAL) vitamin B 2019-06 Yes Take by [facility] rs complex/fol 0-14 mouth. ity of ic acid (B 16:33: [facility] 100 27 Medical ORAL) Branch neomycin-po 2019-06 Yes PRN, [facility] s lymyxin-dex 0-14 Starting ity of amethasone 16:22: Tue [place] (MAXITROL) 04/09/20 Medic al 3.5 at 1122, Branch mg/g-10,000 Until unit/g-0.1 Discontinu % ed, ophthalmic Routine, ointment Intra-op gentamicin 2019-06 Yes PRN, Univers injection 0-14 Starting ity of 16:21: Tue [place] 00 04/09/20 Medical at 1121, Branch Until Discontinu ed, NATALYA, Intra-op dexamethaso 2019- Yes PRN, [facility] s ne 0-14 Starting ity of (DECADRON 16:21: Tue [place] PHOSPHATE) 04/09/20 Medic al injection at 1121, Branch Until Discontinu ed, Routine, Intra-op ceFAZolin 2019- Yes PRN, Univers (ANCEF) 0-14 Starting ity of injection 16:21: [facility] 04/09/20 Medical at 1121, Branch Until Discontinu ed, NATALYA, Intra-op sodium 2019- Yes PRN, Univers chloride 0-14 Starting ity of (NS) 16:18: [facility] injection 00 04/09/20 Medica l at 1118, Branch Until Discontinu ed, Routine, Intra-op EPINEPHrine 2019-06 Yes PRN, Univer s 1:1,000 (1 0-14 Starting ity o f mg/mL) 16:16: [facility] (ADRENALIN) 00 04/09/20 Medi hira injection at 1116, Branch Until Discontinu ed, Routine, Intra-op DUOVISC 2019- Yes PRN, Univers (DUOVISC 0-14 Starting ity of VISCO 16:16: Tue [place] ELASTIC) 3 00 04/09/20 Medic al %-4 %(0.5 at 1116, Branch mL) 1 % Until (0.55 mL) Discontinu intraocular ed, injection Routine, Intra-op carbachoL 2019-06 Yes PRN, Univers (MIOSTAT) 0-14 Starting ity of 0.01 % 16:15: [facility] intraocular 00 04/09/20 Medi hira injection at 1115, Branch Until Discontinu ed, Routine, Intra-op balanced 2019-06 Yes PRN, Univers salt irrig 0-14 Starting ity o f soln comb1 16:15: Tue [place] (BSS PLUS) 00 04/09/20 Medic al ophthalmic at 1115, Branc h solution Until 500 mL bag Discontinu ed, Routine, Intra-op water for 2019-06 Yes PRN, Univers irrigation 0-14 Starting ity o f irrigation 16:09: [facility] solution 04/09/20 Medical at 1109, Branch Until Discontinu ed, Routine, Intra-op Hyaluronida 2019-06 Yes PRN, Univer s se, Human 0-14 Starting ity of Recomb. 16:07: [facility] (HYLENEX) 04/09/20 Medica l injection at 1107, Branch Until Discontinu ed, Routine, Intra-op eye block 2019-06 Yes PRN, Univers syringe 11 0-14 Starting ity o f mL 16:07: [facility] 04/09/20 Medical at 1107, Branch Until Discontinu ed, Intra-op propofoL IV 2019-06 2020- No Intravenou Univers infusion 0-14 10-14 s, ONCE ity of 16:07: 16:30 INTRA [place] 00 :10 PROCEDURE, Medical Starting Branch 04/09/20 at 1107, Until Tue04/09/20 at 1130, Routine, Intra-op remifentani 2019-06 2020- No Intravenou Univers L (ULTIVA) 0-14 10-14 s, ONCE ity o f injection 16:07: 16:30 INTRA [place] 00 :10 PROCEDURE, Medical Starting Branch 04/09/20 at 1107, Until Tue04/09/20 at 1130, Routine, Intra-op lactated 2019-06 2020- No Intravenou Un juanjo ringers IV 0-14 10-14 s, ity of infusion 16:01: 16:30 [place]INUOUS [place] 00 :10 PRN, Medical Starting Branch 04/09/20 at 1101, Until Tue04/09/20 at 1130, Routine, Intra-op mydriatic 2019-06- No .5mL 0.5 mL, Univ ers #5 0-14 10-14 Left Eye, ity of ophthalmic 14:15: 14:05 ONCE, 1 [place] as solution 00 :00 dose, [facility] Medica l 0.5 mL 04/09/20 Branch syringe at 0915, Routine lactated 2019-06 2020- No 1000mL at 42 Unive rs ringers IV 0-14 10-14 mL/hr, ity of infusion 14:15: 14:05 1,000 mL, [place] as 1,000 mL 00 :00 IV Medical Infusion, Branch ONCE, 1 dose, 04/09/20 at 0915, Routine, DSU Pre-op apixaban 2019-06 Yes Take by Univer s (ELIQUIS 0-14 mouth. ity of ORAL) 13:53: [place] [facility] Branch multivitami 2020-0 Yes Take by Uni vers n with 9-30 mouth. ity of minerals 18:05: [place] (MULTI-VIT 39 Medical 55 PLUS Branch ORAL) mirabegron 2019-0 Yes 25mg Take 25 mg U nivers (MYRBETRIQ 9-30 by mouth. ity of ORAL) 18:05: [address] multivit-mi 2019-0 Yes Take by Uni vers n/iron/foli 9-30 mouth. ity of c/lutein 18:05: [place] ([address] WOMEN ORAL) vitamin B 2020-0 Yes Take by Unive rs complex/fol 9-30 mouth. ity of ic acid (B 18:05: [place] [address] Medical ORAL) Branch apixaban 2020-0 Yes Take by Univer s (ELIQUIS 9-30 mouth. ity of ORAL) 18:05: [address] multivitami 2020-0 Yes Take by Uni vers n with 9-30 mouth. ity of minerals 18:05: [place] (MULTI-VIT Medical 55 PLUS Branch ORAL) mirabegron 2020-0 Yes 25mg Take 25 mg U nivers (MYRBETRIQ 30 by mouth. ity of ORAL) 18:05: [address] multivit-mi 2020-0 Yes Take by Uni vers n/iron/foli 9-30 mouth. ity of c/lutein 18:05: [place] ([address] WOMEN ORAL) vitamin B 2020-0 Yes Take by Unive rs complex/fol -30 mouth. ity of ic acid (B 18:05: [place] [address] Medical ORAL) Branch apixaban 2020-0 Yes Take by Univer s (ELIQUIS 30 mouth. ity of ORAL) 18:05: [address] lactated 2020-0 Yes 1000mL at 42 [facility] ringers IV 9-30 mL/hr, ity of infusion 18:00: 1,000 [place], [place] 1[place]000 mL 00 IV Medical Infusion, Branch CONTINUOUS , Starting Tue03/26/20 at 1300, Until Discontinu ed, Routine, PACU neomycin-po 2020-0 Yes PRN, [facility] s lymyxin-dex 03-26 Starting ity of amethasone 17:18: Tue [place] (MAXITROL) 03/26/20 at [facility] ical 3.5 1218, [place] mg/g-10,000 Until unit/g-0.1 Discontinu % ed, ophthalmic Routine, ointment Intra-op gentamicin 2020-0 Yes PRN, Univers injection 30 Starting ity of 17:16: Tue [place] 03/26/20 at Medical 1216, Branch Until Discontinu ed, NATALYA, Intra-op DUOVISC 2020-0 Yes PRN, Univers (DUOVISC 03-26 Starting ity of VISCO 17:16: Tue [place] ELASTIC) 3 00 03/26/20 at [facility] ical %-4 %(0.5 1216, Branch mL) 1 % Until (0.55 mL) Discontinu intraocular ed, injection Routine, Intra-op dexamethaso 2020-0 Yes PRN, Univer s ne 03-26 Starting ity of (DECADRON 17:15: Tue PHOSPHATE) 03/26/20 at [facility] ical injection 1215, Branch Until Discontinu ed, Routine, Intra-op ceFAZolin 2020-0 Yes PRN, Univers (ANCEF) 03-26 Starting ity of injection 17:15: Tue03/26/20 at [facility] 1215, Branch Until Discontinu ed, NATALYA, Intra-op carbachoL 2020-0 Yes PRN, Univers (MIOSTAT) 03-26 Starting ity of 0.01 % 17:15: Tue [place] intraocular 00 03/26/20 at Sd dical injection 1215, Branch Until Discontinu ed, Routine, Intra-op sodium 2020-0 Yes PRN, Univers chloride 03-26 Starting ity of (NS) 17:15: Tue [place] injection 03/26/20 at [facility] 1215, Branch Until Discontinu ed, Routine, Intra-op EPINEPHrine 2020-0 Yes PRN, Univer s 1:1,000 (1 03-26 Starting ity o f mg/mL) 17:13: Tue [place] (ADRENALIN) 03/26/20 at Sd dical injection 1213, Branch Until Discontinu ed, Routine, Intra-op balanced 2020-0 Yes PRN, Univers salt irrig 03-26 Starting ity o f soln comb1 17:12: Tue [place] (BSS PLUS) 03/26/20 at [facility] ical ophthalmic 1212, Branch solution Until 500 mL bag Discontinu ed, Routine, Intra-op Hyaluronida 2020-0 Yes PRN, Univer s se, Human 03-26 Starting ity of Recomb. 17:01: Tue [place] (HYLENEX) 03/26/20 at [facility] injection 1201, Branch Until Discontinu ed, Routine, Intra-op eye block 2020-0 Yes PRN, Univers syringe 11 03-26 Starting ity o f mL 17:01: Tue [place] 03/26/20 at [facility] 1201, Branch Until Discontinu ed, Intra-op water for 2019-0 Yes PRN, [facility] irrigation 03-26 Starting ity o f irrigation 16:53: [facility] solution 00 03/26/20 at Medic al 1153, Branch Until Discontinu ed, Routine, Intra-op mydriatic 0 2020- No .5mL 0.5 mL, [facility] ers #5 03-26 Right Eye, ity of ophthalmic 16:00: 15:17 ONCE, 1 [place] as solution 00 :00 dose, Tue Medica l 0.5 mL 03/26/20 at [place] syringe 1100, Routine, DSU Pre-op lactated 2019-0 2020- No 500mL at 50 [facility] s ringers IV 03-26 mL/hr, 500 it y of infusion 15:15: 15:17 mL, IV [place] 500 mL 00 :00 Infusion, Medical ONCE, 1 [place] dose, Tue03/26/20 at 1015, Routine, DSU Pre-op multivitami 2020-0 Yes Take by Uni vers n with 03-24 mouth. ity of minerals 14:01: [place] (MULTI-VIT Medical 55 PLUS Branch ORAL) mirabegron 2020-0 Yes 25mg Take 25 mg U nivers (MYRBETRIQ 03-24 by mouth. ity of ORAL) 14:01: [address] multivit-mi 2019-0 Yes Take by Uni vers n/iron/foli 03-24 mouth. ity of c/lutein 14:01: [place] (CENTRUM Medical SILVER Branch WOMEN ORAL) vitamin B 2019-0 Yes Take by [facility] rs complex/fol 03-24 mouth. ity of ic acid (B 14:01: [place] COMPLEX 100 Medical ORAL) Branch apixaban 2020-0 Yes Take by [facility] s (ELIQUIS 03-24 mouth. ity of ORAL) 14:01: [address] Flomax 0.4 Flomax 0.4 No 1capsul [...] week twice week triamterene triamterene No triamteren Sanders 37.5 37.5 e 37.5 [place] mg-hydrochl mg-hydrochl [...] route. route. route. memantine memantine No memantine [place] 10 mg 10 mg 10 mg [facility] [...] DIRECTED. DIRECTED. DIRECTED. sulfamethox sulfamethox No sulfametho [place] azole 800 azole 800 xazole 800 [facility] mg-trimetho mg-trimetho mg-trimeth Urology prim 160 mg prim 160 mg oprim 160 tablet TAKE tablet TAKE mg tablet ONE (1) ONE (1) TAKE ONE TABLET(S) TABLET(S) (1) BY MOUTH BY MOUTH TABLET(S) TWICE A TWICE A BY MOUTH DAY. DAY. TWICE A DAY. tamsulosin tamsulosin No tamsulosin [place] 0.4 mg 0.4 mg 0.4 mg [facility] capsule capsule capsule Urolog y TAKE ONE TAKE ONE TAKE ONE (1) (1) (1) CAPSULE(S) CAPSULE(S) CAPSULE(S) BY MOUTH BY MOUTH BY MOUTH DAILY. DAILY. DAILY. triamterene triamterene No triamteren Sanders 37.5 37.5 e 37.5 [facility] mg-hydrochl mg-hydrochl mg-hydroch Urology orothiazide orothiazide lorothiazi 25 mg 25 mg de 25 mg tablet TAKE tablet TAKE tablet ONE (1) ONE (1) TAKE ONE TABLET(S) TABLET(S) (1) BY MOUTH BY MOUTH TABLET(S) DAILY IN DAILY IN BY MOUTH THE THE DAILY IN MORNING. MORNING. THE MORNING. trimethopri trimethopri No 1 Q1D trimethopr Sanders m 100 mg m 100 mg im 100 mg Me tro tablet Take tablet Take tablet Urology 1 tablet 1 tablet Take 1 every day every day tablet by oral by oral every day route. route. by oral route. cefdinir cefdinir No cefdinir Tanya ston 300 mg 300 mg 300 mg [facility] capsule capsule capsule Urolog y TAKE ONE TAKE ONE TAKE ONE (1) (1) (1) CAPSULE(S) CAPSULE(S) CAPSULE(S) BY MOUTH BY MOUTH BY MOUTH EVERY EVERY EVERY TWELVE TWELVE TWELVE HOURS. HOURS. HOURS. cephalexin cephalexin No cephalexin Sanders 500 mg 500 mg 500 mg [facility] capsule capsule capsule Urolog y TAKE ONE TAKE ONE TAKE ONE (1) (1) (1) TABLET(S) TABLET(S) TABLET(S) BY MOUTH BY MOUTH BY MOUTH FOUR TIMES FOUR TIMES FOUR TIMES A DAY. A DAY. A DAY. Gemtesa 75 Gemtesa 75 No Gemtesa 75 Dobbs mg tablet mg tablet mg tablet [facility] Take 1 Take 1 Take 1 Urology tablet tablet tablet every day every day every day by oral by oral by oral route. route. route. memantine memantine No memantine Sanders 10 mg 10 mg 10 mg [facility] tablet TAKE tablet TAKE tablet Urology ONE (1) ONE (1) TAKE ONE TABLET(S) TABLET(S) (1) BY MOUTH BY MOUTH TABLET(S) TWICE A TWICE A BY MOUTH DAY. DAY. TWICE A DAY. memantine 5 memantine 5 No memantine [place] mg tablet mg tablet 5 mg [facility] [...] AND APPLY APPLY APPLY DIRECTED. DIRECTED. DIRECTED. sodium sodium No sodium [place] chloride chloride chloride Met ro 0.9 % 0.9 % 0.9 % Urology intravenous intravenous intravenou solution solution s solution sulfamethox sulfamethox No sulfametho [place] azole 800 azole 800 xazole 800 [facility] mg-trimetho mg-trimetho mg-trimeth Urology prim 160 mg prim 160 mg oprim 160 tablet TAKE tablet TAKE mg tablet ONE (1) ONE (1) TAKE ONE TABLET(S) TABLET(S) (1) BY MOUTH BY MOUTH TABLET(S) TWICE DAILY TWICE DAILY BY MOUTH WITH FOOD. WITH FOOD. TWICE DAILY WITH FOOD. tamsulosin tamsulosin No tamsulosin Sanders 0.4 mg 0.4 mg 0.4 mg [facility] capsule capsule capsule Urolog y TAKE ONE TAKE ONE TAKE ONE (1) (1) (1) CAPSULE(S) CAPSULE(S) CAPSULE(S) BY MOUTH BY MOUTH BY MOUTH DAILY. DAILY. DAILY. triamterene triamterene No triamteren Sanders 37.5 37.5 e 37.5 [facility] mg-hydrochl mg-hydrochl mg-hydroch Urology orothiazide orothiazide lorothiazi 25 mg 25 mg de 25 mg tablet TAKE tablet TAKE tablet ONE (1) ONE (1) TAKE ONE TABLET(S) TABLET(S) (1) BY MOUTH BY MOUTH TABLET(S) DAILY IN DAILY IN BY MOUTH THE THE DAILY IN MORNING. MORNING. THE MORNING. trimethopri trimethopri No trimethopr Sanders m 100 mg m 100 mg im 100 mg Me tro tablet TAKE tablet TAKE tablet Urology ONE (1) ONE (1) TAKE ONE TABLET(S) TABLET(S) (1) BY MOUTH BY MOUTH TABLET(S) DAILY. DAILY. BY MOUTH DAILY. cefdinir cefdinir No cefdinir Tanya ston 300 mg 300 mg 300 mg [facility] capsule capsule capsule Urolog y TAKE ONE TAKE ONE TAKE ONE (1) (1) (1) CAPSULE(S) CAPSULE(S) CAPSULE(S) BY MOUTH BY MOUTH BY MOUTH EVERY EVERY EVERY TWELVE TWELVE TWELVE HOURS. HOURS. HOURS. cephalexin cephalexin No cephalexin Sanders 500 mg 500 mg 500 mg [facility] capsule capsule capsule Urolog y TAKE ONE TAKE ONE TAKE ONE (1) (1) (1) TABLET(S) TABLET(S) TABLET(S) BY MOUTH BY MOUTH BY MOUTH FOUR TIMES FOUR TIMES FOUR TIMES A DAY. A DAY. A DAY. Gemtesa 75 Gemtesa 75 No [place] 75 [place]bs mg tablet mg tablet mg tablet [facility] Take 1 Take 1 Take 1 Urology tablet tablet tablet every day every day every day by oral by oral by oral route. route. route. memantine memantine No memantine [place] 10 mg 10 mg 10 mg [facility] [...] AND APPLY APPLY APPLY DIRECTED. DIRECTED. DIRECTED. sodium sodium No sodium [place] chloride chloride chloride Met ro 0.9 % 0.9 % 0.9 % Urology intravenous intravenous intravenou solution solution s solution sulfamethox sulfamethox No sulfametho [place] azole 800 azole 800 xazole 800 [facility] mg-trimetho mg-trimetho mg-trimeth Urology prim 160 mg prim 160 mg oprim 160 tablet TAKE tablet TAKE mg tablet ONE (1) ONE (1) TAKE ONE TABLET(S) TABLET(S) (1) BY MOUTH BY MOUTH TABLET(S) TWICE DAILY TWICE DAILY BY MOUTH WITH FOOD. WITH FOOD. TWICE DAILY WITH FOOD. tamsulosin tamsulosin No tamsulosin [place] 0.4 mg 0.4 mg 0.4 mg [facility] capsule capsule capsule Urolog y TAKE ONE TAKE ONE TAKE ONE (1) (1) (1) CAPSULE(S) CAPSULE(S) CAPSULE(S) BY MOUTH BY MOUTH BY MOUTH DAILY. DAILY. DAILY. triamterene triamterene No triamteren Sanders 37.5 37.5 e 37.5 [facility] mg-hydrochl mg-hydrochl mg-hydroch Urology orothiazide orothiazide lorothiazi 25 mg 25 mg de 25 mg tablet TAKE tablet TAKE tablet ONE (1) ONE (1) TAKE ONE TABLET(S) TABLET(S) (1) BY MOUTH BY MOUTH TABLET(S) DAILY IN DAILY IN BY MOUTH THE THE DAILY IN MORNING. MORNING. THE MORNING. trimethopri trimethopri No trimethopr [place] m 100 mg m 100 mg im 100 mg Me tro tablet TAKE tablet TAKE tablet Urology ONE (1) ONE (1) TAKE ONE TABLET(S) TABLET(S) (1) BY MOUTH BY MOUTH TABLET(S) DAILY. DAILY. BY MOUTH DAILY. Immunizations Ordered Filled Immunization Date Status Comments [facility] e Immunization Name Name JORI DELGADILLOID-Aj 2020-08-01 Completed [facility] M[facility] VACCINATION 00:00:00 Hospital PFIZER COVID-19 2020-07-11 Completed [facility] MRNA VACCINATION 00:00:00 [facility] PFIZER COVID-19 Unknown Completed [facility] MRNA VACCINATION [facility] PFIZER COVID-19 Unknown Completed [facility] MRNA VACCINATION Hospital Vital Signs Vital Name Observation Time Observation Value Comments Source HEIGHT 2020-08-30 20:00:00 165.1 cm WEIGHT 2020-08-30 20:00:00 63.504 kg Body Weight 2023-01-31 00:00:00 130 [facility] Height 2023-01-31 00:00:00 62 [facility]in_i] [facility] BMI (Body Mass 2023-01-31 00:00:00 23.8 kg/m2 [place] [facility]) Urology Height 2022-12-30 00:00:00 62 [in_i] [facility] BMI (Body Mass 2022-12-30 00:00:00 23.8 kg/m2 [place] [facility]) Urology Body Weight 2022-12-30 00:00:00 130 [lb_av] [facility] Height 2022-09-13 00:00:00 62 [in_i] [facility] BMI (Body Mass 2022-09-13 00:00:00 23.8 kg/m2 [place] [facility]) Urology Body Weight 2022-09-13 00:00:00 130 [lb_av] [facility] HEIGHT 2020-08-30 20:00:00 165.1 cm WEIGHT 2020-08-30 20:00:00 63.504 kg Systolic blood 2020-04-09 16:34:00 149 mm[Hg] Univer sity of pressure [facility] Diastolic blood 2020-04-09 16:34:00 73 mm[Hg] Unive rsity of [facility] Heart rate 2020-04-09 16:34:00 83 /min Universi [facility] Respiratory rate 2020-04-09 16:34:00 16 /[facility] saturation in 2020-04-09 16:34:00 100 /min [facility] Arterial blood by [facility] Pulse oximetry Branch Body temperature 2020-04-09 13:53:00 36.5 Keisha Univ [facility] [place] [facility] Body height 2020-04-08 14:45:00 165.1 cm [facility] [place] [facility] Body weight 2020-04-08 14:45:00 63.504 kg [facility] [place] [facility] BMI 2020-04-08 14:45:00 23.30 kg/m2 [facility] [place] [facility] Systolic blood 2020-04-09 16:34:00 149 mm[Hg] Univer sity of pressure [place] [facility] Diastolic blood 2020-04-09 16:34:00 73 mm[Hg] Unive rsity of pressure [place] [facility] Heart rate 2020-04-09 16:34:00 83 /min [facility] [place] [facility] Respiratory rate 2020-04-09 16:34:00 16 /min Univ ersity [facility] [place] [facility] Oxygen saturation in 2020-04-09 16:34:00 100 /min University of Arterial blood by [facility] Pulse oximetry Branch Body temperature 2020-04-09 13:53:00 36.5 Keisha Univ ers[facility] [place] [facility] Body height 2020-04-08 14:45:00 165.1 cm [facility] [place] [facility] Body weight 2020-04-08 14:45:00 63.504 kg [facility] [place] [facility] BMI 2020-04-08 14:45:00 23.30 kg/m2 [facility] [place] [facility] Respiratory rate 2020-04-09 16:29:00 16 /min Univ ers[facility] [place] [facility] Respiratory rate 2020-04-09 16:29:00 16 /min Univ ers[facility] [place] [facility] Systolic blood 2020-03-26 17:40:00 159 mm[Hg] Univer sity of pressure [place] [facility] Diastolic blood 2020-03-26 17:40:00 72 mm[Hg] Unive rsity of pressure [place] [facility] Heart rate 2020-03-26 17:40:00 75 /min [facility] [place] [facility] Body temperature 2020-03-26 17:40:00 36.72 Keisha Univ [facility] [place] [facility] Respiratory rate 2020-03-26 17:40:00 19 /min [facility] Oxygen saturation in 2020-03-26 17:40:00 94 /min [facility] Arterial blood by [facility] Pulse oximetry Branch Body height 2020-03-24 17:16:00 165.1 cm [facility] Body weight 2020-03-24 17:16:00 64.9 kg [facility] BMI 2020-03-24 17:16:00 23.81 kg/m2 [facility] Systolic blood 2020-03-26 17:40:00 159 mm[Hg] [facility] [place] [facility] [place] Diastolic blood 2020-03-26 17:40:00 72 mm[Hg] Unive rsity of pressure [facility] Heart rate 2020-03-26 17:40:00 75 /min [facility] Body temperature 2020-03-26 17:40:00 36.72 Keisha [facility] Respiratory rate 2020-03-26 17:40:00 19 /min [facility] Oxygen saturation in 2020-03-26 17:40:00 94 /min [facility] Arterial blood by [facility] Pulse oximetry Branch Body height 2020-03-24 17:16:00 165.1 cm [facility] Body weight 2020-03-24 17:16:00 64.9 kg [facility] BMI 2020-03-24 17:16:00 23.81 kg/m2 Univers[facility] Branch Procedures Procedure Date / Time Performed Performing Clinician [facility] e CONSENT/REFUSAL FOR 2020-04-08 14:22:30 Doctor Unassigned, No [facility] DIAGNOSIS AND [facility] [place] TREATMENT ASSIGNMENT OF BENEFITS 2020-04-08 14:22:09 Doctor Unassigned, No [facility] Plan of Care Planned Activity Planned Date Details Comments Source Future Scheduled 2023-04-13 SHINGLES VACCINES ([address] [facility] Test 07:24:17 of 2) [code = SHINGLES VACCINES (1 of 2)] Future Scheduled 2023-04-13 RSV VACCINES > [address] [facility] Test 07:24:17 (1 - 1-dose 60+ series) [code = RSV VACCINES > 60 YR (1 - 1-dose 60+ series)] Future Scheduled 2023-04-13 65+ PNEUMOCOCCAL [facility] Test 07:24:17 VACCINE (1 - PCV) [code = 65+ PNEUMOCOCCAL VACCINE (1 - PCV)] Future Scheduled 2023-04-13 COVID-19 VACCINE ([facility] - [facility] Test 07:24:17 ) [code = COVID-19 VACCINE (3 - season)] Future Scheduled 2023-04-13 INFLUENZA VACCINE [facility] Test 07:24:17 (#1) [code = INFLUENZA VACCINE (#1)] Future Scheduled 2023-02-[address] [facility] Test 00:00:00 (#1) [code = Medical Center Influenza Vaccine (#1)] Future Scheduled 2023-01-15 SHINGLES VACCINES (1 Met [facility] Test 21:10:58 of 2) [code = SHINGLES VACCINES (1 of 2)] Future Scheduled 2023-01-15 65+ [facility]OCOCCAL [facility] Test 21:10:58 VACCINE (1 - PCV) [code = 65+ PNEUMOCOCCAL VACCINE (1 - PCV)] Future Scheduled 2023-01-15 COVID-19 VACCINE (3 - [facility] Test 21:10:58 Pfizer series) [code = COVID-19 VACCINE (3 - Pfizer series)] Future Scheduled 2023-01-15 INFLUENZA VACCINE [facility] Test 21:10:58 [code = INFLUENZA VACCINE] Diagnostic Test 2022-12-30 urinalysis, dipstick [place] [facility] Pending 00:00:00 [code = urinalysis, Urology dipstick] Future Scheduled 2022-06-[address] [facility] Test 00:00:00 (12+) [code = Medical Center DEPRESSION SCREENING (12+)] Future Scheduled 2022-06-27 FALLS RISK SCREENING [facility] Test 00:00:00 [code = FALLS RISK Medical C enter SCREENING] Future Scheduled 2021-08-[address] [facility] Test 00:00:00 Counseling and Medical Cente r Screening (12+) [code = Tobacco Cessation Counseling and Screening (12+)] Future Scheduled 2008-06-[address] [facility] [facility] Test 00:00:00 WELLNESS (YEAR 2 or Medical Center FIRST YEAR if no IPPE) [code = MEDICARE ANNUAL WELLNESS (YEAR 2 or FIRST YEAR if no IPPE)] Future Scheduled 1961 DTAP/TDAP/TD VACCINES [facility] Test 00:00:00 (1 - Tdap) [code = Medical C enter DTAP/TDAP/TD VACCINES (1 - Tdap)] Future Scheduled 1961 SHINGLES VACCINES ([address] [facility] Test 00:00:00 of 2) [code = Medical Center SHINGLES VACCINES (1 of 2)] Future Scheduled 1948 PNEUMOCOCCAL 65+ YRS [facility] Test 00:00:00 (1 - PCV) [code = Medical Ce nter PNEUMOCOCCAL 65+ YRS (1 - PCV)] Future Scheduled 1943-01-13 COVID-19 VACCINE (#1) [facility] Test 00:00:00 [code = COVID-[address] VACCINE (#1)] Future Scheduled 1940 DXA SCAN [code = DXA [facility] Test 00:00:00 SCAN] Medical Center Encounters Start End Encounter Admission Attending Care Care Encounter Source Date/Time Date/Time Type Type Clinicians Facility Department ID 2021-04-24 Outpatient Rakesh NAVARRO [facility] YURI [id number] Univers 21:41:39 [facility] 2021-04-24 Outpatient Rakesh NAVARRO [facility] YURI [id number] Univers 19:27:16 [facility] 2020-08-30 Inpatient UR ILAN PINEDA Neurology [id number] SLE 18:01:00 AMADOU 2023-02-18 2023-02-18 Outpatient Goldfarb_D [facility] [place] 00:00:00 00:00:00 [id number] [facility] 2023-02-10 2023-02-10 Outpatient Goldfarb_D [facility] 400 [place] 00:00:00 00:00:00 [id number] [facility] 2023-02-07 2023-02-07 Outpatient Goldfarb_D [facility] 400 [place] 00:00:00 00:00:00 [id number] [facility] 2023-01-31 2023-01-31 [facility] - [id number] Annika collins 00:00:00 00:00:00 Felipa Bunch: [address] [address], [place] [address] , Ph. 2023-01-29 2023-01-29 Outpatient Goldfarb_D [facility] 4001 [id number] [place] 00:00:00 00:00:00 [id number] [facility] 2023-01-29 2023-01-29 Outpatient Goldfarb_D [facility] 4001 [id number] [place] 00:00:00 00:00:00 [id number] [facility] 2023-01-29 2023-01-29 Outpatient Goldfarb_D [facility] 4001 [id number] [place] 00:00:00 00:00:00 [id number] [facility] 2023-01-26 2023-01-26 Outpatient Goldfarb_D [facility] 4001 [id number] [place] 00:00:00 00:00:00 [id number] [facility] 2023-01-26 2023-01-26 Outpatient Goldfarb_D [facility] 4001 [id number] [place] 00:00:00 00:00:00 [id number] [facility] 2023-01-26 2023-01-26 [facility] [place] - [id number] christinasharri 00:00:00 00:00:00 UmaFelipa Martin: [address] Ramirez - [facility] [address], [facility] [address] , Ph. 2023-01-14 2023-01-14 Outpatient Goldfarb_D [facility] 4001 [id number] [place] 00:00:00 00:00:00 [id number] [facility] 2023-01-14 2023-01-14 Outpatient Goldfarb_D [facility] 4001 [id number] [place] 00:00:00 00:00:00 [id number] [facility] 2022-12-30 2022-12-30 Outpatient ALEKSANDRA WALLACE MDA MDA [id number] 11:47:52 11:47:52 YOHAN madrigal 2022-12-30 2022-12-30 Outpatient ALEKSANDRA WALLACE MDA MDA [id number] 10:40:59 10:40:59 YOHAN madrigal 2022-12-30 2022-12-30 [facility] [place] - [id number] [facility] 00:00:00 00:00:00 Uma Dobbs Felipa Alvarez: [address], [place] [address] , Ph. 2022-11-25 2022-11-25 Outpatient ALEKSANDRA WALLACE MDA MDA [id number] 08:26:44 23:59:00 YOHAN madrigal 2022-11-25 2022-11-25 Outpatient ALEKSANDRA CARVAJAL MDA MDA [id number] 12:03:25 12:48:06 MARYANNE madrigal 2022-11-25 2022-11-25 Outpatient ALEKSANDRA WALLACE MDA MDA [id number] 08:15:00 08:25:00 YOHAN madrigal 2022-10-07 2022-10-07 Outpatient Goldfarb_D [facility] 4001 [id number] [place] 00:00:00 00:00:00 [id number] [facility] 2022-10-07 2022-10-07 Outpatient Goldfarb_D [facility] 4001 [id number] [place] 00:00:00 00:00:00 [id number] [facility] 2022-09-29 2022-09-29 Outpatient Goldfarb_D [facility] 4001 [id number] [place] 00:00:00 00:00:00 [id number] [facility] 2022-09-23 2022-09-23 Outpatient Goldfarb_D [facility] U 4001 [id number] [place] 00:00:00 00:00:00 [id number] [facility] 2022-09-13 2022-09-13 Outpatient Goldfarb_D [facility] 4001 [id number] [place] 00:00:00 00:00:00 [id number] [facility] 2022-09-13 2022-09-13 [facility] [place] - [id number] [facility] 00:00:00 00:00:00 Uma Dobbs Felipa Alvarez: [address], [place] [address] , Ph. 2022-09-09 2022-09-09 Outpatient Goldfarb_D [facility] 4001 [id number] [place] 00:00:00 00:00:00 [id number] [facility] 2022-07-15 2022-07-15 Outpatient Goldfarb_D [facility] 4001 [id number] [place] 00:00:00 00:00:00 [id number] [facility] 2022-07-15 2022-07-15 Outpatient Goldfarb_D [facility] 4001 [id number] [place] 00:00:00 00:00:00 [id number] [facility] 2021-03-04 2021-03-04 Outpatient ALEKSANDRA CARVAJAL [facility] [id number] MD 14:50:37 23:59:00 MARYANNE madrigal 2020-08-01 2020-08-01 Outpatient [facility] [id number] [place] 00:00:00 00:00:[address] 2020-07-11 2020-07-11 Outpatient [facility] [id number] [place] 00:00:00 00:00:[address] 2020-04-09 2020-04-09 [facility] [id number] [facility] 08:52:00 12:00:00 Encounter Francis Abraham [id number] [place] [id number] [address] 2020-04-09 2020-04-09 [facility] [id number] 08:52:00 12:00:00 Encounter Francis Abraham [id number] [place] 4.2.7.2.686 Surgical [id number] [address] [address] 2020-04-09 2020-04-09 Anesthesia Shankar Resendez [facility] [id number] [facility] 10:58:00 11:30:00 Leandra Duarte 350.1.13.10 [place] [id number] [facility] [address] 2020-04-09 2020-04-09 Anesthesia Shankar Resendez [facility] [id number] 10:58:00 11:30:00 DuarteLeandra colbert Leigh 350.1.13.10 [place] 4.2.7.2.686 Surgical [id number] [address] [address] 2020-04-08 2020-04-08 Laboratory Only, [facility] Test [facility] 1.2.840. 114 [id number] [facility] 09:19:46 09:34:46 Only Ramon Francis Long [place] 350.1.13.1 0 [place] 4.2.7.2.686 [facility] [place] [id number] [address] 2020-04-08 2020-04-08 Laboratory Only, [facility] 1.2.840.114 [id number] 09:19:46 09:34:46 Only Test Leigh 350.1.13.10 [place] 4.2.7.2.686 [place] [id number] [facility] 2020-04-08 2020-04-08 [facility] [id number] Univers 09:30:00 09:30:00 [facility] 2020-03-26 2020-03-26 [facility] [id number] [facility] 10:02:00 13:05:00 Encounter Francis Long Leigh 350.1.13.10 ity of [place] [address].2.7.2.[address] [facility] Surgical [id number] [facility] [address] 2020-03-26 2020-03-26 [facility] [id number] 10:02:00 13:05:00 Encounter Francis Long [place] 350.1.13.10 [place] 4.2.7.2.686 Surgical [id number] [address] [address] 2020-03-25 2020-03-25 Outpatient [facility] [id number] Univers 09:45:00 09:45:00 [facility] 2020-03-25 2020-03-25 Laboratory Only, [facility] Test [facility] 1.2.840. 114 [id number] [facility] 08:51:16 09:06:16 Only Francis Navarro 350.1.13.1 0 [place] [id number] [address] 2020-03-25 2020-03-25 Laboratory Only, [facility] 1.2.840.114 [id number] 08:51:16 09:06:16 Only Test [place] 350.1.13.10 [place] 4.2.7.2.686 [place] [id number] [facility] 2020-03-21 2020-03-21 Electronic Controls Repairer Supervisor Chele, [facility] Lab Main [facility] [id number] [facility] 11:34:14 11:49:14 Visit Francis Navarro 350.1.13.1 0 ity of [place] 4.2.7.2.[address] [facility] Professio [id number] Sd dical [address] 2020-03-21 2020-03-21 Electronic Controls Repairer [facility] 1.2.840.114 [id number] 11:34:14 11:49:14 Visit Lab Main [place] 350.1.13.10 [place] 4.2.7.2.686 Professio [id number] [address] 2020-03-21 2020-03-21 Outpatient R RAMON [facility] [id number] [facility] 10:15:00 10:15:00 FRANCIS villegas [facility] Results Test Description Test Time Test Comments Results Result Comments Source Bacteria 2023-01-26 Urine Culture [facility] ro identified in 00:00:00 Urology Urine by Culture BASIC METABOLIC PANEL 2020-09-03 06:03:00 Test Item [...] NOT 1092) ACCURATE CRE ATININE CLEARANCE IN [place] EDICTING GLOMERULAR FILT RATION RATE. ESTIMATED GFR IS NOT APPLICABLE FOR DIALYSIS PATIENTS. Vehicle Delivery Worker ID - [id number] 06:03:00 Test Item Value Reference Range Interpretation Comments MAGNESIUM (BEAKER) (test code = 2.2 mg/dL 1.6-2.6 627) Vehicle Delivery Worker ID - [id number] 06:03:00 Test Item Value Reference Range Interpretation Comments PHOSPHORUS (BEAKER) (test code = 3.5 mg/dL 2.3-4.7 604) Vehicle Delivery Worker ID - ASCBC (HEMOGRAM ONLY)2020-09-03 05:19:00 Test [...] (BEAKER) (test code = 413) BASIC METABOLIC [id number] 06:11:00 Test Item Value Reference Range Interpretation [...] S NOT APPLICABLE FOR DIALYSIS PATIEN TS. Vehicle Delivery Worker ID - [id number] 06:11:00 Test Item Value Reference Range Interpretation Comments MAGNESIUM (BEAKER) (test code = 2.2 mg/dL 1.6-2.6 627) Vehicle Delivery Worker ID - [id number] 06:11:00 Test Item Value Reference Range Interpretation Comments PHOSPHORUS (BEAKER) (test code = 3.4 mg/dL 2.3-4.7 604) Vehicle Delivery Worker ID - ADMINCBC (HEMOGRAM ONLY)2020-09-02 05:28:00 Test [...] (test code = 413) C. DIFFICILE GDH [id number] 10:27:00 Test Item Value Reference Range Interpretation Comments CDT TOXIN (test code Negative Negative = 4530612401) CDT GDH ANTIGEN (test Positive Negative A No ind ication of code = 4802904109) Clostridi um difficile infection and n o colonization. Discontinue ent david isolation and t herapy. Testing performed by [employer] Rapid Cassette Assay. For GDH, published sensitivity of the assay is 98.7% compared to cytotoxicity testing. For Toxin AB, published sensitivity is 87.8% and specificity 99.4% compared to cytotoxicity testing.Verification of kit performance was done by the [facility] MicrobiologyLab prior to clinical use.[id number] 05:55:00 Test Item Value Reference Range Interpretation Comments MAGNESIUM (BEAKER) 2.3 mg/dL 1.6-2.6 Specimen slightly (test code = 627) hemolyzed Vehicle Delivery Worker ID - [id number] 05:55:00 Test Item Value Reference Range Interpretation Comments PHOSPHORUS (BEAKER) 3.7 mg/dL 2.3-4.7 Specimen slightly (test code = 604) hemolyzed Vehicle Delivery Worker ID - DBBASIC METABOLIC [id number] 05:55:00 Test Item Value Reference Range Interpretation [...] S NOT APPLICABLE FOR DIALYSIS PATIEN TS. Vehicle Delivery Worker ID - DBCBC (HEMOGRAM ONLY)2020-09-01 05:35:00 Test [...] 0-0 (BEAKER) (test code = 413) SARS-COV2/RT-PCR ([facility])2020-08-31 18:16:00 Test Item Value Reference Range Interpretation Comments SARS-COV2/RT-PCR (test Negative Not Detected, Negative, code = 0690021) See external report for linked test SARS-COV-2 PERFORMING LAB [facility] ALEJANDRA (test code = 7598437) Negative result for this test determines that [...] of the Act.Fact Sheet for Healthcare Prov iders:https://www.[employer].com/sites/default/files/product/documents/Fact_Sheet_HC _Ehickqiut_Gzgd_IETI-ZiA-1.pdfFact Sheet for Healthcare Patients:https://www.[employer].com/sites/default/files/product/docume nts/Iqvj_Ozflt_Fbfgzhir_Ngbf_RKPS-JzA-9.pdfPerforming Laboratory:[address] [address] [address] [id number], SPINE, CERVICAL, 2 OR 3 [id number] 09:36:00Standing flex -extReason for exam:->[facility]elomalcia [facility] 1940 Sex: FFINAL REPORT TECHNIQUE: Four views of the cervical spine HISTORY: Myelomalcia. COMPARISON: None. IMPRESSION:Straightening of the cervical spine with scattered facet arthropathy and mild joint space narrowing.There is radiculopathy recommend MRI.No acute displaced fracture or dislocation. No acute soft tissue abnormality. Signed: Giacomo Prasad MDReport Verified Date/Time: 08/31/2020 09:36:18 Reading Location: [address] Consult Reading Room MIN B12 AND [id number] 07:03:00 Test Item Value Reference Range Interpretation Comments VITAMIN B12 > pg/mL 213-816 H ([employer]) (test code = 774) FOLATE ([employer]) 29.10 ng/mL See_Comment [Automated message] (test code = 362) The system which generated this result transmitted ref erence range: >=7.00. The reference range was not used to interpr et this result as normal/abnormal . Vehicle Delivery Worker ID - EDASIOperator ID - EDASITSH/FREE T4 IF [id number] 06:57:00 Test Item Value Reference Range Interpretation Comments THYROID STIMULATING HORMONE 1.985 uIU/mL 0.350-4.940 ([employer]) (test code = 772) Vehicle Delivery Worker ID - [id number] 05:38:00 Test Item Value Reference Range Interpretation Comments MAGNESIUM (BEAKER) (test code = 2.1 mg/dL 1.6-2.6 627) Vehicle Delivery Worker ID - [id number] 05:38:00 Test Item Value Reference Range Interpretation Comments PHOSPHORUS (BEAKER) (test code = 2.8 mg/dL 2.3-4.7 604) Vehicle Delivery Worker ID - EDASIBASIC METABOLIC [id number] 05:38:00 Test Item Value Reference Range Interpretation [...] S NOT APPLICABLE FOR DIALYSIS PATIEN TS. Vehicle Delivery Worker ID - EDASIPROTHROMBIN [id number] 05:26:00 Test Item Value Reference Range Interpretation Comments PROTIME (BEAKER) 14.3 seconds 11.9-14.2 H (test code = 759) INR (BEAKER) (test 1.15 See_Comment [Automat ed message] code = 370) The system W4 generated this result transmitted ref erence range: [...] (BEAKER) (test code = 413) COMPREHENSIVE METABOLIC [id number] 19:11:00 Test Item Value Reference Range Interpretation [...] S NOT APPLICABLE FOR DIALYSIS PATIEN TS. Vehicle Delivery Worker ID - [id number] 19:11:00 Test Item Value Reference Range Interpretation Comments MAGNESIUM (BEAKER) (test code = 2.1 mg/dL 1.6-2.6 627) Vehicle Delivery Worker ID - [id number] 19:11:00 Test Item Value Reference Range Interpretation Comments PHOSPHORUS (BEAKER) (test code = 2.8 mg/dL 2.3-4.7 604) Vehicle Delivery Worker ID - DBCBC W/PLT COUNT & AUTO [id number] 18:46:00 Test Item Value Reference Range Interpretation [...] % 0-1 PERCENT (BEAKER) (test code = 1811)
[2023-04-16] MEDS ORDERED: NA CHLORIDE 0.9% 500 ML ONE (09:12)
[2023-04-16 09:23] LABS: Specific Gravity 1.009 (1.005-1.030); Urine Bacteria <20 /HPF (<20); Urine Bilirubin NEGATIVE (Negative); Urine Blood 3+ (OVER) (Negative); Urine Clarity Extremely Turbid (Clear); Urine Color Colorless (Yellow); Urine Glucose NEGATIVE (Negative); Urine Protein 1+ (Negative); Urine RBC >50 /HPF (None Seen); Urine Urobilinogen Normal (Normal); Urine WBC Clump Rare /HPF (None Seen)
[2023-04-16 09:28] LABS: Absolute Lymphocytes (CBC) 0.8 K/uL (0.7-4.9); Hematocrit 33.1 % (36.0-45.0); MCV 102.8 fL (80-100); MPV 6.9 fL (7.6-11.3); Platelets 241 thou/uL (152-406); RBC Red Blood Cell Count 3.22 M/uL (3.86-4.86)
[2023-04-16 09:42] LABS: Potassium 3.3 mEq/L (3.5-5.1)
[2023-04-16] MEDS ORDERED: Meropenem 1000 MG/VIAL IV ONE (10:01)
--- NOTE | 2023-04-16 10:04 | EDPHYS ---
Physician Documentation [facility] Name: Frdeis Diaz Age: 82 yrs Sex: Female : 1940 Arrival Date: 04/16/2023 Time: 08:45 Bed 5 Private MD: Mercedes Jones C ED Physician Edil Lind HPI: 04/16 08:54 This 82 yrs old Female presents to ER via Ambulatory with complaints of Urinary Problem.jh7 08:54 Onset: The symptoms/episode began/occurred 1 week(s) ago. Associated signs and jh7 symptoms: Pertinent positives: dysuria, Pertinent negatives: fever, flank pain. Patient reports urinary symptoms for 1 week. She reports that she has been on Bactrim and Cipro in the past and reports that they do not work. She reports spotting and dysuria, but denies flank pain and fever. She is a patient of Dr. Jones.. Historical: - Allergies: 08:54 No Known Allergies; ll1 - Home Meds: 09:14 vitamins [Active]; triamterene-hydrochlorothiazid 37.5-25 mg Oral cap 1 cap once daily hb [Active]; cranberry Oral [Active]; - PMHx: 08:54 22 YRS AGO HAD CERVIAL CANCER; CHEMO; Dementia; EDEMA TO LOWER EXTS; LYMPHOMA; ll1 08:55 Hypertensive disorder; ll1 - PSHx: 08:55 None; ll1 - Immunization history:: Adult Immunizations up to date. - Social history:: Smoking status: Patient denies any tobacco usage or history of. ROS: 08:54 Constitutional: Negative for fever, chills, and weight loss, Eyes: Negative for injury, jh7 pain, redness, and discharge, Neck: Negative for injury, pain, and swelling, Cardiovascular: Negative for chest pain, palpitations, and edema, Respiratory: Negative for shortness of breath, cough, wheezing, and pleuritic chest pain, Abdomen/GI: Negative for abdominal pain, nausea, vomiting, diarrhea, and constipation, Back: Negative for injury and pain, MS/Extremity: Negative for injury and deformity, Skin: Negative for injury, rash, and discoloration, Neuro: Negative for headache, weakness, numbness, tingling, and seizure, 08:54 : Positive for urinary frequency, small amounts, burning with urination, Negative for flank pain, 08:54 All other systems are negative, Exam: 09:09 Constitutional: This is a well developed, well nourished patient who is awake, alert, jh7 and in no acute distress. Head/Face: Normocephalic, atraumatic. Neck: Trachea midline, no thyromegaly or masses palpated, and no cervical lymphadenopathy. Supple, full range of motion without nuchal rigidity, or vertebral point tenderness. No Meningismus. Cardiovascular: Regular rate and rhythm with a normal S1 and S2. No gallops, murmurs, or rubs. Normal PMI, no JVD. No pulse deficits. Respiratory: Lungs have equal breath sounds bilaterally, clear to auscultation and percussion. No rales, rhonchi or wheezes noted. No increased work of breathing, no retractions or nasal flaring. Abdomen/GI: Soft, non-tender, with normal bowel sounds. No distension or tympany. No guarding or rebound. No evidence of tenderness throughout. Skin: Warm, dry with normal turgor. Normal color with no rashes, no lesions, and no evidence of cellulitis. MS/ Extremity: Pulses equal, no cyanosis. Neurovascular intact. Full, normal range of motion. Neuro: Awake and alert, GCS 15, oriented to person, place, time, and situation. Normal gait. Vital Signs: 08:54 BP 145 / 71; Pulse 80; Resp 16; Temp 98; Pulse Ox 100% ; Pain 0/10; ll1 08:54 Pain Scale: Adult ll1 MDM: 08:48 Patient medically screened. [facility] 10:15 Differential diagnosis: UTI, Pyelonephritis. Data reviewed: vital signs, nurses notes, [facility] lab test result(s). Management of patient was discussed with the following: Primary Care Provider: Dr. Jones. Management of patient was discussed with the following: Reviewed urine culture from December with Dr. Jones. He agreed with giving 1 dose of meropenem in the ER and advised 10 days of levofloxacin. He requested that she follow-up with him next week. The patient shows resistance to Bactrim, cephalosporins, and ciprofloxacin.. I considered the following discharge prescriptions or medication management in the emergency department Medications were administered in the Emergency Department. See MAR. Historians other than the Patient: Daughter/Son: Daughter. Counseling: I had a detailed discussion with the patient and/or guardian regarding the historical points, exam findings, and any diagnostic results supporting the discharge/admit diagnosis, lab results, to return to the emergency department if symptoms worsen or persist or if there are any questions or concerns that arise at home. Response to treatment: the patient's symptoms have mildly improved after treatment. 04/16 08:56 Order name: CBC with Diff; Complete Time: 09:32 [facility] 04/16 08:56 Order name: BMP; Complete Time: 09:51 [facility] 04/16 08:56 Order name: Urinalysis W/Microscopic; Complete Time: 09:32 [facility] 04/16 09:26 Order name: Urine Culture EDMS Administered Medications: 09:54 Drug: NS 0.9% IV 500 ml IV at bolus once Route: IV; Rate: bolus; Site: left antecubital;ld1 09:54 Drug: Meropenem IV 1 grams IV at 1 calculated rate once; (mix in NS 100 mL) Route: IV; ld1 Rate: 1 calculated rate; Site: left antecubital; Disposition: 11:50 Co-signature as Attending Physician, Edil Lind MD I agree with the assessment and kdr plan of care. Disposition Summary: 04/16/23 10:03 Discharge Ordered Notes: Location: Home [facility] Problem: an ongoing problem [facility] Symptoms: are unchanged [facility] Condition: Stable [facility] Diagnosis - UTI/ Urinary tract infection, site not specified [facility] Followup: [facility] - With: Mercedes Jones MD - When: 2 - 3 days - Reason: Recheck today's complaints Discharge Instructions: - Discharge Summary Sheet [facility] - Bacteremia, Adult [facility] - Urinary Tract Infection, Adult [facility] - Antibiotic Medicine, Adult [facility] Forms: - Medication Reconciliation Form [facility] - Thank You Letter [facility] - Antibiotic Education [facility] - Patient Portal Instructions [facility] - Leadership Thank You Letter [facility] Prescriptions: - levofloxacin 750 mg Oral tablet - take 1 tablet ORAL route once daily for 10 days; 10 tablet; Refills: 0, Product [facility] Selection Permitted Signatures: Dispatcher [employer] EDMS Edil Lind MD MD [facility] Bev Hernandez RN RN hb Lewis, Lynsay, RN RN [facility] Magalie Cisneros RN RN ld1 Hadash, Jennie, SYSTEMS AUDITOR SYSTEMS AUDITOR jh7
--- NOTE | 2023-04-16 10:04 | ER ---
Nurse's Notes [facility] Name: Fredis Diaz Age: 82 yrs Sex: Female : 1940 Arrival Date: 04/16/2023 Time: 08:45 Bed 5 Private MD: Mercedes Jones C Diagnosis: UTI/ Urinary tract infection, site not specified Presentation: 04/16 08:54 Chief complaint: Patient states: Dysuria, frequency, spotting for 1 week. Coronavirus ll1 screen: Vaccine status: Patient reports receiving the 2nd dose of the covid vaccine. Client denies travel out of the [place] in the last 14 days. At this time, the client does not indicate any symptoms associated with coronavirus-19. Ebola Screen: Patient denies travel to an Ebola-affected area in the 21 days before illness onset. Initial Sepsis Screen: Does the patient meet any 2 criteria? No. Patient's initial sepsis screen is negative. Does the patient have a suspected source of infection? Yes: Dysuria/Frequency/Urgency/UTI. Risk Assessment: Do you want to hurt yourself or someone else? Patient reports no desire to harm self or others. Onset of symptoms was April 09, 2023. 08:54 Method Of Arrival: Ambulatory ll1 08:54 Acuity: JOSE 3 ll1 Triage Assessment: 09:00 General: Appears in no apparent distress. Behavior is calm, cooperative, appropriate ll1 for age. Pain: Denies pain. : Reports burning with urination, pain with urination, urinary frequency, vaginal bleeding that is spotty. Historical: - Allergies: 08:54 No Known Allergies; ll1 - Home Meds: 09:14 vitamins [Active]; triamterene-hydrochlorothiazid 37.5-25 mg Oral cap 1 cap once daily hb [Active]; cranberry Oral [Active]; - PMHx: 08:54 22 YRS AGO HAD CERVIAL CANCER; CHEMO; Dementia; EDEMA TO LOWER EXTS; LYMPHOMA; ll1 08:55 Hypertensive disorder; ll1 - PSHx: 08:55 None; ll1 - Immunization history:: Adult Immunizations up to date. - Social history:: Smoking status: Patient denies any tobacco usage or history of. Screenin:13 [facility] ED Fall Risk Assessment (Adult) Score/Fall Risk Level 0 - 2 = Low Risk hb Oriented to surroundings, Maintained a safe environment. Abuse screen: Denies threats or abuse. Denies injuries from another. Nutritional screening: No deficits noted. Tuberculosis screening: No symptoms or risk factors identified. Assessment: 09:13 General: Appears in no apparent distress. Behavior is calm, cooperative. Pain: Denies hb pain. Neuro: Level of Consciousness is awake, alert, obeys commands, Oriented to person, place, time, situation. Cardiovascular: Patient's skin is warm and dry. Respiratory: Respiratory effort is even, unlabored, Respiratory pattern is regular, symmetrical. GI: No signs and/or symptoms were reported involving the gastrointestinal system. : Reports urgency, urinary frequency. EENT: No signs and/or symptoms were reported regarding the EENT system. Derm: Skin is pink, warm \T\ dry. Musculoskeletal: No signs and/or symptoms reported regarding the musculoskeletal system. Vital Signs: 08:54 BP 145 / 71; Pulse 80; Resp 16; Temp 98; Pulse Ox 100% ; Pain 0/10; ll1 08:54 Pain Scale: Adult ll1 ED Course: 08:48 Patient arrived in ED. mr 08:48 Mercedes Jones MD is Private Physician. mr 08:48 Jenn[facility] Silver F[facility]. jh7 08:48 Edil Lind MD is Attending Physician. jh7 08:54 Arm band placed on Patient placed in an exam room, on a stretcher. ll1 08:55 Triage completed. ll1 08:57 Magalie Cisneros, RN is Primary Nurse. ld1 09:13 Patient has correct armband on for positive identification. Provided Education on: hb tests, process times. 09:13 Urinalysis W/Microscopic Sent. hb 09:13 No provider procedures requiring assistance completed. hb 09:23 Urinalysis W/Microscopic Sent. ld1 09:23 BMP Sent. ld1 09:23 CBC with Diff Sent. ld1 10:03 Mercedes Jones MD is Referral Physician. jh7 11:08 IV discontinued, intact, bleeding controlled, No redness/swelling at site. ld1 Administered Medications: 09:54 Drug: NS 0.9% IV 500 ml IV at bolus once Route: IV; Rate: bolus; Site: left antecubital;ld1 09:54 Drug: Meropenem IV 1 grams IV at 1 calculated rate once; (mix in NS 100 mL) Route: IV; ld1 Rate: 1 calculated rate; Site: left antecubital; Medication: 09:13 VIS not applicable for this client. hb Outcome: 10:03 Discharge ordered by . jh7 11:07 Discharged to home ambulatory, ld1 11:07 Condition: stable 11:07 Discharge instructions given to patient, Instructed on discharge instructions, follow up and referral plans. medication usage, Demonstrated understanding of instructions, follow-up care, medications, Prescriptions given X 1, 11:08 Patient left the ED. ld1 Signatures: Sunita Mullen, Reg Reg mr HernandezBev, RN RN Heber Alcantara RN RN 1 Magalie Cisneros RN RN ld1 Jennie Silver FNP FNP [facility]
[2023-04-16] MEDS ORDERED: MORPHINE 4 MG/ML SYR ONE (11:30)
[2023-04-16] MEDS ORDERED: CEFTRIAXONE 1000 MG/VIAL ONE (11:30)
== END 2023-04-16 11:08 | disposition home or self-care (01) ==
LOC: ER 08:45
DX: N39.0 Urinary tract infection, site not specified (principal); I10 Essential (primary) hypertension
CPT/HCPCS: 87088; 85025; 81001; 87086; 80048; 36415; 96374; 99284; J2185; J7040; J0696

== ENCOUNTER → 2023-06-25 | Emergency (ER) | payer OTHER ==
[~2023-06-25] MED LIST: Meropenem 1000 MG/VIAL IV ONE; NA CHLORIDE 0.9% 100 ML ONE
[2023-06-25 12:30] LABS: Absolute Lymphocytes (CBC) 0.5 K/uL (0.7-4.9); Hematocrit 38.6 % (36.0-45.0); Lymphocytes % 4.5 % (15.3-44.8); MCV 99.9 fL (80-100); MPV 6.8 fL (7.6-11.3); Platelets 257 thou/uL (152-406); RBC Red Blood Cell Count 3.86 M/uL (3.86-4.86)
[2023-06-25 13:04] LABS: Specific Gravity 1.011 (1.005-1.030); Urine Bacteria None Seen /HPF (<20); Urine Clarity Turbid (Clear); Urine Color Colorless (Yellow); Urine RBC >50 /HPF (None Seen); Urine WBC Clump Many /HPF (None Seen)
[2023-06-25 13:05] LABS: Urine Bilirubin Negative (Negative); Urine Blood 3+ (Negative); Urine Glucose Negative (Negative); Urine pH 6.5 (5.0-7.0)
[2023-06-25 13:06] LABS: Urine Protein 2+ (Negative); Urine Urobilinogen Normal (Normal)
[2023-06-25 13:07] LABS: Urine Ascorbic Acid 2+ (Negative)
[2023-06-25 13:11] LABS: Potassium 3.4 mEq/L (3.5-5.1)
[2023-06-25 13:24] LABS: Blood Morphology Comment NOT SEEN (NOT SEEN); Platelet Estimate ADEQ
--- NOTE | 2023-06-25 15:10 | EDPHYS ---
Physician Documentation [facility] Name: Fredis Diaz Age: 82 yrs Sex: Female : 1940 Arrival Date: 06/25/2023 Time: 11:20 Bed 19 Private MD: ED Physician Donovan Ortiz HPI: 06/25 11:41 This 82 yrs old Female presents to ER via Ambulatory with complaints of Urinary Problem.jh7 11:41 Onset: The symptoms/episode began/occurred this morning. Associated signs and symptoms: jh7 Pertinent positives: dysuria, Pertinent negatives: abdominal pain, fever, vomiting. Patient with a history of complicated UTIs presents to the ER complaining of dysuria with scant hematuria this morning. She has a history of multiple antibiotic resistance and states that she is resistant to Bactrim and Cipro. She was given meropenem 1 g here on her last visit in March. She denies fever, flank pain, or any other symptoms at this time.. Historical: - PMHx: 11:42 22 YRS AGO HAD CERVIAL CANCER; Dementia; EDEMA TO LOWER EXTS; Hypertensive disorder; hb LYMPHOMA; CHEMO; - Immunization history:: Adult Immunizations up to date. - Social history:: Smoking status: Patient denies any tobacco usage or history of. ROS: 11:41 Constitutional: Negative for fever, chills, and weight loss, Eyes: Negative for injury, jh7 pain, redness, and discharge, Neck: Negative for injury, pain, and swelling, Cardiovascular: Negative for chest pain, palpitations, and edema, Respiratory: Negative for shortness of breath, cough, wheezing, and pleuritic chest pain, Abdomen/GI: Negative for abdominal pain, nausea, vomiting, diarrhea, and constipation, Back: Negative for injury and pain, MS/Extremity: Negative for injury and deformity, Skin: Negative for injury, rash, and discoloration, Neuro: Negative for headache, weakness, numbness, tingling, and seizure, 11:41 : Positive for hematuria, burning with urination, Negative for flank pain, 11:41 All other systems are negative, Exam: 11:41 Constitutional: This is a well developed, well nourished patient who is awake, alert, jh7 and in no acute distress. Head/Face: Normocephalic, atraumatic. Eyes: Pupils equal round and reactive to light, extra-ocular motions intact. Lids and lashes normal. Conjunctiva and sclera are non-icteric and not injected. Cornea within normal limits. Periorbital areas with no swelling, redness, or edema. Neck: Trachea midline, no thyromegaly or masses palpated, and no cervical lymphadenopathy. Supple, full range of motion without nuchal rigidity, or vertebral point tenderness. No Meningismus. Cardiovascular: Regular rate and rhythm with a normal S1 and S2. No gallops, murmurs, or rubs. Normal PMI, no JVD. No pulse deficits. Respiratory: Lungs have equal breath sounds bilaterally, clear to auscultation and percussion. No rales, rhonchi or wheezes noted. No increased work of breathing, no retractions or nasal flaring. Abdomen/GI: Soft, non-tender, with normal bowel sounds. No distension or tympany. No guarding or rebound. No evidence of tenderness throughout. Back: No spinal tenderness. No costovertebral tenderness. Full range of motion. Skin: Warm, dry with normal turgor. Normal color with no rashes, no lesions, and no evidence of cellulitis. MS/ Extremity: Pulses equal, no cyanosis. Neurovascular intact. Full, normal range of motion. Neuro: Awake and alert, GCS 15, oriented to person, place, time, and situation. Motor strength 5/5 in all extremities. Sensory grossly intact. Normal gait. Vital Signs: 11:41 BP 147 / 70; Pulse 96; Resp 16; Temp 98.4; Pulse Ox 99% ; Weight 55.79 kg; Height 5 ft. hb 4 in. ; 14:06 BP 147 / 74; Pulse 91; Resp 16; Pulse Ox 100% ; cp4 15:15 BP 156 / 70; Pulse 89; Resp 16; Pulse Ox 100% ; cp4 11:41 Body Mass Index 21.11 (55.79 kg, 162.56 cm) hb MDM: 11:26 Patient medically screened. [facility] 13:52 Differential diagnosis: UTI. Data reviewed: vital signs, nurses notes, lab test [facility] result(s), urinalysis. I considered the following discharge prescriptions or medication management in the emergency department Medications were administered in the Emergency Department. See MAR. Historians other than the Patient: Daughter/Son: daughter. Care significantly affected by the following chronic conditions: Hypertension. Counseling: I had a detailed discussion with the patient and/or guardian regarding the historical points, exam findings, and any diagnostic results supporting the discharge/admit diagnosis, to return to the emergency department if symptoms worsen or persist or if there are any questions or concerns that arise at home. Response to treatment: the patient's symptoms have mildly improved after treatment. ED course: Prescribe the patient levofloxacin based on old urine culture reports showing multiple antibiotic resistance. Advised the patient to follow-up with Dr. Jones as discussed. If she develops any new concerning symptoms, she may return to the ER for further eval.. 06/25 11:43 Order name: Urinalysis W/Microscopic; Complete Time: 13:35 [facility] 06/25 11:43 Order name: BMP; Complete Time: 13:35 7 06/25 11:43 Order name: CBC with Diff; Complete Time: 13:35 [facility] 06/25 12:39 Order name: Manual Differential; Complete Time: 13:35 EDMS 06/25 13:11 Order name: Urine Culture EDMS Administered Medications: 13:50 Drug: Meropenem IV 1 grams IV at 1 calculated rate once; (mix in NS 100 mL) Route: IV; cp4 Rate: 1 calculated rate; Site: right antecubital; Disposition: 18:37 Co-signature as Attending Physician, Donovan Ortiz MD I reviewed the patient's care rn provided by the Advanced Practice Provider and agree with the diagnosis and treatment plan. Disposition Summary: 06/25/23 15:08 Discharge Ordered Notes: Location: Home [facility] Problem: an ongoing problem [facility] Symptoms: are unchanged [facility] Condition: Stable [facility] Diagnosis - UTI/ Urinary tract infection, site not specified [facility] Followup: [facility] - With: Mercedes Jones MD - When: 2 - 3 days - Reason: Recheck today's complaints Discharge Instructions: - Discharge Summary Sheet [facility] - Urinary Tract Infection, Adult [facility] Forms: - Medication Reconciliation Form 7 - Thank You Letter 7 - Antibiotic Education 7 - Prescription Opioid Use [facility] - Patient Portal Instructions 7 - Leadership Thank You Letter [facility] Prescriptions: - levofloxacin 750 mg Oral tablet - take 1 tablet ORAL route once daily for 10 days; 10 tablet; Refills: 0, Product [facility] Selection Permitted Signatures: Dispatcher [employer] Donovan Greenberg MD MD rn Baxter, FABY Pablo RN Jennie Singh, TRIAGE REGISTERED NURSE TRIAGE REGISTERED NURSE jh7 Donna Guy 4
--- NOTE | 2023-06-25 15:10 | ER ---
Nurse's Notes [facility] Name: Fredis Diaz Age: 82 yrs Sex: Female : 1940 Arrival Date: 06/25/2023 Time: 11:20 Bed 19 Private MD: Diagnosis: UTI/ Urinary tract infection, site not specified Presentation: 06/25 11:41 Chief complaint: Patient states: DYSURIA AND SCANT HEMATURIA THIS AM. Coronavirus hb screen: At this time, the client does not indicate any symptoms associated with coronavirus-19. Ebola Screen: No symptoms or risks identified at this time. Initial Sepsis Screen: Does the patient meet any 2 criteria? No. Patient's initial sepsis screen is negative. Does the patient have a suspected source of infection? No. Patient's initial sepsis screen is negative. Risk Assessment: Do you want to hurt yourself or someone else? Patient reports no desire to harm self or others. Onset of symptoms was June 25, 2023. 11:41 Method Of Arrival: Ambulatory hb 11:41 Acuity: JOSE 4 hb 11:43 Note FREQUENT H/O UTI, PT SELF CATHS AT HOME. hb Triage Assessment: 15:22 General: Appears in no apparent distress. Behavior is calm, cooperative, appropriate cp4 for age. Historical: - PMHx: 11:42 22 YRS AGO HAD CERVIAL CANCER; Dementia; EDEMA TO LOWER EXTS; Hypertensive disorder; hb LYMPHOMA; CHEMO; - Immunization history:: Adult Immunizations up to date. - Social history:: Smoking status: Patient denies any tobacco usage or history of. Screenin:43 [facility] ED Fall Risk Assessment (Adult) History of falling in the last 3 months, cp4 including since admission No falls in past 3 months (0 pts) Confusion or Disorientation No (0 pts) Intoxicated or Sedated No (0 pts) Impaired Gait No (0 pts) Mobility Assist Device Used No (0 pt) Altered Elimination No (0 pt) Score/Fall Risk Level 0 - 2 = Low Risk Oriented to surroundings, Maintained a safe environment, Educated pt \T\ family on fall prevention, incl call for assistance when getting out of bed, Assessed \T\ reinforced patient's understanding of fall precautions, Hourly rounding (assess needs \T\ fall precautionary measures) done. 15:22 Abuse screen: Denies threats or abuse. Nutritional screening: No deficits noted. cp4 Tuberculosis screening: No symptoms or risk factors identified. Assessment: 12:43 General: Appears in no apparent distress. Behavior is calm, cooperative, appropriate cp4 for age. Pain: Denies pain. Vital Signs: 11:41 BP 147 / 70; Pulse 96; Resp 16; Temp 98.4; Pulse Ox 99% ; Weight 55.79 kg; Height 5 ft. hb 4 in. ; 14:06 BP 147 / 74; Pulse 91; Resp 16; Pulse Ox 100% ; cp4 15:15 BP 156 / 70; Pulse 89; Resp 16; Pulse Ox 100% ; cp4 11:41 Body Mass Index 21.11 (55.79 kg, 162.56 cm) hb ED Course: 11:25 Patient arrived in ED. ae5 11:26 Jennie Silver FNP [facility]. jh7 11:26 Donovan Ortiz MD is Attending Physician. 7 11:42 Triage completed. hb 11:42 Arm band placed on. hb 11:55 Donna Guy is Primary Nurse. cp4 12:06 CBC with Diff Sent. cp4 12:06 BMP Sent. cp4 12:06 Urinalysis W/Microscopic Sent. cp4 12:43 Bed in low position. Call light in reach. Side rails up X 1. cp4 12:43 No provider procedures requiring assistance completed. Inserted saline lock: 22 gauge cp4 in right antecubital area, using aseptic technique. Blood collected. 15:08 Mercedes Jones MD is Referral Physician. [facility] 15:22 Provided Education on: UTI. cp4 15:22 intact, bleeding controlled, No redness/swelling at site. Pressure dressing applied. cp4 Administered Medications: 13:50 Drug: Meropenem IV 1 grams IV at 1 calculated rate once; (mix in NS 100 mL) Route: IV; cp4 Rate: 1 calculated rate; Site: right antecubital; Medication: 12:43 VIS not applicable for this client. cp4 Outcome: 15:08 Discharge ordered by . 7 15:22 Discharged to home ambulatory, cp4 15:22 Condition: stable 15:22 Discharge instructions given to patient, Instructed on discharge instructions, follow up and referral plans. medication usage, Demonstrated understanding of instructions, follow-up care, medications, Prescriptions given X 1, 15:29 Patient left the ED. ds4 Signatures: Arnaldo Gomez ds4 Bev Hernandez, RN RN hb Jennie Silver, MASH FILTER PRESS OPERATOR MASH FILTER PRESS OPERATOR jh7 Donna Guy cp4 Shyla Carter ae5
[2023-06-25 16:27] VITALS: BP 156/70; TEMP 98.4; O2SAT 100
== END ==
LOC: ER 11:20
DX: N39.0 Urinary tract infection, site not specified (principal); I10 Essential (primary) hypertension; F03.90 Unspecified dementia, unspecified severity, without behavioral disturbance, psychotic disturbance, mood disturbance, and anxiety; Z85.41 Personal history of malignant neoplasm of cervix uteri; Z85.72 Personal history of non-Hodgkin lymphomas
CPT/HCPCS: 87088; 85025; 81001; 87086; 80048; 36415; 87077; 87186; 96374; 99284; J2185

== ENCOUNTER 2023-07-04 21:55 | Emergency (ER) | payer OTHER ==
[2023-07-04 23:47] LABS: Absolute Basophils 0.1 K/uL (0-0.5); Absolute Eosinophils 0.2 K/uL (0-0.5); Absolute Lymphocytes (CBC) 1.4 K/uL (0.7-4.9); Absolute Monocytes 0.5 K/uL (0.1-1.3); Eosinophils % 3.3 % (0-4.4); Hematocrit 34.1 % (36.0-45.0); Lymphocytes % 21.9 % (15.3-44.8); MCH 34.5 pg (27.0-35.0); MCHC 35.2 g/dL (32.0-36.0); MCV 98.2 fL (80-100); MPV 6.9 fL (7.6-11.3); Monocytes % 8.7 % (3.3-12.3); Neutrophils % 65.1 % (41.7-73.7); Platelets 245 thou/uL (152-406); RBC Red Blood Cell Count 3.48 M/uL (3.86-4.86); Red Cell Distribution Width 14.3 % (12.1-15.2)
[2023-07-05 00:07] LABS: Albumin 3.2 g/dL (3.4-5.0); Albumin/Globulin Ratio 0.8 (1.1-1.8); Anion Gap 6.6 mEq/L (5.0-15.0); Bilirubin Total 0.4 mg/dL (0.2-1.0); C-Reactive Protein 4.76 mg/L (<3.00); Globulin 3.8 g/dL (2.3-3.5); Potassium 3.6 mEq/L (3.5-5.1)
[2023-07-05] MEDS ORDERED: MUPIROCIN 2% OINT 22GM TUBE TOP ONE (00:30)
--- NOTE | 2023-07-05 00:42 | ER ---
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 She has been vc1 complaining her toe has been bothering her. She said her toe has been rubbing something in her shoe. I cleaned her toe last Tuesday but it wasn't like this. 22:06 Coronavirus screen: Vaccine status: Patient reports receiving the 2nd dose of the covid vc1 vaccine. plus booster x2; Pfizer Client denies travel out of the [place] in the last 14 days. At this time, the client does not indicate any symptoms associated with coronavirus-19. Ebola Screen: Patient negative for fever greater than or equal to 101.5 degrees Fahrenheit, and additional compatible Ebola Virus Disease symptoms Patient denies exposure to infectious person. Patient denies travel to an Ebola-affected area in the 21 days before illness onset. No symptoms or risks identified at this time. Initial Sepsis Screen: Does the patient meet any 2 criteria? No. Patient's initial sepsis screen is negative. Does the patient have a suspected source of infection? No. Patient's initial sepsis screen is negative. Risk Assessment: Do you want to hurt yourself or someone else? Patient reports no desire to harm self or others. Onset of symptoms is unknown. 22:06 Method Of Arrival: Ambulatory vc1 22:06 Acuity: JOSE 4 vc1 22:12 Note Pt states she doesn't feel any pain to the wounds. vc1 Triage Assessment: 22:11 General: Appears in no apparent distress. comfortable, Behavior is calm, cooperative, vc1 appropriate for age. Pain: Denies pain. EENT: No deficits noted. No signs and/or symptoms were reported regarding the EENT system. Neuro: Level of Consciousness is awake, alert, obeys commands, Oriented to person, place, time, situation, none. Cardiovascular: No deficits noted. Respiratory: Airway is patent Respiratory effort is even, unlabored, Respiratory pattern is regular, symmetrical. GI: No deficits noted. No signs and/or symptoms were reported involving the gastrointestinal system. : No deficits noted. No signs and/or symptoms were reported regarding the genitourinary system. Derm: Wound noted right fifth toe and left fifth toe. Musculoskeletal: No deficits noted. No signs and/or symptoms reported regarding the musculoskeletal system. Historical: - Allergies: 22:10 No Known Allergies; vc1 - PMHx: 22:10 22 YRS AGO HAD CERVIAL CANCER; CHEMO; Dementia; EDEMA TO LOWER EXTS; Hypertensive vc1 disorder; LYMPHOMA; - PSHx: 22:10 None; vc1 - Immunization history:: Client reports receiving the 2nd dose of the Covid vaccine, Pneumococcal vaccine is up to date, Flu vaccine is up to date. - Social history:: Smoking status: Patient denies any tobacco usage or history of. Screenin:13 [facility] ED Fall Risk Assessment (Adult) History of falling in the last 3 months, vc1 including since admission No falls in past 3 months (0 pts) Confusion or Disorientation No (0 pts) Intoxicated or Sedated No (0 pts) Impaired Gait No (0 pts) Mobility Assist Device Used Yes (1 pt) Altered Elimination No (0 pt) Score/Fall Risk Level 0 - 2 = Low Risk Oriented to surroundings, Maintained a safe environment, Educated pt \T\ family on fall prevention, incl call for assistance when getting out of bed. Abuse screen: Denies threats or abuse. Nutritional screening: No deficits noted. Tuberculosis screening: No symptoms or risk factors identified. Assessment: 23:18 General: Appears comfortable, Behavior is calm, cooperative. Pain: Complains of pain in rv left fifth toe. Neuro: Level of Consciousness is awake, alert, obeys commands, Oriented to person, place, time, situation. Cardiovascular: Capillary refill < 3 seconds Patient's skin is warm and dry. Respiratory: Airway is patent Respiratory effort is even, unlabored. GI: No signs and/or symptoms were reported involving the gastrointestinal system. : No signs and/or symptoms were reported regarding the genitourinary system. Derm: Skin is intact. Musculoskeletal: pain, swelling, and discoloration of the 5th toe, left foot. Vital Signs: 22:06 BP 148 / 77; Pulse 83; Resp 18; Temp 97.8; Pulse Ox 98% ; Weight 55.79 kg; Height 5 ft. vc1 4 in. ; Pain 0/10; 07/05 00:47 BP 131 / 74; Pulse 81; Resp 18; Temp 98; Pulse Ox 99% on R/A; rv 07/04 22:06 Body Mass Index 21.11 (55.79 kg, 162.56 cm) vc1 07/04 22:06 Pain Scale: Adult vc1 ED Course: 07/04 21:59 Patient arrived in ED. jj6 22:06 Shiloh Mello FNP-C is [facility]. snw 22:06 Solomon Chinchilla MD is Attending Physician. snw 22:10 Triage completed. vc1 22:11 Arm band placed on right wrist. vc1 23:01 Brad Jeter, FABY is Primary Nurse. rv 23:18 Patient has correct armband on for positive identification. Client placed on continuous rv cardiac and pulse oximetry monitoring. NIBP monitoring applied. 23:18 No provider procedures requiring assistance completed. rv 23:38 Foot Left 3 View XRAY In Process Unspecified. EDMS 23:38 Inserted saline lock: 20 gauge in right antecubital area, using aseptic technique. vk Blood collected. 23:39 Blood Culture Adult (2) Sent. vk 23:39 CRP Sent. vk 23:39 CMP Sent. vk 23:39 CBC with Diff Sent. vk 23:56 US Extremity Venous Unilateral Ltd In Process Unspecified. EDMS 07/05 00:42 Mercedes Jones MD is Referral Physician. snw 00:47 IV discontinued, intact, bleeding controlled, No redness/swelling at site. Pressure rv dressing applied. Administered Medications: 00:40 Drug: Mupirocin Topical Ointment 2 % 1 application Topical once Route: Topical; Site: rv affected area; 00:40 Follow up: Response: Medication administered at discharge. rv Medication: 07/04 22:13 VIS not applicable for this client. vc1 Outcome: 07/05 00:42 Discharge ordered by . snw 00:46 Discharged to home ambulatory, rv 00:46 Condition: good 00:46 Discharge instructions given to patient, Instructed on discharge instructions, follow up and referral plans. medication usage, wound care, Demonstrated understanding of Prescriptions given X 1, 00:47 Patient left the ED. rv Signatures: Dispatcher [employer] EDMS Shiloh Mello, RN LABOR DELIVERY-C RN LABOR DELIVERY-Csnw Brad Jeter, RN RN rv Jennie Brown jj6 Rajwinder Paulino RN RN vc1 Tasha Houston RN RN pf1 Lisbet Reynoso Corrections: (The following items were deleted from the chart) 07/04 22:10 22:04 Chief complaint: pfHillary vcHillary
--- NOTE | 2023-07-05 00:42 | EDPHYS ---
Physician Documentation [facility] [place], [place] Name: Fredis Diaz Age: 82 yrs Sex: Female : 1940 Arrival Date: 07/04/2023 Time: 21:55 Bed 8 Private MD: JAMES Physician Solomon Chinchilla HPI: 07/04 23:57 This 82 yrs old Female presents to ER via Ambulatory with complaints of TOE snw INFECTION/DISCOLORATION. 23:57 The complaints affect the left fifth toe. Context: The problem was sustained at home, snw resulted from Ms. Diaz felt her shoe was rubbing her pinkie toe so she covered it with tape. Her caregiver helped her remove the tape today and the toe is blackened. Associated signs and symptoms: Pertinent positives: swelling. Historical: - Allergies: 22:10 No Known Allergies; vc1 - PMHx: 22:10 22 YRS AGO HAD CERVIAL CANCER; CHEMO; Dementia; EDEMA TO LOWER EXTS; Hypertensive vc1 disorder; LYMPHOMA; - PSHx: 22:10 None; vc1 - Immunization history:: Client reports receiving the 2nd dose of the Covid vaccine, Pneumococcal vaccine is up to date, Flu vaccine is up to date. - Social history:: Smoking status: Patient denies any tobacco usage or history of. ROS: 23:53 Constitutional: Negative for fever, chills, and weight loss, Eyes: Negative for injury, snw pain, redness, and discharge, ENT: Negative for injury, pain, and discharge, Neck: Negative for injury, pain, and swelling, Cardiovascular: Negative for chest pain, palpitations, and edema, Respiratory: Negative for shortness of breath, cough, wheezing, and pleuritic chest pain, Abdomen/GI: Negative for abdominal pain, nausea, vomiting, diarrhea, and constipation, Back: Negative for injury and pain, : Negative for injury, bleeding, discharge, and swelling, Skin: Negative for injury, rash, and discoloration, Neuro: Negative for headache, weakness, numbness, tingling, and seizure, Psych: Negative for depression, anxiety, suicide ideation, homicidal ideation, and hallucinations, 23:53 MS/extremity: Positive for discoloration of left 5th toe post splinting with tape x 1 week. Toe swollen and blackened, Exam: 23:53 Constitutional: This is a well developed, well nourished patient who is awake, alert, snw and in no acute distress. Head/Face: Normocephalic, atraumatic. Eyes: Pupils equal round and reactive to light, extra-ocular motions intact. Lids and lashes normal. Conjunctiva and sclera are non-icteric and not injected. Cornea within normal limits. Periorbital areas with no swelling, redness, or edema. ENT: Nares patent. No nasal discharge, no septal abnormalities noted. Tympanic membranes are normal and external auditory canals are clear. Oropharynx with no redness, swelling, or masses, exudates, or evidence of obstruction, uvula midline. Mucous membranes moist. Neck: Trachea midline, no thyromegaly or masses palpated, and no cervical lymphadenopathy. Supple, full range of motion without nuchal rigidity, or vertebral point tenderness. No Meningismus. Chest/axilla: Normal chest wall appearance and motion. Nontender with no deformity. No lesions are appreciated. Cardiovascular: Regular rate and rhythm with a normal S1 and S2. No gallops, murmurs, or rubs. Normal PMI, no JVD. No pulse deficits. Respiratory: Lungs have equal breath sounds bilaterally, clear to auscultation and percussion. No rales, rhonchi or wheezes noted. No increased work of breathing, no retractions or nasal flaring. Abdomen/GI: Soft, non-tender, with normal bowel sounds. No distension or tympany. No guarding or rebound. No evidence of tenderness throughout. Back: No spinal tenderness. No costovertebral tenderness. Full range of motion. Neuro: Awake and alert, GCS 15, oriented to person, place, time, and situation. Cranial nerves II-XII grossly intact. Motor strength 5/5 in all extremities. Sensory grossly intact. Cerebellar exam normal. Normal gait. Psych: Awake, alert, with orientation to person, place and time. Behavior, mood, and affect are within normal limits. 23:53 Musculoskeletal/extremity: ROM: no acute changes, left 5th toe blackened. 23:53 Skin: Appearance: normal except for affected area, PAD, + peripheral pulses, left fifth toe blackened, softened, blood blister drained of serosanguinous fluid. No pain/sensation, Proximal toe reminiscent of a hair tourniquet appearance, Vital Signs: 22:06 BP 148 / 77; Pulse 83; Resp 18; Temp 97.8; Pulse Ox 98% ; Weight 55.79 kg; Height 5 ft. vc1 4 in. ; Pain 0/10; 07/05 00:47 BP 131 / 74; Pulse 81; Resp 18; Temp 98; Pulse Ox 99% on R/A; rv 07/04 22:06 Body Mass Index 21.11 (55.79 kg, 162.56 cm) vc1 07/04 22:06 Pain Scale: Adult vc1 MDM: 07/04 22:36 Patient medically screened. snw 23:56 Differential diagnosis: bacterial infection, gangrene, toe tourniquet. Data reviewed: snw vital signs, nurses notes. Counseling: I had a detailed discussion with the patient and/or guardian regarding the historical points, exam findings, and any diagnostic results supporting the discharge/admit diagnosis. 07/05 00:40 Response to treatment: the patient's symptoms have markedly improved after treatment. snw ED course: no circumferential dressings of any kind to foot, continue "zip up compression hose". Cleanse with hibiclens twice daily, pat dry, apply mupirocin ointment. 07/04 22:52 Order name: CBC with Diff; Complete Time: 23:51 snw 07/04 22:52 Order name: CMP; Complete Time: 00:08 snw 07/04 22:52 Order name: CRP; Complete Time: 00:08 snw 07/04 22:52 Order name: Blood Culture Adult (2) snw 07/04 22:52 Order name: US Extremity Venous Unilateral Ltd snw 07/04 22:52 Order name: Foot Left 3 View XRAY snw 07/04 22:52 Order name: SL; Complete Time: 23:17 snw Administered Medications: 00:40 Drug: Mupirocin Topical Ointment 2 % 1 application Topical once Route: Topical; Site: rv affected area; 00:40 Follow up: Response: Medication administered at discharge. rv Disposition Summary: 07/05/23 00:42 Discharge Ordered Notes: Location: Home snw Condition: Stable snw Diagnosis - Nontraumatic hematoma of soft tissue snw - Soft tissue disorder, unspecified - tourniquet effect snw - Peripheral arterial disease snw Followup: snw - With: Emergency Department - When: As needed - Reason: Worsening of condition Followup: snw - With: Mercedes Jones MD - When: 2 - 3 days - Reason: Recheck today's complaints, Continuance of care, Re-evaluation by your physician Discharge Instructions: - Discharge Summary Sheet snw - Hematoma snw - Peripheral Vascular Disease snw Forms: - Medication Reconciliation Form snw - Thank You Letter snw - Antibiotic Education snw - Prescription Opioid Use snw - Patient Portal Instructions snw - Leadership Thank You Letter snw Prescriptions: - mupirocin 2 % Topical ointment - apply 1 application TOPICAL route 3 times per day; 15 gram; Refills: 0, Product snw Selection Permitted Addendum: 07/09/2023 00:04 Co-signature as Attending Physician, Solomon Chinchilla MD I agree with the assessment s p4 and plan of care. I reviewed the patient's care provided by the Advanced Practice Provider and agree with the diagnosis and treatment plan. Signatures: Dispatcher [employer] EDShiloh Cruz, PAPER TUBE CUTTER-C PAPER TUBE CUTTER-Csnw Brad Jeter, RN RN Rajwinder Huang RN RN vc1 Solomon Chinchilla MD MD sp4
[2023-07-05 05:36] VITALS: BP 131/74; TEMP 98; O2SAT 99
--- NOTE | 2023-07-05 16:56 | RAD REPORT ---
EXAM DESCRIPTION: US - Extremity Venous Uni Ltd - 07/04/2023 11:54 pm CLINICAL HISTORY: The patient is 82 years old and is Female; discolored 5th toe TECHNIQUE: Real-time duplex ultrasound scan of the left lower extremity veins integrating B-mode two -dimensional vascular structure, Doppler spectral analysis, color flow Doppler imaging and Impression . COMPARISON: No relevant prior studies available. FINDINGS: Deep veins: Unremarkable. No DVT in the visualized common femoral, femoral, or poplite al veins. The veins demonstrate normal color flow, are normally compressible where visualized, with normal phasic flow and/or augmentation response. Soft tissues: No acute findings. IMPRESSION: No evidence of DVT in the left lower extremity veins. Electronically signed by: Karlos Jensen MD 07/05/2023 12:32 AM SUPERVISOR [employer]ORE Due to temporary technical issues with the PACS/Fluency reporting system, reports are being signed by the in house radiologists without review as a courtesy to insure prompt reporting. The interpreting radiologist is fully responsible for the content of the report.
--- NOTE | 2023-07-05 16:58 | RAD REPORT ---
EXAM DESCRIPTION: RAD - Foot Left 3 View - 07/04/2023 11:36 pm CLINICAL HISTORY: SWELLING TECHNIQUE: Frontal, lateral and oblique views of the left foot. COMPARISON: No relevant prior studies available. FINDINGS: Bones/joints: Osseous structures are osteopenic. No acute fracture. No osseous destructi on or erosion. Mild multifocal degenerative changes. No dislocation. Soft tissues: Soft tissue dressing in the webspace between the fourth and fifth toes. Questionable plantar ulceration at the level of the toes on the lateral view. No radiopaque foreign body. IMPRESSION: Soft tissue dressing in the webspace between the fourth and fifth toes. Questionable darren ntar ulceration at the level of the toes on the lateral view. No osseous destruction or erosion. Electronically signed by: Josias Hanson MD 07/05/2023 12:09 AM RESIDENTIAL GREEN BUILDING DESIGNER Due to temporary technical issues with the PACS/Fluency reporting system, reports are being signed by the in house radiologists without review as a courtesy to insure prompt reporting. The interpreting radiologist is fully responsible for the content of the report.
== END 2023-07-05 00:47 | disposition home or self-care (01) ==
LOC: ER 21:55
DX: M79.81 Nontraumatic hematoma of soft tissue (principal); I73.9 Peripheral vascular disease, unspecified; I10 Essential (primary) hypertension
CPT/HCPCS: 36415; 80053; 85025; 86140; 87040; 93971; 99284

== ENCOUNTER 2023-07-14 20:35 | Inpatient (IN) | payer OTHER ==
[2023-07-14 21:09] VITALS: BMI 21.4
[2023-07-14] MEDS ORDERED: VANCOMYCIN 1 GM in NA CHLORIDE 0.9% 250 ML IVPB SCH (21:37)
[2023-07-14] MEDS ORDERED: ACETAMINOPHEN 500 MG TAB PO PRN (21:38)
[2023-07-14] MEDS ORDERED: VANCOMYCIN 1 GM in NA CHLORIDE 0.9% 250 ML IVPB ONE (22:00)
[2023-07-14 22:23] LABS: Lymphocytes % 18.9 % (15.3-44.8); MCV 100.3 fL (80-100); MPV 6.6 fL (7.6-11.3); Platelets 208 thou/uL (152-406)
[2023-07-14 22:39] LABS: Albumin 3.1 g/dL (3.4-5.0); Bilirubin Total 0.4 mg/dL (0.2-1.0); Magnesium 2.2 mg/dL (1.6-2.4); Potassium 3.2 mEq/L (3.5-5.1); Protein, Total 6.6 g/dL (6.4-8.2)
[2023-07-15] MEDS: CEFTRIAXONE 1,000 MG in NA CHLORIDE 0.9% 50 ML IVPB SCH ×3 (01:16→22:37)
--- NOTE | 2023-07-15 08:21 | RAD REPORT ---
EXAM DESCRIPTION: US - Lower Extremity Arterial Bilat - 07/15/2023 12:12 am CLINICAL HISTORY: Leg pain COMPARISON: None FINDINGS: Right and left common femoral, and superficial femoral arteries demonstrate triphasic waveforms Right and left popliteal, posterior tibial, dorsalis pedis arteries demonstrate biphasic waveforms Grayscale, color and spectral analysis performed on all vessels IMPRESSION: Mild arterial disease involving the mid and lower arteries of the lower extremities bila terally No significant stenosis visualized
[2023-07-15] MEDS ORDERED: CEFTRIAXONE 1,000 MG in NA CHLORIDE 0.9% 50 ML IVPB SCH (09:00)
[2023-07-15] MEDS ORDERED: POTASSIUM 25 MEQ EFFERV TAB PO ONE (09:00)
[2023-07-15] MEDS: MEMANTINE HCL 10 MG TABLET PO SCH ×2 (09:24→22:45)
--- NOTE | 2023-07-15 12:14 | RAD REPORT ---
EXAM DESCRIPTION: RAD - Chest Single View - 07/14/2023 10:36 pm CLINICAL HISTORY: 82 years Female, L foot gangrene TECHNIQUE: 1 view (Single frontal view of the chest) COMPARISON: None were made available at time of this interpretation. FINDINGS: LINES AND TUBES: None. CARDIOVASCULAR STRUCTURES: Borderline cardiomegaly. Mild chronic interstitial changes. No pulmonary v enous congestion. LUNGS: No confluent areas of acute consolidation. PLEURA: No layering pleural effusions. No pneumothorax. BONES: No acute osseous abnormality of the thorax. IMPRESSION: 1. No acute cardiopulmonary disease. 2. Mild chronic interstitial changes. Electronically signed by: Karlos Santillan MD 07/14/2023 10:47 PM [employer]ER Due to temporary technical issues with the PACS/Fluency reporting system, reports are being signed by the in house radiologist without review as a courtesy to ensure prompt reporting. The interpreting r adiologist is fully responsible for the content of the report.
--- NOTE | 2023-07-15 12:15 | CON ---
Date of Consultation: 07/15/2023 Reason For Consultation: Gangrene, left fifth toe. History Of Present Illness: The patient is an 82-year-old female who presented to Dr. Jones's office after injury with her shoes being too tight and developed a wound on her left toe, which was a superf icial in nature. A couple of weeks ago, went to the ER, was treated with antibiotics and followed up with Dr. Jones. Initially, she was doing okay. However, yesterday when she came in, toe had turned into gangrene and she was admitted for further evaluation and workup. She denies any fever or chills . No purulent discharge. No sore throat, runny nose, cough, headaches, or dizziness. No chest pain . No fever or chills. Review of Systems: Otherwise unremarkable. Past Medical History: Significant for hyperlipidemia, bladder issues with retention, cervical cancer , non-Hodgkin's lymphoma, PE. Past Surgical History: Negative. Allergies: NO ALLERGIES. Social History: She does not smoke or drink. Family History: Significant for stroke in the mother and COPD in the father. Physical Examination: Vital Signs: Stable. She is afebrile. General: She is awake, alert, oriented x3. Head and Neck: Cranial nerves 2 through 12 grossly within normal limits. No neck masses. No JVD. Throat clear. Neck: Supple. Chest: Clear. Heart: S1, S2. Abdomen: Soft. Extremities: Palpable dorsalis pedis and posterior tibial pulses approximately 2 to 2+. No surround ing erythema on the base of the left fifth toe. However, there is dry gangrene present involving the entire left fifth toe. There is some tenderness around there. There is no purulent discharge. Neuro: Nonfocal. Laboratory Data: White count is 5.3, H and H are 11.5 and 33, platelets are 208. Chemistry reviewed . The BUN and creatinine are slightly elevated. Potassium is slightly low, otherwise essentially un remarkable. X-ray does not show any obvious signs of osteomyelitis. They recommend MRI for that pur pose and Doppler shows minimal disease. No stenosis noted in either lower extremity. Assessment: Gangrene, left fifth toe. Recommendations: Continue IV antibiotics, n.p.o. after midnight. We will take the patient to the OR tomorrow morning and we will proceed with left fifth toe amputation. The patient understands risks, benefits, alternatives and agrees to procedure. Plan of care discussed in detail with Dr. Jones. /BETH Voice ID: [id number] Report ID: [id number]
--- NOTE | 2023-07-15 12:17 | RAD REPORT ---
EXAM DESCRIPTION: RAD - Foot Left 3 View - 07/14/2023 10:36 pm CLINICAL HISTORY: Gangrene L foot 5th toe. COMPARISON: None. TECHNIQUE: Three views of the left foot were obtained: AP, oblique, and lateral radiographs. FINDINGS: No acute osseous abnormality. No obvious osseous erosions are visualized. Lisfranc joint a lignment is maintained. Demineralized appearance of the bones. No evidence of subcutaneous emphysema by this technique. Small chronic plantar fascial enthesophyte. IMPRESSION: 1. No obvious osseous erosions. 2. MRI is more sensitive for the evaluation of acute osteomyelitis and can be obtained if clinicall y necessary. Electronically signed by: Kacey Mcdaniel MD 07/15/2023 12:47 AM TECHNICAL TRAINING SPECIALIST Due to temporary technical issues with the PACS/Fluency reporting system, reports are being signed by the in house radiologist without review as a courtesy to ensure prompt reporting. The interpreting r adiologist is fully responsible for the content of the report.
[2023-07-15] MEDS: MAXZIDE (HCTZ 25/TRIAMTERENE 37.5MG) TAB PO SCH (14:02)
[2023-07-15] MEDS: VANCOMYCIN 0.75 GM in NA CHLORIDE 0.9% 150 ML IVPB SCH (22:00)
[2023-07-16 04:20] LABS: Magnesium 2.1 mg/dL (1.6-2.4); Potassium 3.6 mEq/L (3.5-5.1)
[2023-07-16] MEDS ORDERED: VANCOMYCIN 1 GM in NA CHLORIDE 0.9% 250 ML IVPB SCH (04:30)
--- NOTE | 2023-07-16 07:18 | HP ---
Date of Admission: 07/14/2023 Chief Complaint: Toe problem. History Of Present Illness: This is an 83-year-old female patient, who came to see me on July 06, 2023, with left toe problem. The patient had gone to emergency room about couple of days prior to t [facility] office visit, and after she was evaluated in the emergency room, she was released to go home with instruction to clean this toe with chlorhexidine and to apply topical antibiotic mupirocin. When I saw her on July 06, what she had was a very small area of very superficial skin abrasion less th an 1 cm size on the superolateral aspect of the left foot fifth toe. Surrounding skin was appearing normal. No redness, no swelling, discharge, bleeding, etc. She did not have any pain either. The f oot and rest of the toe appeared normal. The patient reported that she feels like that this all star maia after she was wearing shoes that might have rubbed from inside. After I saw her, I advised her t o continue to follow the daily instructions for cleaning and application of topical antibiotic as ins tructed from emergency room and to come see me if she notices any changes in the toe or any other new problems or complaints starts. Today, she comes back to office with her caregiver, reported that as of this week she has noted that her toe is black in color and as soon as I evaluated her at the [facility], we decided to go ahead and admit her to hospital after she was evaluated at the office and I expl ained her all the details regarding current problems. The patient was noted to have gangrene involvi ng her left foot fifth toe. No fever. No pain. Allergies: TO NITROFURANTOIN. Medications: Caltrate plus D 1 tablet daily, vitamin D3 2000 units daily, estrogen vaginal cream 1 o r 2 times a week, triamterene/HCTZ 1 tablet daily in morning, memantine 2 times a day, omeprazole 40 mg daily, tamsulosin 0.4 mg daily, trimethoprim 100 mg daily. Review of Systems: Musculoskeletal: As mentioned above. DELI MANAGER: Has impaired memory. All other systems reviewed and negative. Past Medical History: Significant for senile dementia, hypertension, chronic leg edema, prior histor y of pulmonary embolism, renal cyst, osteoarthritis at multiple sites, known Hodgkin's lymphoma diagn osed July 31, 2018, and prior history of cervical cancer in 1988, treated with chemotherapy and ra diation therapy. Past medical history also significant for osteopenia and vitamin D deficiency. Past Surgical History: Negative. Family History: Father , had COPD and [place]. Mother , had stroke. Social History: Negative for smoking and alcohol use. Physical Examination: Vital Signs: Height 5 feet 4 inches, weight 125 pounds, temperature , pulse , re spiratory rate , blood pressure . General: Awake, alert, oriented, not in distress. HEENT: Head atraumatic, normocephalic. Conjunctivae nonerythematous. Sclerae white. Mouth, no thr ush or edema noted. Ears/Nose, no mass, lesion, discharge noted. Neck: Supple. No JVD, lymph nodes, bruit, thyromegaly noted. Lungs: Bilateral good equal air entry. Clear to auscultation. No rhonchi. No rales. Heart: Normal heart sounds, no murmur or gallop. Abdomen: Soft, bowel sounds normal. No guarding, rigidity, tenderness, mass, hepatosplenomegaly, dis tention, or bruit noted. Extremities: The patient has trace edema involving lower extremities and left foot shows fifth toe i s completely black. There is no discharge or bleeding from this toe and skin proximal to the toe denita und the base of the toe is slightly pink and warm. Dorsalis pedis pulse is 1+. Skin: No rash, ulcer, cellulitis. Lymphatics: No lymph node enlargement in neck, supraclavicular, infraclavicular region. Neuro: No focal neurological deficit. Chest: Unremarkable. External Genitalia: Deferred. Rectal: Deferred. Laboratory Data: White count 5.3, hemoglobin 11.5, platelets 208. Sodium 135, potassium 3.2, chlori de 105, bicarb 25, BUN 23, creatinine 1.28, glucose 105. Liver function tests unremarkable. Impression: 1.Gangrene, left foot fifth toe. 2.Peripheral vascular disease. 3.Hypertension. 4.Leg edema. 5.Senile dementia. 6.Non-Hodgkin's lymphoma. 7.Osteopenia. 8.Vitamin D deficiency. 9.Hypokalemia. 10.Chronic kidney disease, stage IIIB. Plan: We will go ahead and admit the patient to hospital for further evaluation and management of th is problem. The patient is appropriate for inpatient and is expected to spend 2 midnights in [facility]. For gangrene of left foot fifth toe, we will go ahead and start her on antibiotic which is ceftri axone and vancomycin per order. Consult Pharmacy to manage vancomycin dosing. We will consult gener al surgeon, Dr. Colin and the patient was made aware of the fact that we will not be able to save her fifth toe and she will need to have amputation of this fifth toe of the left foot. For peripheral v ascular disease, we will evaluate that with arterial Doppler study which was ordered. For her hypert ension and chronic leg edema, she is on diuretic therapy which we will continue that. Monitor blood pressure if necessary. Adjust medication. For her senile dementia, she is on memantine and we will continue that per order. No need for further intervention on it. Replace potassium which was slight ly low and monitor electrolytes and renal function. Chronic kidney disease, stage IIIB. Will not re quire any further intervention except periodic monitoring. Details and plan of treatment discussed w ith the patient. I will see her tomorrow for followup. ELBERT/MODL Voice ID: [id number]
[2023-07-16] MEDS: BUPIVACAINE 0.5% PF 10 ML VIAL ONE ×2 (07:29→08:12)
[2023-07-16] MEDS: Ringers Lactate 1,000 ML IV ONE ×2 (07:30→07:40)
[2023-07-16] MEDS ORDERED: propofoL 200 MG/20 ML VIAL IV ONE (07:53)
[2023-07-16] MEDS ORDERED: FENTANYL CITR 100 MCG/2 ML ONE (07:53)
--- NOTE | 2023-07-16 08:46 | P.OP ---
Date of Service: 07/16/23 Preop diagnosis: Left fifth toe gangrene Postop diagnosis: Same Procedure performed: Left fifth toe transmetatarsal amputation Surgeon: Crispin Colin MD Analysis Consultant: Ashley ZAMORA Estimated blood loss: Minimal Specimen: Left fifth toe Findings: Gangrene left fifth toe Anesthesia: General Complications: None Drains: None Fluids and blood products: Nonapplicable Disposition: Recovery room Operative note: Patient brought to the OR and placed in supine position. General anesthesia begun. Patient prepped and draped in the usual sterile fashion. Marcaine 0.5% infiltrated in a field block fashion. 15 blade used to make a circular incision around the base of the fifth toe on normal tissue proximal to the gangrene. Subcu tissue divided and bleeding controlled cautery. Dissection proceeded all the way down to the base of the proximal phalanx bone cutter and rongeur used to remove the left fifth toe the metatarsal head identified and debrided with rongeur smooth edges obtained wound irrigated and bleeding controlled cautery 2-0 chromic used to reapproximate subcutaneous tissue 3-0 nylon used to loosely close the skin after flaps were created. Sterile dressing applied. Patient awakened and taken to recovery room in good general condition. CC: Dr. Jones's office
[2023-07-16] MEDS ORDERED: HYDROMORPHONE HCL 0.5 MG/0.5 ML INJ IV PRN (09:00)
[2023-07-16] MEDS ORDERED: POTASSIUM CL SA 10 MEQ TAB PO ONE (09:00)
[2023-07-16] MEDS: MAXZIDE (HCTZ 25/TRIAMTERENE 37.5MG) TAB PO SCH (09:39)
[2023-07-16] MEDS: MEMANTINE HCL 10 MG TABLET PO SCH ×2 (09:39→20:43)
[2023-07-16] MEDS: CEFTRIAXONE 1,000 MG in NA CHLORIDE 0.9% 50 ML IVPB SCH ×2 (09:40→20:42)
--- NOTE | 2023-07-16 12:06 | PN ---
Date of Progress Note: 07/16/2023 Subjective: The patient was seen this morning for followup. No new complaints or problems reported by the patient, lying in bed. I saw her prior to surgery and she was lying in bed, not in distress. No new complaints or problems reported. Objective: Vital Signs: Reviewed. HEENT: Unremarkable. Lungs: Clear to auscultation. Heart: Sounds normal. Abdomen: Soft. Bowel sounds normal. No guarding, rigidity, tenderness, distention. Extremities: No leg edema. Impression: 1.Gangrene, left foot fifth toe. 2.Peripheral vascular disease. 3.Hypertension. Plan: We will go ahead and continue current antibiotic. The patient will have surgery today for amp utation of the left foot fifth toe. We will continue current vancomycin and ceftriaxone and I will s ee her tomorrow for followup. Postoperatively, we will have Physical Therapy start working with the patient. ELBERT/MODL Voice ID: [id number] Report ID: [id number]
[2023-07-16] MEDS: HYDROCODONE/APAP 5/325 MG TAB PO PRN ×2 (15:24→19:34)
[2023-07-16] MEDS: VANCOMYCIN 0.75 GM in NA CHLORIDE 0.9% 150 ML IVPB SCH (20:43)
[2023-07-17 04:29] LABS: Potassium 3.6 mEq/L (3.5-5.1)
[2023-07-17] MEDS: HYDROCODONE/APAP 5/325 MG TAB PO PRN ×3 (05:39→17:33)
[2023-07-17] MEDS: MAXZIDE (HCTZ 25/TRIAMTERENE 37.5MG) TAB PO SCH (08:46)
[2023-07-17] MEDS: CEFTRIAXONE 1,000 MG in NA CHLORIDE 0.9% 50 ML IVPB SCH ×2 (08:46→19:55)
[2023-07-17] MEDS: MEMANTINE HCL 10 MG TABLET PO SCH ×2 (08:46→19:55)
[2023-07-17] MEDS ORDERED: POTASSIUM CL SA 10 MEQ TAB PO ONE (09:00)
[2023-07-17] MEDS ORDERED: VANCOMYCIN 1 GM in NA CHLORIDE 0.9% 250 ML IVPB SCH (10:00)
[2023-07-17] MEDS: VANCOMYCIN 750 MG in NA CHLORIDE 0.9% 150 ML IVPB SCH ×2 (10:01→21:48)
--- NOTE | 2023-07-17 13:54 | PN ---
Date of Progress Note: 07/17/2023 Subjective: The patient is awake, alert. Has mild discomfort in the foot. No fever or chills. Objective: Vital Signs: Stable. Afebrile. Skin: Examination of the wound reveals it to be minimal serosanguineous drainage. Skin around the i ncision is very viable. There is no evidence of any ischemia or necrosis. Assessment: Status post left fifth toe transmetatarsal amputation. Recommendations: Continue wound care as ordered. Physical Therapy to help the patient ambulate and discharge planning per Dr. Jones. The patient can be discharged home on oral antibiotics tomorrow. T he patient can follow up with me [facility] upon discharge. /MODL Voice ID: [id number] Report ID: [id number]
[2023-07-18 06:51] LABS: Magnesium 2.1 mg/dL (1.6-2.4); Potassium 3.8 mEq/L (3.5-5.1)
--- NOTE | 2023-07-18 07:06 | PN ---
Date of Progress Note: 07/17/2023 Subjective: Patient was seen this morning for followup. No new complaints or problems reported by t he patient, lying in bed, not in distress. She had amputation of left foot fifth toe yesterday and h as done very well postoperatively. Denies any complaints today. Objective: Vital Signs: Reviewed. HEENT: Unremarkable. Lungs: Clear to auscultation. Heart: Sounds normal. Abdomen: Soft. Bowel sounds normal. No guarding, rigidity, tenderness, distention. Extremities: No leg edema. Left foot has dressing present. Impression: 1.Gangrene, left foot, status post amputation of fifth toe. 2.Peripheral vascular disease, mild. 3.Hypertension. Plan: We will go ahead and continue to follow up with Dr. Colin. Continue current pain medication, continue current antibiotics, and I will see her tomorrow for followup. Leg exercises were taught to the patient today while she is in the hospital and lying in the bed. She was advised to do these le g exercises. ELBERT/MODL Voice ID: [id number] Report ID: [id number]
[2023-07-18] MEDS: HYDROCODONE/APAP 5/325 MG TAB PO PRN (08:23)
[2023-07-18] MEDS: MEMANTINE HCL 10 MG TABLET PO SCH (08:23)
[2023-07-18] MEDS: MAXZIDE (HCTZ 25/TRIAMTERENE 37.5MG) TAB PO SCH (08:23)
[2023-07-18] MEDS: CEFTRIAXONE 1,000 MG in NA CHLORIDE 0.9% 50 ML IVPB SCH (08:24)
[2023-07-18] MEDS ORDERED: POTASSIUM CL SA 10 MEQ TAB PO ONE (09:00)
[2023-07-18] MEDS: VANCOMYCIN 750 MG in NA CHLORIDE 0.9% 150 ML IVPB SCH (09:03)
[2023-07-18 09:39] VITALS: O2SAT 99
--- NOTE | 2023-07-18 09:45 | PN ---
Date of Progress Note: 07/18/2023 Subjective: The patient is awake, alert. No complaint. Subjective: Vital Signs: Stable, afebrile. Skin: Dressing is clean, dry, intact. Wound was seen yesterday, healing very well. Assessment: Status post left fifth toe transmetatarsal amputation. Recommendation: The patient was cleared from surgery for discharge. Ten days of antibiotics per Dr. Jones. Wound care as ordered. Follow up [facility], in my clinic. Discharge instr uctions given. /MODL Voice ID: [id number] Report ID: [id number]
[2023-07-18 12:37] VITALS: TEMP 97.6
[2023-07-18 17:24] VITALS: BP 125/66
--- NOTE | 2023-07-18 21:12 | DS ---
Date of Discharge: 07/18/2023 Disposition: Discharged to go home. Physical Examination: HEENT: Unremarkable. Lungs: Clear to auscultation. Heart: Sounds normal. Abdomen: Soft. Bowel sounds normal. No guarding, rigidity, tenderness, distention. Extremities: No leg edema. Discharge Medications And Instructions: 1.Continue all prior home medications. 2.Take Augmentin 500 mg 1 tablet by mouth 2 times a day for 10 days. 3.Follow up at my office next week. 4.Follow up with Dr. Colin next week. 5.Left foot wound care, dressing changes as per instruction from Dr. Colin. Discharge Diagnosis: 1.Left foot 5th toe gangrene. 2.Peripheral vascular disease. 3.Hypertension. 4.Chronic kidney disease stage 3A. Hospital Course: This is an 83-year-old female patient who was admitted to the hospital with gangren e of the left foot 5th toe. Please see dictated H and P for more information. After patient was noel luated at office, she was admitted to the hospital and she was started on ceftriaxone and vancomycin. Dr. Colin from General Surgery was consulted. Her chest x-ray was unremarkable. Left foot x-ray w as unremarkable and arterial Doppler of both lower extremities showed mild peripheral vascular diseas e. Dr. Colin from General surgery evaluated her and day after admission, he took her to surgery and performed amputation of the left foot 5th toe. Postoperatively, she did very well. She is ambulatin g well without much difficulty and today Dr. Colin has released her to go home from his point of view . Medically, she is stable for discharge. The patient was instructed to take Tylenol 500 mg 4 times a day as needed for pain and if she needs something stronger, then she will use tramadol 50 mg half a tablet 3-4 times a day as needed for pain. Social Service was consulted to help make arrangements for home health care services and home physical therapy and this was arranged today. ELBERT/MODL Voice ID: [id number] Report ID: [id number]
== END 2023-07-18 17:49 | disposition home health service (06) | DRG 257 ==
LOC: 2ND 20:35
PROVIDERS: ADMIT Internal Medicine; ATTEND Internal Medicine
PROC: 0Y6Y0Z0 Detachment at Left 5th Toe, Complete, Open Approach (ICD-10-PCS; principal; 2023-07-16 08:00)
DX: I96 Gangrene, not elsewhere classified (principal); E78.5 Hyperlipidemia, unspecified; I12.9 Hypertensive chronic kidney disease with stage 1 through stage 4 chronic kidney disease, or unspecified chronic kidney disease; N18.31 Chronic kidney disease, stage 3a; Z92.3 Personal history of irradiation; Z92.21 Personal history of antineoplastic chemotherapy; Z85.41 Personal history of malignant neoplasm of cervix uteri; Z86.711 Personal history of pulmonary embolism
CPT/HCPCS: 36415; 71045; 80048; 80053; 80202; 83735; 84132; 85025; 88305; 88311; 93925; J0696; J1170; J2704; J3010; J7050; J7120

== ENCOUNTER 2023-12-10 22:33 | Emergency (ER) | payer OTHER ==
--- NOTE | 2023-12-10 22:48 | EDPHYS ---
Physician Documentation [facility] Name: Fredis Diaz Age: 83 yrs Sex: Female : 1940 Arrival Date: 12/10/2023 Time: 22:33 Bed 12 Private MD: JAMES Physician Juan Arce HPI: 12/09 23:49 This 83 yrs old Female presents to ER via Ambulatory with complaints of Foreign Body In kb Ear. 23:49 Pt is an 83 year old female who presents for foreign body in left ear canal. States a kb piece of her hearing aid came off when she took the device out of her ear. States she does not feel it anymore but believes it is still in there. Historical: - Allergies: 22:39 No Known Allergies; ss - PMHx: 22:39 22 YRS AGO HAD CERVIAL CANCER; Dementia; CHEMO; EDEMA TO LOWER EXTS; Hypertensive ss disorder; LYMPHOMA; - Immunization history:: Client reports receiving the 2nd dose of the Covid vaccine. - Infectious Disease History:: Denies. - Social history:: Smoking status: Patient denies any tobacco usage or history of. ROS: 23:48 Constitutional: As per HPI kb Exam: 23:48 Constitutional: This is a well developed, well nourished patient who is awake, alert, kb and in no acute distress. Head/Face: Normocephalic, atraumatic. ENT: Moist Mucous membranes Cardiovascular: Regular rate Respiratory: Respirations even and unlabored. No increased work of breathing. Talking in full sentences Skin: Warm, dry with normal turgor. Normal color. MS/ Extremity: Pulses equal, no cyanosis. Neurovascular intact. Full, normal range of motion. Neuro: Awake and alert, GCS 15, oriented to person, place, time, and situation. Moves all extremities. Normal gait. 23:48 ENT: Ear canal(s): are normal, TM's: are normal, Vital Signs: 22:38 Pulse 84; Resp 16; Temp 97.9(TE); Pulse Ox 98% on R/A; Weight 56.7 kg; Height 5 ft. 4 ss in. ; Pain 0/10; 22:38 Body Mass Index 21.46 (56.70 kg, 162.56 cm) ss 22:38 Pain Scale: Adult ss MDM: 22:40 Patient medically screened. kb 23:48 Differential diagnosis: FB in ear canal. Data reviewed: vital signs, nurses notes. kb Management of patient was discussed with the following: Dr Arce, who examined pt as well. No foreign body seen by either of us. Counseling: I had a detailed discussion with the patient and/or guardian regarding the historical points, exam findings, and any diagnostic results supporting the discharge/admit diagnosis, the need for outpatient follow up, a family practitioner, to return to the emergency department if symptoms worsen or persist or if there are any questions or concerns that arise at home. Administered Medications: No medications were administered Disposition Summary: 12/10/23 22:48 Discharge Ordered Notes: Location: Home kb Condition: Stable kb Diagnosis - Person with feared health complaint in whom no diagnosis is made kb Followup: kb - With: Emergency Department - When: As needed - Reason: Worsening of condition Followup: kb - With: Private Physician - When: 2 - 3 days - Reason: Recheck today's complaints, Continuance of care, Re-evaluation by your physician Discharge Instructions: - Discharge Summary Sheet kb - Ear Foreign Body, [id number] kb Forms: - Medication Reconciliation Form kb - Antibiotic Education kb - Prescription Opioid Use kb - Patient Portal Instructions kb - Leadership Thank You Letter kb Signatures: Marla Walls, REGINALD-David MONTELONGO-Yuli Latif, RN RN ss
--- NOTE | 2023-12-10 22:48 | ER ---
Nurse's Notes [facility] Name: Fredis Diaz Age: 83 yrs Sex: Female : 1940 Arrival Date: 12/10/2023 Time: 22:33 Bed 12 Private MD: Diagnosis: Person with feared health complaint in whom no diagnosis is made Presentation: 12/09 22:38 Chief complaint: Patient states: piece of hearing aid lodged in L ear. Coronavirus ss screen: Client denies travel out of the [place] in the last 14 days. Ebola Screen: Patient denies exposure to infectious person. Patient denies travel to an Ebola-affected area in the 21 days before illness onset. Initial Sepsis Screen: Does the patient meet any 2 criteria? No. Patient's initial sepsis screen is negative. Does the patient have a suspected source of infection? No. Patient's initial sepsis screen is negative. Risk Assessment: Do you want to hurt yourself or someone else? Patient reports no desire to harm self or others. Onset of symptoms was December 10, 2023. 22:38 Method Of Arrival: Ambulatory ss 22:38 Acuity: JOSE 4 ss Historical: - Allergies: 22:39 No Known Allergies; ss - PMHx: 22:39 22 YRS AGO HAD CERVIAL CANCER; Dementia; CHEMO; EDEMA TO LOWER EXTS; Hypertensive ss disorder; LYMPHOMA; - Immunization history:: Client reports receiving the 2nd dose of the Covid vaccine. - Infectious Disease History:: Denies. - Social history:: Smoking status: Patient denies any tobacco usage or history of. Screenin:40 [facility] ED Fall Risk Assessment (Adult) History of falling in the last 3 months, ss including since admission No falls in past 3 months (0 pts). Abuse screen: Denies threats or abuse. Denies injuries from another. Nutritional screening: No deficits noted. Tuberculosis screening: Never had TB. Assessment: 22:40 General: Appears in no apparent distress. comfortable, Behavior is calm, cooperative. ss Pain: Denies pain. Neuro: Level of Consciousness is awake, alert, obeys commands. Respiratory: Airway is patent Respiratory effort is even, unlabored, Respiratory pattern is regular, symmetrical. Derm: Skin is intact, is healthy with good turgor, Skin is pink, warm \T\ dry. normal. 22:49 Reassessment: Patient appears in no apparent distress at this time. Patient and/or ss family updated on plan of care and expected duration. Pain level reassessed. ear canal clear. Vital Signs: 22:38 Pulse 84; Resp 16; Temp 97.9(TE); Pulse Ox 98% on R/A; Weight 56.7 kg; Height 5 ft. 4 ss in. ; Pain 0/10; 22:38 Body Mass Index 21.46 (56.70 kg, 162.56 cm) ss 22:38 Pain Scale: Adult ED Course: 22:35 Patient arrived in ED. [id number] 22:39 Triage completed. ss 22:39 Arm band placed on right wrist. ss 22:40 Marla Walls F[facility]-C [facility]. kb 22:40 Juan Arec MD is Attending Physician. kb 22:49 Yuli Julio, FABY is Primary Nurse. ss 22:49 Patient has correct armband on for positive identification. ss 22:49 No provider procedures requiring assistance completed. Patient did not have IV access ss during this emergency room visit. Administered Medications: No medications were administered Outcome: 22:48 Discharge ordered by MD. kb 22:49 Discharged to home ambulatory, ss 22:49 Condition: good 22:49 Discharge instructions given to patient, 23:04 Patient left the ED. Signatures: Marla Walls FNP-C FNP-Ckb Blanchard, Shelby, RN RN Dominique Brownfer [id number]
[2023-12-10 23:21] VITALS: TEMP 97.9; O2SAT 98
== END 2023-12-10 23:04 | disposition home or self-care (01) ==
LOC: ER 22:33
DX: Z71.1 Person with feared health complaint in whom no diagnosis is made (principal)
CPT/HCPCS: 99282

== ENCOUNTER 2024-08-03 17:08 | Emergency (ER) | payer OTHER ==
[2024-08-03 18:18] LABS: Specific Gravity 1.015 (1.005-1.030); Sqamous Epithelial None Seen /HPF (None Seen); Urine Bacteria None Seen /HPF (<20); Urine Bilirubin NEGATIVE (Negative); Urine Blood 3+ (OVER) (Negative); Urine Clarity Extremely Turbid (Clear); Urine Color Light-Orange (Yellow); Urine Crystals Unidentified Few /HPF (None Seen); Urine Culture Reflex Order REFLEXED; Urine Glucose NEGATIVE (Negative); Urine Ketones NEGATIVE (Negative); Urine Microscopic Reflex YN ORDER UMIC; Urine Nitrite NEGATIVE (Negative); Urine Protein 3+ (Negative); Urine RBC >50 /HPF (None Seen); Urine Urobilinogen Normal (Normal); Urine WBC >50 /HPF (<5); Urine WBC Clump Moderate /HPF (None Seen); Urine Yeast (Budding) Few /HPF (None Seen)
--- NOTE | 2024-08-03 18:32 | RAD REPORT ---
EXAMINATION: Stone Protocol CLINICAL INDICATION: Abdominal pain TECHNIQUE: CT abdomen and pelvis was performed, without IV contrast, as per department protocol. Oral contrast not given. Axial, sagittal and coronal reconstructions were obtained. One or more of the following dose reduction techniques were used: Automated exposure control, adjustment of the mA and k V according to the patient size, and iterative reconstruction. Unless otherwise specified, incidental findings do not require dedicated imaging follow-up. COMPARISON: 2022 FINDINGS: The lack of intravenous and oral contrast limits the sensitivity of this exam for evaluation of solid visceral organs, vascular structures, and bowel Bilateral renal cysts. A renal calculus not seen. No ureteral calculus. A bladder calculus not noted. No hydronephrosis Bladder wall thickening. Cholelithiasis. Gallbladder wall does not appear thickened. Liver, spleen, pancreas and adrenals grossly normal No evidence of diverticulitis. Normal appendix Mild anterior subluxation L4 on L5 Metallic structure within the cervix. Moderate amount stool within the colon IMPRESSION: Mild to moderate bladder wall thickening may indicate cystitis Moderate amount of stool within the colon Cholelithiasis without of cholecystitis
[2024-08-03] MEDS ORDERED: ONDANSETRON 4 MG/2 ML VIAL ONE (20:05)
[2024-08-03] MEDS ORDERED: PHENAZOPYRIDINE 100MG TAB PO ONE (20:05)
[2024-08-03] MEDS ORDERED: CEFTRIAXONE 1000 MG/VIAL ONE (20:05)
[2024-08-03] MEDS ORDERED: NA CHLORIDE 0.9% 500 ML ONE (20:06)
[2024-08-03 20:09] LABS: Absolute Eosinophils 0.2 K/uL (0-0.5); Absolute Lymphocytes (CBC) 0.9 K/uL (0.7-4.9); Absolute Monocytes 0.5 K/uL (0.1-1.3); Absolute Neutrophil 2.8 K/uL (1.8-8.0); Eosinophils % 4.4 % (0-4.4); Hematocrit 36.6 % (36.0-45.0); Hemoglobin 12.7 g/dL (12.0-15.0); Lymphocytes % 20.3 % (15.3-44.8); MCH 34.5 pg (27.0-35.0); MCHC 34.8 g/dL (32.0-36.0); MCV 99.1 fL (80-100); MPV 6.7 fL (7.6-11.3); Monocytes % 11.8 % (3.3-12.3); Neutrophils % 62.5 % (41.7-73.7); Nucleated Red Blood Cells % 0.1 % (0-0); Platelets 192 thou/uL (152-406); RBC Red Blood Cell Count 3.69 M/uL (3.86-4.86); Red Cell Distribution Width 13.9 % (12.1-15.2)
[2024-08-03] MEDS ORDERED: levoFLOXacin 250 MG TAB ONE (20:19)
[2024-08-03 20:26] LABS: Albumin 3.2 g/dL (3.4-5.0); Albumin/Globulin Ratio 0.9 (1.1-1.8); Anion Gap 8.3 mEq/L (5.0-15.0); Bilirubin Total 0.6 mg/dL (0.2-1.0); Globulin 3.7 g/dL (2.3-3.5); Potassium 3.3 mEq/L (3.5-5.1); Protein, Total 6.9 g/dL (6.4-8.2)
--- NOTE | 2024-08-03 20:37 | ER ---
Nurse's Notes [facility] Name: Fredis Diaz Age: 84 yrs Sex: Female : 1940 Arrival Date: 08/03/2024 Time: 17:08 Bed 11 Private MD: Diagnosis: UTI/ Urinary tract infection, site not specified;Acute cystitis with hematuria;Other cholelithiasis without obstruction;Hypokalemia;Chronic kidney disease, unspecified Presentation: 08/03 17:37 Chief complaint: Patient states: Diagnosed with UTI on 07/30 and placed on bactrim. Pt cm10 reports that the burning with urination has not improved. Pt also reports that now she has blood in her urine. Coronavirus screen: Client denies travel out of the [place] in the last 14 days. Ebola Screen: Patient denies travel to an Ebola-affected area in the 21 days before illness onset. Initial Sepsis Screen: Does the patient meet any 2 criteria? No. Patient's initial sepsis screen is negative. Does the patient have a suspected source of infection? No. Patient's initial sepsis screen is negative. Risk Assessment: Do you want to hurt yourself or someone else? Patient reports no desire to harm self or others. Onset of symptoms was August 03, 2024. 17:37 Method Of Arrival: Ambulatory cm10 17:37 Acuity: JOSE 3 cm10 Triage Assessment: 17:39 General: Appears in no apparent distress. comfortable, Behavior is calm, cooperative. cm10 Pain: Denies pain. Neuro: No deficits noted. Level of Consciousness is awake, alert, obeys commands, Oriented to person, place, time, situation, Appropriate for age. Respiratory: No deficits noted. Airway is patent Respiratory effort is even, unlabored, Respiratory pattern is regular, symmetrical. : Reports burning with urination. 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 - Infectious Disease History:: Denies. - Social history:: Smoking status: Patient denies any tobacco usage or history of. - Family history:: not pertinent. Screenin:15 [facility] ED Fall Risk Assessment (Adult) History of falling in the last 3 months, me1 including since admission No falls in past 3 months (0 pts) Confusion or Disorientation No (0 pts) Intoxicated or Sedated No (0 pts) Impaired Gait Yes (1 pt) Mobility Assist Device Used Yes (1 pt) Altered Elimination No (0 pt) Score/Fall Risk Level 0 - 2 = Low Risk Maintained a safe environment, Provided non-skid footwear, Hourly rounding (assess needs \T\ fall precautionary measures) done. Abuse screen: Denies threats or abuse. Nutritional screening: No deficits noted. Tuberculosis screening: No symptoms or risk factors identified. Assessment: 20:15 General: Appears in no apparent distress. well groomed, well developed, well nourished, me1 Behavior is calm, cooperative, appropriate for age, Reports Diagnosed with UTI on 2/3 and placed on bactrim. Pt reports that the burning with urination has not improved. Pt also reports that now she has blood in her urine. Pain: Denies pain. Neuro: Level of Consciousness is awake, alert, obeys commands, Oriented to person, place, time, situation, Appropriate for age. Cardiovascular: Patient's skin is warm and dry. Respiratory: Airway is patent Respiratory effort is even, unlabored, Respiratory pattern is regular, symmetrical. GI: No signs and/or symptoms were reported involving the gastrointestinal system. : Reports burning with urination, urinary frequency, since 2/3. EENT: No signs and/or symptoms were reported regarding the EENT system. Derm: Skin is intact, is healthy with good turgor, Skin is pink, warm \T\ dry. Musculoskeletal: No signs and/or symptoms reported regarding the musculoskeletal system. Vital Signs: 17:37 BP 153 / 93; Pulse 81; Resp 14; Temp 98.7; Pulse Ox 97% on R/A; Weight 61.23 kg; Height cm10 5 ft. 4 in. ; Pain 0/10; 20:14 BP 147 / 69; Pulse 68; Resp 17; Pulse Ox 100% on R/A; me1 20:58 BP 141 / 71; Pulse 65; Resp 16; Temp 98.2; Pulse Ox 99% ; me1 17:37 Body Mass Index 23.17 (61.23 kg, 162.56 cm) cm10 17:37 Pain Scale: Adult cm10 ED Course: 17:12 Patient arrived in ED. im 17:17 Juan Arce MD is Attending Physician. cristiane 17:38 Triage completed. cm10 17:39 Arm band placed on right wrist. Patient placed in waiting room. cm10 18:12 Urine Culture Sent. cm10 18:12 Urinalysis w/ reflexes Sent. cm10 18:23 CT Stone Protocol In Process Unspecified. EDMS 19:40 Lynn Munguia, FABY is Primary Nurse. me1 20:03 CBC with Diff Sent. me1 20:03 CMP Sent. me1 20:03 Lipase Sent. me1 20:03 Initial lab(s) drawn, by mt, sent to lab. Inserted saline lock: 22 gauge in left me1 antecubital area, using aseptic technique. 20:15 Patient has correct armband on for positive identification. Bed in low position. Call mt1 light in reach. Side rails up X 1. Provided Education on: POC. Verbalized understanding.. 20:15 No provider procedures requiring assistance completed. me1 20:36 Alli Joseph MD is Referral Physician. cristiane 21:05 IV discontinued, intact, bleeding controlled, No redness/swelling at site. Pressure me1 dressing applied. Administered Medications: 20:14 Drug: Ondansetron IVP 4 mg IVP once; over 2 minutes Route: IVP; Site: left antecubital; me1 20:22 Follow up: Response: No adverse reaction; Nausea is decreased me1 20:14 Drug: Rocephin IV 1 grams IV at per protocol once; Given slow IV push per pharmacy me1 instructions Route: IV; Rate: per protocol; Site: left antecubital; 20:22 Follow up: Response: No adverse reaction; IV Status: Completed infusion me1 20:14 Drug: NS 0.9% IV 500 ml 500 ml IV at 1 bolus once; to be given as a bolus over 30 me1 minutes Volume: 500 ml; Route: IV; Rate: 1 bolus; Site: left antecubital; 20:46 Follow up: Response: No adverse reaction; IV Status: Completed infusion; IV Intake: me1 500ml 20:14 Drug: Phenazopyridine PO 200 mg PO once Route: PO; me1 20:43 Follow up: Response: No adverse reaction me1 20:21 Drug: LevOfloxacin PO 500 mg PO once Route: PO; me1 20:43 Follow up: Response: No adverse reaction me1 20:46 Drug: Potassium PO Effervescent Tablet 25 mEq PO once; dissolve in 4 ounces of water or me1 juice Route: PO; 20:46 Follow up: Response: No adverse reaction me1 Medication: 20:15 VIS not applicable for this client. me1 Intake: 20:46 IV: 500ml; Total: 500ml. me1 Outcome: 20:36 Discharge ordered by . cristiane 21:05 Discharged to home ambulatory, with friend, [facility] 21:05 Condition: stable 21:05 Discharge instructions given to patient, Instructed on discharge instructions, follow up and referral plans. medication usage, Demonstrated understanding of instructions, follow-up care, medications, Prescriptions given X 4, 21:06 Patient left the ED. me1 Signatures: Dispatcher [employer] EDJuan Gonzalez MD MD cha Mendoza, Olga Borges RN RN [facility] Lynn Munguia RN RN mt1 Corrections: (The following items were deleted from the chart) 19:55 17:37 Chief complaint: Patient states: Diagnosed with UTI on 2 and placed on bactrim. me1 Pt reports that the burning with urination has not improved. Pt also reports that now she has blood in her urine. [facility] 20:15 17:37 Chief complaint: Patient states: Diagnosed with UTI on 23 and placed on bactrim. me1 Pt reports that the burning with urination has not improved. Pt also reports that now she has blood in her urine. me1
--- NOTE | 2024-08-03 20:37 | EDPHYS ---
Physician Documentation [facility] Name: Fredis Diaz Age: 84 yrs Sex: Female : 1940 Arrival Date: 08/03/2024 Time: 17:08 Bed 11 Private MD: JAMES Physician Juan Arce HPI: 08/03 18:30 This 84 yrs old Female presents to ER via Ambulatory with complaints of cristiane Urinary Problem - blood. 18:30 The patient presents with urinary symptoms, dysuria, frequency, hematuria, urgency. cristiane Onset: The symptoms/episode began/occurred 3 day(s) ago. Modifying factors: The symptoms are alleviated by nothing, the symptoms are aggravated by urinating. Associated signs and symptoms: The patient has no apparent associated signs or symptoms. Severity of symptoms: At their worst the symptoms were mild, in the emergency department the symptoms are unchanged. The patient is not sexually active. The patient has experienced similar episodes in the past, several times. 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 - Infectious Disease History:: Denies. - Social history:: Smoking status: Patient denies any tobacco usage or history of. - Family history:: not pertinent. ROS: 18:30 Constitutional: Negative for fever, chills, and weight loss, Eyes: Negative for injury, cristiane pain, redness, and discharge, ENT: Negative for injury, pain, and discharge, Neck: Negative for injury, pain, and swelling, Cardiovascular: Negative for chest pain, palpitations, and edema, Respiratory: Negative for shortness of breath, cough, wheezing, and pleuritic chest pain, Abdomen/GI: Negative for abdominal pain, nausea, vomiting, diarrhea, and constipation, Back: Negative for injury and pain, MS/Extremity: Negative for injury and deformity, Skin: Negative for injury, rash, and discoloration, Neuro: Negative for headache, weakness, numbness, tingling, and seizure, Psych: Negative for depression, anxiety, suicide ideation, homicidal ideation, and hallucinations, Allergy/Immunology: Negative for hives, rash, and allergies, Endocrine: Negative for neck swelling, polydipsia, polyuria, polyphagia, and marked weight changes, Hematologic/Lymphatic: Negative for swollen nodes, abnormal bleeding, and unusual bruising, 18:30 : Positive for urinary symptoms, urinary frequency, hematuria, burning with urination, difficulty urinating, Exam: 18:30 Constitutional: This is a well developed, well nourished patient who is awake, alert, cristiane and in no acute distress. Head/Face: Normocephalic, atraumatic. Eyes: Pupils equal round and reactive to light, extra-ocular motions intact. Lids and lashes normal. Conjunctiva and sclera are non-icteric and not injected. Cornea within normal limits. Periorbital areas with no swelling, redness, or edema. ENT: Nares patent. No nasal discharge, no septal abnormalities noted. Tympanic membranes are normal and external auditory canals are clear. Oropharynx with no redness, swelling, or masses, exudates, or evidence of obstruction, uvula midline. Mucous membranes moist. Neck: Trachea midline, no thyromegaly or masses palpated, and no cervical lymphadenopathy. Supple, full range of motion without nuchal rigidity, or vertebral point tenderness. No Meningismus. Chest/axilla: Normal chest wall appearance and motion. Nontender with no deformity. No lesions are appreciated. Cardiovascular: Regular rate and rhythm with a normal S1 and S2. No gallops, murmurs, or rubs. Normal PMI, no JVD. No pulse deficits. Respiratory: Lungs have equal breath sounds bilaterally, clear to auscultation and percussion. No rales, rhonchi or wheezes noted. No increased work of breathing, no retractions or nasal flaring. Back: No spinal tenderness. No costovertebral tenderness. Full range of motion. Skin: Warm, dry with normal turgor. Normal color with no rashes, no lesions, and no evidence of cellulitis. MS/ Extremity: Pulses equal, no cyanosis. Neurovascular intact. Full, normal range of motion., bilateral aka Neuro: Awake and alert, GCS 15, oriented to person, place, time, and situation. Cranial nerves II-XII grossly intact. Motor strength 5/5 in all extremities. Sensory grossly intact. Cerebellar exam normal. Normal gait. Psych: Awake, alert, with orientation to person, place and time. Behavior, mood, and affect are within normal limits. 18:30 Abdomen/GI: Inspection: abdomen appears normal, Bowel sounds: normal, Palpation: mild abdominal tenderness, in the suprapubic area, Liver: no appreciated palpable abnormalities, Hernia: not appreciated, Vital Signs: 17:37 BP 153 / 93; Pulse 81; Resp 14; Temp 98.7; Pulse Ox 97% on R/A; Weight 61.23 kg; Height cm10 5 ft. 4 in. ; Pain 0/10; 20:14 BP 147 / 69; Pulse 68; Resp 17; Pulse Ox 100% on R/A; me1 20:58 BP 141 / 71; Pulse 65; Resp 16; Temp 98.2; Pulse Ox 99% ; me1 17:37 Body Mass Index 23.17 (61.23 kg, 162.56 cm) cm10 17:37 Pain Scale: Adult cm10 MDM: 17:43 Medical Screening Exam initiated cristiane 18:32 Differential diagnosis: endometriosis, malignancy, urinary tract infection. Data [facility] reviewed: vital signs, nurses notes, lab test result(s), radiologic studies, plain films. Consideration of Admission/Observation Escalation of care including admission/observation considered. I considered the following discharge prescriptions or medication management in the emergency department Medications were administered in the Emergency Department. See MAR. Independent interpretation of the following test(s) in the Emergency Department CT Scan: My interpretation is CT STONE. Test considered but Not performed: Ultrasound NO RENAL USG. Historians other than the Patient: Friend: FRIEND WELL INFORMED. Care significantly affected by the following chronic conditions: Cancer, DEMENTIA. 08/03 17:18 Order name: CBC with Diff; Complete Time: 20:16 [facility] 08/03 17:18 Order name: CMP; Complete Time: 20:34 [facility] 08/03 17:18 Order name: Lipase; Complete Time: 20:34 [facility] 08/03 17:18 Order name: Urinalysis w/ reflexes; Complete Time: 18:29 [facility] 08/03 17:18 Order name: Urine Culture [facility] 08/03 17:53 Order name: CT Stone Protocol; Complete Time: 20:16 [facility] 08/03 17:18 Order name: IV Saline Lock; Complete Time: 20:03 [facility] 08/03 17:18 Order name: Labs collected and sent; Complete Time: 20:03 [facility] 08/03 20:36 Order name: PO challenge: juice; Complete Time: 20:43 cristiane Administered Medications: 20:14 Drug: Ondansetron IVP 4 mg IVP once; over 2 minutes Route: IVP; Site: left antecubital; me1 20:22 Follow up: Response: No adverse reaction; Nausea is decreased me1 20:14 Drug: Rocephin IV 1 grams IV at per protocol once; Given slow IV push per pharmacy me1 instructions Route: IV; Rate: per protocol; Site: left antecubital; 20:22 Follow up: Response: No adverse reaction; IV Status: Completed infusion me1 20:14 Drug: NS 0.9% IV 500 ml 500 ml IV at 1 bolus once; to be given as a bolus over 30 me1 minutes Volume: 500 ml; Route: IV; Rate: 1 bolus; Site: left antecubital; 20:46 Follow up: Response: No adverse reaction; IV Status: Completed infusion; IV Intake: me1 500ml 20:14 Drug: Phenazopyridine PO 200 mg PO once Route: PO; me1 20:43 Follow up: Response: No adverse reaction me1 20:21 Drug: LevOfloxacin PO 500 mg PO once Route: PO; me1 20:43 Follow up: Response: No adverse reaction me1 20:46 Drug: Potassium PO Effervescent Tablet 25 mEq PO once; dissolve in 4 ounces of water or me1 juice Route: PO; 20:46 Follow up: Response: No adverse reaction me1 Disposition Summary: 08/03/24 20:36 Discharge Ordered Notes: Location: Home cristiane Problem: new cristiane Symptoms: have improved cristiane Condition: Stable cristiane Diagnosis - UTI/ Urinary tract infection, site not specified cristiane - Acute cystitis with hematuria cristiane - Other cholelithiasis without obstruction cristiane - Hypokalemia cristiane - Chronic kidney disease, unspecified cristiane Followup: cristiane - With: Private Physician - When: 2 - 3 days - Reason: Recheck today's complaints, Continuance of care, Re-evaluation by your physician Followup: cristiane - With: Alli Joseph MD - When: 2 - 3 days - Reason: Recheck today's complaints, Re-evaluation by your physician Discharge Instructions: - Discharge Summary Sheet cristiane - Potassium Content of Foods cristiane - Dysuria cristiane - Urinary Tract Infection, Adult cristiane - Cholelithiasis cristiane - Urinary Tract Infection, Adult, [id number] cristiane - Chronic Kidney Disease, Adult, [id number] cristiane - Hypokalemia [facility] Forms: - Medication Reconciliation Form [facility] - Antibiotic Education cristiane - Prescription Opioid Use cristiane - Patient Portal Instructions [facility] - Leadership Thank You Letter [facility] Prescriptions: - cefdinir 300 mg Oral capsule - take 1 capsule ORAL route 2 times per day for 5 days; 10 capsule; Refills: 0, [facility] Product Selection Permitted - Pyridium 200 mg Oral Tablet - take 1 tablet ORAL route every 8 hours for 3 days; 9 tablet; Refills: 0, [facility] Product Selection Permitted - Fluconazole 200 mg Oral tablet - take 1 tablet ORAL route once REPEAT IN 1 WEEK IF SYMPTOMS PERSIST; 2 tablet; cristiane Refills: 0, Product Selection Permitted - levofloxacin 250 mg Oral tablet - take 1 tablet ORAL route once daily; 8 tablet; Refills: 0, Product Selection cristiane Permitted Signatures: Dispatcher [employer] Juan Augustine MD MD cha Martinez, Clarissa RN RN cm10 Lynn Munguia RN RN me1 Corrections: (The following items were deleted from the chart) 17:54 17:54 [place] Protocol+CT.RAD.BRZ ordered. MUKUND EDMS
[2024-08-03] MEDS ORDERED: POTASSIUM 25 MEQ EFFERV TAB ONE (20:44)
[2024-08-03 21:39] VITALS: BP 141/71; TEMP 98.2; O2SAT 99
== END 2024-08-03 21:06 | disposition home or self-care (01) ==
LOC: ER 17:08
DX: N30.01 Acute cystitis with hematuria (principal); K80.80 Other cholelithiasis without obstruction; E87.6 Hypokalemia; I12.9 Hypertensive chronic kidney disease with stage 1 through stage 4 chronic kidney disease, or unspecified chronic kidney disease; N18.9 Chronic kidney disease, unspecified
CPT/HCPCS: 96361; 87088; 85025; 81001; 87086; 36415; 87077; 87186; 83690; 80053; 76377; 74176; 96375; 96374; 99284; J2405; J7040; J0696